=== PATIENT | male | born 1960 | race Caucasian/White ===

== ENCOUNTER → 2018-01-29 08:29 | Outpatient (CLI) | payer SELFPAY ==
--- NOTE | 2018-01-29 08:39 | RAD_ITS ---
STUDY: X-RAY - LUMBOSACRAL SPINE REASON FOR EXAM: Male, 57 years old. Pain TECHNIQUE: 7 view(s) of the lumbosacral spine were obtained. COMPARISON: Limited comparison May 01, 2014 FINDINGS: Normal lumbar lordosis. There is no substantial scoliosis. There is normal alignment of the vertebrae. There is a spinal fusion at L5-S1 with a disc spacer. There is an anterior cortical screw and bilateral pedicle screws with spinal rods. There is trace narrowing and spondylosis at the posterior aspect of the disc space at L1-L2. There is no apparent acute loss of height or alignment. With flexion there is a similar appearance of the alignment when compared to the neutral view. With extension there is a similar appearance of alignment with the neutral view. Normal visualized soft tissue structures. RAD/L/S Spine Bending Flex/Ext IMPRESSION: Status post spinal fusion as detailed above L5-S1. No visualized instability based on the flexion-extension effort provided. Electronically Signed: Susie Stern MD at 17:24 EDT Tel , Service support ,
== END ==
PROVIDERS: Family Provider Family Medicine; PCP Family Medicine; Visit Provider Family Medicine
DX: M54.9 Dorsalgia, unspecified (principal)
CPT/HCPCS: 72120

== ENCOUNTER → 2018-03-15 09:13 | Outpatient (CLI) | payer SELFPAY ==
[2018-03-15 11:08] LABS: Anion Gap 4 (5-15); BUN 9 mg/dL (7-18); BUN/Creat Ratio 8.5 RATIO (10-20); Calcium,Total 9.5 mg/dL (8.5-10.1); Chloride 104 mmol/L (98-107); Cholesterol 280 mg/dL (200); Creatinine, Serum 1.06 mg/dL (0.70-1.30); EST Glomerular Filtration Rate 76 mL/min (>60); Est Glom Filt Rate - Afr Amer 92 mL/min (>60); Glucose 99 mg/dL (74-106); High Density Lipoprotein 44 mg/dL; Potassium 4.2 mmol/L (3.5-5.1); Sodium Level 139 mmol/L (136-145); Triglycerides 195 mg/dL; Very Low Density Lipoprotein 39 mg/dL (5-40)
== END ==
PROVIDERS: Family Provider Family Medicine; PCP Family Medicine; Visit Provider Family Medicine
DX: Z00.00 Encounter for general adult medical examination without abnormal findings (principal)
CPT/HCPCS: 36415; 80048; 80061

== ENCOUNTER → 2018-10-01 11:57 | Outpatient (CLI) | payer SELFPAY | PROVIDERS: Family Provider Family Medicine; PCP Family Medicine; Referring Provider Family Medicine; Visit Provider Family Medicine | DX: Z01.818 Encounter for other preprocedural examination (principal) | CPT/HCPCS: 87081 ==

== ENCOUNTER 2019-03-18 09:49 | Observation (INO) | payer OTHER, SELFPAY ==
[2019-03-18] VITALS (10 sets, daily range): BP systolic 104–165; BP diastolic 52–99; PULSE 58–82; RESP 12–18; TEMP 36.5–36.8; O2SAT 94–97; BMI 32.8; BMI 32.7
--- NOTE | 2019-03-18 10:01 | EKG12_ITS ---
Test Reason : CP Blood Pressure : / mmHG Vent. Rate : 066 BPM Atrial Rate : 066 BPM P-R Int : 158 ms QRS Dur : 090 ms QT Int : 390 ms P-R-T Axes : 058 -40 030 degrees QTc Int : 408 ms Normal sinus rhythm with sinus arrhythmia Left axis deviation Low Voltage QRS (Limb Leads) Abnormal ECG Confirmed by GWYN STEWART, NICOL ([id number]), international editorial producer [employer] ([id number]) on 03/19/2019 11:22:48 AM Referred By: Genaro Butler Confirmed By:NICOL PASCAL MD
--- NOTE | 2019-03-18 10:04 | ED.VISSUMM ---
- ER Visit Summary Date of Service: 03/18/19 Chief Complaint: Chest pain History of Present Illness: The patient is a 58 M presenting with chest pain. He states this started yesterday while walking home from [employer]. He states he had to walk approximately half mile uphill. He began having left-sided chest pain. It was associated with nausea and shortness of breath. He states the pain was 8 out of 10. He states when he returned home and rested the pain subsided. He woke up this morning with pain that was not as severe. He wanted to walk up a hill to see if it worsened but his family did not allow this. He called his primary care physician and was advised to come to the ED. Physical Examination: Vitals are stable. Patient is afebrile. Alert no acute distress. HEENT exam is unremarkable. Neck is supple. Lungs are clear and equal bilaterally. Heart is regular rate and rhythm. Abdomen is soft nontender nondistended. Extremities are unremarkable. Skin is warm and dry. No focal neurologic deficit. Remainder of exam is unremarkable. Emergency Department Course and Treatment: Patient was given aspirin on arrival. EKG is sinus rate of 66 with no acute ischemic changes. Chest x-ray shows no acute process. CBC, chemistries unremarkable. Troponin 0.022. Patient is pain-free on reevaluation. Due to his exertional symptoms discussed with the hospitalist for observation. Disposition: Observation Impression: Chest pain This note was generated with [employer] dictation software. It may contain incorrect words, spelling, and punctuation that were not noted in review of the chart prior to signing ED Disposition - Plan for ED Patient: Referrals: Jorge Benitez MD [Primary Care Provider] -
--- NOTE | 2019-03-18 10:05 | RAD_ITS ---
STUDY: X-RAY CHEST REASON FOR EXAM: Male, 58 years old. Chest pain TECHNIQUE: Single AP portable view of the chest. COMPARISON: None. FINDINGS: The lungs are clear and expanded. There is no demonstrated pleural abnormality. Normal size heart. Normal mediastinum and mellissa. Normal visualized pulmonary arteries. Normal visualized aortic arch and descending thoracic aorta. Normal visualized thoracic spine. Normal visualized ribs, clavicles, and shoulders. There is no demonstrated abnormality of the visualized soft tissue structures of the upper abdomen. RAD/Chest 1 View (Portable) IMPRESSION: Normal x-ray examination of the chest. Electronically Signed: Yossi Sutton, at 10:58 EDT Tel , Service support ,
[2019-03-18] MEDS: Aspirin 81 MG TAB.CHEW 324 MG PO (10:07)
[2019-03-18 10:26] LABS: Absolute Lymphocyte Count 2.03 X10^3/ul (0.83-4.51); Absolute Neutrophil Count 3.1 X10^3/uL (2.0-7.7); Basophil# 0.01 X10^3/uL; Basophil% 0.2 % (0-1); Eosinophil# 0.04 X10^3/uL; Eosinophils% 0.7 % (0-5); Hematocrit 42.6 % (40-54); Hemoglobin 14.3 g/dl (13.0-16.5); Lymphocyte # 2.03 X10^3/ul (4.0); Lymphocyte % 36.2 % (19-41); Mean Corp Hgb Conc 33.6 g/gl (32-36); Mean Corpuscular Hgb 30.3 pg (27.0-32.0); Mean Corpuscular Volume 90.3 fL (80-94); Mean Platelet Vol. 10.2 fl (6.2-12.0); Monocyte% 7.1 % (0-10); Neutrophil % 55.3 % (47-70); Platelet Count 178 K/mm3 (150-450); RBC Distribution Width CV 13.1 % (11.6-14.6); RBC Distribution Width SD 43.4 fl (35.1-43.9); Red Blood Count 4.72 M/mm3 (4.6-6.2); White Blood Count 5.6 K/mm3 (4.4-11.0)
[2019-03-18 10:27] LABS: POSITIVE COUNT NO; POSITIVE DIFFERENTIAL NO; POSITIVE MORPHOLOGY NO
[2019-03-18 10:38] LABS: Anion Gap 3 (5-15); BUN 16 mg/dL (7-18); BUN/Creat Ratio 16.5 RATIO (10-20); Calcium,Total 8.7 mg/dL (8.5-10.1); Chloride 104 mmol/L (98-107); Creatinine, Serum 0.97 mg/dL (0.70-1.30); EST Glomerular Filtration Rate 84 mL/min (>60); Est Glom Filt Rate - Afr Amer 102 mL/min (>60); Estimated Creatinine Clearance 84.66 ml/min; Glucose 97 mg/dL (74-106); Potassium 3.6 mmol/L (3.5-5.1); Sodium Level 136 mmol/L (136-145)
--- NOTE | 2019-03-18 11:15 | PCM.HP.STD ---
Problem List (1) Atypical chest pain Status: Acute (2) Hypertension Status: Chronic History of Present Illness Date of Admission: 03/18/19 Chief Complaint: Chest pain for couple days The patient is a 58 year old M with history of hypertension and anxiety/depression on Prozac and Xanax came to ED with chest pain associated with shortness of breath since Monday. 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 He felt chest heaviness with shortness of breath on going uphill about half mile. Today in the morning he also felt chest pain lasted couple minutes, localized with no energy. In ED, blood pressure was elevated, heart rate 60/min. EKG normal sinus rhythm with sinus arrhythmia, LAD at 66 bpm. He had negative heart cath in August 2013. His basic blood work was normal. Past Medical History Past Medical History (Chronic Problems): Chronic Problems Hypertension (Chronic) Allergies iodine Allergy (Verified 03/18/19 09:50) Anaphylaxis Home Medications: Ambulatory Orders Medication Instructions Recorded ALPRAZolam [Xanax] 0.5 mg PO QHS 03/18/19 Calcium Carbonate [Calcium] 600 mg PO DAILY 03/18/19 Fluoxetine [Prozac] 10 mg PO DAILY 03/18/19 Oxycodone Myristate [Xtampza ER] 18 mg PO BID 03/18/19 Surgical History: spine surgery Smoking Status: Never smoker Tobacco Use: Chew - *Family History Paternal History Items: Cancer - of cancer, Heart Disease - Coronary artery disease in grandfather Review of Systems Constitutional: Denies: Chills, Fever, Weight Change HEENT: Denies: Head Aches, Sinus Congestion, Sinus Drainage Cardiovascular: Reports: Chest Pain. Denies: Palpitations Respiratory: Reports: Shortness of breath upon exertion. Denies: Cough, Shortness of breath at rest, Sputum production Gastrointestinal: Denies: Abdominal Pain, Nausea, Vomiting Genitourinary: Denies: Dysuria Musculoskeletal: Reports: Back Pain, Joint Pain. Denies: Joint Tenderness Skin: Denies: Rash, Wounds Neurological: Denies: Numbness, Tingling, Focal weakness Psychiatric: Denies: Anxiety, Depression, Homicidal Ideations, Suicidal Ideations Hematologic/ Lymphatic: Denies: Easy Bruising, Easy Bleeding VTE Information - Inpt Only VTE Present on Admission: No VTE Mechan Device Prophylaxis: None VTE Pharm Prophylaxis ordered?: Yes Patient Problems: Active and Suspected Problems Atypical chest pain (Acute) - Physical Exam General: Alert, Oriented x3, Cooperative HEENT: Atraumatic, PERRLA, EOMI, Normocephalic Neck: Supple, No JVD, Negative Carotid Bruits Lungs: Clear to auscultation, Normal air movement, No rhonchi, No wheeze, No rales Cardiovascular: Regular rate, Regular Rhythm, Normal S1, Normal S2, No murmurs Abdomen: Bowel Sounds Present, Soft, Non Tender, Non-Distended Extremities: No edema, Capillary Refill Less than 3 Seconds Skin: No rashes, No breakdown Musculoskeletal: No Tenderness to Palpation of Joints or Extremities, Arthritic Changes Lymphatic: No Cervical, Supraclavicular, or Inguinal Adenopathy Neurological: Cranial nerves II-XII grossly intact, Deep Tendon Reflexes 2+/4 and Symmetrical, Neuro grossly intact Psych/Mental Status: Normal Affect, Appropriate Vital Signs Temp Pulse Resp BP Pulse Ox 98.2 F 74 18 142/90 H 95 03/18/19 09:54 03/18/19 09:54 03/18/19 09:54 03/18/19 09:54 03/18/19 09:54 Oxygen Flow Rate (L/min) 2 Oxygen Delivery Method Nasal Cannula Weight: 229 lb 4.492 oz Body Mass Index (BMI) 32.8 Laboratory Tests Past 24 Hrs 03/18/19 03/18/19 04:58 04:58 WBC 5.6 RBC 4.72 Hgb 14.3 Hct 42.6 MCV 90.3 MCH 30.3 MCHC 33.6 RDW 13.1 RDW Differential 43.4 Plt Count 178 MPV 10.2 Immature Gran % (Auto) 0.500 Neut % (Auto) 55.3 Lymph % (Auto) 36.2 [place] % (Auto) 7.1 Eos % (Auto) 0.7 Baso % (Auto) 0.2 Absolute Neuts (auto) 3.1 Absolute Lymphs (auto) 2.03 Total Counted Not Reportable Sodium 136 Potassium 3.6 Chloride 104 Carbon Dioxide 29.0 Anion Gap 3 L BUN 16 Creatinine 0.97 Estim Creat Clear Calc 84.66 Est GFR (MDRD) Af Amer 102 Est GFR (MDRD) Non-Af 84 BUN/Creatinine Ratio 16.5 Glucose 97 Calcium 8.7 Troponin I 0.022 Assessment/Plan All Active Problems Atypical chest pain (Acute) The patient is a 58 year old M with history of hypertension and anxiety/depression on Prozac and Xanax came to ED with chest pain associated with shortness of breath since Monday. 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 He felt chest heaviness with shortness of breath on going uphill about half mile. Today in the morning he also felt chest pain lasted couple minutes, localized with no energy. In ED, blood pressure was elevated, heart rate 60/min. EKG normal sinus rhythm with sinus arrhythmia, LAD at 66 bpm. He had negative heart cath in August 2013. His basic blood work was normal. 1. Chest pain with high suspicion of angina/unstable angina: Patient is being admitted in PCU. Serial troponin and EKG. If troponin is positive, patient will go for cardiac cath otherwise Lexiscan a stress test tomorrow morning. Fasting lipid profile tomorrow a.m. 2. Hypertension: Blood pressure is elevated. Start on lisinopril 10 mg daily. 3. Dyslipidemia: Lipid profile in 2011 reported as total cholesterol 212, TG 253, LDL 121, HDL 40. Patient not on statin at home. Started on atorvastatin 40 g daily Nicotine dependence: Patient chews tobacco. Advised cessation. 4. Chronic back pain: Patient is on oxycodone at home. Continue it DVT prophylaxis: On Lovenox 40 mg subcut daily Laboratory Results 03/18/19 04:58: WBC 5.6, RBC 4.72, Hgb 14.3, Hct 42.6, MCV 90.3, MCH 30.3, MCHC 33.6, RDW 13.1, RDW Differential 43.4, Plt Count 178, MPV 10.2, Immature Gran % (Auto) 0.500, Neut % (Auto) 55.3, Lymph % (Auto) 36.2, [place] % (Auto) 7.1, Eos % (Auto) 0.7, Baso % (Auto) 0.2, Absolute Neuts (auto) 3.1, Absolute Lymphs (auto) 2.03, Total Counted Not Reportable 03/18/19 04:58: Sodium 136, Potassium 3.6, Chloride 104, Carbon Dioxide 29.0, Anion Gap 3 L, BUN 16, Creatinine 0.97, Estim Creat Clear Calc 84.66, Est GFR (MDRD) Af Amer 102, Est GFR (MDRD) Non-Af 84, BUN/Creatinine Ratio 16.5, Glucose 97, Calcium 8.7, Troponin I 0.022 03/18/19 13:00: Troponin I Pending Clinical Impression(s) from Imaging Studies Chest X-Ray 03/18/19 10:05 IMPRESSION: Normal x-ray examination of the chest. Code Visit OBSV E&M: 93255 Initial observation care L3
--- NOTE | 2019-03-18 12:45 | EKG12_ITS ---
Test Reason : CP ADMISSION Blood Pressure : / mmHG Vent. Rate : 060 BPM Atrial Rate : 060 BPM P-R Int : 146 ms QRS Dur : 092 ms QT Int : 412 ms P-R-T Axes : 041 -39 002 degrees QTc Int : 412 ms Normal sinus rhythm Left axis deviation Abnormal ECG When compared with ECG of 18-MAR-2019 09:51, MANUAL COMPARISON REQUIRED, DATA IS UNCONFIRMED Confirmed by FINN CHOE ([id number]), editor index CHELSI GRAHAM ([id number] on 03/25/2019 2:26:04 PM Referred By: Genaro Butler Confirmed By:BRAVO CHOE
--- NOTE | 2019-03-18 14:53 | CHAPLAIN ---
Type of Pastoral Visit _x__ Initial Visit ___ Follow-up Visit ___ On-call Visit ___ General Patient Visit ___ Spiritual Assessment ___ Family Conference ___ Bereavement ___ Rapid Response ___ Code Blue ___ Other (describe below) Pastoral Care Referral From _x__ Patient ___ Family ___ Nurse ___ Physician ___ Receiving And Processing Supervisor ___ Machining Associate ___ Other (describe below) Sacrament/Intervention _x__ Active listening ___ Anointing ___ Yazidi ___ Bereavement ___ Communion _x__ Radha exploration ___ ___ Life review _x__ Prayer ___ Reconciliation ___ Sacrament of Sick ___ Supportive presence ___ Wedding ___ Other (describe below) Pastoral Comments
[2019-03-18] MEDS: Enoxaparin 40 MG/0.4 ML Syringe SC (15:13)
[2019-03-18] MEDS: Lisinopril 10 MG Tablet PO (15:14)
[2019-03-18] MEDS: Atorvastatin Calcium 40 MG Tablet PO (21:43)
[2019-03-18] MEDS: ALPRAZolam 0.5 MG Tablet PO (21:43)
[2019-03-18] MEDS: Acetaminophen 325 MG Tablet 650 MG PO (21:44)
[2019-03-19 03:00] VITALS: PULSE 54
[2019-03-19 04:00] VITALS: BP 97/56; PULSE 54; RESP 18; TEMP 36.5; O2SAT 96
[2019-03-19 05:40] LABS: Hematocrit 43.7 % (40-54); Hemoglobin 14.4 g/dl (13.0-16.5); Mean Corpuscular Hgb 29.8 pg (27.0-32.0); Mean Corpuscular Volume 90.5 fL (80-94); Mean Platelet Vol. 10.6 fl (6.2-12.0); Platelet Count 167 K/mm3 (150-450); RBC Distribution Width CV 13.4 % (11.6-14.6); Red Blood Count 4.83 M/mm3 (4.6-6.2); White Blood Count 4.7 K/mm3 (4.4-11.0)
[2019-03-19 05:42] LABS: Scan Indicated on CBC? Y/N NO
--- NOTE | 2019-03-19 05:55 | EKG12_ITS ---
Test Reason : AM Blood Pressure : / mmHG Vent. Rate : 054 BPM Atrial Rate : 054 BPM P-R Int : 158 ms QRS Dur : 092 ms QT Int : 420 ms P-R-T Axes : 065 -17 041 degrees QTc Int : 398 ms Sinus bradycardia Otherwise normal ECG When compared with ECG of 18-MAR-2019 13:02, MANUAL COMPARISON REQUIRED, DATA IS UNCONFIRMED Confirmed by FINN CHOE ([id number]), technical writer and editor CHELSI GRAHAM ([id number]) on 03/25/2019 2:25:42 PM Referred By: Genaro Butler Confirmed By:BRAVO CHOE
[2019-03-19 06:12] LABS: Anion Gap 7 (5-15); BUN 14 mg/dL (7-18); BUN/Creat Ratio 13.9 RATIO (10-20); Calcium,Total 8.9 mg/dL (8.5-10.1); Chloride 107 mmol/L (98-107); Cholesterol 258 mg/dL (200); Creatinine, Serum 1.01 mg/dL (0.70-1.30); EST Glomerular Filtration Rate 80 mL/min (>60); Est Glom Filt Rate - Afr Amer 97 mL/min (>60); Estimated Creatinine Clearance 81.31 ml/min; Glucose 99 mg/dL (74-106); High Density Lipoprotein 48 mg/dL; Sodium Level 142 mmol/L (136-145); Triglycerides 233 mg/dL; Very Low Density Lipoprotein 47 mg/dL (5-40)
[2019-03-19 06:20] VITALS: BP 103/68; PULSE 55; RESP 18; TEMP 36.8; O2SAT 96
[2019-03-19] MEDS: Aspirin E.C. 81 MG Tablet PO (06:23)
[2019-03-19] MEDS: Lisinopril 10 MG Tablet PO (06:28)
[2019-03-19 07:01] LABS: International Normalized Ratio 0.9; Prothrombin Time (Protime)PT. 12.3 SECONDS (11.7-14.9)
[2019-03-19 07:02] LABS: Partial Thromboplast Time 29.5 Seconds (24.1-36.2)
--- NOTE | 2019-03-19 08:44 | STRESSREP ---
Stress Test Report Date: 03-19-19 Procedure: Pharmacologic stress nuclear imaging study Indications: Chest pain Consent: Per the patient Procedure: The patient underwent pharmacologic (Regadenoson) evaluation with a peak heart rate of 73 beats per minute (45 %predicted maximal heart rate) and a peak blood pressure of 109/74 mmHg. The baseline ECG demonstrated sinus bradycardia. The peak pharmacologic ECG demonstrated no obvious ECG changes. There were no cardiac dysrhythmias pretest, during pharmacologic infusion, or recovery. There was no complaint of chest discomfort during pharmacologic infusion or recovery. The examination was discontinued secondary to completion of protocol. Impression: 1. Pharmacologic (Regadenoson) evaluation 2. Peak pharmacologic ECG with no obvious ECG changes. 3. There were no cardiac dysrhythmias pretest, during pharmacologic infusion, or recovery. 4. Nuclear images pending Myocardial perfusion imaging study: Technique: The patient was injected with 14.3 millicuries of technetium 99m Cardiolite and subsequently rest SPECT Cardiolite nuclear imaging was obtained in the horizontal long, vertical long, and short axis views. The patient underwent pharmacologic (Regadenoson) evaluation with a peak heart rate of 73 beats per minute (45 % percent predicted maximal heart rate) and a peak blood pressure of 109/74 mmHg. The patient was injected with 43.9 millicuries of technetium 99m Cardiolite and subsequently stress SPECT Cardiolite nuclear imaging was obtained in the horizontal long, vertical long, and short axis views. A gated Cardiolite study at peak stress was obtained. Interpretation: Rest and stress SPECT Cardiolite nuclear imaging status post realignment, normalization, and attenuation correction demonstrate relative uniform tracer uptake and myocardial perfusion appearing within normal limits. There is end systolic thickening and brightening. The gated Cardiolite study demonstrates myocardial thickening and inward wall motion. The reported LVEF is 73 %. Impression: 1. Rest and stress SPECT Cardiolite nuclear imaging demonstrate relative uniform tracer uptake and myocardial perfusion appearing within normal limits. 2. The gated Cardiolite study reports an LVEF of 73 %. This note was generated with [employer] software. It may contain incorrect words, spelling, and punctuation that were not noted in checking the note before signing.
[2019-03-19 08:54] VITALS: PULSE 66
[2019-03-19 08:58] VITALS: BP 105/69; PULSE 69; RESP 16; TEMP 36.5; O2SAT 96
--- NOTE | 2019-03-19 09:57 | DCINST_ITS ---
- Discharge Diagnoses Current Active Problems: Current Active and Chronic Problems Atypical chest pain (Acute) Hypertension (Chronic) You will use the following diet at home:: Cardiac Discharge Activity: Return to Normal Activity Call your doctor if you observe: Fever of 101 or Higher, Inability to have a bowel movement, Using more than one pad per hour, Shortness of breath, Fainting spells, Swelling in the ankles, Chest pain, Uncontrolled pain Allergies/Adverse Reactions: Allergies iodine Allergy (Verified 03/18/19 09:50) Anaphylaxis Medications to take at Discharge ALPRAZolam [Xanax] 0.5 mg PO QHS 03/18/19 Calcium Carbonate [Calcium] 600 mg PO DAILY 03/18/19 Fluoxetine [Prozac] 10 mg PO DAILY 03/18/19 Oxycodone Myristate [Xtampza ER] 18 mg PO BID 03/18/19 Atorvastatin Calcium [Lipitor] 40 mg PO QHS #30 tablet 03/19/19 Lisinopril [Zestril] 5 mg PO DAILY #30 tablet 03/19/19 The following prescriptions were given: Atorvastatin Calcium [Lipitor] 40 mg PO QHS #30 tablet Lisinopril [Zestril] 5 mg PO DAILY #30 tablet Primary Care Physician: Jorge Benitez MD [Primary Care Provider] - Please follow up with your Primary Care Physician in: in 2 weeks. May need PFT for undiagnosed SOB. Test Results: Test results from this visit will be discussed in further detail at your follow- up appointment, if applicable.
--- NOTE | 2019-03-19 09:58 | PCM.DC.SUM ---
Discharge Date and Diagnosis Date of Admission: 03/18/19 Date of Discharge: 03/19/19 - Primary Discharge Diagnosis Active and Suspected Problems Atypical chest pain (Acute) - Secondary Discharge Diagnosis Chronic Problems Hypertension (Chronic) Hospital Course and Treatment Imaging Results: 03/19/19 05:55 Nuclear Stress Test - Chemical [NM] AM (NON MEDS) Summary of Care Provided: [] The patient is a 58 year old M with history of hypertension and anxiety/depression on Prozac and Xanax came to ED with chest pain associated with shortness of breath since Monday. 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 He felt chest heaviness with shortness of breath on going uphill about half mile. Today in the morning he also felt chest pain lasted couple minutes, localized with no energy. In ED, blood pressure was elevated, heart rate 60/min. EKG normal sinus rhythm with sinus arrhythmia, LAD at 66 bpm. He had negative heart cath in August 2013. His basic blood work was normal. 1. Chest pain, acute coronary syndrome ruled out: Patient is being admitted in PCU. Serial troponin enzymes were negative. Furthermore, patient had nuclear stress test and was negative for stress induced ischemia. Patient was advised further to follow-up with PCP in 2 weeks. Denies history of GERD. 2. Hypertension: Blood pressure is elevated. Start on lisinopril 10 mg daily. Blood pressure dropped down to 103/68 therefore discharged on lisinopril 5 mg daily. Keep nightly. 3. Dyslipidemia: Lipid profile in 2011 reported as total cholesterol 212, TG 253, LDL 121, HDL 40. Fasting profile shows TG 233, total cholesterol 258, LDL 163. Patient is discharged on atorvastatin 40 g daily Nicotine dependence: Patient chews tobacco. Advised cessation. 4. 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 Liriano. Patient is on oxycodone at home. Continue it DVT prophylaxis: On Lovenox 40 mg subcut daily Discharge medication reconciliation done. Discharge follow-up instructions completed. Discharge process discussed with the patient and all questions were answered to patient's satisfaction. Subjective: Patient states that he has weight gain recently last 6 months. This might have led to his physical deconditioning and shortness of breath on going uphill. He might have also muscle pulled getting to left-sided chest pain. Stress test is negative. - Physical Exam General: Alert, Oriented x3, Cooperative HEENT: Atraumatic, PERRLA, EOMI, Normocephalic Neck: Supple, No JVD, Negative Carotid Bruits Lungs: Clear to auscultation, Normal air movement, No rhonchi, No wheeze, No rales Cardiovascular: Regular rate, Regular Rhythm, Normal S1, Normal S2, No murmurs Abdomen: Bowel Sounds Present, Soft, Non Tender, Non-Distended Extremities: No edema, Capillary Refill Less than 3 Seconds Skin: No rashes, No breakdown Musculoskeletal: No Tenderness to Palpation of Joints or Extremities, Arthritic Changes - Of lumbar spine. Lymphatic: No Cervical, Supraclavicular, or Inguinal Adenopathy Neurological: Cranial nerves II-XII grossly intact, Deep Tendon Reflexes 2+/4 and Symmetrical, Neuro grossly intact Psych/Mental Status: Normal Affect, Appropriate Vital Signs Temp Pulse Resp BP Pulse Ox 97.7 F L 69 16 105/69 96 03/19/19 08:58 03/19/19 08:58 03/19/19 08:58 03/19/19 08:58 03/19/19 08:58 Oxygen Flow Rate (L/min) 2 Oxygen Delivery Method Room Air Weight: 227 lb 15.327 oz Body Mass Index (BMI) 32.7 Intake and Output for Last 24 Hours 03/17/19 03/18/19 03/19/19 23:59 23:59 23:59 Intake Total 740 / 740 240 / 240 Balance 740 / 740 240 / 240 Laboratory Tests Past 24 Hrs 03/18/19 03/18/19 03/18/19 04:58 04:58 13:00 WBC 5.6 RBC 4.72 Hgb 14.3 Hct 42.6 MCV 90.3 MCH 30.3 MCHC 33.6 RDW 13.1 RDW Differential 43.4 Plt Count 178 MPV 10.2 Immature Gran % (Auto) 0.500 Neut % (Auto) 55.3 Lymph % (Auto) 36.2 [place] % (Auto) 7.1 Eos % (Auto) 0.7 Baso % (Auto) 0.2 Absolute Neuts (auto) 3.1 Absolute Lymphs (auto) 2.03 Total Counted Not Reportable PT INR APTT Sodium 136 Potassium 3.6 Chloride 104 Carbon Dioxide 29.0 Anion Gap 3 L BUN 16 Creatinine 0.97 Estim Creat Clear Calc 84.66 Est GFR (MDRD) Af Amer 102 Est GFR (MDRD) Non-Af 84 BUN/Creatinine Ratio 16.5 Glucose 97 Calcium 8.7 Troponin I 0.022 0.021 Triglycerides Cholesterol LDL Cholesterol VLDL Cholesterol HDL Cholesterol TSH 03/18/19 03/19/19 03/19/19 15:34 05:10 05:10 WBC 4.7 RBC 4.83 Hgb 14.4 Hct 43.7 MCV 90.5 MCH 29.8 MCHC 33.0 RDW 13.4 RDW Differential 44.0 H Plt Count 167 MPV 10.6 Immature Gran % (Auto) Neut % (Auto) Lymph % (Auto) [place] % (Auto) Eos % (Auto) Baso % (Auto) Absolute Neuts (auto) Absolute Lymphs (auto) Total Counted PT INR APTT Sodium 142 Potassium 4.0 Chloride 107 Carbon Dioxide 28.0 Anion Gap 7 BUN 14 Creatinine 1.01 Estim Creat Clear Calc 81.31 Est GFR (MDRD) Af Amer 97 Est GFR (MDRD) Non-Af 80 BUN/Creatinine Ratio 13.9 Glucose 99 Calcium 8.9 Troponin I 0.023 Triglycerides 233 H Cholesterol 258 H LDL Cholesterol 163 H VLDL Cholesterol 47 H HDL Cholesterol 48 TSH 2.20 03/19/19 03/19/19 05:10 06:40 WBC RBC Hgb Hct MCV MCH MCHC RDW RDW Differential Plt Count MPV Immature Gran % (Auto) Neut % (Auto) Lymph % (Auto) [place] % (Auto) Eos % (Auto) Baso % (Auto) Absolute Neuts (auto) Absolute Lymphs (auto) Total Counted PT Cancelled 12.3 INR Cancelled 0.9 APTT Cancelled 29.5 Sodium Potassium Chloride Carbon Dioxide Anion Gap BUN Creatinine Estim Creat Clear Calc Est GFR (MDRD) Af Amer Est GFR (MDRD) Non-Af BUN/Creatinine Ratio Glucose Calcium Troponin I Triglycerides Cholesterol LDL Cholesterol VLDL Cholesterol HDL Cholesterol TSH Discharge Activity: Return to Normal Activity Call your doctor if you observe: Fever of 101 or Higher, Inability to have a bowel movement, Using more than one pad per hour, Shortness of breath, Fainting spells, Swelling in the ankles, Chest pain, Uncontrolled pain Home Medications: Medications to take at Discharge ALPRAZolam [Xanax] 0.5 mg PO QHS 03/18/19 Calcium Carbonate [Calcium] 600 mg PO DAILY 03/18/19 Fluoxetine [Prozac] 10 mg PO DAILY 03/18/19 Oxycodone Myristate [Xtampza ER] 18 mg PO BID 03/18/19 Atorvastatin Calcium [Lipitor] 40 mg PO QHS #30 tablet 03/19/19 Lisinopril [Zestril] 5 mg PO DAILY #30 tablet 03/19/19 Following Prescrptions Were Given to Patient: Atorvastatin Calcium [Lipitor] 40 mg PO QHS #30 tablet Lisinopril [Zestril] 5 mg PO DAILY #30 tablet Primary Care Physician: Jorge Benitez MD [Primary Care Provider] - Please follow up with your Primary Care Physician in: in 2 weeks. May need PFT for undiagnosed SOB. Medical Necessity - Tobacco Use Smoking Status: Never smoker Tobacco Use: Chew Meaningful Use Info Meaningful Use Diagnoses (Choose all that apply): None applicable Code Visit OBSV E&M: 80141 Observation care discharge
[2019-03-19 10:30] VITALS: BP 119/69; PULSE 63; RESP 16; O2SAT 94
== END 2019-03-19 09:57 | disposition home or self-care (01) ==
LOC: ED 10:29 → PCU 12:42
PROVIDERS: Admitting Provider Internal Medicine; Emergency Provider Emergency Medicine; Family Provider Family Medicine; PCP Family Medicine; Referring Provider Internal Medicine; Visit Provider Internal Medicine
DX: R07.89 Other chest pain (principal); R06.02 Shortness of breath; R11.0 Nausea; I10 Essential (primary) hypertension; F41.9 Anxiety disorder, unspecified; F32.9 Major depressive disorder, single episode, unspecified; F17.220 Nicotine dependence, chewing tobacco, uncomplicated; E78.5 Hyperlipidemia, unspecified; G89.29 Other chronic pain; Z79.899 Other long term (current) drug therapy; R94.31 Abnormal electrocardiogram [ECG] [EKG]
CPT/HCPCS: 36415; 71045; 78452; 80048; 80061; 84443; 84484; 85025; 85027; 85610; 85730; 93005; 93017; 96372; 99218; 99285; 99406; A9500; A4216; G0378; J2785

== ENCOUNTER → 2020-01-30 14:04 | Outpatient (CLI) | payer SELFPAY ==
[2019-03-18 12:47] VITALS: BMI 32.7
--- NOTE | 2020-01-30 14:06 | RAD_ITS ---
STUDY: X-RAY - LEFT KNEE REASON FOR EXAM: Left knee pain, no recent injury. TECHNIQUE: 4 view(s) of the knee. COMPARISON: Radiographs 01/18/2016. FINDINGS: Normal visualized distal femur. Normal visualized proximal tibia and fibula. Normal proximal tibiofibular articulation. Normal medial femorotibial compartment. Normal lateral femorotibial compartment. Normal patellofemoral articulation. The soft tissue structures are unremarkable. RAD/Knee 4 or More Views IMPRESSION: Normal x-ray examination of the left knee. Electronically Signed: Sherman Issa MD at 14:46 EDT Tel , Service support ,
== END ==
PROVIDERS: PCP Family Medicine; Referring Provider Physician Assistant; Visit Provider Physician Assistant
DX: M25.562 Pain in left knee (principal)
CPT/HCPCS: 73564

== ENCOUNTER 2020-09-18 10:07 | Emergency (ER) | payer OTHER, SELFPAY ==
[2020-01-30 14:23] VITALS: BMI 32.7
[2020-09-18 10:08] VITALS: BP 163/83; PULSE 89; RESP 16; TEMP 37.8; O2SAT 97; BMI 31.9
--- NOTE | 2020-09-18 10:39 | ED.VIS.GEN ---
History of Present Illness Informant: Patient Onset: Days Narrative: 60-year-old male with past medical history of hypertension presents with cough and flulike symptoms. He states for the last 3 days he has had a productive cough, myalgias, and chills. He went on vacation 1.5 weeks ago with his [id number] who has since tested positive for Covid. He has had multiple other family members who had Covid within the last 2 weeks. He felt his cough was worse today which is what brought him in. Denies fevers, nausea, vomiting, chest pain, shortness of breath, abdominal pain, diarrhea, or rash. <Patria Kerns - Last Filed: 09/18/20 13:35> <Jimenez Tineo - Last Filed: 09/18/20 14:39> Chief Complaint: Cough Past Medical History Past Medical History: - - Hypertension, MATEUS, multiple back surgeries Surgical History: spine surgery Smoking Status: Never smoker - Family History Paternal Family History: Reports: Cancer - of cancer, Heart Disease - Coronary artery disease in grandfather <Patria Kerns - Last Filed: 09/18/20 13:35> <Jimenez Tineo - Last Filed: 09/18/20 14:39> - Allergies and Home Meds Allergies/Adverse Reactions: Allergies iodine Allergy (Verified 09/18/20 10:08) Anaphylaxis Primary Care Physician: Jorge Benitez MD [Primary Care Provider] - Review of Systems General: Reports: Chills, Malaise. Denies: Fever Eyes: Denies: Visual changes - bilaterally, Diplopia ENT: Denies: Rhinorrhea, Sore throat Cardiovascular: Denies: Chest pain, Palpitations Respiratory: Reports: Cough. Denies: Dyspnea, Dyspnea on exertion Genitourinary: Denies: Dysuria, Hematuria, Frequency Musculoskeletal: Reports: Myalgias. Denies: Back pain, Extremity Pain Skin: Denies: Rash, Wounds Neurological: Reports: Headache. Denies: Weakness <Patria Kerns - Last Filed: 09/18/20 13:35> Physical Exam Vital Signs/Narrative: Vital Signs Temp Pulse Resp BP Pulse Ox 09/18/20 10:08 100.1 F H 89 16 163/83 H 97 General: Well nourished, Well developed, No Acute Distress Head: Normocephalic, Atraumatic Eyes: Perrl, EOMI ENT: Moist mucous membranes, No rhinorrhea Neck: Supple, Nontender Cardiovascular: Regular rate, Regular rhythm, No murmurs Respiratory: No distress, CTA bilaterally, Chest nontender Abdomen: Soft, Nontender, Nondistended, Normal bowel sounds Back: Nontender, Normal Inspection Extremities: Nontender, No edema Skin: Normal color, No rash Neurological: Alert, Oriented x3, Cranial nerves II-XII grossly intact Psychological: Normal affect, Normal Mood <Patria Kerns - Last Filed: 09/18/20 13:35> Vital Signs/Narrative: Vital Signs Pulse Resp Pulse Ox 09/18/20 11:46 89 20 H 97 <Jimenez Tineo - Last Filed: 09/18/20 14:39> Diagnostic/Tx/Re-eval Clinical Impression(s) from Imaging Studies Chest X-Ray 09/18/20 10:49 IMPRESSION: Normal x-ray examination of the chest. Electronically Signed: Jeremi Bates, at 11:00 EDT , Service support , - Medical Decision Making Patient presented with cough and flulike symptoms after multiple known Covid exposures. He appears well nontoxic. He is resting comfortably in bed. Vital signs are within normal limits. Lungs are clear to auscultation. Chest x-ray shows no acute process. At this time there is no indication for further labs or imaging. COVID-19 test is pending although I told him that he is positive and needs to quarantine. At this time and symptomatic treatment with over the counter medication and hydration. Return for chest pain or worsening shortness of breath. He was agreeable and discharged home in stable condition. <Patria Kerns - Last Filed: 09/18/20 13:35> - Medical Decision Making Patient presents with viral/flulike symptoms. He has had exposure to pain members who were positive for Covid. Vital signs are noted. Heart is regular. Lungs are clear to auscultation. Abdomen soft nontender. Chest x-ray reveals no acute infiltrate. Based on patient's constellation of symptoms and multiple exposures suspect he has Covid. He was told to self quarantine. <Jimenez Tineo - Last Filed: 09/18/20 14:39> ED Disposition <Patria Kerns - Last Filed: 09/18/20 13:35> <Jimenez Tineo - Last Filed: 09/18/20 14:39> - Plan for ED Patient: Disposition: Home or Assisted Living Diagnosis: COVID-19 Instructions: ED Upper Resp Infec No Abx Tx Referrals: Jorge Benitez MD [Primary Care Provider] -
--- NOTE | 2020-09-18 10:49 | RAD_ITS ---
STUDY: X-RAY CHEST REASON FOR EXAM: Male, 60 years old. COUGH TECHNIQUE: Single AP portable view of the chest. COMPARISON: Comparison is made with prior study dated 03/18/2019. FINDINGS: The lungs are clear and expanded. There is no demonstrated pleural abnormality. Normal size heart. Normal mediastinum and mellissa. Normal visualized pulmonary arteries. Normal visualized aortic arch and descending thoracic aorta. Normal visualized thoracic spine. Normal visualized ribs, clavicles, and shoulders. There is no demonstrated abnormality of the visualized soft tissue structures of the upper abdomen. RAD/Chest 1 View (Portable) IMPRESSION: Normal x-ray examination of the chest. Electronically Signed: Jeremi Bates, at 11:00 EDT , Service support ,
[2020-09-18 10:57] VITALS: O2SAT 96
[2020-09-18 11:46] VITALS: PULSE 89; RESP 20; O2SAT 97
== END 2020-09-18 12:32 | disposition home or self-care (01) ==
LOC: ED 10:45
PROVIDERS: Emergency Provider Physician Assistant; PCP Family Medicine
DX: U07.1 COVID-19 (principal); I10 Essential (primary) hypertension; G47.33 Obstructive sleep apnea (adult) (pediatric)
CPT/HCPCS: 71045; 87635; 99281; U0003

== ENCOUNTER → 2021-01-07 09:14 | Outpatient (CLI) | payer SELFPAY ==
[2021-01-07 11:36] LABS: Anion Gap 5 (5-15); BUN 17 mg/dL (7-18); BUN/Creat Ratio 17.4 RATIO (10-20); Calcium,Total 9.6 mg/dL (8.5-10.1); Chloride 107 mmol/L (98-107); Cholesterol 273 mg/dL (200); Creatinine, Serum 0.98 mg/dL (0.70-1.30); EST Glomerular Filtration Rate 83 mL/min (>60); Est Glom Filt Rate - Afr Amer 100 mL/min (>60); Glucose 94 mg/dL (74-106); High Density Lipoprotein 66 mg/dL; Potassium 3.7 mmol/L (3.5-5.1); Sodium Level 139 mmol/L (136-145); Triglycerides 122 mg/dL; Very Low Density Lipoprotein 24 mg/dL (5-40)
== END ==
PROVIDERS: PCP Family Medicine; Referring Provider Family Medicine; Visit Provider Family Medicine
DX: Z00.00 Encounter for general adult medical examination without abnormal findings (principal)
CPT/HCPCS: 36415; 80048; 80061; 82306

== ENCOUNTER 2021-01-22 06:21 | Day surgery (SDC) | payer SELFPAY, OTHER ==
[2021-01-22] VITALS (7 sets, daily range): BP systolic 98–128; BP diastolic 66–80; PULSE 52–65; RESP 16–18; TEMP 36.1; O2SAT 94–97; BMI 31.8
--- NOTE | 2021-01-22 06:48 | H&P.OPEN ---
History of Present Illness Date of Admission: 01/22/21 The patient is a 60 year old M here for screening colonoscopy. The patient has never had a colonoscopy in the past. He does have a significant history in his family of colon cancer with 4 uncles having colon cancer. No immediate family members. He has never had any rectal bleeding and he has no abdominal pain. Past Medical/Surgical History - Planned Operation Planned Operative Procedure/s: COLONOSCOPY Date of Operative Procedure: 01/22/21 Permit Signed: Yes S.O.S: No Is This Patient Having a Total Joint: No - Previous Hospitalizations/Surgeries HX Hospitalizations: No HX of Surgeries: BACK SURGERY X5. NECK SURGERY X5 Any Problems With Anesthesia: No You/Your Family Experience Fever (Hyperthermia) With Anes: No Cholinesterase deficiency: No - Cardiovascular Hx Chest Pain within Last 2 months: No Hx of Irregular Heartbeat and/or Afib: No Hx Heart Attack: No Hx Congestive Heart Failure: No Hx Rheumatic Fever: No Hx Hypertension: No Hx Internal Defibrillator: No Hx Pacemaker: No Hx Cardiac Catheterization: No Hx Cardiac Surgery/Stents/Etc.: No Hx Stress Test: Yes - [facility] 2019 HX Edema: No Hx Pain in Legs when Walking/Leg Cramps: Yes - Respiratory Chronic Cough: No HX of Shortness of Breath: No Hoarseness: No Hx Chronic Obstructive Pulmonary Disease (COPD): No Hx Asthma: No Hx Emphysema: No Hx Sleep Apnea: Yes CPAP: Yes - hasnt been wearing, HAS HAD WEIGHT LOSS BIPAP: No Hx Oxygen Use at Home: No Hx Respiratory Tract Infection/Cold (presently): No Result (for STOP score): Positive Hx Smoking: Yes Smoking Status: Former smoker - Gastrointestinal Hx Gastroesophageal Reflux: No Hx Gastrointestinal Disorders: No Hx Gastrointestinal Bleed: No Hx Ulcer: Yes - several years Hx Hiatal Hernia: No Difficulty Chewing/Swallowing: No Recent Onset of Swallowing Problems: No Special diet followed at home: No Hx Unplanned Weight Loss of 20#: No HX Unplanned Weight Gain of 20#: No - Neurological Hx Seizures: No HX Syncope/Blackout Spells/Unconsciousness: No Hx CVA/Stroke: No Hx Transient Ischemic Attacks (TIA): No Hx Multiple Sclerosis: No Hx Parkinson's Disease: No Hx Head/Neck Injury: Yes - NECK INJURY-RESULTED IN SURGERY Hx Headaches: No Hx Back Injury/Pain: Yes - BACK INJURY-FELL 22 FT- RESULTED IN 5 BACK SURGERIES Recent Onset of Speech Difficulty: No Restless Legs: No Does patient have nerve stimulator: No - Blood Disorder Hx Leukemia: No Bleeding Tendencies: No Hx Deep Vein Thrombosis: No Hx High Cholesterol: Yes - ON NO MEDS Blood Transmitted Disease: No Hx Hepatitis: No Hx Cirrhosis: No Hx Anemia: No Hx Blood Disorders: No - Genitourinary Hx Renal Disease: No Hx Dialysis: No - Musculoskeletal Hx Arthritis: Yes Hx Rheumatoid Arthritis: No Hx Gout: No Recent Onset of an Orthopedic Problem: No - Endocrine Hx Diabetes: No Thyroid Disease: No Hx Steroid Therapy: Yes - INJ 45 DAYS AGO - Psycho/Social Hx Substance Use: No Hx Alcohol Use: No Hx Anxiety: Yes Hx Depression: No Mental Illness: No Hx Dementia: No - Miscellaneous Hx Cancer: No Recent Exposure to Contagious Disease: No Active MRSA: No Hx of C-Diff: No Any Loose Teeth: Yes - UPPER DENTURES Allergies iodine Allergy (Verified 01/15/21 12:00) Anaphylaxis Paternal Cancer, Heart Disease - Discharge Is Pt Admitted From a [facility], or a Skilled Nursing: No Who Could Help: After D/C, Where Do you Plan to Go: Return Home - Physical Exam Vitals/I&O's: Vital Signs Temp Pulse Resp BP Pulse Ox 96.9 F L 65 16 128/80 H 97 01/22/21 06:38 01/22/21 06:38 01/22/21 06:38 01/22/21 06:38 01/22/21 06:38 Oxygen Delivery Method Room Air Weight: 225 lb 4.999 oz Body Mass Index (BMI) 31.8 General: Alert, Oriented x3 Neck: Supple, No JVD Lungs: Normal air movement Cardiovascular: Regular rate, Regular Rhythm Abdomen: Soft, Non Tender, Non-Distended Microbiology Past 72 Hours 01/21/21 14:32 Interface Orders SARS-CoV-2 Antigen (Rapid) - Final Assessment/Plan All Active Problems (Last Reviewed 01/30/20 @ 14:12 by Lindsay Constantino) Atypical chest pain (Acute) 60-year-old male for screening colonoscopy I explained endoscopy in detail to the patient. I explained the risks including but not limited to stroke or heart attack with anesthesia, perforation of the GI tract, bleeding, infection. I explained that any of these could necessitate further emergency surgery. The patient understands and all questions were answered sufficiently. The patient wishes to proceed with procedure. Donta Anne MD Pager: [facility] [address] [place] [address] [address] [place] [address] Office: Surgery Risks - Colonoscopy Risks Include but are not Limited To: Risks include but are not limited to: Bleeding, perforation requiring further surgery, inability to complete colonoscopy requiring barium enema.
[2021-01-22] MEDS: Lactated Ringers 1,000 ML 100 ML IV (06:54)
--- NOTE | 2021-01-22 07:30 | COL_PTH ---
PATIENT: ANTOINE OLIVEIRA LOC: EN U#:[id number] AGE/SX: 60/M ROOM: RE01/22/[address]: Dr. Donta Anne MD : 1960 BED: DIS: 01/22/2021 SPEC #: [id number] RECD: 01/22/21 10:31 STATUS: JERRY QURESHI #: [id number] ALEXANDR: 01/22/21 07:[address]: Donta Anne DEPT: SURGICAL PATHOLOGY RECD BY: Dorcas Lundberg ENTERED: 01/22/21 10:59 SP TYPE: COLON OTHR DR: Dr. Jorge Benitez MD Tissues: Colon, NOS Procedures: Surgery Specimen Level V HEADER OPERATION: Colonoscopy - open access (MAC) PRE-OP DIAGNOSIS: Screening colonoscopy TISSUE SUBMITTED: Sigmoid colon polyps MICROSCOPIC DIAGNOSIS Sigmoid colon polyps, biopsy: Fragments of hyperplastic polyp. Fragments of fecal material. SJ:sigifredo 01/25/2021 MICROSCOPIC DESCRIPTION Slides are reviewed. GROSS DESCRIPTION Received in fixative is one container labeled with the patient's name and designated sigmoid colon polyps. The specimen consists of multiple irregular fragments of light aguilera soft tissue that in aggregate measure 1 x 0.3 x 0.2 cm. The specimen is totally submitted in one cassette. / SJ:sigifredo 01/22/21 TC:1 CPT: 17896
--- NOTE | 2021-01-22 08:10 | OP.COLON_ITS ---
Patient Name: Enrique Scott Procedure Date: 01/22/2021 7:09 AM Date of : 1960 Age: 60 Procedure: Colonoscopy Indications: Screening for colorectal malignant neoplasm, Colon cancer screening in patient at increased risk: Family history of colorectal cancer in multiple 2nd degree relatives Providers: Donta Anne MD Referring MD: Donta Anne MD Medicines: Monitored Anesthesia Care Patient Profile: This is a 60 year old male. Refer to note in patient chart for documentation of history and physical. Last Colonoscopy: none. The patient's first colonoscopy is today. Complications: No immediate complications. Procedure: Pre-Anesthesia Assessment: - Prior to the procedure, a History and Physical was performed, and patient medications and allergies were reviewed. The patient's tolerance of previous anesthesia was also reviewed. The risks and benefits of the procedure and the sedation options and risks were discussed with the patient. All questions were answered, and informed consent was obtained. Prior Anticoagulants: The patient has taken no previous anticoagulant or antiplatelet agents. After reviewing the risks and benefits, the patient was deemed in satisfactory condition to undergo the procedure. After I obtained informed consent, the scope was passed under direct vision. Throughout the procedure, the patient's blood pressure, pulse, and oxygen saturations were monitored continuously. The colonoscope was introduced through the anus and advanced to the cecum, identified by appendiceal orifice and ileocecal valve. The colonoscopy was performed without difficulty. The patient tolerated the procedure well. The quality of the bowel preparation was good. Scope In: 7:44:56 AM Scope Withdrawal Time 0 hours 7 minutes 14 seconds Scope Out: 7:55:58 AM Total Procedure Duration Time 0 hours 11 minutes 2 seconds Findings: Two polyps were found in the sigmoid colon. The polyps were small in size. These polyps were removed with a hot snare. Resection and retrieval were complete. The exam was otherwise without abnormality on direct and retroflexion views. Impression: - Two small polyps in the sigmoid colon, removed with a hot snare. Resected and retrieved. - The examination was otherwise normal on direct and retroflexion views. Recommendation: - Discharge patient to home. - Resume previous diet. - Continue present medications. - Await pathology results. - Repeat colonoscopy in 5 years for surveillance. Procedure Code(s): --- Professional --- 63388, Colonoscopy, flexible; with removal of tumor(s), polyp(s), or other lesion(s) by snare technique Diagnosis Code(s): --- Professional --- Z12.11, Encounter for screening for malignant neoplasm of colon Z80.0, Family history of malignant neoplasm of digestive organs D12.5, Benign neoplasm of sigmoid colon CPT copyright 2017 [employer]. All rights reserved. The codes documented in this report are preliminary and upon assembly machine offbearer review may be revised to meet current compliance requirements. Donta Anne MD 01/22/2021 8:10:05 AM This report has been signed electronically. Number of Addenda: 0 Note Initiated On: 01/22/2021 7:09 AM
--- NOTE | 2021-01-22 08:10 | OP.CCLET_ITS ---
01/22/2021 Jorge Benitez MD [address] [place] [address] Re : Colonoscopy procedure for Enrique Scott Dear Dr. Benitez This procedure was performed on Friday, January 22, 2021. My impressions and recommendations are as follows: Impressions : - Two small polyps in the sigmoid colon, removed with a hot snare. Resected and retrieved. - The examination was otherwise normal on direct and retroflexion views. Recommendations : - Discharge patient to home. - Resume previous diet. - Continue present medications. - Await pathology results. - Repeat colonoscopy in 5 years for surveillance. My findings are described in the full procedure note, which is enclosed. If I can be of further assistance, please feel free to contact me at Doctor phone number(s): , Work: . Sincerely, Donta Anne MD 01/22/2021 8:10:05 AM This report has been signed electronically.
== END 2021-01-22 08:51 | disposition home or self-care (01) ==
LOC: EN 06:21 → AC 06:22
PROVIDERS: PCP Family Medicine; Referring Provider Surgery; Visit Provider Surgery
PROC: 0DJD8ZZ Inspection of Lower Intestinal Tract, Via Natural or Artificial Opening Endoscopic (ICD-10-PCS; CPT 45378; principal; 2021-01-22 07:25)
DX: Z12.11 Encounter for screening for malignant neoplasm of colon (principal); K63.5 Polyp of colon; Z80.0 Family history of malignant neoplasm of digestive organs; Z20.828 Contact with and (suspected) exposure to other viral communicable diseases; G47.30 Sleep apnea, unspecified; M19.90 Unspecified osteoarthritis, unspecified site; Z87.891 Personal history of nicotine dependence
CPT/HCPCS: 45385; 87426; 88307; C9803; J7120; J2405

== ENCOUNTER 2022-01-10 09:21 | Outpatient (CLI) | payer SELFPAY ==
[2022-01-10 10:29] LABS: Vitamin D,25 Hydroxy 13.7 ng/mL
[2022-01-10 10:41] LABS: Anion Gap 5 (5-15); BUN 17 mg/dL (7-18); BUN/Creat Ratio 16.3 RATIO (10-20); Calcium,Total 9.1 mg/dL (8.5-10.1); Chloride 104 mmol/L (98-107); Cholesterol 283 mg/dL (200); Creatinine, Serum 1.04 mg/dL (0.70-1.30); EST Glomerular Filtration Rate 77 mL/min (>60); Est Glom Filt Rate - Afr Amer 93 mL/min (>60); Glucose 98 mg/dL (74-106); High Density Lipoprotein 66 mg/dL; PSA,Total - Annual Screen 3.37 ng/mL (0.00-4.00); Potassium 3.8 mmol/L (3.5-5.1); Sodium Level 138 mmol/L (136-145); Triglycerides 116 mg/dL; Very Low Density Lipoprotein 23 mg/dL (5-40)
== END 2022-01-10 23:59 | disposition home or self-care (01) ==
PROVIDERS: PCP Family Medicine; Referring Provider Family Medicine; Visit Provider Family Medicine
DX: Z00.00 Encounter for general adult medical examination without abnormal findings (principal)
CPT/HCPCS: 36415; 80048; 80061; 82306; 84153; G0103

== ENCOUNTER → 2022-06-24 | Outpatient (CLI) | payer SELFPAY ==
[2022-06-24 10:58] LABS: PSA,Total- Diagnostic 2.63 ng/mL (0.0-4.0)
== END | disposition home or self-care (01) ==
PROVIDERS: PCP Family Medicine; Referring Provider Family Medicine; Visit Provider Family Medicine
DX: R35.89 Other polyuria (principal); Z12.5 Encounter for screening for malignant neoplasm of prostate
CPT/HCPCS: 36415; 84153

== ENCOUNTER 2022-10-21 21:40 | Emergency (ER) | payer OTHER, SELFPAY ==
[2022-10-21 21:41] VITALS: BP 133/66; PULSE 97; RESP 16; TEMP 38.7; O2SAT 98; BMI 30.4
[2022-10-21 21:57] VITALS: O2SAT 98
--- NOTE | 2022-10-21 21:57 | EKG12_ITS ---
Test Reason : DYSRHYTHMIA Blood Pressure : / mmHG Vent. Rate : 096 BPM Atrial Rate : 096 BPM P-R Int : 148 ms QRS Dur : 090 ms QT Int : 334 ms P-R-T Axes : 055 -47 053 degrees QTc Int : 421 ms Normal sinus rhythm Abnormal ECG Confirmed by SADI STEWART, FABRICIO ([id number]), technical writer and editor [employer] ([id number]) on 10/25/2022 12:15:26 PM Referred By: PRABHAKAR Confirmed By:FABRICIO AVITIA MD
--- NOTE | 2022-10-21 22:01 | EDS_ITS ---
HPI History of Present Illness Chief Complaint: Chest Pain Informant: patient, spouse/S.O. and EMS Narrative Narrative: Patient is a 62-year-old male that denies any past medical history presenting via EMS with for a fever, body aches, nausea and vomiting. Patient's been having cold-like symptoms for the past few days including stuffy nose and mild cough. Tonight he developed nausea, vomiting, confusion and fever. gave him Tylenol however he threw it up. Patient is complaining of pain all over. Complain of a headache. He denies any photophobia. Not complaining of specific neck pain. Denies any diarrhea. Denies any urinary symptoms. States he is never felt this before. Did not have his flu shot. No rash or skin changes reported. [facility] Medical History (Updated 10/22/22 @ 02:[address] Gisele Monk, ) Atypical chest pain Home Medications amoxicillin 500 mg tablet 1,000 mg PO TID 7 days #42 tabs 10/22/22 [Rx Last Taken Unknown] azithromycin 250 mg tablet 250 mg PO DAILY 4 days #4 tabs 10/22/22 [Rx Last Taken Unknown] Allergy/AdvReac Type Severity Reaction Status Date / Time iodine Allergy Anaphylaxis Verified 01/15/21 12:00 Surgical History (Updated 10/22/22 @ 00:04 by Patria Mohr) History of back surgery Social History Smoking Status: Former smoker ROS ROS ED Constitutional Constitutional ED: Reports chills, fever(s) and sweats Eyes Eyes: Denies blurry vision or change in vision ENT ENT ED: Reports rhinorrhea; Denies sore throat Cardiovascular Cardiovascular: Reports chest pain; Denies palpitations Respiratory/Chest Respiratory/Chest: Reports cough; Denies dyspnea Gastrointestinal Gastrointestinal: Reports abdominal pain, nausea and vomiting; Denies constipation or diarrhea Genitourinary Genitourinary ED: Denies dysuria or hematuria Musculoskeletal Musculoskeletal: Reports myalgias; Denies neck pain Integumentary Denies rash Neurologic Neurologic: Reports headache(s), paresthesias and weakness Psychiatric Psychiatric: Denies anxiety or depression EXAM Physical Exam Const Vital Signs: 10/21/22 21:41 10/21/22 21:57 10/21/22 22:44 Temperature 101.6 F H 99.1 F Temperature Source Temporal Oral Pulse Rate 97 86 Respiratory Rate 16 15 Respiratory Effort Blood Pressure 133/66 H 117/66 Blood Pressure Mean 88 83 Pulse Ox 98 98 96 Oxygen Delivery Method Room Air Room Air Room Air 10/22/22 00:00 10/22/22 01:00 10/22/22 01:00 Temperature 100.1 F H 99.1 F Temperature Source Oral Temporal Pulse Rate 85 79 Respiratory Rate 11 L 20 H Respiratory Effort Normal Non-Labored Blood Pressure 110/66 98/64 Blood Pressure Mean 80 75 Pulse Ox 94 91 Oxygen Delivery Method Room Air Room Air 10/22/22 01:37 Temperature Temperature Source Pulse Rate 94 Respiratory Rate 22 H Respiratory Effort Blood Pressure 100/59 L Blood Pressure Mean Pulse Ox 94 Oxygen Delivery Method Positive well nourished and well developed Constitutional Narrative: Uncomfortable. General Appearance ED: well developed HEENT Reports dry mucous membranes Negative for trauma Mouth ED: Yes dry mucous membranes Mouth: dry mucous membranes Eyes PERRL and EOMs intact bilaterally Neck supple Neck Narrative: no nuchal rigidity General: Negative for tenderness Chest Wall inspection of chest normal and palpation of chest normal Resp normal respiratory effort and clear to auscultation bilaterally Cardio regular rate, regular rhythm and no murmurs GI Auscultation: normoactive bowel sounds Palpation: soft and tender other (Diffuse); Negative for guarding Extremity normal to inspection General Extremety ED: Negative for edema or tenderness General Extremity: Negative for edema Neuro CN's II-XII intact bilaterally Neuro Narrative: Confused but when focusing can answer questions appropriately Sensorium / Orientation: alert Motor Exam: general weakness Psych mental status grossly normal Mood & Affect: anxious Skin no rashes or lesions noted and no wounds MDM MDM MDM Narrative Medical decision making narrative: Evaluate for fever, confusion, nausea and vomiting and flulike symptoms. He is febrile in the ER. He is hemodynamically stable at this time. Is given IV fluids, Zofran and Tylenol. Septic work-up initiated also check flu/COVID test. Patient has significant improvement of symptoms of mentation after fever control. Suspect patient had delirium associated with his fever. His work-up is largely normal. CBC normal. Coags normal. CMP shows a mildly low potassium of 3.4 and a creatinine of 1.17. I do not have a baseline to compare to. Lactate is normal at 1.0. Urinalysis is normal. 1 view chest x-ray interpreted by myself as well as radiology does show a right middle and lower lobe infiltrate. Suspect this is the source of his fever and infection. Patient is ambulated and not hypoxic. Discussed continued observation in the ER versus discharge home. Given that patient does not have a leukocytosis, hypoxia or signs of endorgan damage associated with infection I think he can be discharged home. Patient and family agreeable with this. He is started on amoxicillin and azithromycin for community-acquired pneumonia per the updated guidelines. He is given the first dose in the emergency room. Is given strict return precautions. Counseled to drink lots of fluids. Counseled on importance of fever control. Blood cultures are pending at time of discharge. Lab Data Labs: Laboratory Results - last 24 hr 10/21/22 10/21/22 10/21/22 21:55 21:55 21:55 WBC 8.5 RBC 4.56 L Hgb 13.7 Hct 39.6 L MCV 86.8 MCH 30.0 MCHC 34.6 RDW Std Deviation 39.3 RDW Coeff of Ortega 12.2 Plt Count 148 L MPV 10.9 Immature Gran % (Auto) 0.700 Neut % (Auto) 83.0 H Lymph % (Auto) 11.1 L [place] % (Auto) 4.7 Eos % (Auto) 0.4 Baso % (Auto) 0.1 Absolute Neuts (auto) 7.0 Absolute Lymphs (auto) 0.94 Nucleated RBC % 0 PT 12.9 INR 1.0 APTT 26.3 Sodium 137 Potassium 3.4 L Chloride 106 Carbon Dioxide 23.0 Anion Gap 8 BUN 22 H Creatinine 1.17 Estim Creat Clear Calc 64.62 Est GFR (MDRD) Af Amer 81 Est GFR (MDRD) Non-Af 67 BUN/Creatinine Ratio 18.8 Glucose 111 H Lactic Acid Calcium 9.4 Total Bilirubin 0.40 AST 11 L ALT 17 Alkaline Phosphatase 54 Total Creatine Kinase 77 Troponin I High Sens 4 Total Protein 7.0 Albumin 3.7 Globulin 3.3 Albumin/Globulin Ratio 1.1 Urine Color Urine Clarity Urine pH Ur Specific [place] Urine Protein Urine Glucose (UA) Urine Ketones Urine Occult Blood Urine Nitrite Urine Bilirubin Urine Urobilinogen Ur Leukocyte Esterase Urine RBC Urine WBC Ur Squamous Epith Cells Urine Bacteria Urine Mucus 10/21/22 10/21/22 21:55 23:30 WBC RBC Hgb Hct MCV MCH MCHC RDW Std Deviation RDW Coeff of [place]tega Plt Count MPV Immature Gran % (Auto) Neut % (Auto) Lymph % (Auto) [place] % (Auto) Eos % (Auto) Baso % (Auto) Absolute Neuts (auto) Absolute Lymphs (auto) Nucleated RBC % PT INR APTT Sodium Potassium Chloride Carbon Dioxide Anion Gap BUN Creatinine Estim Creat Clear Calc Est GFR (MDRD) Af Amer Est GFR (MDRD) Non-Af BUN/Creatinine Ratio Glucose Lactic Acid 1.9 Calcium Total Bilirubin AST ALT Alkaline Phosphatase Total Creatine Kinase Troponin I High Sens Total Protein Albumin Globulin Albumin/Globulin Ratio Urine Color Yellow Urine Clarity Clear Urine pH 8.0 Ur Specific [place] 1.010 Urine Protein 30 H Urine Glucose (UA) Normal Urine Ketones Negative Urine Occult Blood Negative Urine Nitrite Negative Urine Bilirubin Negative Urine Urobilinogen Normal Ur Leukocyte Esterase 25 H Urine RBC 0-5 SEEN Urine WBC 0 SEEN Ur Squamous Epith Cells 0 SEEN Urine Bacteria 0 SEEN Urine Mucus 0 SEEN Radiography Chest X-Ray - ED: 1 View, Read by ED Physician, Read by Radiologist and Right Infiltrate Diagnostic Testing: Clinical Impression(s) from Imaging Studies Chest X-Ray 10/21/22 22:15 IMPRESSION: New pneumonia involving the right lower lobe and right middle lobe. Electronically Signed: Richard Leone MD at 22:50 EST , Rhythm Strip Rhythm Strip: Sinus Rhythm Rate: 96 Ectopy: None EKG Initial EKG: Attestation: I personally reviewed and interpreted this EKG as follows: Interpretation: Sinus Rhythm Comments: Normal sinus rhythm at a rate of 96 bpm Normal axis Normal intervals Normal ST segments Compared to prior EKG patient is no longer bradycardic Discharge Plan Triage Chief Complaint: Chest Pain Other Complaint: Cold Sx Nausea/Vomiting ED Provider: Gisele Monk Dx/Rx/DC Orders Clinical Impression: Pneumonia, Fever Instructions: ED Fever Control (Adult), ED Pneumonia (Adult) Prescriptions: New amoxicillin 500 mg tablet 1,000 mg PO TID 7 Days Qty: 42 0RF azithromycin 250 mg tablet 250 mg PO DAILY 4 Days Qty: 4 0RF Rx Instructions: start on day 2 of therapy Primary Care Provider: Jorge Benitez Referrals: Jorge Benitez MD [Primary Care Provider] - Activity Restrictions/Additional Instructions: Drink lots of fluids. Alternate ibuprofen and Tylenol for fever control. Return to the emergency room if your symptoms worsen. Disposition Disposition: Home, Self Care Discharge Date/Time: 10/22/22 02:25
[2022-10-21] MEDS: Ondansetron 4 MG/2 ML Vial IV (22:06)
[2022-10-21] MEDS: Acetaminophen 325 MG Tablet 650 MG PO (22:06)
[2022-10-21] MEDS: 0.9% Normal Saline 1,000 ML 999 ML IV (22:06)
--- NOTE | 2022-10-21 22:15 | RAD_ITS ---
EXAM: XR CHEST, 1 VIEW CLINICAL INDICATION: fever, cough TECHNIQUE: Frontal view of the chest. This report was created using [employer] report generation technology. COMPARISON: 09/18/20 FINDINGS: LUNGS AND PLEURAL SPACES: Pneumonia involving the right lower lobe and right middle lobe. No pneumothorax. No effusion. HEART: Unremarkable. Cardiac silhouette not enlarged. MEDIASTINUM: Central airways and mediastinal contour are unremarkable. BONES/JOINTS: Unremarkable. SOFT TISSUES: Unremarkable. RAD/Chest 1 View (Portable) IMPRESSION: New pneumonia involving the right lower lobe and right middle lobe. Electronically Signed: Richard Leone MD at 22:50 EST ,
[2022-10-21 22:30] LABS: Absolute Lymphocyte Count 0.94 X10^3/uL (0.83-4.51); Basophil# 0.01 X10^3/uL; Basophil% 0.1 % (0-1); Eosinophil# 0.03 X10^3/uL; Eosinophils% 0.4 % (0-5); Hematocrit 39.6 % (40-54); Hemoglobin 13.7 g/dL (13.0-16.5); Lymphocyte # 0.94 X10^3/ul (0.83-4.51); Lymphocyte % 11.1 % (19-41); Mean Corp Hgb Conc 34.6 g/dL (32-36); Mean Corpuscular Volume 86.8 fL (80-94); Mean Platelet Vol. 10.9 fl (6.2-12.0); Monocyte% 4.7 % (0-10); NRBC Flagged by Analyzer 0 % (0-5); Neutrophil # 7.03 X10^3/uL (2.7-7.7); Platelet Count 148 K/mm3 (150-450); RBC Distribution Width CV 12.2 % (11.6-14.6); RBC Distribution Width SD 39.3 fl (35.1-43.9); Red Blood Count 4.56 M/mm3 (4.6-6.2); White Blood Count 8.5 K/mm3 (4.4-11.0)
[2022-10-21 22:38] LABS: Prothrombin Time (Protime)PT. 12.9 SECONDS (11.7-14.9)
[2022-10-21 22:39] LABS: Partial Thromboplast Time 26.3 Seconds (24.1-36.2)
[2022-10-21 22:44] VITALS: BP 117/66; PULSE 86; RESP 15; TEMP 37.3; O2SAT 96
[2022-10-21 22:48] LABS: ALB/GLOB Ratio 1.1 RATIO (0.9-2.4); AST(SGOT) 11 U/L (15-37); Alanine Aminotransfer ALT/SGPT 17 U/L (16-61); Albumin, Serum 3.7 g/dL (3.2-5.0); Alkaline Phosphatase 54 U/L (45-117); Anion Gap 8 (5-15); BUN 22 mg/dL (7-18); BUN/Creat Ratio 18.8 RATIO (10-20); CPK Total, Creatine Kinase 77 U/L (39-308); Calcium,Total 9.4 mg/dL (8.5-10.1); Chloride 106 mmol/L (98-107); Creatinine, Serum 1.17 mg/dL (0.70-1.30); EST Glomerular Filtration Rate 67 mL/min (>60); Est Glom Filt Rate - Afr Amer 81 mL/min (>60); Estimated Creatinine Clearance 64.62 ml/min; Globulin 3.3 g/dL (2.2-4.2); Glucose 111 mg/dL (74-106); Potassium 3.4 mmol/L (3.5-5.1); Sodium Level 137 mmol/L (136-145); Troponin-I HS 4 pg/mL (3.0-78.0)
[2022-10-21 22:51] LABS: Lactic Acid 1.9 mmol/L (0.4-1.9)
[2022-10-21 23:42] LABS: Bacteria 0 SEEN /hpf (None Seen); Mucous, Urine 0 SEEN /hpf (<or=2+); Squamous Epithelial Cells - UA 0 SEEN /hpf (0-5); White Blood Cells 0 SEEN /hpf (0-5)
[2022-10-21 23:43] LABS: Color, Urine Yellow (Yellow); Glucose, Dipstick Normal (Normal); Ketone-Dipstick Negative (Negative); Leukocyte Esterase-Dipstick 25 /ul (Negative); Nitrite-Dipstick Negative (Negative); Occult Blood-Urine Negative /ul (Negative); Protein-Dipstick 30 mg/dl (Negative); Urine Bilirubin Dipstick Negative (Negative); Urine Clarity Clear (Clear); Urine Urobilinogen Normal (Normal)
[2022-10-21 23:49] LABS: Red Blood Cells-Urine 0-5 SEEN /hpf (0-5)
[2022-10-22] VITALS: BP 110/66; PULSE 85; RESP 11; TEMP 37.8; O2SAT 94
[2022-10-22 01:00] VITALS: BP 98/64; PULSE 79; RESP 20; TEMP 37.3; O2SAT 91
[2022-10-22 01:17] VITALS: O2SAT 94
[2022-10-22] MEDS: AMOXICILLIN 500 MG CAPSULE 1000 MG PO (01:34)
[2022-10-22] MEDS: Azithromycin 250 MG Tablet 500 MG PO (01:35)
[2022-10-22 01:37] VITALS: BP 100/59; PULSE 94; RESP 22; O2SAT 94
== END 2022-10-22 02:25 | disposition home or self-care (01) ==
PROVIDERS: Emergency Provider Emergency Medicine; PCP Family Medicine; Visit Provider Emergency Medicine
DX: J18.9 Pneumonia, unspecified organism (principal); R51.9 Headache, unspecified; Z20.822 Contact with and (suspected) exposure to COVID-19; Z87.891 Personal history of nicotine dependence; R07.9 Chest pain, unspecified; R11.2 Nausea with vomiting, unspecified; R41.0 Disorientation, unspecified
CPT/HCPCS: 71045; 80053; 81001; 82550; 83605; 84484; 85025; 85610; 85730; 87040; 87086; 87428; 93005; 96374; 99285; J7030; A4216; J2405

== ENCOUNTER → 2022-11-23 | Outpatient (CLI) | payer OTHER, SELFPAY ==
--- NOTE | 2022-11-23 14:40 | RAD_ITS ---
STUDY: X-RAY CHEST REASON FOR EXAM: Male, 62 years old. CHEST PAIN COUGH TECHNIQUE: XR Chest 2 Views COMPARISON: 10.21.22 FINDINGS: There is no demonstrated pleural abnormality. Normal size heart. Normal mediastinum and mellissa. Normal visualized pulmonary arteries. Normal visualized aortic arch and descending thoracic aorta. Normal visualized thoracic spine. Normal visualized ribs, clavicles, and shoulders. There is no demonstrated abnormality of the visualized soft tissue structures of the upper abdomen. RAD/Chest PA and Lateral IMPRESSION: There are no acute findings. Electronically Signed: Maurizio Wise MD at 15:28 EST ,
== END | disposition home or self-care (01) ==
PROVIDERS: PCP Family Medicine; Referring Provider Nurse Practitioner Family; Visit Provider Nurse Practitioner Family
DX: R07.9 Chest pain, unspecified (principal); R05.9 Cough, unspecified
CPT/HCPCS: 71046

== ENCOUNTER 2023-11-08 15:57 | Outpatient (CLI) | payer SELFPAY ==
[2023-11-08 18:03] LABS: Anion Gap 9 (5-15); BUN 19 mg/dL (7-18); BUN/Creat Ratio 18.8 RATIO (10-20); Calcium,Total 9.6 mg/dL (8.5-10.1); Chloride 104 mmol/L (98-107); Cholesterol 279 mg/dL (200); Creatinine, Serum 1.01 mg/dL (0.70-1.30); EST Glomerular Filtration Rate 79 mL/min (>60); Est Glom Filt Rate - Afr Amer 96 mL/min (>60); Glucose 124 mg/dL (74-106); High Density Lipoprotein 66 mg/dL; PSA,Total- Diagnostic 2.19 ng/mL (0.0-4.0); Potassium 3.9 mmol/L (3.5-5.1); Sodium Level 141 mmol/L (136-145); Thyroid Stim Hormone (TSH) 1.44 uIU/mL (0.358-3.74); Triglycerides 166 mg/dL; Very Low Density Lipoprotein 33 mg/dL (5-40)
== END 2023-11-08 23:59 | disposition home or self-care (01) ==
PROVIDERS: PCP Family Medicine; Referring Provider Family Medicine; Visit Provider Family Medicine
DX: E66.9 Obesity, unspecified (principal); Z68.32 Body mass index [BMI] 32.0-32.9, adult
CPT/HCPCS: 36415; 80048; 80061; 84153; 84403; 84443

== ENCOUNTER 2023-12-12 11:57 | Inpatient (IN) | payer OTHER, SELFPAY ==
[2023-12-12 11:59] VITALS: BP 137/90; PULSE 61; RESP 14; TEMP 36.8; O2SAT 98; BMI 31.8
--- NOTE | 2023-12-12 12:27 | RAD_ITS ---
STUDY: X-RAY CHEST REASON FOR EXAM: Male, 63 years old. Chest pain, shortness of breath and left shoulder pain. TECHNIQUE: Single AP portable view of the chest. COMPARISON: Comparison is made with prior study dated November 23, 2022. FINDINGS: EKG electrodes are seen. The lungs are clear and expanded. There is no demonstrated pleural abnormality. Normal size heart. Normal mediastinum and mellissa. Normal visualized pulmonary arteries. Normal visualized aortic arch and descending thoracic aorta. There are mild degenerative changes of the visualized thoracic spine. Normal visualized ribs, clavicles, and shoulders. There is no demonstrated abnormality of the visualized soft tissue structures of the upper abdomen. RAD/Chest 1 View (Portable) IMPRESSION: No acute abnormality is present. Electronically Signed: Jeremi Bates MD at 13:22 EST ,
--- NOTE | 2023-12-12 12:28 | ED.VIS.CHEST ---
HPI History of Present Illness Chief Complaint: Chest Pain Detail of Chief Complaint: Chest pain Informant: patient Narrative Narrative: Patient presents to the emergency department complaint of chest pain that he has had for over a week. Patient recounts trying to walk to [place] and having to stop for 5 times because of the chest pain and shortness of breath. Patient for the last 2 or 3 days has had some discomfort in his neck and down his left arm that is worse with movement. He denies recent long distance drives. Denies recent airplane rides. No history of PE or DVT. He has no heart history. Patient saw his primary care physician recently and was ordered a stress test but cannot have it till December. Patient also was ordered a colonoscopy. Patient denies recent illness. [facility] Medical History (Updated 12/12/23 @ 13:[address] Alyson Ortiz DO) Atypical chest pain Home Medications bupropion HCl 300 mg 24 hr tablet, extended release 300 mg PO QHS sleep/mood 12/12/23 [History Last Taken 12/11/23] diphenhydramine HCl 25 mg capsule (Allergy (diphenhydramine)) 25 mg PO QHS PRN sleep 12/12/23 [History Last Taken 12/11/23] rosuvastatin 5 mg tablet 5 mg PO DAILY CHOLESTEROL 12/12/23 [History Last Taken 12/12/23] trazodone 100 mg tablet 100 mg PO QHS SLEEP 12/12/23 [History Last Taken 12/11/23] Allergy/AdvReac Type Severity Reaction Status Date / Time iodine Allergy Anaphylaxis Verified 12/12/23 11:59 Surgical History History of back surgery Social History Smoking Status: Former smoker ROS ROS ED Review of Systems ROS Unobtainable: other Constitutional Constitutional ED: Reports lethargy; Denies chills, fever(s), sweats or weight loss Eyes Eyes: Denies blurry vision, change in vision or diplopia ENT ENT ED: Denies rhinorrhea or sore throat Cardiovascular Cardiovascular: Reports chest pain; Denies orthopnea or racing heartbeat Respiratory/Chest Respiratory/Chest: Reports dyspnea and dyspnea on exertion; Denies cough, orthopnea or sputum Gastrointestinal Gastrointestinal: Denies abdominal pain, diarrhea, nausea or vomiting Genitourinary Genitourinary ED: Denies dysuria, hematuria or urinary frequency Musculoskeletal Musculoskeletal: Denies arthralgias, back pain, myalgias or neck pain Integumentary Denies abscess, Abrasions or rash Neurologic Neurologic: Denies headache(s) or weakness Psychiatric Psychiatric: Denies anxiety, depression or suicidal thoughts Endocrine Endocrinology: Denies polydipsia, polyphagia or polyuria Hematologic/Lymphatic Hematologic/Lymphatic: Denies easy bleeding, easy bruising or lymphadenopathy Allergic/Immunologic Allergic/Immunologic ED: Denies mouth swelling, tongue swelling or urticaria EXAM Physical Exam Const Vital Signs: 12/12/23 11:59 12/12/23 12:27 12/12/23 12:42 Temperature 98.2 F Temperature Source Temporal Pulse Rate 61 Respiratory Rate 14 Respiratory Effort Short of Breath Blood Pressure 137/90 H Blood Pressure Mean 105 Pulse Ox 98 Oxygen Delivery Method Room Air Room Air 12/12/23 13:52 Temperature Temperature Source Pulse Rate 96 Respiratory Rate 16 Respiratory Effort Blood Pressure 134/92 H Blood Pressure Mean 106 Pulse Ox 99 Oxygen Delivery Method Room Air Positive well nourished and well developed General Appearance ED: well developed and NAD HEENT Reports TM's clear and moist mucous membranes normocephalic and atraumatic; Negative for trauma or tenderness Tympanic Membrane ED: Yes TM's clear Eyes PERRL and EOMs intact bilaterally General Eye ED: Negative for pale conjunctiva or scleral icterus Neck no lymphadenopathy, supple and no JVD General: Negative for tenderness Chest Wall inspection of chest normal and palpation of chest normal Chest: Negative for tenderness Resp normal respiratory effort and clear to auscultation bilaterally Effort and Inspection: Negative for respiratory distress or pain with movement Auscultation: Negative for rhonchi, wheezes or diminished lung sounds Cardio regular rate, regular rhythm, S1 normal heart sound, S2 normal heart sound and no murmurs Peripheral Pulses: pulses 2+ throughout GI normal to inspection, nondistended, normoactive bowel sounds, soft to palpation, non-tender, non-distended and no masses Back/Spine no CVA tenderness and no thoracic nor lumbar tenderness Extremity normal to inspection General Extremety ED: Negative for edema General Extremity: Negative for edema Neuro oriented x3, CN's II-XII intact bilaterally, no sensory deficits noted and gait normal Sensorium / Orientation: awake, alert, oriented to person, oriented to place and oriented to time Motor Exam: strength 5/5 throughout and strength abnormal Psych mental status grossly normal Skin no rashes or lesions noted and no wounds Heart Score History: Moderately Suspicious ECG: Nonspecific Repolarization Age: >45 - <65 years Risk Factors: 1 or 2 Risk Factors Troponin: </= Normal Limit Score: 4 MDM MDM MDM Narrative Medical decision making narrative: Patient presents to the emergency department complaint of chest pain that is exertional. In the differential would be acute coronary syndrome versus PE which I feel is less likely. IV line established. EKG obtained on arrival showed a sinus rhythm with a rate of 60 bpm with left anterior fascicular block. CBC with differential showed a white count of 6.1 with hemoglobin 13.9 and platelet count of 179. Chemistries unremarkable. Troponin was normal at 6. Patient heart score is a 4. Recommended admission and stress testing. Will discuss with hospitalist to evaluate patient for admission. Lab Data Attestation: I reviewed the patient's lab results. Labs: Laboratory Results - last 24 hr 12/12/23 12:30 WBC 6.1 RBC 4.71 Hgb 13.9 Hct 42.6 MCV 90.4 MCH 29.5 MCHC 32.6 RDW Std Deviation 41.9 RDW Coeff of Ortega 12.7 Plt Count 179 MPV 10.8 Immature Gran % (Auto) 2.000 H Neut % (Auto) 37.7 L Lymph % (Auto) 48.0 H [place] % (Auto) 8.7 Eos % (Auto) 2.8 Baso % (Auto) 0.8 Absolute Neuts (auto) 2.3 Absolute Lymphs (auto) 2.92 Nucleated RBC % 0 Sodium 140 Potassium 4.0 Chloride 107 Carbon Dioxide 30.0 Anion Gap 3 L BUN 21 H Creatinine 1.13 Estim Creat Clear Calc 80.84 Est GFR (MDRD) Af Amer 84 Est GFR (MDRD) Non-Af 69 BUN/Creatinine Ratio 18.6 Glucose 99 Calcium 9.3 Troponin I High Sens 6 Radiography Diagnostic Testing: Clinical Impression(s) from Imaging Studies Chest X-Ray 12/12/23 12:27 IMPRESSION: No acute abnormality is present. Electronically Signed: Jeremi Bates MD at 13:22 EST , 1 view chest x-ray obtained interpreted by myself as no evidence of infiltrate or pneumothorax or acute disease process. Radiology in agreement. EKG Initial EKG: Attestation: I personally reviewed and interpreted this EKG as follows: Comments: Sinus rhythm with rate of 60 bpm with left anterior fascicular block Discharge Plan Dx/Rx/DC Orders Clinical Impression: Hypertension, Hx of hypercholesterolemia, Chest pain Disposition Disposition: Acute Care Hospital [facility]
[2023-12-12] MEDS: 0.9% Normal Saline (1000mL) 1,000 ML 150 ML IV (12:48)
[2023-12-12] MEDS: Aspirin 81 MG TAB.CHEW 324 MG PO (12:48)
[2023-12-12 12:59] LABS: Anion Gap 3 (5-15); BUN 21 mg/dL (7-18); BUN/Creat Ratio 18.6 RATIO (10-20); Calcium,Total 9.3 mg/dL (8.5-10.1); Chloride 107 mmol/L (98-107); Creatinine, Serum 1.13 mg/dL (0.70-1.30); EST Glomerular Filtration Rate 69 mL/min (>60); Est Glom Filt Rate - Afr Amer 84 mL/min (>60); Estimated Creatinine Clearance 80.84 ml/min; Glucose 99 mg/dL (74-106); Sodium Level 140 mmol/L (136-145); Troponin-I HS (w/2H Reflex) 6 pg/mL (3.0-78.0)
[2023-12-12 13:04] LABS: Absolute Lymphocyte Count 2.92 X10^3/uL (0.83-4.51); Absolute Neutrophil Count 2.3 X10^3/uL (2.0-7.7); Basophil# 0.05 X10^3/uL; Basophil% 0.8 % (0-1); Eosinophil# 0.17 X10^3/uL; Eosinophils% 2.8 % (0-5); Hematocrit 42.6 % (40-54); Hemoglobin 13.9 g/dL (13.0-16.5); Lymphocyte # 2.92 X10^3/ul (0.83-4.51); Mean Corp Hgb Conc 32.6 g/dL (32-36); Mean Corpuscular Hgb 29.5 pg (27.0-32.0); Mean Corpuscular Volume 90.4 fL (80-94); Mean Platelet Vol. 10.8 fl (6.2-12.0); Monocyte# 0.53 X10^3/uL; Monocyte% 8.7 % (0-10); NRBC Flagged by Analyzer 0 % (0-5); Neutrophil # 2.29 X10^3/uL (2.7-7.7); Neutrophil % 37.7 % (47-70); Platelet Count 179 K/mm3 (150-450); RBC Distribution Width CV 12.7 % (11.6-14.6); RBC Distribution Width SD 41.9 fl (35.1-43.9); Red Blood Count 4.71 M/mm3 (4.6-6.2); White Blood Count 6.1 K/mm3 (4.4-11.0)
--- OUTSIDE RECORDS SUMMARY | 2023-12-12 13:31 | XMS RPT_ITS | CCD ---
Author Name Unknown Address [address] [place] [address] [id number] [place] [address] Organization [facility] Care Team Providers Care Certified Nurse Name Role Phone EWA BOSS Admitting Unavailable EWA BOSS Attending Unavailable NO, DOCTOR ON Referring Unavailable EWA BOSS Primary Care Unavailable NO, DOCTOR ON Consulting Unavailable Unavailable Primary Care Provider ARTIS Bah Referring Unavailable Allergies Allergy Classification Reported Allergen(s) Allergy Type Date of Onset Reaction(s) Facility (2 sources) Iodine; Translations: [IODINE] Drug Allergy 5 [facility] Repository (2 sources) Iodine Drug Allergy 5 [facility] Work Phone: (3 sources) Shellfish; Translations: [SHELLFISH] Propensity to adverse reactions 5 [facility] Work Phone: (1 source) SEAFOOD [Other] Propensity to adverse reactions 5 [facility] Work Phone: (1 source) shrimp allergenic extract Drug Allergy 3 Unknown [facility] Work Phone: (1 source) OTHER; Translations: [OTHER] Propensity to adverse reactions (disorder) 5 [facility] Repository Medications Current Medications Medication Drug Class(es) Dates Sig (Normalized) Sig (Original) acetaminophen 750 mg / HYDROcodone bitartrate 7.5 mg oral tablet (1 source) Opioid Agonist Start: 11-07-2012 End: 09-02-2023 take 1 tablet by mouth every four hours as needed for pain, then take 5 tablets by mouth once daily as needed for pain HYDROcodone-acetami nophen ES (VICODIN ES) 7.5-750 mg per tablet Indications: Shoulder pain Take 1 tablet by mouth every 4 hours as needed. FOR PAIN. DO NOT EXCEED 5 PILLS PER DAY. 180 tablet 3 11/07/2012 09/02/2023 Discontinued Completed/Discontinued Medications Medication Drug Class(es) Dates Sig (Normalized) Sig (Original) 24 hr buPROPion hydrochloride 300 mg extended release oral tablet (2 sources) Aminoketone Start: 08-31-2023 take 1 tablet by mouth every hour buPROPion XL (WELLBUTRIN XL) 300 mg 24 hr tablet Take 1 tablet by mouth every afternoon. 0 08/31/2023 Active Problems Active Problems Problem Classification Problem Date Documented Da te Episodic/Chronic Anxiety disorders (2 sources) Anxiety state; Translations: [Generalized anxiety disorder] 11-19-2008 Chronic External cause codes: Cut/leon (1 source) Contact with other powered hand tools and household machinery, initial encounter; Translations: [Contact with other powered hand tools and household machinery, initial encounter] Onset: 01-15-2020 Open wounds of extremities (3 sources) Laceration without foreign body of left thumb with damage to nail, initial encounter; Translations: [Laceration without foreign body of left thumb with damage to nail, initial encounter] Onset: 01-15-2020 Episodic Other lower respiratory disease (1 source) Cough; Translations: [Acute cough] 09-02-2023 Episodic Other lower respiratory disease (1 source) Wheezing; Translations: [Wheezing] 09-02-2023 Episodic Other nervous system disorders (2 sources) Sciatic nerve lesion; Translations: [Lesion of sciatic nerve, unspecified lower limb] Onset: 08-09-2006 11-19-2008 Chronic Other upper respiratory infections (1 source) Chronic sinusitis, unspecified; Translations: [Unspecified sinusitis (chronic)] 10-17-2023 Chronic Spondylosis; intervertebral disc disorders; other back problems (2 sources) Lumbar spondylosis; Translations: [Spondylosis without myelopathy or radiculopathy, lumbar region] Onset: 10-06-2011 10-06-2011 Chronic Unclassified (1 source) Acute cough; Translations: [Acute cough] Onset: 09-02-2023 Past or Other Problems Problem Classification Problem Date Documented Da te Episodic/Chronic Spondylosis; intervertebral disc disorders; other back problems (4 sources) Low back pain; Translations: [Lumbago] Onset: 01-22-2007 11-19-2008 Episodic Results Test Name Value Interpretation Reference Range Facil ity Vital Signs Date Time Vital Sign Value Performing Clinician Shira iman 10-17-2023 10:37-0500 Body temperature 97.2 [degF] Sarina Kamara APRN.[employer] Work Phone: [facility] 10-17-2023 10:37-0500 Body weight 101.61 kg Sarina Kamara APRN.[employer] Work Phone: [facility] 10-17-2023 10:37-0500 Diastolic blood pressure 74 mm[Hg] Sarina Kamara APRN.[employer] Work Phone: [facility] 10-17-2023 10:37-0500 Heart rate 70 /min Sarina Kamara APRN.[employer] Work Phone: [facility] 10-17-2023 10:37-0500 Respiratory rate 16 /min Sarina Kamara APRN.[employer] Work Phone: [facility] 10-17-2023 10:37-0500 SaO2% (BldA) [Mass fraction] 96 % Sarina Kamara APRN.[employer] Work Phone: [facility] 10-17-2023 10:37-0500 Systolic blood pressure 124 mm[Hg] Sarina Kamara APRN.[employer] Work Phone: [facility] 09-02-2023 08:54-0400 Body temperature 97.5 [degF] Artis Montes MD Work Phone: [facility] 09-02-2023 08:54-0400 Body weight 98.97 kg Artis Montes MD Work Phone: [facility] 09-02-2023 08:54-0400 Diastolic blood pressure 64 mm[Hg] Artis Montes MD Work Phone: [facility] 09-02-2023 08:54-0400 Heart rate 79 /min Artis Montes MD Work Phone: [facility] 09-02-2023 08:54-0400 Respiratory rate 18 /min Artis Montes MD Work Phone: [facility] 09-02-2023 08:54-0400 SaO2% (BldA) [Mass fraction] 96 % Artis Montes MD Work Phone: [facility] 09-02-2023 08:54-0400 Systolic blood pressure 107 mm[Hg] Artis Montes MD Work Phone: [facility] Encounters Encounter Date Encounter Type Care Provider Facility Start: 10-17-2023 End: 10-17-2023 ambulatory ARTIS MONTES Facility:[facility] Start: 10-17-2023 End: 10-17-2023 Patient encounter procedure Sarina Asad ESTRELLA Work Phone: [facility] Procedures Date Procedure Procedure Detail Performing Clinician Start: 08-04-2010 Colonoscopy Artis austin MD Work Phone: Start: 02-15-2007 Lipid 1996 panel - S kaycee or Plasma Artis Montes MD Work Phone: Plan of Treatment Date Care Activity Detail Author Start: 07-21-2023 Influenza vaccination Influenza Vacc ine (#1) [facility] Start: 11-20-2022 Depression Assessment Depression Ass essment [facility] Start: 08-04-2020 Colonoscopy Colonoscopy [facility] Start: 08-04-2020 Colorectal Cancer Screening Colorectal Cancer Screening [facility] Start: 2019 RSV Vaccine (1 - 1-d ose 60+ series) RSV Vaccine (1 - 1-dose 60+ series) [facility] Start: 2014 Prostate Cancer Scre ening Discussion Prostate Cancer Screening Discussion [facility] Start: 02-16-2012 Lipid 1996 panel - S kaycee or Plasma Lipid Screening [facility] Start: 02-15-2010 Diabetes Screening Diabetes Screenin g [facility] Start: 2009 Shingrix Vaccine (1 of 2) Shingrix V accine (1 of 2) [facility] Start: 2004 Cologuard (FIT-DNA) Cologuard (FIT-D NA) [facility] Start: [address] Colonography [facility] Start: 2004 Fecal Occult Blood Fecal Occult Bloo d [facility] Start: 2004 Sigmoidoscopy Sigmoidoscopy [facility] Start: 07-30-2002 Urine microalbumin profile DTa P,Tdap,Td Vaccine (1 - Tdap) [facility] Start: 1977 Hepatitis C Screening Hepatitis C Sc reening [facility] Start: 1977 HIV Screening HIV Screening [facility] Start: 1959 Covid-19 Vaccine (#1) Covid-19 Vacci ne (#1) [facility] Immunizations Immunization Date Immunization Notes Care Provider Fa cility 07-29-2002 tetanus and diphther ia toxoids, adsorbed, preservative free, for adult use (2 Lf of tetanus toxoid and 2 Lf of diphtheria toxoid) Artis Montes MD Work Phone: [facility] Work Phone: Social History Date Type Detail Facility Start: 09-02-2023 [facility] End: 10-06-1991 History of tobacco use Current smoker [facility] End: 10-06-1991 History of tobacco use Cigarette Smoker [facility] Start: 09-02-2023 End: 10-17-2023 Cigarettes smoked current (pack per day) - Reported 1.5 [facility] Start: 09-02-2023 Tobacco use and exposure User of smokeless tobacco [facility] End: 04-20-2010 History of tobacco use Chews Tobacco [facility] Start: 09-02-2023 End: 10-17-2023 Alcohol intake Current non-drinker of alcohol (finding) [facility] Start: 09-02-2023 End: 10-17-2023 Tobacco use panel [facility] Start: 09-02-2023 Tobacco Comment 1 can per week [facility] Start: 1960 Sex Assigned At Not on file [facility] Progress note 10-17-2023 Note Date & Type Note Facility 10-17-2023 Note HNO ID: [id number] Author: Sarina Kamara APRN.[employer]ADE [employer]ANCER Service: ? Author Type: Nurse Practitioner Type: Progress Notes Filed: 10/17/2023 10:51 AM Note Text: CC: Patient presents with: Cough: x 6 weeks HPI: Enrique Scott is a 63 year old male who presents to the office with complaint of cough, nonproductive for 6 weeks. Symptoms are staying the same. Associated symptoms includes cough. Denies fever, nausea, vomiting , and diarrhea. Treatments tried include nothing so far. with no relief of symptoms. Sick contacts: unknown. History of asthma, frequent episodes of bronchitis, chronic bronchitis, bronchiectasis or COPD: No Smoker: No Seasonal/environmental allergies: No The ROS is otherwise negative. The patient's pmh, medications, allergies, and past visits are reviewed. PHYSICAL EXAM: BP 124/74 Pulse 70 Temp 36.2 ?C (97.2 ?F) Resp 16 Wt 101.6 kg (224 lb) SpO2 96% General appearance: alert, cooperative, pleasant, in no acute distress Head: Normocephalic Eyes: EOM's intact, conjunctiva pink and moist, no icterus, sclera white, non-injected Ears: Right ear: External ear/canal- Normal, TM - clear with good landmarks. Left ear: External ear/canal- Normal, TM - clear with good landmarks Oropharynx:moist without lesions, No erythema, exudates or tonsillar hypertrophy. Heart: Negative. RRR without obvious murmur, gallop, or rubs. No ectopy. Lungs: clear to auscultation, without rales or wheeze, good air exchange PAST MEDICAL HISTORY Diagnosis Date Lumbago Other anxiety states Other chest pain 06/23 nuclear stress 06/22 WNL; stress echo 06/23 WNL e/global LVH, EF 60% PAST SURGICAL HISTORY Procedure Laterality Date COLONOSCOPY FLX DX W/COLLJ SPEC WHEN PFRMD 08/04/10 Repeat in [place] W/O FACETEC FORAMOT/DSC 11/21 VRT SGM CRV 2010 Laminectomy, cervical laser LAMINECTOMY W/O FFD 11/21 VERT SEG LUMBAR 2010 Laminectomy, lumbar scar tissue lumbar laser PAST SURGICAL HISTORY OF 07/25 and 01/23 back surgery PAST SURGICAL HISTORY OF ear surgery ALLERGIES Iodine, Seafood [Other], and Shellfish MEDICATIONS buPROPion XL (WELLBUTRIN XL) 300 mg 24 hr tablet Take 1 tablet by mouth every afternoon. traZODone (DESYREL) 100 mg tablet Take 100 mg by mouth daily at bedtime. FAMILY HISTORY Problem Relation Age of Onset Cancer Father skin cancer Stroke Maternal Grandfather Colon Cancer Other SEVERAL COUSINS Cancer Son leukemia Social History Tobacco Use Smoking status: Former Packs/day: 1.50 Years: 5.00 Additional pack years: 0.00 Total pack years: 7.50 Types: Cigarettes Quit date: 10/06/1991 Years since quittin.0 Smokeless tobacco: Current Types: Chew Last attempt to quit: 04/20/2010 Tobacco comments: 1 can per week Substance Use Topics Alcohol use: No Drug use: No ASSESSMENT/PLAN: 1. Rhinosinusitis - ICD9: 473.9, ICD10: J32.9 - DOXYCYCLINE HYCLATE 100 MG TABLET Prescription instructions reviewed with patient as applicable. Potential red flag symptoms discussed with the patient. Reviewed appropriate action plan to take if red flag symptoms occur. Patient agreeable to treatment plan. Sarina Kamara APRN.[facility] History of Present illness Narrative 10-17-2023 Sarina Kamara APRN.[facility] - 10/17/2023 10:43 AM EST Note Date & Type Note Facility 10-17-2023 History of Presen t illness Narrative CC: Patient presents with: Cough: x 6 weeks HPI: Enrique Scott is a 63 year old male who presents to the office with complaint of cough, nonproductive for 6 weeks. Symptoms are staying the same. Associated symptoms includes cough. Denies fever, nausea, vomiting , and diarrhea. Treatments tried include nothing so far. with no relief of symptoms. Sick contacts: unknown. History of asthma, frequent episodes of bronchitis, chronic bronchitis, bronchiectasis or COPD: No Smoker: No Seasonal/environmental allergies: No The ROS is otherwise negative. The patient's pmh, medications, allergies, and past visits are reviewed. PHYSICAL EXAM: BP 124/74 Pulse 70 Temp 36.2 C (97.2 F) Resp 16 Wt 101.6 kg (224 lb) SpO2 96% General appearance: alert, cooperative, pleasant, in no acute distress Head: Normocephalic Eyes: EOM's intact, conjunctiva pink and moist, no icterus, sclera white, non-injected Ears: Right ear: External ear/canal- Normal, TM - clear with good landmarks. Left ear: External ear/canal- Normal, TM - clear with good landmarks Oropharynx:moist without lesions, No erythema, exudates or tonsillar hypertrophy. Heart: Negative. RRR without obvious murmur, gallop, or rubs. No ectopy. Lungs: clear to auscultation, without rales or wheeze, good air exchange PAST MEDICAL HISTORY Diagnosis Date Lumbago Other anxiety states Other chest pain 06/23 nuclear stress 06/22 WNL; stress echo 06/23 WNL e/global LVH, EF 60% PAST SURGICAL HISTORY Procedure Laterality Date COLONOSCOPY FLX DX W/COLLJ SPEC WHEN PFRMD 08/04/10 Repeat in [place] W/O FACETEC FORAMOT/DSC 11/21 VRT SGM CRV 2009 Laminectomy, cervical laser LAMINECTOMY W/O FFD 11/21 VERT SEG LUMBAR 2009 Laminectomy, lumbar scar tissue lumbar laser PAST SURGICAL HISTORY OF 07/25 and 01/23 back surgery PAST SURGICAL HISTORY OF ear surgery ALLERGIES Iodine, Seafood [Other], and Shellfish MEDICATIONS buPROPion XL (WELLBUTRIN XL) 300 mg 24 hr tablet Take 1 tablet by mouth every afternoon. traZODone (DESYREL) 100 mg tablet Take 100 mg by mouth daily at bedtime. FAMILY HISTORY Problem Relation Age of Onset Cancer Father skin cancer Stroke Maternal Grandfather Colon Cancer Other SEVERAL COUSINS Cancer Son leukemia Social History Tobacco Use Smoking status: Former Packs/day: 1.50 Years: 5.00 Additional pack years: 0.00 Total pack years: 7.50 Types: Cigarettes Quit date: 10/06/1991 Years since quittin.0 Smokeless tobacco: Current Types: Chew Last attempt to quit: 04/20/2010 Tobacco comments: 1 can per week Substance Use Topics Alcohol use: No Drug use: No ASSESSMENT/PLAN: 1. Rhinosinusitis - ICD9: 473.9, ICD10: J32.9 - DOXYCYCLINE HYCLATE 100 MG TABLET Prescription instructions reviewed with patient as applicable. Potential red flag symptoms discussed with the patient. Reviewed appropriate action plan to take if red flag symptoms occur. Patient agreeable to treatment plan. Sarina Kamara APRN.[employer] documented in this encounter [facility] Progress note 09-02-2023 Note Date & Type Note Facility 10-14-2023 Note HNO ID: [id number] Author: Kimberley Watkins RT(R) Service: Radiology Author Type: Technologist Type: Progress Notes Filed: 09/02/2023 9:18 AM Note Text: Radiology Service Progress Note PATIENT NAME: Enrique Scott DATE OF SERVICE: September 02, 2023 TIME: 9:09 AM PATIENT IDENTITY VERIFICATION COMPLETED USING TWO (2) IDENTIFIERS: Name and Date of confirmed by patient verbally. FALL SCREENING: Has the patient had 2 falls in the last year or 1 fall with injury or currently using an Ambulatory Assistive Device (Walker, Cane, Wheelchair, Crutches, etc.)? No PATIENT GENDER DATA: Male PATIENT RELEVANT IMPLANT DATA REVIEWED: Yes RADIOLOGY DEPARTMENT: General X-ray: Exam(s) Completed: Chest X-Ray PERIPHERAL IV DATA: Not applicable SIGNED BY: RT Connie(R) September 02, 2023 9:09 AM [facility] Progress note 09-02-2023 Note Date & Type Note Facility 09-02-2023 Note HNO ID: [id number] Author: Artis Montes MD Service: ? Author Type: Physician Type: Progress Notes Filed: 09/02/2023 9:43 AM Note Text: Patient presents with: Cough: Productive cough, chest congestion x1.5 weeks, STUART HPI: Feeling sick for 1 1/2 weeks. Positive symptoms: Cough, productive at times, Chest tightness, hurts to cough sometimes, Headache, Shortness of breath, Nasal Congestion, Negative symptoms: Sore throat, resolved Rhinorrhea, Vomiting, Diarrhea, OTC: home remedies, left over amoxicillin Had right middle and lower lobe pneumonia 10/2022. He had COVID illness a few years ago. He is prone to lingering cough and wheezing every fall. He has been treated with prednisone int he past. He has children with asthma. MEDICATIONS: Current Outpatient Medications Medication Sig buPROPion XL (WELLBUTRIN XL) 300 mg 24 hr tablet Take 1 tablet by mouth every afternoon. traZODone (DESYREL) 100 mg tablet Take 100 mg by mouth daily at bedtime. No current facility-administered medications for this visit. ALLERGIES: ALLERGIES Allergen Reactions Iodine Seafood [Other] Shellfish VITALS: BP 107/64 Pulse 79 Temp 36.4 ?C (97.5 ?F) Resp 18 Wt 99 kg (218 lb 3.2 oz) SpO2 96% PHYSICAL EXAM: GEN: mildly ill appearing. Accompanied by his HEENT: PERRL, EOMI, conjunctiva clear Ears: canals clear. TMs without erythema, bulge, or effusion Sinuses: non-tender frontal sinus, non-tender maxillary sinuses Throat: moist mucous membranes, no erythema, no exudate Neck: supple, no thyromegaly, no lymphadenopathy HEART: regular rate and rhythm, no murmurs LUNGS: left lung wheezes and crackles, right lower lung field wheezes, no increased WOB; productive sounding cough ASSESSMENT/PLAN: 1. Acute cough - ICD9: 786.2, ICD10: R05.1 (primary diagnosis) 2. Wheezing - ICD9: 786.07, ICD10: R06.2 - XR CHEST 2V FRONTAL/LAT - negative. Treat reactive airway with - PREDNISONE 10 MG TABLET taper. He denies side effects with past use. Artis Montes MD [facility] History of Present illness Narrative 09-02-2023 Artis Montes MD - 09/02/2023 8:56 AM EDT Note Date & Type Note Facility 09-02-2023 History of Presen t illness Narrative Patient presents with: Cough: Productive cough, chest congestion x1.5 weeks, STUART HPI: Feeling sick for 1 1/2 weeks. Positive symptoms: Cough, productive at times, Chest tightness, hurts to cough sometimes, Headache, Shortness of breath, Nasal Congestion, Negative symptoms: Sore throat, resolved Rhinorrhea, Vomiting, Diarrhea, OTC: home remedies, left over amoxicillin Had right middle and lower lobe pneumonia 10/2022. He had COVID illness a few years ago. He is prone to lingering cough and wheezing every fall. He has been treated with prednisone int he past. He has children with asthma. MEDICATIONS: Current Outpatient Medications Medication Sig buPROPion XL (WELLBUTRIN XL) 300 mg 24 hr tablet Take 1 tablet by mouth every afternoon. traZODone (DESYREL) 100 mg tablet Take 100 mg by mouth daily at bedtime. No current facility-administered medications for this visit. ALLERGIES: ALLERGIES Allergen Reactions Iodine Seafood [Other] Shellfish VITALS: BP 107/64 Pulse 79 Temp 36.4 C (97.5 F) Resp 18 Wt 99 kg (218 lb 3.2 oz) SpO2 96% PHYSICAL EXAM: GEN: mildly ill appearing. Accompanied by his HEENT: PERRL, EOMI, conjunctiva clear Ears: canals clear. TMs without erythema, bulge, or effusion Sinuses: non-tender frontal sinus, non-tender maxillary sinuses Throat: moist mucous membranes, no erythema, no exudate Neck: supple, no thyromegaly, no lymphadenopathy HEART: regular rate and rhythm, no murmurs LUNGS: left lung wheezes and crackles, right lower lung field wheezes, no increased WOB; productive sounding cough ASSESSMENT/PLAN: 1. Acute cough - ICD9: 786.2, ICD10: R05.1 (primary diagnosis) 2. Wheezing - ICD9: 786.07, ICD10: R06.2 - XR CHEST 2V FRONTAL/LAT - negative. Treat reactive airway with - PREDNISONE 10 MG TABLET taper. He denies side effects with past use. Artis Montes MD documented in this encounter [facility] Evaluation note Note Date & Type Note Facility documented in this encounter [facility] Evaluation note Note Date & Type Note Facility documented in this encounter [facility] Summary Purpose Family History No Family History Records FoundNo Family History Records Found Advance Directives No Advanced Directives Records FoundNo Advanced Directives Records Found Additional Source Comments (unrecognized sect ion and content) No Status Records FoundNo Status Records Found INFORMATION SOURCE (unrecogn ized section and content) DATE CREATED AUTHOR AUTHOR'S ORGANIZ ATION 10/19/2023 [facility] Source Comments (unrecognize d section and content) In the event this informatio n is protected by the Federal Confidentiality of Alcohol and Drug Abuse Patient Records regulations: The Federal rules restrict any use of the information to criminally investigate or prosecute any alcohol or drug abuse patient.[facility] the event this information is protected by the Federal Confidentiality of Alcohol and Drug Abuse Patient Records regulations: The Federal rules restrict any use of the information to criminally investigate or prosecute any alcohol or drug abuse patient.[facility] Reason for Visit (unrecogniz ed section and content) Reason Comments Cough x 6 weeks FOR RECORDS PERTAINING TO PATIENTS WHO ARE OR HAVE BEEN ENROLLED IN A CHEMICAL DEPENDENCY/SUBSTANCEABUSE PROGRAM, SOME INFORMATION MAY BE OMITTED. This clinical summary was aggregated from multiple sources. Caution should be exercised in using it in the provision of clinical care. This summary normalizes information from multiple sources, and as a consequence, information in this document may materially change the coding, format and clinical context of patient data. In addition, data may be omitted in some cases. CLINICAL DECISIONS SHOULD BE BASED ON THE PRIMARY CLINICAL RECORDS. [employer] provides no warranty or guarantee of the accuracy or completeness of information in this document.
--- NOTE | 2023-12-12 13:50 | PCM.HP.STD ---
HPI - General General Date of Admission: 12/12/23 Date of Service: 12/12/23 Chief Complaint: Exertional chest pain HPI Narrative ANTOINE OLVIEIRA, is a 63 M who presented to [facility] ED on 12/12/2023 with exertional chest pain. Patient seen at bedside in the ED, present. Patient was sitting up comfortably in bed, conversing normally, no acute distress. Breathing comfortably on room air, no increased work of breathing noted. Patient states he has been having episodes of chest pain with exertion for last 1 to 2 weeks. Patient states he was trying to walk to [place] about 1 week ago and had to stop about 5 times to rest due to chest pain and shortness of breath. States that the pain was a centralized chest pain that radiated to left side of his neck and down his left arm. Patient denies any recent travel or recent sick contacts. Denies any history of DVT or PE. Patient has several year history of high cholesterol per his report. States he opted to manage with lifestyle changes and was able to lose roughly 50 to 60 pounds over the last few years. However, his lipid panel from 11/08/2023 showed a total cholesterol 279, LDL 180, HDL 66. States he agreed to start rosuvastatin 10 mg daily at that time, has now been taking daily for about 2 weeks. Only other medications that he takes regularly are trazodone and low-dose Benadryl at night to help with sleep. Patient states that he has had cardiac workup in the past several years ago that was largely negative. Patient's only other concern today is that he intermittently has had lower abdominal/suprapubic pain. States he occasionally does have difficulty starting his urine stream or feeling like he is fully emptying his bladder. States he does have family history of BPH. He otherwise denies any acute pain or discomfort today. No other acute concerns. [facility] Medical History (Updated 12/12/23 @ 15:[address] Glenroy Frankel DO) Atypical chest pain Home Medications bupropion HCl 300 mg 24 hr tablet, extended release 300 mg PO QHS sleep/mood 12/12/23 [History Last Taken 12/11/23] diphenhydramine HCl 25 mg capsule (Allergy (diphenhydramine)) 25 mg PO QHS PRN sleep 12/12/23 [History Last Taken 12/11/23] rosuvastatin 5 mg tablet 5 mg PO DAILY CHOLESTEROL 12/12/23 [History Last Taken 12/12/23] trazodone 100 mg tablet 100 mg PO QHS SLEEP 12/12/23 [History Last Taken 12/11/23] Allergy/AdvReac Type Severity Reaction Status Date / Time iodine Allergy Anaphylaxis Verified 12/12/23 11:59 Surgical History History of back surgery Social History Smoking Status: Former smoker ROS Constitutional Constitutional: Denies chills, fatigue, fever(s) or weakness Eyes Eyes: Denies change in vision Cardiovascular Cardiovascular: Reports chest pain and dyspnea on exertion; Denies edema, lightheadedness, orthopnea, palpitations, rapid heart rate or syncope Respiratory/Chest Respiratory/Chest: Denies cough, productive cough, shortness of breath at rest or wheezing Gastrointestinal Gastrointestinal: Denies abdominal pain, constipation, diarrhea, nausea or vomiting Genitourinary Genitourinary: Reports difficulty urinating and urinary hesitancy; Denies dysuria or urinary frequency Musculoskeletal Musculoskeletal: Denies arthralgias or back pain Neurologic Neurologic: Denies dizziness, focal weakness or headache(s) Vital Signs Vital Signs Vital Signs: 12/12/23 11:59 12/12/23 12:27 12/12/23 12:42 Temperature 98.2 F Temperature Source Temporal Pulse Rate 61 Respiratory Rate 14 Respiratory Effort Short of Breath Blood Pressure 137/90 H Blood Pressure Mean 105 Pulse Ox 98 Oxygen Delivery Method Room Air Room Air Weight Weight: 103.4 kg Body Mass Index (BMI) 31.8 Physical Exam Const alert, oriented x3, no apparent distress, healthy appearing and well nourished Constitutional Narrative: Pleasant elderly male, obese, sitting up comfortably in bed, conversing normally, no acute distress. General Appearance: cooperative, comfortable, well kempt and well developed HEENT normocephalic, head/scalp atraumatic, hearing grossly normal bilaterally, nasal mucous membranes and turbinates normal and moist oral mucous membranes Eyes PERRL, EOMs intact bilaterally and conjunctivae normal Neck full ROM, no lymphadenopathy and supple Lymph Lymphatic: no lymphadenopathy noted Chest inspection of chest normal Resp normal respiratory effort, normal air movement, no use of accessory muscles and clear to auscultation bilaterally Cardio regular rate, regular rhythm, no murmurs and peripheral pulses 2+ throughout GI normal to inspection, nondistended, normoactive bowel sounds, soft to palpation, non-tender and non-distended Bladder / Kidney Exam: bladder normal to palpation and no CVA tenderness Back/Spine normal ROM Extremity normal to inspection, full ROM and no pedal edema Skin no rashes or lesions noted Neuro moves all extremities and no focal motor deficits Speech: speech normal Psych mental status grossly normal Results Lab / Micro Data 12/12/23 12:30 12/12/23 12:30 Labs: Laboratory Results - last 24 hr 12/12/23 12:30: WBC 6.1, RBC 4.71, Hgb 13.9, Hct 42.6, MCV 90.4, MCH 29.5, MCHC 32.6, RDW Std Deviation 41.9, RDW Coeff of Ortega 12.7, Plt Count 179, MPV 10.8, Immature Gran % (Auto) 2.000 H, Neut % (Auto) 37.7 L, Lymph % (Auto) 48.0 H, [place] % (Auto) 8.7, Eos % (Auto) 2.8, Baso % (Auto) 0.8, Absolute Neuts (auto) 2.3, Absolute Lymphs (auto) 2.92, Nucleated RBC % 0, Sodium 140, Potassium 4.0, Chloride 107, Carbon Dioxide 30.0, Anion Gap 3 L, BUN 21 H, Creatinine 1.13, Estim Creat Clear Calc 80.84, Est GFR (MDRD) Af Amer 84, Est GFR (MDRD) Non-Af 69, BUN/Creatinine Ratio 18.6, Glucose 99, Calcium 9.3, Troponin I High Sens 6 Imagaing Radiology Impression Chest X-Ray 12/12/23 12:27 IMPRESSION: No acute abnormality is present. Electronically Signed: Jeremi Bates MD at 13:22 EST , Assessment & Plan Assessment/Plan (1) Exertional chest pain: PLAN: Plan Patient is a 63-year-old male who presented to [facility] ED on 12/12/2023 with exertional chest pain. 1. Exertional chest pain, ACS rule out Pain seems most consistent with stable angina. Risk factors for coronary disease include longstanding hyperlipidemia, obesity, age. EKG on admit showed normal sinus rhythm, no ST changes. Initial troponin 6, repeat pending. Chest x-ray nonacute. Lipid panel from 1 month ago as noted below. Hemodynamically stable on room air. ? Admit under observation status to PCU. Cardiology consulted. Echo ordered. Nuclear stress test ordered. N.p.o. at midnight. A1c ordered. Given 1 dose of aspirin 325 mg in ED, will start aspirin 81 mg daily. Increase statin dose as noted below. 2. Hyperlipidemia Lipid panel 11/08/2023 showed total cholesterol 279, LDL 180, HDL 66. On chart review, patient has history of significant hyperlipidemia dating back to 2011. Has opted for lifestyle modifications for management until last month. Had lost 50 to 60 pounds over the last year or so but states his cholesterol numbers worsened, so he was agreeable to starting a statin. Was initiated on rosuvastatin 10 mg daily, has been taking for about 2 weeks. ? Will increase to rosuvastatin 20 mg daily at this time. Recommend repeat lipid panel in 3 to 6 months. Goal LDL will depend on findings of cardiac testing as noted above. 3. Suspected BPH with obstructive symptoms ? Reports intermittent urinary hesitancy and difficulty emptying his bladder over the past few years. Renal/bladder ultrasound ordered. Can consider starting Flomax as needed. 4. Insomnia ? Continue home trazodone 100 mg at night, Benadryl 25 mg at night. 5. Obesity ? BMI 31 on admit. Complicates hospital course, care and prognosis. DVT prophylaxis: Lovenox CODE STATUS: Full code, verified Expected disposition: Home, 1 to 2 days Total clinical time spent by myself addressing the patient's medical issues, reviewing all the data, and collaborating with patient's care team: 55 minutes. Charges/Coding Visit Charges Inpatient E&M: 01103 Init Hosp L2
[2023-12-12 13:52] VITALS: BP 134/92; PULSE 96; RESP 16; O2SAT 99
--- NOTE | 2023-12-12 13:53 | NURSING ---
DR WEEKS FOR DR CURRAN
--- NOTE | 2023-12-12 13:57 | NURSING ---
PCU OBS MOSTELLER CHEST PAIN, HYPERTENSION, HYPERCHOLESTEROLEMIA
[2023-12-12 14:12] VITALS: BP 154/87; PULSE 66; RESP 18; O2SAT 99
--- OUTSIDE RECORDS SUMMARY | 2023-12-12 14:33 | XMS RPT_ITS | CCD ---
Author Name Unknown Address [address] [place] [address] [address] [place] [address] Organization [facility] Care Team Providers Care Program Technician Name Role Phone EWA BOSS Admitting Unavailable EWA BOSS Attending Unavailable NO, DOCTOR ON Referring Unavailable EWA BOSS Primary Care Unavailable NO, DOCTOR ON Consulting Unavailable Unavailable Primary Care Provider ARTIS Bah Referring Unavailable Allergies Allergy Classification Reported Allergen(s) Allergy Type Date of Onset Reaction(s) Facility (2 sources) Iodine; Translations: [IODINE] Drug Allergy 5 [facility] Repository (2 sources) Iodine Drug Allergy 5 [facility] Work Phone: (3 sources) Shellfish; Translations: [SHELLFISH] Propensity to adverse reactions 5 [facility] Work Phone: (1 source) SEAFOOD [Other] Propensity to adverse reactions 5 [facility] Work Phone: (1 source) shrimp allergenic extract Drug Allergy 3 Unknown [facility] Work Phone: (1 source) OTHER; Translations: [OTHER] Propensity to adverse reactions (disorder) 5 [facility] Repository Medications Current Medications Medication Drug Class(es) [...] 10:37-0500 Body temperature 97.2 [degF] Sarina Kamara APRN.[employer] Work Phone: [facility] 10-17-2023 10:37-0500 Body weight 101.61 kg Sarina Kamara APRN.[employer] Work Phone: [facility] 10-17-2023 10:37-0500 Diastolic blood pressure 74 mm[Hg] Sarina Kamara APRN.[employer] Work Phone: [facility] 10-17-2023 10:37-0500 Heart rate 70 /min Sarina Kamara APRN.[employer] Work Phone: [facility] 10-17-2023 10:37-0500 Respiratory rate 16 /min Sarina Kamara APRN.[employer] Work Phone: [facility] 10-17-2023 10:37-0500 SaO2% (BldA) [Mass fraction] 96 % Sarina Kamara APRN.[employer] Work Phone: [facility] 10-17-2023 10:37-0500 Systolic blood pressure 124 mm[Hg] Sarina Kamara APRN.[employer] Work Phone: [facility] 09-02-2023 08:54-0400 Body temperature 97.5 [degF] Artis Montes MD Work Phone: [facility] 09-02-2023 08:54-0400 Body weight 98.97 kg Artis Montes MD Work Phone: [facility] 09-02-2023 08:54-0400 Diastolic blood pressure 64 mm[Hg] Artis Montes MD Work Phone: [facility] 09-02-2023 08:54-0400 Heart rate 79 /min Artis Montes MD Work Phone: [facility] 09-02-2023 08:54-0400 Respiratory rate 18 /min Artis Montes MD Work Phone: [facility] 09-02-2023 08:54-0400 SaO2% (BldA) [Mass fraction] 96 % Artis Montes MD Work Phone: [facility] 09-02-2023 08:54-0400 Systolic blood pressure 107 mm[Hg] Artis Montes MD Work Phone: [facility] Encounters Encounter Date Encounter Type Care Provider Facility Start: 10-17-2023 End: 10-17-2023 ambulatory ARTIS MONTES Facility:[facility] Start: 10-17-2023 End: 10-17-2023 Patient encounter procedure Sarina Asad ESTRELLA Work Phone: [facility] Procedures Date Procedure Procedure Detail Performing Clinician Start: 08-04-2010 Colonoscopy Artis austin MD Work Phone: Start: 02-15-2007 Lipid 1996 panel - S kaycee or Plasma Artis Montes MD Work Phone: Plan of Treatment Date Care Activity Detail Author Start: 07-21-2023 Influenza vaccination Influenza Vacc ine (#1) [facility] Start: 11-20-2022 Depression Assessment Depression Ass essment [facility] Start: 08-04-2020 Colonoscopy Colonoscopy [facility] Start: 08-04-2020 Colorectal Cancer Screening Colorectal Cancer Screening [facility] Start: 2019 RSV Vaccine (1 - 1-d ose 60+ series) RSV Vaccine (1 - 1-dose 60+ series) [facility] Start: 2014 Prostate Cancer Scre ening Discussion Prostate Cancer Screening Discussion [facility] Start: 02-16-2012 Lipid 1996 panel - S kaycee or Plasma Lipid Screening [facility] Start: 02-15-2010 Diabetes Screening Diabetes Screenin g [facility] Start: 2009 Shingrix Vaccine (1 of 2) Shingrix V accine (1 of 2) [facility] Start: 2004 Cologuard (FIT-DNA) Cologuard (FIT-D NA) [facility] Start: [address] Colonography [facility] Start: 2004 Fecal Occult Blood Fecal Occult Bloo d [facility] Start: 2004 Sigmoidoscopy Sigmoidoscopy [facility] Start: 07-30-2002 Urine microalbumin profile DTa P,Tdap,Td Vaccine (1 - Tdap) [facility] Start: 1977 Hepatitis C Screening Hepatitis C Sc reening [facility] Start: 1977 HIV Screening HIV Screening [facility] Start: 1959 Covid-19 Vaccine (#1) Covid-19 Vacci ne (#1) [facility] Immunizations Immunization Date Immunization Notes Care Provider Fa cility 07-29-2002 tetanus and diphther ia toxoids, adsorbed, preservative free, for adult use (2 Lf of tetanus toxoid and 2 Lf of diphtheria toxoid) Artis Montes MD Work Phone: [facility] Work Phone: Social History Date Type Detail Facility Start: 09-02-2023 [facility] End: 10-06-1991 History of tobacco use Current smoker [facility] End: 10-06-1991 History of tobacco use Cigarette Smoker [facility] Start: 09-02-2023 End: 10-17-2023 Cigarettes smoked current (pack per day) - Reported 1.5 [facility] Start: 09-02-2023 Tobacco use and exposure User of smokeless tobacco [facility] End: 04-20-2010 History of tobacco use Chews Tobacco [facility] Start: 09-02-2023 End: 10-17-2023 Alcohol intake Current non-drinker of alcohol (finding) [facility] Start: 09-02-2023 End: 10-17-2023 Tobacco use panel [facility] Start: 09-02-2023 Tobacco Comment 1 can per week [facility] Start: 1960 Sex Assigned At Not on file C [facility] Progress note 10-17-2023 Note Date & Type Note Facility 10-17-2023 Note HNO ID: [id number] Author: Sarina Kamara APRN.[employer] Service: ? Author Type: Nurse Practitioner Type: [...] agreeable to treatment plan. Sarina Kamara APRN.[facility] History of Present illness Narrative 10-17-2023 Sarina Kamara APRN.[facility] - 10/17/2023 10:43 AM EST Note [...] Patient agreeable to treatment plan. Sarina Kamara APRN.[employer] DATA [employer] documented in this encounter [facility] Progress note 09-02-2023 Note Date & Type Note Facility 10-14-2023 Note HNO ID: [id number] Author: Kimberley Watkins RT(R) Service: Radiology Author [...] RT Connie(R) September 02, 2023 9:09 AM [facility] Progress note 09-02-2023 Note Date & Type Note Facility 09-02-2023 Note HNO ID: [id number] Author: Artis Montes MD Service: ? Author [...] effects with past use. Artis Montes MD [facility] History of Present illness Narrative 09-02-2023 Artis [...] Artis Montes MD documented in this encounter [facility] Evaluation note Note Date & Type Note Facility documented in this encounter [facility] Evaluation note Note Date & Type Note Facility documented in this encounter [facility] Summary Purpose Family History No Family History Records FoundNo Family History Records Found Advance Directives No Advanced Directives Records FoundNo Advanced Directives Records Found Additional Source Comments (unrecognized sect ion and content) No Status Records FoundNo Status Records Found INFORMATION SOURCE (unrecogn ized section and content) DATE CREATED AUTHOR AUTHOR'S ORGANIZ ATION 10/19/2023 [facility] Source Comments (unrecognize d section and content) In the event this informatio n is protected by the Federal Confidentiality of Alcohol and Drug Abuse Patient Records regulations: The Federal rules restrict any use of the information to criminally investigate or prosecute any alcohol or drug abuse patient[facility] the event this information is protected by the Federal Confidentiality of Alcohol and Drug Abuse Patient Records regulations: The Federal rules restrict any use of the information to criminally investigate or prosecute any alcohol or drug abuse patient.[facility] Reason for Visit (unrecogniz ed section [...] BE BASED ON THE PRIMARY CLINICAL RECORDS. [employer] provides no warranty or guarantee of the accuracy or completeness of information in this document.
[2023-12-12 14:38] LABS: Reflex Troponin-HS? (from REC) Y
[2023-12-12 15:16] LABS: Troponin-I HS 4 pg/mL (3.0-78.0)
--- NOTE | 2023-12-12 15:37 | US_ITS ---
STUDY: RENAL ULTRASOUND - COMPLETE REASON FOR EXAM: Male, 63 years old. Elevated BUN/creatinine TECHNIQUE: Ultrasound evaluation of the kidneys was performed with real-time and static sheridan-scale imaging. COMPARISON: None. FINDINGS: RIGHT KIDNEY: Normal location of the right kidney, which is normal in size. The right kidney measures 10.4 x 4.8 x 5.6 cm. There is a normal cortex of the right kidney. The renal cortex measures 1.2 cm. There is a simple 1 cm cyst. There are no right renal calculi. There is no right hydronephrosis. DISTAL RIGHT URETER: There is non-visualization of the distal right ureter. There is no demonstrated right ureterovesical junction calculus. There is a visualized right ureteral jet. LEFT KIDNEY: Normal location of the left kidney, which is normal in size. The left kidney measures 9.3 x 4.3 x 6.4 cm. There is a normal cortex of the left kidney. The renal cortex measures 1.1 cm. There is no left renal mass or cyst. There are no left renal calculi. There is no left hydronephrosis. DISTAL LEFT URETER: There is non-visualization of the distal left ureter. There is no demonstrated left ureterovesical junction calculus. There is a visualized left ureteral jet. AORTA: There is no elongation or tortuosity of the abdominal aorta. I.V.C.: The IVC is patent. BLADDER: The bladder is sonographically normal, with estimated capacity of 308.2 mL US/Kidney and Bladder IMPRESSION: No suspicious sonographic findings, simple right renal cyst, no specific follow-up needed Electronically Signed: Boo Kc MD at 17:40 EST ,
[2023-12-12 15:39] VITALS: BMI 31.0
[2023-12-12 15:40] VITALS: BP 120/80; PULSE 59; RESP 14; TEMP 36.2; O2SAT 97
[2023-12-12 16:28] VITALS: O2SAT 96
[2023-12-12 16:46] LABS: Hemoglobin A1c 5.5 % (3.8-5.6)
--- NOTE | 2023-12-12 17:06 | ECHOD_ITS ---
Reason For Study: CHEST PAIN Procedure This was a 2D Doppler, Color Flow transthoracic echocardiogram. Exam performed portable in patient room. Left Ventricle Normal LV size. Left ventricular systolic function is normal. The estimated ejection fraction is 60 %. Stage 1 diastolic dysfunction. No regional wall motion abnormalities noted. Right Ventricle Normal RV size. Normal systolic function. Atria Normal left atrium. Normal right atrium. Mitral Valve Normal mitral valve. Tricuspid Valve Normal tricuspid valve. Mild (1+) tricuspid valve insufficiency. Pulmonary artery systolic pressure is 43 mmHg. Aortic Valve Normal aortic valve. Trisinus/trileaflet aortic valve. Pulmonic Valve Normal pulmonic valve. Great Vessels Normal aortic root. The pulmonary artery is normal size. Normal inferior vena cava. Pericardium/Pleural No pericardial effusion. MMode/2D Measurements & Calculations LVIDd: 4.5 cm IVSd: 1.0 cm Ao root diam: 3.2 cm LVIDs: 3.1 cm LVPWd: 1.1 cm RVDd: 3.2 cm FS: 31.6 % LAV(MOD-bp): 34.0 ml LVAd ap4: 24.7 cm2 SV(MOD-sp4): 37.8 ml LAV(MOD-bp) Indexed: 15.1 ml/m2 LVLd ap4: 7.9 cm LAV(MOD-sp2): 34.5 ml EDV(MOD-sp4): 64.6 ml LAV(MOD-sp4): 33.9 ml EDV(sp4-el): 65.4 ml LVAs ap4: 13.7 cm2 LVLs ap4: 6.2 cm ESV(MOD-sp4): 26.8 ml ESV(sp4-el): 25.6 ml EF(MOD-sp4): 58.5 % EF(sp4-el): 60.9 % SV(sp4-el): 39.8 ml LA A4 area: 14.7 cm2 LA dimension(2D): 3.2 cm RA A4 area: 14.0 cm2 TAPSE: 1.8 cm Time Measurements MV dec time: 0.28 sec Doppler Measurements & Calculations MV E max berry: 84.7 cm/sec Lat Peak E' Berry: 11.3 cm/sec Med Peak E' Berry: 9.9 cm/sec MV A max berry: 98.8 cm/sec E/E' lat: 7.5 E/E' med: 8.6 MV E/A: 0.86 Ao V2 max: 195.3 cm/sec LV V1 max: 184.8 cm/sec PA V2 max: 114.7 cm/sec Ao max P.3 mmHg LV V1 max P.7 mmHg TR max berry: 310.7 cm/sec TR max P.6 mmHg ECHO/Echo Complete Interpretation Summary Normal LV size. Left ventricular systolic function is normal. The estimated ejection fraction is 60 %. Stage 1 diastolic dysfunction. Pulmonary artery systolic pressure is 43 mmHg. Structurally normal valves. Ordering Physician: Gilberto Badillo Referring Physician: Alyson Ortiz Performed By: Marcela Donovan RDCS
--- NOTE | 2023-12-12 17:08 | CON.PCM.CA_ITS ---
Assessment & Plan Assessment/Plan (1) Unstable angina: PLAN: Patient's symptoms are consistent with accelerating exertional angina consistent with unstable angina. He is a remote smoker however he has not smoked in quite some time. He does have history of hyperlipidemia. Blood pressure is well-controlled at the current time. The patient's secondary risk factors will be aggressively treated following further definitive evaluation of his chest symptoms. (2) Chest pain: QUALIFIERS: Ischemic chest pain type: unstable angina pectoris Chest pain type: chest pain due to myocardial ischemia Qualified Code(s): I20.0 - Unstable angina PLAN: The chest pain is classic for an accelerating angina picture. Please see the HPI for details. The patient will undergo invasive evaluation in the next 2 4 hours. Will also obtain an echocardiogram for evaluation of his LV function. (3) Hx of hypercholesterolemia: PLAN: Following determination of his etiology of his chest symptoms aggressive secondary risk factor modifications will be implemented. PLAN: Plan 1. Left heart catheterization within the next 24 hours. The procedure risk/benefit and alternatives were explained to the patient and his in detail they voiced understanding and agreed to proceed. 2. 2D echocardiogram for evaluation of LV function. I discussed the plan with the patient's nurse and Dr. Frankel the patient's attending physician. HPI Consult Data Date of Consult: 12/12/23 HPI Narrative Reason for Consultation: Chest Pain accelerating exertional symptoms HPI Narrative: ANTOINE OLIVEIRA, is a 63 M who presents a 3-week history of accelerating exertional chest symptoms. The patient reports that he was walking uphill to [facility] and had to stop about [facility] due to some left-sided chest tightness. This resolved spontaneously he continue to walk and it recurred about the time he reached the [facility]. This has been going on every time he is going to the [facility] over the last 3 weeks. Today it occurred with less activity was associated with shortness of breath and a profound fatigability following the event. The patient does not have a significant family history of coronary disease, he is not diabetic, he does not feel that he is hypertensive. The patient denies tobacco use. He does have significant hyperlipidemia but is not been treated until just recently starting therapy. The patient denies any PND orthopnea denies any lower extremity edema. He deshaun es any syncope or near syncope. 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 He is not certain if he ever reacted to iodine contrast or not. The patient denies any bleeding history. He has had a history of significant neck and back surgical procedures. Prior to one of his surgical procedure several years ago he had a negative pharmacologic stress test. [facility] Medical History (Updated 12/12/23 @ 17:[address] Gilberto Badillo MD) Atypical chest pain Home Medications bupropion HCl 300 mg 24 hr tablet, extended release 300 mg PO QHS sleep/mood 12/12/23 [History Last Taken 12/11/23] diphenhydramine HCl 25 mg capsule (Allergy (diphenhydramine)) 25 mg PO QHS PRN sleep 12/12/23 [History Last Taken 12/11/23] rosuvastatin 5 mg tablet 5 mg PO DAILY CHOLESTEROL 12/12/23 [History Last Taken 12/12/23] trazodone 100 mg tablet 100 mg PO QHS SLEEP 12/12/23 [History Last Taken 12/11/23] Allergy/AdvReac Type Severity Reaction Status Date / Time iodine Allergy Anaphylaxis Verified 12/12/23 11:59 other (No family history of coronary artery disease. Mother and father both from cancer.) Surgical History History of back surgery Social History Smoking Status: Former smoker Prior Cardiac Testing/Procedures Prior Cardiac Testing/Procedures: Stress Test (Negative pharmacologic stress test several years ago prior to surgical intervention on his back.) ROS Constitutional Constitutional: Reports as per HPI Eyes Eyes: Reports systems reviewed and no addt'l complaints, except as documented ENT HEENT: Reports systems reviewed and no addt'l complaints, except as documented Cardiovascular Cardiovascular: Reports systems reviewed and no addt'l complaints, except as documented Respiratory/Chest Respiratory/Chest: Reports systems reviewed and no addt'l complaints, except as documented and dyspnea on exertion Gastrointestinal Gastrointestinal: Reports systems reviewed and no addt'l complaints, except as documented Genitourinary Genitourinary: Reports systems reviewed and no addt'l complaints, except as documented Neurologic Neurologic: Reports systems reviewed and no addt'l complaints, except as documented Psychiatric Psychiatric: Reports systems reviewed and no addt'l complaints, except as documented Endocrine Endocrinology: Reports systems reviewed and no addt'l complaints, except as documented Hematologic/Lymphatic Hematologic/Lymphatic: Reports systems reviewed and no addt'l complaints, except as documented Allergic/Immunologic Allergic/Immunologic: Reports systems reviewed and no addt'l complaints, except as documented Physical Exam Const oriented x3, no apparent distress and healthy appearing HEENT normocephalic Eyes EOMs intact bilaterally Neck no JVD and no carotid bruits Chest inspection of chest normal Resp normal respiratory effort Auscultation: Negative for crackles, rales, rhonchi or wheezes Cardio regular rate, regular rhythm, S1 normal heart sound, S2 normal heart sound, no murmurs, no rub, no gallops, no JVD and peripheral pulses 2+ throughout GI soft to palpation and no bruits Extremity General Extremity: Negative for edema Skin no rashes or lesions noted Psych mental status grossly normal Risk Stratification Risk Stratification Applicable: No Charges/Coding Visit Charges Inpatient E&M: 51887 Init Hosp L3 Objective Data Vital Signs: Vital Signs Temp Pulse Resp BP Pulse Ox O2 Del Method 97.1 F L 59 L 14 120/80 96 Room Air 12/12/23 15:40 12/12/23 15:40 12/12/23 15:40 12/12/23 15:40 12/12/23 16:28 12/12/23 16:28 Oxygen Delivery Method Room Air Weight: 222 lb 10.67 oz Body Mass Index (BMI) 31.0 Intake & Output: Intake and Output for Last 24 Hours 12/10/23 12/11/23 12/12/23 23:59 23:59 23:59 Intake Total 565 / 565 Balance 565 / 565 Lab / Micro Data 12/12/23 12:30 12/12/23 12:30 Labs: Laboratory Results - last 24 hr 12/12/23 12:30: WBC 6.1, RBC 4.71, Hgb 13.9, Hct 42.6, MCV 90.4, MCH 29.5, MCHC 32.6, RDW Std Deviation 41.9, RDW Coeff of Ortega 12.7, Plt Count 179, MPV 10.8, Immature Gran % (Auto) 2.000 H, Neut % (Auto) 37.7 L, Lymph % (Auto) 48.0 H, [place] % (Auto) 8.7, Eos % (Auto) 2.8, Baso % (Auto) 0.8, Absolute Neuts (auto) 2.3, Absolute Lymphs (auto) 2.92, Nucleated RBC % 0, Sodium 140, Potassium 4.0, Chloride 107, Carbon Dioxide 30.0, Anion Gap 3 L, BUN 21 H, Creatinine 1.13, Estim Creat Clear Calc 80.84, Est GFR (MDRD) Af Amer 84, Est GFR (MDRD) Non-Af 69, BUN/Creatinine Ratio 18.6, Glucose 99, Hemoglobin A1c 5.5, Calcium 9.3, Troponin I High Sens 6 12/12/23 14:45: Troponin I High Sens 4 Cardiology Labs/Tests 12/12/23 12:30: WBC 6.1, RBC 4.71, Hgb 13.9, Hct 42.6, MCV 90.4, MCH 29.5, MCHC 32.6, Plt Count 179, MPV 10.8, Immature Gran % (Auto) 2.000 H, Neut % (Auto) 37 .7 L, Lymph % (Auto) 48.0 H, [place] % (Auto) 8.7, Eos % (Auto) 2.8, Baso % (Auto) 0.8, Absolute Neuts (auto) 2.3, Nucleated RBC % 0, Sodium 140, Potassium 4.0, Chloride 107, Carbon Dioxide 30.0, Anion Gap 3 L, BUN 21 H, Creatinine 1.13, Est GFR (MDRD) Af Amer 84, Est GFR (MDRD) Non-Af 69, BUN/Creatinine Ratio 18.6, Glucose 99, Hemoglobin A1c 5.5, Calcium 9.3 Rhythm: EKG: ECHO: Stress Test: Cardiac Cath: PCI: CT Surgery: Holter monitor: EPS: PPM: CXR: Chest CT Scan: Radiography Diagnostic Testing: Radiology Impression Chest X-Ray 12/12/23 12:27 IMPRESSION: No acute abnormality is present. Electronically Signed: Jeremi Bates MD at 13:22 EST ,
[2023-12-12 17:31] LABS: Troponin-I HS 5 pg/mL (3.0-78.0)
[2023-12-12] MEDS: Acetaminophen 325 MG Tablet 650 MG PO (18:10)
[2023-12-12] MEDS: predniSONE 20 MG Tablet 50 MG PO (18:33)
[2023-12-12 21:48] VITALS: BP 114/78; PULSE 62; RESP 14; TEMP 36.6; O2SAT 98
[2023-12-12] MEDS: traZODone 100 MG Tablet PO (21:50)
[2023-12-12] MEDS: Atorvastatin Calcium 40 MG Tablet PO (21:50)
[2023-12-13] VITALS (13 sets, daily range): BP systolic 106–153; BP diastolic 55–94; PULSE 64–95; RESP 14–18; TEMP 36.4–36.8; O2SAT 94–98
[2023-12-13] MEDS: predniSONE 20 MG Tablet 50 MG PO ×2 (01:02→06:22)
[2023-12-13] MEDS: 0.9% Saline Lock 10 ML Syringe IV (06:20)
[2023-12-13] MEDS: Aspirin 81 MG TAB.CHEW PO (06:22)
[2023-12-13 07:56] LABS: Hematocrit 43.7 % (40-54); Hemoglobin 14.6 g/dL (13.0-16.5); Mean Corp Hgb Conc 33.4 g/dL (32-36); Mean Corpuscular Hgb 29.8 pg (27.0-32.0); Mean Corpuscular Volume 89.2 fL (80-94); Mean Platelet Vol. 10.9 fl (6.2-12.0); Platelet Count 185 K/mm3 (150-450); RBC Distribution Width CV 12.5 % (11.6-14.6); RBC Distribution Width SD 41.1 fl (35.1-43.9); White Blood Count 5.2 K/mm3 (4.4-11.0)
[2023-12-13 08:08] LABS: Anion Gap 5 (5-15); BUN 23 mg/dL (7-18); BUN/Creat Ratio 21.5 RATIO (10-20); Calcium,Total 9.7 mg/dL (8.5-10.1); Chloride 109 mmol/L (98-107); Creatinine, Serum 1.07 mg/dL (0.70-1.30); EST Glomerular Filtration Rate 74 mL/min (>60); Est Glom Filt Rate - Afr Amer 89 mL/min (>60); Estimated Creatinine Clearance 84.42 ml/min; Glucose 165 mg/dL (74-106); Sodium Level 136 mmol/L (136-145)
--- NOTE | 2023-12-13 08:10 | PN.CARD_ITS ---
Subjective Subjective Patient reports that he rested comfortably overnight. He continues to have chronic neck and upper shoulder discomfort which is not new for him and felt to be related to his cervical spine disease. He did not have any recurrence of the left-sided chest discomfort that he had walking up [place] to the [facility] as his anginal equivalent. The patient is scheduled for left heart catheterization today. Objective Data Vital Signs: Vital Signs Temp Pulse Resp BP Pulse Ox O2 Del Method 97.6 F L 69 14 110/79 95 Room Air 12/13/23 03:17 12/13/23 03:17 12/13/23 03:17 12/13/23 03:17 12/13/23 03:17 12/13/23 03:46 Oxygen Delivery Method Room Air Weight: 222 lb 10.67 oz Body Mass Index (BMI) 31.0 Intake & Output: Intake and Output for Last 24 Hours 12/11/23 12/12/23 12/13/23 23:59 23:59 23:59 Intake Total 1245 / 1245 100 / 100 Balance 1245 / 1245 100 / 100 Lab / Micro Data 12/13/23 06:30 12/13/23 06:30 Labs: Laboratory Results - last 24 hr 12/12/23 12:30: WBC 6.1, RBC 4.71, Hgb 13.9, Hct 42.6, MCV 90.4, MCH 29.5, MCHC 32.6, RDW Std Deviation 41.9, RDW Coeff of [place]tega 12.7, Plt Count 179, MPV 10.8, Immature Gran % (Auto) 2.000 H, Neut % (Auto) 37.7 L, Lymph % (Auto) 48.0 H, [place] % (Auto) 8.7, Eos % (Auto) 2.8, Baso % (Auto) 0.8, Absolute Neuts (auto) 2.3, Absolute Lymphs (auto) 2.92, Nucleated RBC % 0, Sodium 140, Potassium 4.0, Chloride 107, Carbon Dioxide 30.0, Anion Gap 3 L, BUN 21 H, Creatinine 1.13, Estim Creat Clear Calc 80.84, Est GFR (MDRD) Af Amer 84, Est GFR (MDRD) Non-Af 69, BUN/Creatinine Ratio 18.6, Glucose 99, Hemoglobin A1c 5.5, Calcium 9.3, Troponin I High Sens 6 12/12/23 14:45: Troponin I High Sens 4 12/12/23 17:02: Troponin I High Sens 5 12/13/23 06:30: WBC 5.2, RBC 4.90, Hgb 14.6, Hct 43.7, MCV 89.2, MCH 29.8, MCHC 33.4, RDW Std Deviation 41.1, RDW Coeff of Ortega 12.5, Plt Count 185, MPV 10.9, Sodium 136, Potassium 4.0, Chloride 109 H, Carbon Dioxide 22.0, Anion Gap 5, BUN 23 H, Creatinine 1.07, Estim Creat Clear Calc 84.42, Est GFR (MDRD) Af Amer 89, Est GFR (MDRD) Non-Af 74, BUN/Creatinine Ratio 21.5 H, Glucose 165 H, Calcium 9.7 Cardiology Labs/Tests 12/12/23 12:30: WBC 6.1, RBC 4.71, Hgb 13.9, Hct 42.6, MCV 90.4, MCH 29.5, MCHC 32.6, Plt Count 179, MPV 10.8, Immature Gran % (Auto) 2.000 H, Neut % (Auto) 37.7 L, Lymph % (Auto) 48.0 H, [place] % (Auto) 8.7, Eos % (Auto) 2.8, Baso % (Auto) 0.8, Absolute Neuts (auto) 2.3, Nucleated RBC % 0, Sodium 140, Potassium 4.0, Chloride 107, Carbon Dioxide 30.0, Anion Gap 3 L, BUN 21 H, Creatinine 1.13, Est GFR (MDRD) Af Amer 84, Est GFR (MDRD) Non-Af 69, BUN/Creatinine Ratio 18.6, Glucose 99, Hemoglobin A1c 5.5, Calcium 9.3 12/13/23 06:30: WBC 5.2, RBC 4.90, Hgb 14.6, Hct 43.7, MCV 89.2, MCH 29.8, MCHC 33.4, Plt Count 185, MPV 10.9, Sodium 136, Potassium 4.0, Chloride 109 H, Carbon Dioxide 22.0, Anion Gap 5, BUN 23 H, Creatinine 1.07, Est GFR (MDRD) Af Amer 89, Est GFR (MDRD) Non-Af 74, BUN/Creatinine Ratio 21.5 H, Glucose 165 H, Calcium 9.7 Rhythm: EKG: ECHO: Stress Test: Cardiac Cath: PCI: CT Surgery: Holter monitor: EPS: PPM: CXR: Chest CT Scan: Radiography Diagnostic Testing: Radiology Impression Chest X-Ray 12/12/23 12:27 IMPRESSION: No acute abnormality is present. Electronically Signed: Jeremi Bates MD at 13:22 EST , Renal Ultrasound 12/12/23 15:37 IMPRESSION: No suspicious sonographic findings, simple right renal cyst, no specific follow-up needed Electronically Signed: Boo Kc MD at 17:40 EST , Physical Exam Const oriented x3 HEENT normocephalic Eyes EOMs intact bilaterally Neck no JVD Chest inspection of chest normal Resp normal respiratory effort Auscultation: Negative for crackles, rales, rhonchi or wheezes Cardio regular rate, regular rhythm, S1 normal heart sound, S2 normal heart sound, no murmurs, no rub and no gallops GI soft to palpation and no bruits Skin no rashes or lesions noted Psych mental status grossly normal Assessment & Plan Assessment/Plan (1) Unstable angina: PLAN: The patient denies any recurrence of his anginal type symptoms overnight. The patient is scheduled for left heart catheterization later today. Report joe l be following. Further therapy will be recommended pending the outcomes of the catheterization. The patient's catheterization revealed a significant lesion and is relatively small 2 mm ramus branch of the circumflex. We will treat this medically. The patient's LAD had mild disease the right coronary artery was free of any significant disease. The patient will be placed on long-acting nitrate with Imdur, beta-orion, and a baby aspirin a day. He will be reevaluated the office in 2 to 4 weeks. From a cardiovascular standpoint he can be discharged home when up and ambulatory. I discussed this with the patient and family in detail prior to his discharge. (2) Hx of hypercholesterolemia: PLAN: The patient will be continued on his rosuvastatin and managed by his primary care physician. Charges/Coding Visit Charges Inpatient E&M: 05021 Subs Hosp L3
--- NOTE | 2023-12-13 08:46 | PN.HOSP_ITS ---
Reason for Visit Reason for Visit: Diagnoses Unstable angina (12/12/23) Chest pain, unspecified (12/12/23) Personal history of other endocrine, nutritional and metabolic disease (12/12/23) Objective Data Objective Data Vital Signs: Vital Signs Temp Pulse Resp BP Pulse Ox O2 Del Method 97.6 F L 69 14 110/79 95 Room Air 12/13/23 03:17 12/13/23 03:17 12/13/23 03:17 12/13/23 03:17 12/13/23 03:17 12/13/23 03:46 Oxygen Delivery Method Room Air Weight: 222 lb 10.67 oz Body Mass Index (BMI) 31.0 Intake & Output: Intake and Output for Last 24 Hours 12/11/23 12/12/23 12/13/23 23:59 23:59 23:59 Intake Total 1245 / 1245 100 / 100 Balance 1245 / 1245 100 / 100 Lab / Micro Data 12/13/23 06:30 12/13/23 06:30 Labs: Laboratory Results - last 24 hr 12/12/23 12:30: WBC 6.1, RBC 4.71, Hgb 13.9, Hct 42.6, MCV 90.4, MCH 29.5, MCHC 32.6, RDW Std Deviation 41.9, RDW Coeff of Ortega 12.7, Plt Count 179, MPV 10.8, Immature Gran % (Auto) 2.000 H, Neut % (Auto) 37.7 L, Lymph % (Auto) 48.0 H, [place] % (Auto) 8.7, Eos % (Auto) 2.8, Baso % (Auto) 0.8, Absolute Neuts (auto) 2.3, Absolute Lymphs (auto) 2.92, Nucleated RBC % 0, Sodium 140, Potassium 4.0, Chloride 107, Carbon Dioxide 30.0, Anion Gap 3 L, BUN 21 H, Creatinine 1.13, Estim Creat Clear Calc 80.84, Est GFR (MDRD) Af Amer 84, Est GFR (MDRD) Non-Af 69, BUN/Creatinine Ratio 18.6, Glucose 99, Hemoglobin A1c 5.5, Calcium 9.3, Troponin I High Sens 6 12/12/23 14:45: Troponin I High Sens 4 12/12/23 17:02: Troponin I High Sens 5 12/13/23 06:30: WBC 5.2, RBC 4.90, Hgb 14.6, Hct 43.7, MCV 89.2, MCH 29.8, MCHC 33.4, RDW Std Deviation 41.1, RDW Coeff of Ortega 12.5, Plt Count 185, MPV 10.9, Sodium 136, Potassium 4.0, Chloride 109 H, Carbon Dioxide 22.0, Anion Gap 5, BUN 23 H, Creatinine 1.07, Estim Creat Clear Calc 84.42, Est GFR (MDRD) Af Amer 89, Est GFR (MDRD) Non-Af 74, BUN/Creatinine Ratio 21.5 H, Glucose 165 H, Calcium 9.7 Radiography Diagnostic Testing: Radiology Impression Chest X-Ray 12/12/23 12:27 IMPRESSION: No acute abnormality is present. Electronically Signed: Jeremi Bates MD at 13:22 EST , Renal Ultrasound 12/12/23 15:37 IMPRESSION: No suspicious sonographic findings, simple right renal cyst, no specific follow-up needed Electronically Signed: Boo Kc MD at 17:40 EST , Physical Exam Narrative Seen and examined. Patient denies any history of coronary artery disease CHF or valvular heart disease in the past. History is typical of unstable angina getting worse on exertion and resolves with rest. Patient also had neck surgery therefore he has chronic neck pain with radiation to left shoulder and arm. Physical exam General: Alert, Oriented x3, Cooperative HEENT: Atraumatic, PERRLA, EOMI, Normocephalic Oral: No Gingival or Mucosal Lesions/ Ulcerations Neck: Supple, No JVD, Negative Carotid Bruits Chest wall/Lungs: Air entry equal in bilateral lung bases. No crepitation/rhonchi. Dyspnea on exertion. Cardiovascular: Regular rate, Regular Rhythm, Normal S1, Normal S2, No murmurs Abdomen: Bowel Sounds Present, Soft, Non Tender, Non-Distended : No renal angle tenderness. No suprapubic tenderness. Extremities: No edema, Capillary Refill Less than 3 Seconds Skin: No rashes, No breakdown Musculoskeletal: No Tenderness to Palpation of Joints or Extremities Spine: History of transcervical anterior cervical spine surgery. Multiple lumbar spine surgery. Mild chronic C-spine tenderness. Neurological: Cranial nerves II-XII grossly intact, DTR 2+/4. No acute focal neurological deficit. Psych/Mental Status: Normal Affect, Appropriate. Assessment & Plan Assessment/Plan (1) Exertional chest pain: PLAN: Plan Patient is a 63-year-old male who presented to [facility] ED on 12/12/2023 with exertional chest pressure felt like tightness, worse on walking uphill discharge and resolution spontaneously on stopping. This has been going for last 3 weeks. Associated with shortness of breath and fatigue. 1. Unstable angina: Pain seems most consistent with stable angina. Risk factors for coronary disease include longstanding hyperlipidemia, obesity, age. EKG on admit showed normal sinus rhythm, no ST changes. Initial troponin 6, repeat pending. Chest x-ray nonacute. Lipid panel from 1 month ago as noted below. Hemodynamically stable on room air. ? Admit under observation status to PCU. Cardiology consulted. Echo ordered. Nuclear stress test ordered. N.p.o. at midnight. A1c ordered. Given 1 dose of aspirin 325 mg in ED, will start aspirin 81 mg daily. Increase statin dose as noted below. 2. Hyperlipidemia Lipid panel 11/08/2023 showed total cholesterol 279, LDL 180, HDL 66. On chart review, patient has history of significant hyperlipidemia dating back to 2011. Has opted for lifestyle modifications for management until last month. Had lost 50 to 60 pounds over the last year or so but states his cholesterol numbers worsened, so he was agreeable to starting a statin. Was initiated on rosuvastatin 10 mg daily, has been taking for about 2 weeks. ? Will increase to rosuvastatin 20 mg daily at this time. Recommend repeat lipid panel in 3 to 6 months. Goal LDL will depend on findings of cardiac testing as noted above. 3. Suspected BPH with obstructive symptoms ? Reports intermittent urinary hesitancy and difficulty emptying his bladder over the past few years. Renal/bladder ultrasound ordered. Can consider starting Flomax as needed. 4. Insomnia ? Continue home trazodone 100 mg at night, Benadryl 25 mg at night. 5. Obesity ? BMI 31 on admit. Complicates hospital course, care and prognosis. DVT prophylaxis: Lovenox CODE STATUS: Full code, verified Expected disposition: Home, 1 to 2 days Total clinical time spent by myself addressing the patient's medical issues, reviewing all the data, and collaborating with patient's care team: 55 minutes.
--- NOTE | 2023-12-13 09:50 | NURSING ---
Report called to label sewer.
--- NOTE | 2023-12-13 12:58 | CL.D_ITS ---
Patient Name: ANTOINE OLIVEIRA Study Date: 12/13/2023 Performing: Nawaf Sprague MD Ht: 71 inches 180.34 cm : 1960 Wt: 223 lbs 101 kg Age: 63 Gender: male BSA: 2.21 PROCEDURE(S) PERFORMED [id number])[facility] CLINICAL PROFILE AND INDICATIONS Indications: New Onset Angina <= 2 months Heart Failure: None Stress/Imaging Stress/Image Study Performed: No Angina Classification Anginal Classification w/in 2 Weeks: CCS III CAD Presentations: Unstable angina. CONCLUSIONS Severe single-vessel disease involving a proximal diagonal vessel. RECOMMENDATIONS Maximization of medical therapy DESCRIPTION OF PROCEDURE The patient arrived to the procedure lab. The risks and benefits of the procedure as well as a full description of our services here and current unavailability of surgical backup were fully explained to the patient and/or their significant other prior to the catheterization. The Timeout was completed, verifying the correct patient and procedure. The patient's procedural site was prepped and draped in the usual fashion. Local anesthetic was given subcutaneously to right radial region with Lidocaine 2%. Using a modified Seldinger technique, arterial access was obtained via the right radial artery, a 6Fr sheath was inserted. Left Coronary Artery selective angiography was performed in multiple views using a 5 Fr. 4.0 [place] catheter. Right Coronary Artery selective angiography was then performed in multiple views using a 5 Fr. 4.0 [place] catheter. LV to AO pullback pressures were then recorded.The arterial sheath was pulled and a TR Band was applied for hemostasis CORONARY ANGIOGRAPHY DOMINANCE: Right Dominant LEFT MAIN: Angiographically normal LEFT ANTERIOR DESCENDING ARTERY: Medium size vessel with the midsegment with a 60% stenosis and distal mild disease with tapering DIAGONAL 1: Proximal - 80 % Stenosis CIRCUMFLEX ARTERY: Mild luminal irregularities less than 30% RIGHT CORONARY ARTERY: No significant disease noted COMPLICATIONS No Complications PROCEDURE MEDICATIONS Fentanyl 50 mcg IV Versed 1 mg IV Versed 1 mg IV Oxygen: 2 L/min via nasal cannula Benadryl 50 mg IV @ 12/13/2023 10:44:35 Solu-medrol 125 mg IV 12/13/2023 10:44:22 SUMMARY OF HEMODYNAMIC DATA Time AIR REST ECG 10:38:14 Art 107/67 (84) 10:59:51 AO 113/98 (107) SA 11:04:18 Signed By Nawaf Sprague MD On 12/13/2023 12:57:44 Nawaf Sprague MD
--- NOTE | 2023-12-13 15:46 | CHAPLAIN ---
Type of Pastoral Visit _x__ Initial Visit ___ Follow-up Visit ___ On-call Visit ___ General Patient Visit ___ Spiritual Assessment ___ Family Conference ___ Bereavement ___ Rapid Response ___ Code Blue ___ Other (describe below) Pastoral Care Referral From _x__ Patient ___ Family ___ Nurse ___ Physician ___ Local Sales Associate ___ Oxygen Furnace Operator ___ Other (describe below) Sacrament/Intervention _x__ Active listening ___ Anointing ___ Alevism ___ Bereavement ___ Communion _x__ Radha exploration ___ _x__ Life review _x__ Prayer ___ Reconciliation ___ Sacrament of Sick ___ Supportive presence ___ Wedding ___ Other (describe below) Pastoral Comments patient is very welcoming and eager to talk; spouse is with him; pt gives some life history and shares his perspective on life and radha; pt is of the [facility] community and gives his own personal journey of knowing God and having a personal encounter with Golden; pt asks questions of a spiritual nature and asks for prayers for himself and for his family; pt expresses appreciation for the support
[2023-12-13] MEDS: Metoprolol(XL)Succ 50 MG Tablet PO (16:34)
[2023-12-13] MEDS: traZODone 100 MG Tablet PO (21:19)
[2023-12-13] MEDS: DiphenhydrAMINE 25 MG Capsule PO (21:19)
[2023-12-13] MEDS: Atorvastatin Calcium 40 MG Tablet PO (21:20)
[2023-12-13] MEDS: Acetaminophen 325 MG Tablet 650 MG PO (21:25)
[2023-12-14 03:35] VITALS: BP 118/77; PULSE 64; RESP 18; TEMP 36.9; O2SAT 96
--- NOTE | 2023-12-14 07:21 | DCINST_ITS ---
Discharge Instructions Diet Discharge Diet: Low fat / Low cholesterol and 2000 mg Sodium Diet Activity Discharge Activity: Return to Normal Activity Weight Bearing Status: Weight bearing as tolerated Dressing / Incision Call your doctor if you observe: Fever of 101 or Higher, Coldness, Increased Pain, Numbness or Tingling, Change in Color, Inability to urinate, Inability to have a bowel movement, Shortness of breath, Dizziness, Fainting spells, Swelling in the ankles, Chest pain, Prolonged hiccupping, Increased palpitations (irregular heartbeat) and Calf discomfort Follow Up Care When: IN 2 WEEKS Test Results: Test results from this visit will be discussed in further detail at your follow- up appointment, if applicable. Discharge Plan Admission Admit Date/Time: 12/13/23 14:30 Primary Reason for Your Visit: Unstable angina Attending Provider: Genaro Butler Primary Care Provider: Jorge Benitez Consulting Providers: Gilberto Badillo; Glenroy Frankel Discharge Orders/Prescriptions Prescriptions: New isosorbide mononitrate 30 mg Tablet Extended Release 24 Hr 30 mg PO DAILY 30 Days Qty: 30 2RF aspirin 81 mg Tablet,Chewable 81 mg PO BREAKFAST Qty: 30 4RF metoprolol succinate 50 mg Tablet Extended Release 24 Hr 50 mg PO DAILY Qty: 30 2RF Rx Instructions: Hold for heart less than 50 or systolic blood pressure less than 100 mmHg. rosuvastatin 20 mg tablet 20 mg PO DAILY 30 Days Qty: 30 2RF Continued trazodone 100 mg tablet 100 mg PO QHS bupropion HCl 300 mg tablet extended release 24 hr 300 mg PO QHS diphenhydramine HCl [Allergy (diphenhydramine)] 25 mg capsule 25 mg PO QHS PRN (Reason: sleep) Patient Comments: pt states he takes 10 tabs at bedtime when needed Discontinued rosuvastatin 5 mg tablet 5 mg PO DAILY Patient Comments: pt states takes in the morning Referrals / Follow Up: Gilberto Badillo MD [Med Staff - Active Staff] - Within 1 Month Jorge Benitez MD [Primary Care Provider] - Within 2 Weeks Disposition Disposition (needs filled in before D/C Order can be placed): Home, Self Care
[2023-12-14 07:56] VITALS: BP 112/78; PULSE 65; RESP 16; TEMP 36.1; O2SAT 97
[2023-12-14] MEDS: Isosorbide Mononitrate 30 MG Tablet PO (08:01)
[2023-12-14] MEDS: Aspirin 81 MG TAB.CHEW PO (08:01)
[2023-12-14 08:02] VITALS: PULSE 65
[2023-12-14] MEDS: Metoprolol(XL)Succ 50 MG Tablet PO (08:02)
--- NOTE | 2023-12-14 08:17 | PN.CARD_ITS ---
Subjective Subjective The patient is up and ambulatory without recurrent anginal symptoms. His angina is felt to be his left-sided chest discomfort that was occurring while he was walking uphill in the cold to [employer]. The neck and shoulder discomfort appears to be related to his chronic C-spine disease. The patient is tolerating the medical therapy without incident. Objective Data Vital Signs: Vital Signs Temp Pulse Resp BP Pulse Ox O2 Del Method 97.0 F L 65 16 112/78 97 Room Air 12/14/23 07:56 12/14/23 08:02 12/14/23 07:56 12/14/23 07:56 12/14/23 07:56 12/14/23 07:56 Oxygen Delivery Method Room Air Weight: 222 lb 10.67 oz Body Mass Index (BMI) 31.0 Intake & Output: Intake and Output for Last 24 Hours 12/12/23 12/13/23 12/14/23 23:59 23:59 23:59 Intake Total 1245 / 1245 700 / 1100 600 / 600 Balance 1245 / 1245 700 / 1100 600 / 600 Lab / Micro Data Attestation: I reviewed the patient's lab results. 12/13/23 06:30 12/13/23 06:30 Cardiology Labs/Tests Rhythm: EKG: ECHO: Stress Test: Cardiac Cath: PCI: CT Surgery: Holter monitor: EPS: PPM: CXR: Chest CT Scan: Radiography Diagnostic Testing: Radiology Impression Echocardiogram 12/12/23 17:06 Interpretation Summary Normal LV size. Left ventricular systolic function is normal. The estimated ejection fraction is 60 %. Stage 1 diastolic dysfunction. Pulmonary artery systolic pressure is 43 mmHg. Structurally normal valves. Ordering Physician: Gilberto Badillo Referring Physician: Alyson Ortiz Performed By: Marcela Donovan RDCS Physical Exam Const oriented x3 HEENT normocephalic Neck no JVD Chest inspection of chest normal Resp normal respiratory effort Cardio regular rate, regular rhythm, S1 normal heart sound, S2 normal heart sound, no murmurs, no rub and no gallops Extremity normal to inspection Extremity Narrative: Right radial cath site is free of any ecchymosis or hematoma. Assessment & Plan Assessment/Plan (1) Unstable angina: PLAN: Patient reports he has had no recurrence of his symptoms but he has not been exerting himself to the level he was in his home environment. He is tolerating the medical regimen without incident his vital signs are stable. From a cardiovascular standpoint the patient can be discharged to home. I asked that he follow-up in our office in 2 to 4 weeks and defer his trip to [place] until we have fully titrated his medical regiment in ambulatory setting. He voiced understanding and agrees to proceed with this plan. (2) Exertional chest pain: PLAN: The patient was instructed what to do should he experience exertional chest pain including sitting and resting for 5 minutes if it does not resolve to take a sublingual nitro. The patient be reevaluated as noted under #1. PLAN: Plan 1. Continue current medical therapy. 2. Discharged home and follow-up in the [facility] with Dr. Badillo or the advanced practitioner in 2 to 4 weeks. Thank you for allowing me to participate in the care of your patient. Please don't hesitate to call if any issues arise. This note was generated using a voice recognition system and there may be incorrect words, spelling, or punctuation that were not noted when reviewing the office note prior to saving. Portions of this documentation were copied and pasted from previous office visit notes to provide a cohesive continuity of the history. The note has been reviewed, edited, and updated, as necessary. Charges/Coding Visit Charges Inpatient E&M: 45506 Subs Hosp L2
--- NOTE | 2023-12-14 08:18 | PCM.DC.SUM ---
Providers Date of Admission: 12/13/23 Date of Discharge: 12/14/23 Primary Care Physician: Dr. Jorge Benitez MD Consultations 12/12/23 15:37 Consult: Cardiology Routine Consulting Provider: Gilberto Badillo Reason for Consult: Exertional CP, suspected stable angina EMERGENT Consult: No MD Notified: Yes Date Notified: 12/12/23 Time Notified: 16:00 Method of Notification: Text Reason For Visit: CHEST PAIN, ACS RULE OUT Diagnosis Discharge Diagnosis (1) Unstable angina: Status: Acute Code(s): I20.0 - Unstable angina (2) Hx of hypercholesterolemia: Status: Acute Code(s): Z86.39 - Personal history of other endocrine, nutritional and metabolic disease Plan Patient is a 63-year-old male who presented to [facility] ED on 12/12/2023 with exertional chest pressure felt like tightness, worse on walking uphill discharge and resolution spontaneously on stopping. This has been going for last 3 weeks. Associated with shortness of breath and fatigue. 1. Unstable angina: Patient is being admitted in PCU. His LAZARO risk score is 1 but patient is 63-year-old approaching 64. Serial troponin enzymes are negative. Twelve-lead EKG on admission normal sinus rhythm nonspecific ST-T changes. Because of unstable angina patient is going for left heart cath. Chest x-ray no acute abnormality. 12/14: Patient was evaluated by me and bowstring maker. No acute symptoms like chest pain or shortness of breath. Patient had cardiac cath yesterday which showed single-vessel CVD, proximal diagonal vessel 80%, LAD mid 60% and distal mild disease with tapering. Circumflex mild less than 30% RCA no significant disease. 2D echo was done shows EF 60% PASP 43 mmHg. Structurally normal valves. Patient is discharged on metoprolol succinate 50 mg daily, isosorbide mononitrate and aspirin. 2. Hyperlipidemia Lipid panel 11/08/2023 showed total cholesterol 279, LDL 180, HDL 66. On chart review, patient has history of significant hyperlipidemia dating back to 2011. Started on rosuvastatin 10 mg about 2 weeks ago, increased to 20 mg daily. Repeat lipid profile in 3 months. Goal LDL be less than 70 mg. 12/14: Rosuvastatin dose increased to 20 mg daily and new prescription was given. Recommended repeat fasting profile about January 2024. 3. Suspected BPH with obstructive symptoms ? Reports intermittent urinary hesitancy and difficulty emptying his bladder over the past few years. Renal ultrasound shows no suspicious sonographic findings. Simple right renal cyst. Bladder sonographically normal, estimated capacity 308 mL. Started on Flomax 2.4 mg daily. 4. Insomnia ? Continue home trazodone 100 mg at night, Benadryl 25 mg at night. 5. Obesity ? BMI 31 on admit. Complicates hospital course, care and prognosis. DVT prophylaxis: Lovenox CODE STATUS: Full code, verified Discharge medication reconciliation done. Discharge follow-up instructions completed. Discharge process discussed with the patient and all questions were answered to patient's satisfaction. Follow with PCP in 1 to 2 weeks Total time spent, exact 35 minutes on discharge meds reconciliation, examination, coordination of care with nurses and ancillary staff, review of imaging and blood test and discussion with the patient on follow-up instructions. Medications at Discharge Home Medications bupropion HCl 300 mg 24 hr tablet, extended release 300 mg PO QHS sleep/mood 12/12/23 diphenhydramine HCl 25 mg capsule (Allergy (diphenhydramine)) 25 mg PO QHS PRN sleep 12/12/23 trazodone 100 mg tablet 100 mg PO QHS SLEEP 12/12/23 aspirin 81 mg chewable tablet 81 mg PO BREAKFAST #30 tabs 12/14/23 isosorbide mononitrate 30 mg tablet,extended release 24 hr 30 mg PO DAILY 1 month #30 tabs 12/14/23 metoprolol succinate 50 mg tablet,extended release 24 hr 50 mg PO DAILY #30 tabs 12/14/23 rosuvastatin 20 mg tablet 20 mg PO DAILY 1 month #30 tabs 12/14/23 Physical Exam Narrative Seen and examined. No acute event overnight. Patient denies any history of coronary artery disease CHF or valvular heart disease in the past. History is typical of unstable angina getting worse on exertion and resolves with rest. Patient also had neck surgery therefore he has chronic neck pain with radiation to left shoulder and arm. Physical exam General: Alert, Oriented x3, Cooperative HEENT: Atraumatic, PERRLA, EOMI, Normocephalic Oral: No Gingival or Mucosal Lesions/ Ulcerations Neck: Supple, No JVD, Negative Carotid Bruits Chest wall/Lungs: Air entry equal in bilateral lung bases. No crepitation/rhonchi. Cardiovascular: Regular rate, Regular Rhythm, Normal S1, Normal S2, No murmurs Abdomen: Bowel Sounds Present, Soft, Non Tender, Non-Distended : No renal angle tenderness. No suprapubic tenderness. Extremities: No edema, Capillary Refill Less than 3 Seconds Skin: No rashes, No breakdown Musculoskeletal: No Tenderness to Palpation of Joints or Extremities Spine: History of transcervical anterior cervical spine surgery. Multiple lumbar spine surgery. Mild chronic C-spine tenderness. Neurological: Cranial nerves II-XII grossly intact, DTR 2+/4. No acute focal neurological deficit. Psych/Mental Status: Normal Affect, Appropriate. Weight / BMI Weight Weight: 222 lb 10.67 oz Body Mass Index (BMI) 31.0 ABG / Lab / Microbiology Data 12/13/23 06:30 12/13/23 06:30 Radiography Diagnostic Testing: Radiology Impression Echocardiogram 12/12/23 17:06 Interpretation Summary Normal LV size. Left ventricular systolic function is normal. The estimated ejection fraction is 60 %. Stage 1 diastolic dysfunction. Pulmonary artery systolic pressure is 43 mmHg. Structurally normal valves. Ordering Physician: Gilberto Badillo Referring Physician: Alyson Ortiz Performed By: Marcela Donovan RDCS D/C Instructions Discharge Diet: Low fat / Low cholesterol and 2000 mg Sodium Diet Weight Bearing Status: Weight bearing as tolerated Call your doctor if you observe: Fever of 101 or Higher, Coldness, Increased Pain, Numbness or Tingling, Change in Color, Inability to urinate, Inability to have a bowel movement, Shortness of breath, Dizziness, Fainting spells, Swelling in the ankles, Chest pain, Prolonged hiccupping, Increased palpitations (irregular heartbeat) and Calf discomfort When: IN 2 WEEKS Meaningful Use Info Meaningful Use Diagnoses (Choose all that apply): None applicable Discharge Plan Admission Admit Date/Time: 12/13/23 14:30 Primary Reason for Your Visit: Unstable angina Attending Provider: Genaro Butler Primary Care Provider: Jorge Benitez Consulting Providers: Gilberto Badillo; Glenroy Frankel Discharge Orders/Prescriptions Prescriptions: New isosorbide mononitrate 30 mg Tablet Extended Release 24 Hr 30 mg PO DAILY 30 Days Qty: 30 2RF aspirin 81 mg Tablet,Chewable 81 mg PO BREAKFAST Qty: 30 4RF metoprolol succinate 50 mg Tablet Extended Release 24 Hr 50 mg PO DAILY Qty: 30 2RF Rx Instructions: Hold for heart less than 50 or systolic blood pressure less than 100 mmHg. rosuvastatin 20 mg tablet 20 mg PO DAILY 30 Days Qty: 30 2RF Continued trazodone 100 mg tablet 100 mg PO QHS bupropion HCl 300 mg tablet extended release 24 hr 300 mg PO QHS diphenhydramine HCl [Allergy (diphenhydramine)] 25 mg capsule 25 mg PO QHS PRN (Reason: sleep) Patient Comments: pt states he takes 10 tabs at bedtime when needed Discontinued rosuvastatin 5 mg tablet 5 mg PO DAILY Patient Comments: pt states takes in the morning Referrals / Follow Up: Gilberto Badillo MD [Med Staff - Active Staff] - Within 1 Month Jorge Benitez MD [Primary Care Provider] - Within 2 Weeks Disposition Disposition (needs filled in before D/C Order can be placed): Home, Self Care Charges/Coding Visit Charges Inpatient E&M: 55812 Disch Hosp >30min
--- NOTE | 2023-12-14 10:06 | CASEMGMT ---
Addendum entered by Ana Maria Sierra 12/14/23 10:21: Chart review: Patient is independent in room. Lives with and has supportive family. Patient is established with Dr. Benitez for PCP. Patient has cardiology follow-up scheduled with [facility] in 2 weeks. No discharge needs identified at this time. Patient to discharge home with family support and follow-up plans in place. Original Note: Patient has order for discharge. RN CM in to discuss needs at discharge. Patient denies needs or help at discharge. Patient had no further questions or concerns.
--- NOTE | 2023-12-14 12:10 | PHA.DC.MC.R ---
Pharmacy [facility] has performed discharge medication reconciliation and counseling for this patient. 1. ASPIRIN 81MG PO DAILYCM 2. ISOSORBIDE MONONITRATE 30MG PO DAILY 3. METOPROLOL SUCCINATE 50MG PO DAILY The patient's discharge medication list was reviewed for discrepancies and discrepancies were resolved. The patient was counseled on the following discharge medications and changes in medications for homegoing were reviewed. The Reason for Use, instructions for use, and potential side effects were reviewed for all new medications. The patient's questions regarding all of their medications were answered. The patient was able to verbally demonstrate an understanding of their discharge medications. Medications at Discharge Home Medications bupropion HCl 300 mg 24 hr tablet, extended release 300 mg PO QHS sleep/mood 12/12/23 diphenhydramine HCl 25 mg capsule (Allergy (diphenhydramine)) 25 mg PO QHS PRN sleep 12/12/23 trazodone 100 mg tablet 100 mg PO QHS SLEEP 12/12/23 aspirin 81 mg chewable tablet 81 mg PO BREAKFAST #30 tabs 12/14/23 isosorbide mononitrate 30 mg tablet,extended release 24 hr 30 mg PO DAILY 1 month #30 tabs 12/14/23 metoprolol succinate 50 mg tablet,extended release 24 hr 50 mg PO DAILY #30 tabs 12/14/23 rosuvastatin 20 mg tablet 20 mg PO DAILY 1 month #30 tabs 12/14/23
== END 2023-12-14 10:55 | disposition home or self-care (01) | DRG 287 ==
LOC: ED 13:52 → PCU 14:12
PROVIDERS: Internal Medicine Cardiovascular Disease; Admitting Provider Hospitalist; Emergency Provider Emergency Medicine; PCP Family Medicine; Visit Provider Internal Medicine
DX: I20.0 Unstable angina (principal); N13.8 Other obstructive and reflux uropathy; I10 Essential (primary) hypertension; I44.4 Left anterior fascicular block; E78.5 Hyperlipidemia, unspecified; E66.9 Obesity, unspecified; Z87.891 Personal history of nicotine dependence; N28.1 Cyst of kidney, acquired; N40.1 Benign prostatic hyperplasia with lower urinary tract symptoms; G47.00 Insomnia, unspecified; Z68.31 Body mass index [BMI] 31.0-31.9, adult
CPT/HCPCS: 36415; 71045; 76770; 80048; 83036; 84484; 85025; 85027; 93005; 93306; 93454; 99152; 99153; 99285; J7030; Q9967; A4216; C1769; C1894

== ENCOUNTER 2024-03-18 11:37 | Day surgery (SDC) | payer SELFPAY, OTHER ==
[2024-03-18 11:58] VITALS: BP 128/75; PULSE 64; RESP 16; TEMP 36.6; O2SAT 95; BMI 31.7
[2024-03-18] MEDS: Lactated Ringers 1,000 ML 15 ML IV (12:15)
--- NOTE | 2024-03-18 12:49 | HP.PCM_ITS ---
HPI - General HPI Narrative ANTOINE OLIVEIRA, is a 63 M who presents for surveillance colonoscopy. The patient has last colonoscopy 3 years ago and 2 polyps were removed. He denies any abdominal pain or blood in the stool. He has a extensive family history of multiple cancers. [facility] Medical History (Updated 03/18/24 @ 12:[address] Donta Anne MD) Anxiety Atypical chest pain Cardiology follow-up encounter CPAP (continuous positive airway pressure) dependence Former smoker Gastric reflux Heartburn High cholesterol History of echocardiogram History of left heart catheterization History of stress test Hx of colonic polyps Hx of hypercholesterolemia Shortness of breath on exertion Sleep apnea Wears dentures Wears glasses Home Medications bupropion HCl 300 mg 24 hr tablet, extended release 300 mg PO QHS sleep/mood 12/12/23 [History Last Taken 12/11/23] diphenhydramine HCl 25 mg capsule (Allergy (diphenhydramine)) 25 mg PO QHS PRN sleep 12/12/23 [History Last Taken 12/11/23] trazodone 100 mg tablet 100 mg PO QHS SLEEP 12/12/23 [History Last Taken 12/11/23] aspirin 81 mg chewable tablet 81 mg PO BREAKFAST #30 tabs 12/14/23 [Rx Last Taken Unknown] rosuvastatin 20 mg tablet 20 mg PO DAILY 1 month #30 tabs 12/14/23 [Rx Last Taken Unknown] nitroglycerin 0.4 mg sublingual tablet 0.4 mg sublingual Q5M PRN chest pain #30 tabs 12/27/23 [Rx Last Taken Unknown] FOREVER ARCTIC SEA 03/13/24 [History Last Taken Unknown] apple cider vinegar 03/13/24 [History Last Taken Unknown] isosorbide mononitrate 30 mg tablet,extended release 24 hr 30 mg PO DAILY 03/13/24 [History Last Taken Unknown] metoprolol succinate 50 mg tablet,extended release 24 hr 50 mg PO DAILY 03/13/24 [History Last Taken Unknown] Allergy/AdvReac Type Severity Reaction Status Date / Time Iodinated Contrast Media Allergy Severe Anaphylaxis Verified 03/18/24 11:57 iodine Allergy Anaphylaxis Verified 03/18/24 11:57 shrimp Allergy Anaphylaxis Verified 03/18/24 11:57 Family History (Updated 03/08/24 @ 13:08 by Olesya Ye) Mother Colon cancer Aunt Colon cancer Uncle Colon cancer Brother Colon polyps Surgical History (Updated 03/13/24 @ 15:19 by Kiara Torres) History of back surgery History of cardiac catheterization Hx of colonoscopy Social History (Updated 03/08/24 @ 13:08 by Olesya Ye) household members: spouse current occupational status: employed Smoking Status: Former smoker alcohol intake: never substance use type: does not use clari/scientologist: [employer] Past Medical/Surgical History Planned Operation Planned Operative Procedure/s: CSCOPE S.O.S: No Previous Hospitalizations/Surgeries HX Hospitalizations: Yes (12/13/23 CARDIAC CATH) HX of Surgeries: BACK SURGERY X5 NECK SURGERY X5 Any Problems With Anesthesia: No You/Your Family Experience Fever (Hyperthermia) With Anes: No Cholinesterase deficiency: No Cardiovascular Hx Chest Pain within Last 2 months: No Hx of Irregular Heartbeat and/or Afib: No Hx Heart Attack: No Hx Congestive Heart Failure: No Hx Rheumatic Fever: No Hx Hypertension: Yes (NO MEDS) Hx Internal Defibrillator: No Hx Pacemaker: No Hx Cardiac Catheterization: No Hx Cardiac Surgery/Stents/Etc.: No Hx Stress Test: Yes ([facility] 2019) Hx Pain in Legs when Walking/Leg Cramps: Yes Respiratory Chronic Cough: No HX of Shortness of Breath: No Hoarseness: No Hx Chronic Obstructive Pulmonary Disease (COPD): No Hx Asthma: No Hx Emphysema: No Hx Sleep Apnea: Yes (PT STATES LOST WEIGHT AND NO LONGER USES MACHINE) CPAP: Yes BIPAP: No Hx Respiratory Tract Infection/Cold (presently): No Result (for STOP score): Positive Hx Smoking: Yes Smoking Status: Former smoker Gastrointestinal Hx Gastrointestinal Disorders: No Hx Gastrointestinal Bleed: No Hx Ulcer: Yes (several years) Hx Hiatal Hernia: No Difficulty Chewing/Swallowing: No Special diet followed at home: No Hx Unplanned Weight Loss of 20#: No HX Unplanned Weight Gain of 20#: No Neurological Hx Seizures: No HX Syncope/Blackout Spells/Unconsciousness: No Hx Transient Ischemic Attacks (TIA): No Hx Multiple Sclerosis: No Hx Parkinson's Disease: No Hx Head/Neck Injury: Yes (NECK INJURY-RESULTED IN SURGERY) Hx Headaches: No Hx Back Injury/Pain: Yes (BACK INJURY-FELL 22 FT- RESULTED IN 5 BACK SURGERIES) Recent Onset of Speech Difficulty: No Restless Legs: No Does patient have nerve stimulator: No Blood Disorder Hx Leukemia: No Bleeding Tendencies: No Hx Deep Vein Thrombosis: No Hx High Cholesterol: Yes (ON NO MEDS) Blood Transmitted Disease: No Hx Hepatitis: No Hx Cirrhosis: No Hx Anemia: No Hx Blood Disorders: No Reproduction : No Genitourinary Hx Renal Disease: No Hx Dialysis: No Musculoskeletal Hx Arthritis: Yes Hx Rheumatoid Arthritis: No Hx Gout: No Recent Onset of an Orthopedic Problem: No Endocrine Hx Diabetes: No Thyroid Disease: No Hx Steroid Therapy: Yes (INJ 45 DAYS AGO) Psycho/Social Hx Substance Use: No Hx Alcohol Use: No Hx Anxiety: Yes Hx Depression: No Mental Illness: No Hx Dementia: No Miscellaneous Hx Cancer: No Recent Exposure to Contagious Disease: No Hx of C-Diff: No Any Loose Teeth: Yes (UPPER DENTURES) Allergies Iodinated Contrast Media Allergy (Severe, Verified 03/18/24 11:57) Anaphylaxis iodine Allergy (Verified 03/18/24 11:57) Anaphylaxis shrimp Allergy (Verified 03/18/24 11:57) Anaphylaxis Paternal: Family History (Updated 03/08/24 @ 13:08 by Olesya Ye) Mother Colon cancer Aunt Colon cancer Uncle Colon cancer Brother Colon polyps Cancer and Heart Disease Discharge Is Pt Admitted From a [facility], or a Prison: No After D/C, Where Do you Plan to Go: Return Home From the [facility] History Number of Risk Factors: 4 Vital Signs Vital Signs Vital Signs: 03/18/24 11:58 03/18/24 11:58 Temperature 97.9 F Temperature Source Temporal Pulse Rate 64 Respiratory Rate 16 Respiratory Pattern Normal Blood Pressure 128/75 H Blood Pressure Mean 92 Blood Pressure Source Monitor Blood Pressure Position Semi-Fowlers Blood Pressure Location Left Arm Pulse Ox 95 Oxygen Delivery Method Room Air Weight Weight: 221 lb 5.506 oz Body Mass Index (BMI) 31.7 Physical Exam Const alert and oriented x3 HEENT normocephalic Eyes PERRL Resp normal respiratory effort and normal air movement Cardio regular rate and regular rhythm GI soft to palpation, non-tender and non-distended Extremity normal to inspection Assessment & Plan Assessment/Plan (1) Hx of colonic polyps: PLAN: I explained endoscopy in detail to the patient. I explained the risks including but not limited to stroke or heart attack with anesthesia, perforation of the GI tract, bleeding, infection. I explained that any of these could necessitate further emergency surgery. The patient understands and all questions were answered sufficiently. The patient wishes to proceed with procedure. Donta Anne MD Pager: [facility] [address] [place] [address] [address] [place] [address] Office: Surgery Risks - Colonoscopy Risks Include but are not Limited To: Risks include but are not limited to: Bleeding, perforation requiring further surgery, inability to complete colonoscopy requiring barium enema.
--- NOTE | 2024-03-18 13:00 | COLBX_PTH ---
PATIENT: ANTOINE OLIVEIRA LOC: EN U#:[id number] AGE/SX: 63/M ROOM: RE03/18/[address]: Dr. Donta Anne MD : 1960 BED: DIS: 03/18/2024 SPEC #: [id number] RECD: 03/19/24 10:26 STATUS: JERRY KIERA #: [id number] ALEXANDR: 03/18/24 13:[address]: Donta Anne DEPT: SURGICAL PATHOLOGY RECD BY: Dorcas Lundberg ENTERED: 03/19/24 10:55 SP TYPE: COLON BX OTHR DR: Alexandrea Padilla, LOOPING INSPECTOR-C Tissues: Descending colon Procedures: Surgery Specimen Level IV HEADER OPERATION: Colonoscopy with polypectomy PRE-OP DIAGNOSIS: History of colonic polyps TISSUE SUBMITTED: Descending colon polyp MICROSCOPIC DIAGNOSIS Descending colon polyp, biopsy: Hyperplastic polyp. KALIE/ 03/20/24 MICROSCOPIC DESCRIPTION Slides are reviewed. GROSS DESCRIPTION Received in fixative is one container labeled with the patient's name and designated Descending colon polyp. The specimen consists of multiple irregular fragments of light aguilera soft tissue that in aggregate measure 0.8 x 0.5 x 0.2 cm. The specimen is totally submitted in one cassette. AM/ 03/19/2024 TC:5 CPT:11497
[2024-03-18 13:15] VITALS: BP 110/79; BP 128/75; PULSE 59; RESP 16; TEMP 36.3; O2SAT 94
--- NOTE | 2024-03-18 13:15 | OP.COLON_ITS ---
Patient Name: Enrique Scott Procedure Date: 03/18/2024 12:49 PM Date of : 1960 Age: 63 Procedure: Colonoscopy Indications: High risk colon cancer surveillance: Personal history of colonic polyps Providers: Donta Anne MD Referring MD: Alexandrea Padilla Shot Dropper, Shot Dropper-c Medicines: Propofol per Anesthesia Patient Profile: This is a 63 year old male. Refer to note in patient chart for documentation of history and physical. Last Colonoscopy: 3 years ago. Complications: No immediate complications. Procedure: Pre-Anesthesia Assessment: - Prior to the procedure, a History and Physical was performed, and patient medications and allergies were reviewed. The patient's tolerance of previous anesthesia was also reviewed. The risks and benefits of the procedure and the sedation options and risks were discussed with the patient. All questions were answered, and informed consent was obtained. Prior Anticoagulants: The patient has taken no anticoagulant or antiplatelet agents. After reviewing the risks and benefits, the patient was deemed in satisfactory condition to undergo the procedure. After I obtained informed consent, the scope was passed under direct vision. Throughout the procedure, the patient's blood pressure, pulse, and oxygen saturations were monitored continuously. The colonoscope was introduced through the anus and advanced to the cecum, identified by appendiceal orifice and ileocecal valve. The colonoscopy was performed without difficulty. The patient tolerated the procedure well. The quality of the bowel preparation was good. The ileocecal valve, appendiceal orifice, and rectum were photographed. Scope In: 12:59:31 PM Scope Withdrawal Time 0 hours 6 minutes 2 seconds Scope Out: 1:11:57 PM Total Procedure Duration Time 0 hours 12 minutes 26 seconds Findings: A small polyp was found in the descending colon. The polyp was semi-pedunculated. The polyp was removed with a hot snare. Resection and retrieval were complete. The exam was otherwise without abnormality on direct and retroflexion views. Impression: - One small polyp in the descending colon, removed with a hot snare. Resected and retrieved. - The examination was otherwise normal on direct and retroflexion views. Recommendation: - Discharge patient to home. - Resume previous diet. - Continue present medications. - Await pathology results. - Repeat colonoscopy in 5 years for surveillance based on pathology results. Procedure Code(s): --- Professional --- 27226, Colonoscopy, flexible; with removal of tumor(s), polyp(s), or other lesion(s) by snare technique Diagnosis Code(s): --- Professional --- Z86.010, Personal history of colonic polyps D12.4, Benign neoplasm of descending colon CPT copyright 2021 [employer]. All rights reserved. The codes documented in this report are preliminary and upon applications architect review may be revised to meet current compliance requirements. Donta Anne MD 03/18/2024 1:14:40 PM This report has been signed electronically. Number of Addenda: 0 Note Initiated On: 03/18/2024 12:49 PM
--- NOTE | 2024-03-18 13:15 | OP.CCLET_ITS ---
03/18/2024 Alexandrea Padilla Legal Research Analyst, Legal Research Analyst-c Re : Colonoscopy procedure for Enrique Scott Dear Randy This procedure was performed on Monday, March 18, 2024. My impressions and recommendations are as follows: Impressions : - One small polyp in the descending colon, removed with a hot snare. Resected and retrieved. - The examination was otherwise normal on direct and retroflexion views. Recommendations : - Discharge patient to home. - Resume previous diet. - Continue present medications. - Await pathology results. - Repeat colonoscopy in 5 years for surveillance based on pathology results. My findings are described in the full procedure note, which is enclosed. If I can be of further assistance, please feel free to contact me at Doctor phone number(s): , Work: . Sincerely, Donta Anne MD 03/18/2024 1:14:40 PM This report has been signed electronically.
[2024-03-18 13:20] VITALS: BP 103/76; BP 128/75; PULSE 58; RESP 16; O2SAT 94
[2024-03-18 13:25] VITALS: BP 103/72; BP 128/75; PULSE 57; RESP 16; O2SAT 94
[2024-03-18 13:30] VITALS: BP 124/74; BP 128/75; PULSE 59; RESP 16; TEMP 36.2; O2SAT 96
[2024-03-18 13:41] VITALS: BP 128/75
== END 2024-03-18 13:53 | disposition home or self-care (01) ==
LOC: EN 11:44 → AC 11:44
PROVIDERS: PCP Nurse Practitioner Family; Referring Provider Nurse Practitioner Family; Visit Provider Surgery
PROC: 0DJD8ZZ Inspection of Lower Intestinal Tract, Via Natural or Artificial Opening Endoscopic (ICD-10-PCS; CPT 45378; principal; 2024-03-18 12:55)
DX: Z12.11 Encounter for screening for malignant neoplasm of colon (principal); Z79.82 Long term (current) use of aspirin; Z86.010 Personal history of colon polyps; Z87.891 Personal history of nicotine dependence; E78.00 Pure hypercholesterolemia, unspecified; I10 Essential (primary) hypertension; Z80.0 Family history of malignant neoplasm of digestive organs; D12.4 Benign neoplasm of descending colon
CPT/HCPCS: 45385; 88305; J7120

== ENCOUNTER 2024-04-13 15:15 | Emergency (ER) | payer OTHER, SELFPAY ==
[2024-04-13] VITALS (8 sets, daily range): BP systolic 123–136; BP diastolic 53–97; PULSE 71–86; RESP 16–22; TEMP 36.1–37.3; O2SAT 88–99; BMI 32.5
--- NOTE | 2024-04-13 16:21 | EDS_ITS ---
HPI History of Present Illness Chief Complaint: Chest Pain Informant: patient Onset/Context/Timing Onset: Weeks (2) Activity at onset: gradual Timing: Continuous Quality: Positive for Burning and Sharp Location: - (Right upper arm) Worsened By: Nothing Relieved By: Nothing Associated Symptoms: Positive for Nausea, Dyspnea and Lightheadedness; Negative for Vomiting, Diaphoresis, Cough, Fever, Acid Reflux or Palpitations Narrative Narrative: Patient presents with right arm pain that has been constant for the past 2 weeks. Patient states it is sharp and burning. Patient states it is mainly over the right upper arm. Patient states nothing makes it better and nothing makes it worse. Patient admits to some nausea but denies any vomiting. Patient does admit to some shortness of breath. Patient also admits to some lightheadedness. Patient denies any cough or fever. Patient denies any palpitations. Patient admits to a low-grade fever today of about 100. Patient also admits to some mild dysuria. CVD Risk Factors: Positive for Hypercholesterolemia and Family History 1' </=55; Negative for Hypertension, Diabetes or Smoking PE Risk Factors: Negative for Recent Travel/Surgery, Recent Immobilization, Prior DVT or PE, Cancer or OCP + Smoking + >/=35 PFSH PFSH Medical History Wears glasses Wears dentures Anxiety High cholesterol Gastric reflux Heartburn Former smoker Shortness of breath on exertion CPAP (continuous positive airway pressure) dependence Sleep apnea Cardiology follow-up encounter History of echocardiogram History of stress test Hx of colonic polyps History of left heart catheterization Hx of hypercholesterolemia Atypical chest pain Home Medications ?Medication ?Instructions ?Recorded ?Last Taken ?Type bupropion HCl 300 mg 24 hr tablet, 300 mg PO QHS sleep/mood 12/12/23 12/11/23 History extended release diphenhydramine HCl 25 mg capsule 25 mg PO QHS PRN sleep 12/12/23 12/11/23 History (Allergy (diphenhydramine)) trazodone 100 mg tablet 100 mg PO QHS SLEEP 12/12/23 12/11/23 History aspirin 81 mg chewable tablet 81 mg PO BREAKFAST #30 tabs 12/14/23 Unknown Rx rosuvastatin 20 mg tablet 20 mg PO DAILY 1 month #30 tabs 12/14/23 Unknown Rx nitroglycerin 0.4 mg sublingual 0.4 mg sublingual Q5M PRN chest 12/27/23 Unknown Rx tablet pain #30 tabs FOREVER ARCTIC SEA 03/13/24 Unknown History apple cider vinegar 03/13/24 Unknown History isosorbide mononitrate 30 mg 30 mg PO DAILY 03/13/24 Unknown History tablet,extended release 24 hr metoprolol succinate 50 mg 50 mg PO DAILY 03/13/24 Unknown History tablet,extended release 24 hr azithromycin 250 mg tablet 250 mg PO DAILY #4 TABLETS 04/13/24 Unknown Rx hydrocodone-acetaminophen 5-325mg 1 tab PO Q6H PRN PRN Pain 3 days 04/13/24 Unknown Rx 5mg-325mg #10 TABLETS Allergy/AdvReac Type Severity Reaction Status Date / Time Iodinated Contrast Media Allergy Severe Anaphylaxis Verified 04/13/24 15:16 iodine Allergy Anaphylaxis Verified 04/13/24 15:16 shrimp Allergy Anaphylaxis Verified 04/13/24 15:16 Family History (Updated 03/08/24 @ 13:08 by Olesya Ye) Mother Colon cancer Aunt Colon cancer Uncle Colon cancer Brother Colon polyps Surgical History History of cardiac catheterization Hx of colonoscopy History of back surgery Social History household members: spouse current occupational status: employed Smoking Status: Former smoker alcohol intake: never substance use type: does not use clari/yazidi: Brandon ROS ROS ED Constitutional Constitutional ED: Reports fever(s); Denies chills Eyes Eyes: Denies blurry vision or change in vision ENT ENT ED: Denies rhinorrhea or sore throat Cardiovascular Cardiovascular: Denies chest pain or palpitations Respiratory/Chest Respiratory/Chest: Reports dyspnea; Denies cough Gastrointestinal Gastrointestinal: Reports nausea; Denies vomiting Genitourinary Genitourinary ED: Reports dysuria; Denies hematuria Musculoskeletal Musculoskeletal: Denies back pain or neck pain Integumentary Denies abscess or rash Neurologic Neurologic: Reports headache(s); Denies weakness Allergic/Immunologic Allergic/Immunologic ED: Denies mouth swelling or urticaria EXAM Physical Exam Const Vital Signs: 04/13/24 15:17 04/13/24 15:26 04/13/24 15:26 Temperature 99.1 F 98.5 F Temperature Source Temporal Oral Pulse Rate 86 86 Respiratory Rate 22 H 18 Respiratory Effort Normal Non-Labored Blood Pressure 123/97 H 136/86 H Blood Pressure Mean 105 102 Pulse Ox 94 Oxygen Delivery Method Room Air Room Air Oxygen Flow Rate (L/min) 04/13/24 16:25 04/13/24 16:25 04/13/24 16:25 Temperature 97.9 F Temperature Source Temporal Pulse Rate 81 81 Respiratory Rate 18 18 Respiratory Effort Blood Pressure 123/71 H 123/71 H Blood Pressure Mean 88 88 Pulse Ox 97 97 Oxygen Delivery Method Room Air Room Air Room Air Oxygen Flow Rate (L/min) 04/13/24 17:00 04/13/24 17:00 04/13/24 17:32 Temperature 97.8 F Temperature Source Temporal Pulse Rate 82 82 Respiratory Rate 18 Respiratory Effort Blood Pressure 125/66 H Blood Pressure Mean 85 Pulse Ox 97 88 Oxygen Delivery Method Room Air Room Air Oxygen Flow Rate (L/min) 04/13/24 17:32 04/13/24 18:00 04/13/24 19:00 Temperature 97.9 F Temperature Source Temporal Pulse Rate 74 73 Respiratory Rate 16 16 18 Respiratory Effort Blood Pressure 127/62 H 133/53 H Blood Pressure Mean 83 79 Pulse Ox 94 96 95 Oxygen Delivery Method Nasal Cannula Nasal Cannula Nasal Cannula Oxygen Flow Rate (L/min) 2 2 2 Positive well nourished and well developed General Appearance ED: well developed and NAD HEENT Reports moist mucous membranes Neck supple and no JVD Resp normal respiratory effort and clear to auscultation bilaterally Cardio regular rate and regular rhythm GI soft to palpation, non-tender and non-distended Extremity Extremity Narrative: Extremities are intact. Radial pulses are equal bilaterally. Capillary refills less than 2 seconds in all digits. There is full range of motion. General Extremety ED: Negative for edema, pulses abnormal or tenderness General Extremity: Negative for edema or pulses abnormal Neuro oriented x3, CN's II-XII intact bilaterally and no sensory deficits noted Sensorium / Orientation: awake and alert Motor Exam: strength 5/5 throughout Psych mental status grossly normal Skin no rashes or lesions noted Heart Score History: Slightly/Non-Suspicious ECG: Normal Age: >45 - <65 years Risk Factors: 1 or 2 Risk Factors Score: 2 MDM MDM MDM Narrative Medical decision making narrative: Differential diagnosis includes cardiac dysrhythmia, cardiac ischemia, pneumonia, pneumothorax, musculoskeletal pain, cervical radiculopathy, and anxiety. This does not appear to be a vascular occlusion. EKG will be obtained to assess for cardiac dysrhythmia and cardiac ischemia. Chest x-ray will be obtained to assess for pneumonia and pneumothorax. CBC will be obtained to assess for leukocytosis and anemia. Basic metabolic profile will be obtained to assess for electrolyte abnormality and renal function. High-sensitivity troponin will be obtained to assess for cardiac ischemia. CT scan of the cervical spine will be obtained to assess for cervical radiculopathy. Lab Data Attestation: I reviewed the patient's lab results. Lab results narrative: CBC was reviewed and was within normal limits. Basic metabolic profile was reviewed and was within normal limits. High-sensitivity troponin was reviewed and was normal at 4. Labs: Laboratory Results - last 24 hr 04/13/24 16:00 WBC 8.7 RBC 4.39 L Hgb 13.5 Hct 40.6 MCV 92.5 MCH 30.8 MCHC 33.3 RDW Std Deviation 44.9 H RDW Coeff of Ortega 13.1 Plt Count 173 MPV 11.0 Immature Gran % (Auto) 1.700 H Neut % (Auto) 64.7 Lymph % (Auto) 21.5 [place] % (Auto) 7.1 Eos % (Auto) 4.7 Baso % (Auto) 0.3 Absolute Neuts (auto) 5.6 Absolute Lymphs (auto) 1.88 Nucleated RBC % 0 Sodium 134 L Potassium 3.6 Chloride 102 Carbon Dioxide 25.0 Anion Gap 7 BUN 19 H Creatinine 1.06 Estim Creat Clear Calc 84.63 Est GFR (MDRD) Af Amer 90 Est GFR (MDRD) Non-Af 75 BUN/Creatinine Ratio 17.9 Glucose 100 Calcium 9.5 Troponin I High Sens 4 Radiography Diagnostic Testing: Clinical Impression(s) from Imaging Studies Cervical Spine CT 04/13/24 16:41 IMPRESSION: 1. No acute osseous abnormalities. Hardware is in good position at C6-7. 2. Degenerative changes with disc space narrowing and bony neural foraminal narrowing at C3-4 and C4-5. Electronically Signed: Jeffry Espino MD at 17:24 EDT , Chest X-Ray 04/13/24 17:07 IMPRESSION: Very minimal right upper lobe airspace disease which may represent early pneumonia. Electronically Signed: Jeffry Espino MD at 17:25 EDT , PA and lateral chest x-ray was obtained. There are 2 views. On my independent interpretation, lung welch show a questionable right upper lobe infiltrate. There is normal cardiac silhouette. Bony thorax is normal. Radiologist also interpreted the x-ray and agrees. CT scan of the cervical spine was obtained. There is no acute fracture or spondylolisthesis noted. There are degenerative changes with disc space narrowing and neuroforaminal stenosis at C3-4 and C4-5. This was interpreted by the radiologist and was also independently reviewed by myself. EKG Initial EKG: Attestation: I personally reviewed and interpreted this EKG as follows: Interpretation: Sinus Rhythm (83), No Acute Injury Pattern and LAFB Comments: EKG was obtained. On my independent interpretation, it showed a normal sinus rhythm with a rate of 83. FL interval, QRS interval, and QTc intervals were all normal. There is left axis deviation at -58. There is a left anterior fascicular block pattern noted. There are no acute ST or T wave changes. Prior EKG tracings: available for review Prior: Unchanged (12/13/2023) Treatment and Re-Evaluation :: Patient was given aspirin. Patient was given IV fluids. Patient was given morphine and Zofran. Patient was resting comfortably on reevaluation. Patient was advised of his findings. Patient was given a dose of Zithromax here. Patient was given a prescription for Zithromax. Patient was also given a prescription for a short course of Merrill for pain. Patient was instructed to follow-up with his primary care physician in 5 to 7 days for further evaluation. Patient understood and was agreeable with the plan. All questions were answ ered. Discharge Plan Triage Chief Complaint: Chest Pain ED Provider: Gareth Mcdonald Dx/Rx/DC Orders Clinical Impression: Cervical radiculopathy, Right upper lobe pneumonia Instructions: ED Pneumonia (Adult), ED Radiculopathy, Cervical Prescriptions: New azithromycin 250 mg tablet 250 mg PO DAILY Qty: 4 0RF hydrocodone-acetaminophen 5-325 mg tablet 1 tab PO Q6H PRN PRN (Reason: Pain) 3 Days Qty: 10 0RF No Action nitroglycerin 0.4 mg tablet, sublingual 0.4 mg sublingual Q5M PRN (Reason: chest pain) Qty: 30 11RF Rx Instructions: do not exceed 3 doses per episode trazodone 100 mg tablet 100 mg PO QHS bupropion HCl 300 mg tablet extended release 24 hr 300 mg PO QHS diphenhydramine HCl [Allergy (diphenhydramine)] 25 mg capsule 25 mg PO QHS PRN (Reason: sleep) Patient Comments: pt states he takes 10 tabs at bedtime when needed aspirin 81 mg Tablet,Chewable 81 mg PO BREAKFAST Qty: 30 4RF rosuvastatin 20 mg tablet 20 mg PO DAILY 30 Days Qty: 30 2RF FOREVER ARCTIC SEA metoprolol succinate 50 mg tablet extended release 24 hr 50 mg PO DAILY isosorbide mononitrate 30 mg tablet extended release 24 hr 30 mg PO DAILY apple cider vinegar 1 cp Primary Care Provider: Alexandrea Padilla NP Referrals: Alexandrea Padilla NP, [facility] [Primary Care Provider] - 3-5 Days Print Language: Ghanaian Disposition Disposition: Home, Self Care
--- NOTE | 2024-04-13 16:40 | EKG12_ITS ---
Test Reason : CP Blood Pressure : / mmHG Vent. Rate : 083 BPM Atrial Rate : 083 BPM P-R Int : 138 ms QRS Dur : 090 ms QT Int : 348 ms P-R-T Axes : 003 -58 019 degrees QTc Int : 408 ms Normal sinus rhythm Left anterior fascicular block Abnormal ECG Confirmed by ДМИТРИЙ STEWART, FINN ([id number]), primer expeditor and drier CONCEPCION LION ([id number]) on 04/18/2024 6:11:05 AM Referred By: Confirmed By:BRAVO CHOE MD
--- NOTE | 2024-04-13 16:41 | CT_ITS ---
EXAM: CT CERVICAL SPINE WITHOUT INTRAVENOUS CONTRAST CLINICAL INDICATION: Injury/Pain TECHNIQUE: Helically acquired images were obtained of the cervical spine without intravenous contrast. 2D reformatted images were reviewed. This CT exam was performed using one or more of the following dose reduction techniques: automated exposure control, adjustment of the mA and/or kV according to patient size, and/or use of iterative reconstruction technique. COMPARISON: No relevant prior studies available. FINDINGS: VERTEBRAE: See below. DISCS/SPINAL CANAL/NEURAL FORAMINA: There is hardware at C6-7 which may be from an artificial disc. There is mild disc space narrowing at C3-4 and C4-5. There is left bony neural foraminal narrowing at C3-4. SOFT TISSUES: Unremarkable. No prevertebral soft tissue swelling. LYMPH NODES: Unremarkable. No cervical adenopathy. LUNG APICES: Unremarkable as visualized. Clear. CT/Spine Cervical without Contras IMPRESSION: 1. No acute osseous abnormalities. Hardware is in good position at C6-7. 2. Degenerative changes with disc space narrowing and bony neural foraminal narrowing at C3-4 and C4-5. Electronically Signed: Jeffry Espino MD at 17:24 EDT ,
[2024-04-13 16:47] LABS: Absolute Lymphocyte Count 1.88 X10^3/uL (0.83-4.51); Absolute Neutrophil Count 5.6 X10^3/uL (2.0-7.7); Basophil# 0.03 X10^3/uL; Basophil% 0.3 % (0-1); Eosinophil# 0.41 X10^3/uL; Eosinophils% 4.7 % (0-5); Hematocrit 40.6 % (40-54); Hemoglobin 13.5 g/dL (13.0-16.5); Lymphocyte # 1.88 X10^3/ul (0.83-4.51); Lymphocyte % 21.5 % (19-41); Mean Corp Hgb Conc 33.3 g/dL (32-36); Mean Corpuscular Hgb 30.8 pg (27.0-32.0); Mean Corpuscular Volume 92.5 fL (80-94); Monocyte# 0.62 X10^3/uL; Monocyte% 7.1 % (0-10); NRBC Flagged by Analyzer 0 % (0-5); Neutrophil # 5.64 X10^3/uL (2.7-7.7); Neutrophil % 64.7 % (47-70); Platelet Count 173 K/mm3 (150-450); RBC Distribution Width CV 13.1 % (11.6-14.6); RBC Distribution Width SD 44.9 fl (35.1-43.9); Red Blood Count 4.39 M/mm3 (4.6-6.2); White Blood Count 8.7 K/mm3 (4.4-11.0)
[2024-04-13] MEDS: Aspirin 81 MG TAB.CHEW 324 MG PO (16:48)
[2024-04-13] MEDS: Morphine 4 MG/ML Syringe IV (16:48)
[2024-04-13] MEDS: Ondansetron 4 MG/2 ML Vial IV (16:48)
[2024-04-13] MEDS: 0.9% Normal Saline (1000mL) 1,000 ML 999 ML IV (16:50)
[2024-04-13 17:05] LABS: Anion Gap 7 (5-15); BUN 19 mg/dL (7-18); BUN/Creat Ratio 17.9 RATIO (10-20); Calcium,Total 9.5 mg/dL (8.5-10.1); Chloride 102 mmol/L (98-107); Creatinine, Serum 1.06 mg/dL (0.70-1.30); EST Glomerular Filtration Rate 75 mL/min (>60); Est Glom Filt Rate - Afr Amer 90 mL/min (>60); Estimated Creatinine Clearance 84.63 ml/min; Glucose 100 mg/dL (74-106); Potassium 3.6 mmol/L (3.5-5.1); Sodium Level 134 mmol/L (136-145); Troponin-I HS 4 pg/mL (3.0-78.0)
--- NOTE | 2024-04-13 17:07 | RAD_ITS ---
EXAM: XR CHEST, 2 VIEWS CLINICAL INDICATION: chest pain TECHNIQUE: Frontal and lateral views of the chest. COMPARISON: No relevant prior studies available. FINDINGS: LUNGS AND PLEURAL SPACES: There is minimal hazy airspace disease in the right upper lobe. No effusions are identified. No pneumothorax. HEART: Unremarkable. Cardiac silhouette not enlarged. MEDIASTINUM: Central airways and mediastinal contour are unremarkable. BONES/JOINTS: See above. SOFT TISSUES: Unremarkable. RAD/Chest PA and Lateral IMPRESSION: Very minimal right upper lobe airspace disease which may represent early pneumonia. Electronically Signed: Jeffry Espino MD at 17:25 EDT ,
--- NOTE | 2024-04-13 20:03 | ED.RN ---
of pt requesting admission and MRI. This RN explained that MRI is not available and it is not needed emergently. Educated pt and about following up with PCP and discussing MRI. Also given education about medications that are newly prescribed, and how to effectively manage pain @ home. still insisting that pt be admitted for pain management. RN explained admission is not warranted at this time. Discussed with Dr. Mcdonald, agreed with following up out-patient. Meds to bed offered and completed for pain management @ home.
== END 2024-04-13 20:08 | disposition home or self-care (01) ==
PROVIDERS: Emergency Provider Emergency Medicine; PCP Nurse Practitioner Family; Visit Provider Emergency Medicine
DX: J18.9 Pneumonia, unspecified organism (principal); R11.0 Nausea; M54.12 Radiculopathy, cervical region; Z87.891 Personal history of nicotine dependence; R07.9 Chest pain, unspecified; E78.00 Pure hypercholesterolemia, unspecified; G47.30 Sleep apnea, unspecified; Z99.89 Dependence on other enabling machines and devices; F41.9 Anxiety disorder, unspecified; Z79.899 Other long term (current) drug therapy
CPT/HCPCS: 71046; 72125; 80048; 84484; 85025; 93005; 96361; 96374; 96375; 99283; J7030; A4216; J2405

== ENCOUNTER → 2025-04-18 | Outpatient (CLI) | payer SELFPAY, OTHER ==
--- NOTE | 2025-04-18 07:59 | ART_ITS ---
Reason For Study Reason For Study: Decreased Pedal Pulses Procedure A bilateral lower extremity continuous wave Doppler with analog waveform analysis,segmental pressures,and ankle brachial indexes without exercise. Left Segmental Pressures Left brachial= 110mmHg. Left posterior tibial artery = 169mmHg. Left dorsalis pedis artery = 144mmHg. Left digit = 123 mmHg. The left posterior tibial artery waveforms are triphasic. The left dorsalis pedis waveforms are triphasic. Right Segmental Pressures Right brachial= 112mmHg. Right posterior tibial artery = 150mmHg. Right dorsalis pedis artery = 150mmHg. Right digit = 118 mmHg. The right posterior tibial artery waveforms are triphasic. The right dorsalis pedis waveforms are triphasic. Indices The right ankle brachial index by the posterior tibial artery is 1.34. The right ankle brachial index by the dorsalis pedis is 1.34. The right digital-brachial index is 1.05. The left ankle brachial index by the posterior tibial artery is 1.51. The left ankle brachial index by the dorsalis pedis is 1.29. The left digital-brachial index is 1.10. VL/Lower Ext Art Exam w/o Exercis Interpretation Summary Right GLORIA 1.34, normal. TBI and Doppler/PVR waveforms of the right leg normal a t rest. Left GLORIA 1.51, normal. TBI and Doppler/PVR waveforms of the left leg normal at rest. Ordering Physician: Oriana Nunez Referring Physician: Alexandrea Padilla Performed By: Brent Meade, RVT
== END | disposition home or self-care (01) ==
PROVIDERS: PCP Nurse Practitioner Family; Referring Provider Physician Assistant Medical; Visit Provider Physician Assistant Medical
DX: I73.9 Peripheral vascular disease, unspecified (principal)
CPT/HCPCS: 93923

== ENCOUNTER 2025-06-08 08:38 | Emergency (ER) | payer OTHER, SELFPAY ==
[2025-06-08] VITALS (21 sets, daily range): BP systolic 116–150; BP diastolic 62–101; PULSE 55–78; RESP 10–20; TEMP 36.1–36.7; O2SAT 91–99; BMI 28.7
--- NOTE | 2025-06-08 08:46 | RAD_ITS ---
PROCEDURE: CHEST 1 VIEW (PORTABLE) 06/08/2025 REASON FOR EXAM: CHEST PAIN TECHNIQUE: Frontal view of the chest. COMPARISON: Chest radiograph 08/01/2024. FINDINGS: Hardware: Partially visualized cervical hardware. Heart: The heart size is normal. Lungs: No focal consolidation, pleural effusion or pneumothorax. Bones: The bones are unremarkable. RAD/Chest 1 View (Portable) IMPRESSION: Negative Chest. Reading Location: [id number]
--- NOTE | 2025-06-08 08:46 | EKG12_ITS ---
Test Reason : CP Blood Pressure : */* mmHG Vent. Rate : 71 BPM Atrial Rate : 71 BPM P-R Int : 166 ms QRS Dur : 92 ms QT Int : 424 ms P-R-T Axes : 63 -57 31 degrees QTcB Int : 460 ms Normal sinus rhythm with sinus arrhythmia Left anterior fascicular block Abnormal ECG Confirmed by Gilberto Badillo ([id number]), supervising film or videotape editor SHILO MASON ([id number]) on 06/10/2025 1:08:18 PM Referred By: Confirmed By: Gilberto Badillo
--- OUTSIDE RECORDS SUMMARY | 2025-06-08 08:58 | XMS RPT_ITS | CCD ---
Author Organization [facility]iniSy[facility] Care Team Providers Care Enrober Tender Name Role Phone EWA BOSS Admitting Unavailable EWA BOSS Attending Unavailable NO, DOCTOR ON Referring Unavailable EWA BOSS Primary Care Unavailable NO, DOCTOR ON Consulting Unavailable Unavailable Primary Care Provider Unavailabl e Dr. Jorge Benitez Primary Care Provider Dr. Alyson Ortiz Emergency Provider [phone] Dr. Glenroy Frankel Admit Provider [phone] Dr. Glenroy Frankel Attending Provider [phone] Dr. Glenroy Frankel Other Provider [phone] Dr. Gilberto Badillo Attending Provider [phone] Dr. Gilberto Badillo Other Provider [phone] Dr. Nawaf Sprague Attending Provider [phone] Dr. Genaro Butler Attending Provider [phone] Genaro Butler Other Provider Dr. Jorge Benitez Primary Care Provider [phone] Alyson Ortiz Emergency Provider [phone] Glenroy Frankel Admit Provider [phone] Dr. Glenroy Frankel Attending Provider [phone] Dr. Glenroy Frankel Other Provider [phone] Dr. Gilberto Badillo Attending Provider [phone] Dr. Gilberto Badillo Other Provider [phone] Nawaf Sprague Attending Provider [phone] Genaro Butler Attending Provider [phone] Genaro Butler Other Provider Dr. Jorge Benitez Referring Provider Olesya Ye Attending Provider Unavailable Dr. Donta Anne Attending Provider [phone] Dr. Donta Anne Other Provider Randy IGNITION MECHANIC, IGNITION MECHANIC-C Alexandrea Natasha Primary Care Provider Randy IGNITION MECHANIC, IGNITION MECHANIC-C Alexandrea Natasha Referring Provider [phone] Unavailable Primary Care Provider Unavailabl e BUZZ, RENDELL Referring Unavailable BUZZ, RENDELL Referring Unavailable BUZZ, RENDELL Referring Unavailable BUZZ, RENDELL Referring Unavailable YAYA KELLER Referring Unavailable MARYANNE HINES Attending Anibal Padilla IGNITION MECHANIC-C, Alexandrea Natasha Primary Care Provider Randy IGNITION MECHANIC-C, Alexandrea Natasha Referring Provider Oriana Aguirre Attending Provider Oriana Aguirre Referring Provider Dr. Gareth Burns MD Attending Provider Randy IGNITION MECHANIC, Alexandrea Natasha Referring Unavailabl e Nawaf Sprague Attending Unavailable Randy IGNITION MECHANIC, [facility] Primary Care Unavailabl e Oriana Aguirre Attending Unavail able Randy IGNITION MECHANIC, [facility] Primary Care Unavailabl e Randy IGNITION MECHANIC, Alexandrea Natasha Referring Unavailabl e aRndy IGNITION MECHANIC, [facility] Unavailabl e Oriana Aguirre Referring Unavail able Gareth Burns Attending Unavailable Oriana Aguirre Attending Unavail able Oriana Aguirre Referring Unavail able Randy STEEN, [facility] Primary Care Unavailabl e Oriana Aguirre Attending Unavail able Randy IGNITION MECHANIC, [facility] Primary Care Unavailabl e Randy IGNITION MECHANIC, [facility]reaAlta Bates Campuse Referring Unavailabl e Allergies Allergy Classification Reported Allergen(s) Allergy Type Date of Onset Reaction(s) Facility Iodine (and Iodine containting drugs) (1 source) Iodine Drug Allergy 5 [facility] Work Phone: Shellfish (1 source) Shellfish Food Allergy 5 [facility] shrimp allergenic extract (1 source) shrimp allergenic extract Drug Allergy 3 Unknown [facility] Work Phone: (2 sources) Iodine; Translations: [IODINE] Drug Allergy 5 [facility] Repository (19 sources) Iodine Drug Allergy 5 Anaphylaxis [facility] Work Phone: (12 sources) Shellfish; Translations: [SHELLFISH] Propensity to adverse reactions 5 [facility] Work Phone: (1 source) SEAFOOD [Other] Propensity to adverse reactions 5 [facility] Work Phone: (13 sources) shrimp allergenic extract; Translations: [SHRIMP] Drug Allergy 3 Unknown [facility] Work Phone: (3 sources) Triiodobenzoic Acids Allergy to substance 4 Anaphylaxis [facility] (1 source) OTHER; Translations: [OTHER] Propensity to adverse reactions (disorder) 5 [facility] Repository (1 source) Iodine Drug Allergy 5 [facility] Repository (1 source) Shrimp product Drug allergy (disorder) 5 [facility] Repository (1 source) Iodinated Contrast Media Drug allergy (disorder) 5 [facility] Repository Medications Current Medications Medication Drug Class(es) Dates Sig (Normalized) Sig (Original) acetaminophen 500 mg oral tablet (9 sources) Start: 04-19-2024 take 2 tablets by mouth every six hours as needed acetaminophen (TYLENOL) 500 mg tablet Take 2 tablets by mouth every 6 hours as needed for pain. 0 04/19/2024 Active [id number] 200 actuat albuterol 0.09 mg/actuat metered dose inhaler (9 sources) beta2-Adrenergic Agonist Start: 04-19-2024 take 2 puff(s) by inhalation every six hours as needed for wheezing albuterol HFA (PROVENTIL HFA, VENTOLIN HFA) 90 mcg/actuation inhaler Indications: Acute eosinophilic pneumonia Inhale 2 Puffs as instructed every 6 hours as needed for wheezing/shortness of breath. 18 g 0 04/19/2024 Active amLODIPine 5 mg oral tablet (2 sources) Dihydropyridine Calcium Channel Orion Start: 01-22-2025 take 1 tablet by mouth once daily Amlodipine 5 mg tablet Active 5 mg PO daily January 22, 2025 1:00am aspirin 81 mg chewable tablet (6 sources) Platelet Aggregation Inhibitor, Nonsteroidal Anti-inflammatory Drug Start: 12-14-2023 End: 01-22-2025 take 1 tablet by mouth at breakfast Aspirin 81 mg tablet,chewable Active 81 mg PO WITH BREAKFAST January 22, 2025 12:22pm carvedilol 6.25 mg oral tablet (4 sources) alpha-Adrenergic Orion, beta-Adrenergic Orion Start: 04-09-2025 take 1 tablet by mouth twice daily at mealtime Carvedilol 6.25 mg tablet Active 6.25 mg PO TWICE A DAY April 09, 2025 10:08am must administer with a meal/food Start: 01-22-2025 End: 04-09-2025 take 1 tablet by mouth twice daily at mealtime Carvedilol (Coreg) 3.125 mg tablet Discontinued 3.125 mg PO TWICE A DAY January 22, 2025 1:00am April 09, 2025 10:09am must administer with a meal/food cyclobenzaprine hydrochloride 5 mg oral tablet (9 sources) Muscle Relaxant Start: 04-19-2024 take 1 tablet by mouth three times daily as needed cyclobenzaprine (FLEXERIL) 5 mg tablet Indications: Tendinosis of right rotator cuff Take 1 tablet by mouth three times a day as needed. 20 tablet 0 04/19/2024 Active diphenhydrAMINE hydrochloride 25 mg oral capsule (5 sources) Histamine-1 Receptor Antagonist Start: 12-12-2023 take 1 capsule by mouth at bedtime as needed for sleep Diphenhydramine Hcl (Allergy (Diphenhydramine)) 25 mg capsule Active 25 mg PO AT BEDTIME as needed for sleep December 12, 2023 1:00am doxycycline hyclate 100 mg oral tablet (1 source) Tetracycline-class Drug Start: 10-17-2023 End: 10-24-2023 take 1 tablet by mouth twice daily doxycycline (VIBRA-TABS) 100 mg tablet Indications: Rhinosinusitis Take 1 tablet by mouth two times a day for 7 days. 14 tablet 0 10/17/2023 10/24/2023 Active Comment on above: Take 1 tablet by tamra two times a day for 7 days. FOREVER ARCTIC SEA (3 sources) [facility]: [facility] Active March 13, 2024 12:00am levoFLOXacin 750 mg oral tablet (1 source) Quinolone Antimicrobial Start: 04-19-2024 End: 04-20-2024 take 1 tablet by mouth once daily in the evening levoFLOXacin (LEVAQUIN) 750 mg tablet Take 1 tablet by mouth daily at 6 pm for 1 day. 1 tablet 0 04/19/2024 04/20/2024 Active nabumetone 750 mg oral tablet (1 source) Nonsteroidal Anti-inflammatory Drug Start: 01-31-2013 End: 09-02-2023 take 1 tablet by mouth twice daily nabumetone 750 mg tablet Take 1 tablet by mouth twice daily. 30 tablet 2 01/31/2013 09/02/2023 Discontinued Comment on above: Take 1 tablet by tamra twice daily. nitroglycerin 0.4 mg sublingual tablet (3 sources) Nitrate Vasodilator Start: 12-27-2023 Nitroglycerin 0.4 mg tablet, sublingual Active 0.4 mg SL Q5M as needed for chest pain December 27, 2023 1:00am do not exceed 3 doses per episode Start: 12-27-2023 Nitroglycerin Active 0.4 MG SL Q5M December 27, 2023 1:00am do not exceed 3 doses per episode Thurmond (Nk) (1 source) Start: 01-15-2021 Thurmond (Nk) Active January 15, 2021 1:00am oxyCODONE hydrochloride 5 mg oral tablet (10 sources) Opioid Agonist Start: 04-19-2024 End: 04-26-2024 take 1 tablet by mouth every four hours as needed for pain oxyCODONE IR (ROXICODONE) 5 mg immediate release tablet Indications: Tendinosis of right rotator cuff Take 1 tablet by mouth every 4 hours as needed for pain for up to 7 days. 24 tablet 0 04/19/2024 04/26/2024 Active Start: 03-18-2019 End: 01-30-2020 take 1 capsule by mouth twice daily Oxycodone Myristate 18 MG cap,sprinkl,ER12hr(DONT CRUSH) Discontinued 18 mg PO TWICE A DAY March 18, 2019 12:00am January 30, 2020 2:12pm pantoprazole 20 mg delayed release oral tablet (9 sources) Proton Pump Inhibitor Start: 04-19-2024 take 1 tablet by mouth once daily before breakfast pantoprazole DR (PROTONIX) 20 mg tablet Indications: FDC current use of systemic steroids Take 1 tablet by mouth daily before breakfast. Take 45-60 minutes before breakfast 90 tablet 0 04/19/2024 Active polyethylene glycol 3350 08706 mg powder for oral solution (9 sources) Osmotic Laxative Start: 04-19-2024 take 17 g by mouth every twelve hours as needed polyethylene glycol 3350 17 gram packet Take 1 Packet by mouth two times a day as needed for constipation. Dissolve dose in 4 - 8 ounces of liquid and take as directed. 0 04/19/2024 Active predniSONE 5 mg oral tablet (11 sources) Start: 05-31-2024 End: 09-20-2024 take 8 tablets by mouth once daily, then take 7 tablets by mouth once daily, then take 6 tablets by mouth once daily, then take 5 tablets by mouth once daily, then take 4 tablets by mouth once daily, then take 3 tablets by mouth once daily, then take 2 tablets by mouth once daily, then take 1 tablet by mouth once daily predniSONE (DELTASONE) 5 mg tablet Indications: Acute eosinophilic pneumonia Take 8 tablets by mouth once daily for 14 days, THEN 7 tablets once daily for 14 days, THEN 6 tablets once daily for 14 days, THEN 5 tablets once daily for 14 days, THEN 4 tablets once daily for 14 days, THEN 3 tablets once daily for 14 days, THEN 2 tablets once daily for 14 days, THEN 1 tablet once daily for 14 days. 504 tablet 0 05/31/2024 09/20/2024 Active Start: 04-20-2024 End: 05-31-2024 predniSONE (DELTASONE) 20 mg tablet Indications: Acute eosinophilic pneumonia Take 3 tablets by mouth once daily. Patient should start on April 20, 2024. 200 tablet 0 04/20/2024 05/31/2024 Discontinued Start: 09-02-2023 End: 09-07-2023 take 5 tablets by mouth once daily, then take 4 tablets by mouth once daily, then take 3 tablets by mouth once daily, then take 2 tablets by mouth once daily, then take 1 tablet by mouth once daily predniSONE (DELTASONE) 10 mg tablet Indications: Acute cough , Wheezing Take 5 tablets by mouth once daily for 1 day, THEN 4 tablets once daily for 1 day, THEN 3 tablets once daily for 1 day, THEN 2 tablets once daily for 1 day, THEN 1 tablet once daily for 1 day. 15 tablet 0 09/02/2023 09/07/2023 Active Comment on above: Take 5 tablets by mo [facility] once daily for 1 day, THEN 4 tablets once daily for 1 day, THEN 3 tablets once daily for 1 day, THEN 2 tablets once daily for 1 day, THEN 1 tablet once daily for 1 day. rosuvastatin calcium 10 mg oral tablet (20 sources) HMG-CoA Reductase Inhibitor Start: take 1 tablet by mouth once daily Rosuvastatin (Crestor) 10 mg tablet Active 10 mg PO daily January 22, 2025 1:00am Start: 12-14-2023 End: 01-22-2025 take 1 tablet by mouth once daily Rosuvastatin 20 mg tablet Discontinued 20 mg PO DAILY December 14, 2023 1:00am January 22, 2025 11:46am Start: 12-12-2023 End: 12-14-2023 take 1 tablet by mouth once daily Rosuvastatin 5 mg tablet Discontinued 5 mg PO DAILY December 12, 2023 1:00am December 14, 2023 9:15am sennosides, longterm 8.6 mg oral tablet (9 sources) Start: 04-19-2024 take 2 tablets by mouth every twelve hours as needed senna (SENOKOT) 8.6 mg tab Take 2 tablets by mouth two times a day as needed for constipation. 0 04/19/2024 Active sulfamethoxazole 800 mg / trimethoprim 160 mg oral tablet (10 sources) Dihydrofolate Reductase Inhibitor Antibacterial, Sulfonamide Antimicrobial Start: 04-22-2024 End: 08-29-2024 take 1 tablet by mouth once sulfamethoxazole-t rimethoprim (BACTRIM DS) 800-160 mg per tablet Take 1 tablet by mouth every Monday, Monday, and Monday. 30 tablet 1 05/31/2024 08/29/2024 Active Start: 04-22-2024 sulfamethoxazo le-trimethoprim (BACTRIM DS) 800-160 mg per tablet Take 1 tablet by mouth every Monday, Monday, and Monday. Patient should start on April 22, 2024. 30 tablet 0 04/22/2024 Active traZODone hydrochloride 100 mg oral tablet (17 sources) Serotonin Reuptake Inhibitor Start: 08-31-2023 take 1 tablet by mouth at bedtime Trazodone 100 mg tablet Active 100 mg PO AT BEDTIME December 12, 2023 1:00am Comment on above: Take 100 mg by mouth daily at bedtime. Completed/Discontinued Medications Medication Drug Class(es) Dates Sig (Normalized) Sig (Original) acetaminophen 325 mg / HYDROcodone bitartrate 5 mg oral tablet (3 sources) Opioid Agonist Start: 04-13-2024 End: 01-22-2025 Hydrocodone-Acetami nophen 5-325 mg tablet Discontinued 1 {tbl} PO EVERY 6 HOURS NEEDED as needed for Pain 10 April 13, 2024 January 22, 2025 11:46am Start: 11-07-2012 End: 09-02-2023 take 1 tablet by mouth every four hours as needed for pain, then take 5 tablets by mouth once daily as needed for pain HYDROcodone-acetaminophen ES (VICODIN ES ) 7.5-750 mg per tablet Indications: Shoulder pain Take 1 tablet by mouth every 4 hours as needed. FOR PAIN. DO NOT EXCEED 5 PILLS PER DAY. 180 tablet 3 11/07/2012 09/02/2023 Discontinued Comment on above: Take 1 tablet by tamra th every 4 hours as needed. FOR PAIN. DO NOT EXCEED 5 PILLS PER DAY. ALPRAZolam 0.5 mg oral tablet (8 sources) Benzodiazepine Start: 03-18-20 End: 01-30-20 take 1 tablet by mouth at bedtime Alprazolam 0.5 MG tablet Discontinued 0.5 mg PO AT BEDTIME March 18, 2019 12:00am January 30, 2020 2:11pm amoxicillin 500 mg oral tablet (7 sources) Penicillin-class Antibacterial Start: 10-22-20 End: 12-12-19 take 2 tablets by mouth three times daily Amoxicillin 500 mg tablet Discontinued 1000 mg PO THREE TIMES A DAY 42 7 October 22, 2022 1:00am December 12, 2023 2:59pm Start: 10-22-2022 End: 12-12-2023 take 1000 mg by mouth three times daily Amoxicillin Discontinued 1000 MG PO THREE TIMES A DAY 42 October 22, 2022 1:00am December 12, 2023 2:59pm Apple Cider Vinegar (3 sources) Start: 03-13-2024 End: 01-22-2025 apple cider vinegar 1 cp Dis continued March 13, 2024 12:00am January 22, 2025 11:46am Start: 03-13-2024 apple cider vi jose carlos Active March 13, 2024 12:00am atorvastatin 40 mg oral tablet (8 sources) HMG-CoA Reductase Inhibitor Start: 03-19-2019 End: 01-30-2020 take 1 tablet by mouth at bedtime Atorvastatin 40 MG tablet Discontinued 40 mg PO AT BEDTIME March 19, 2019 12:00am January 30, 2020 2:12pm azithromycin 250 mg oral tablet (9 sources) Macrolide Antimicrobial Start: 04-13-2024 End: 01-22-2025 take 1 tablet by mouth once daily Azithromycin 250 mg tablet Discontinued 250 mg PO DAILY April 13, 2024 12:00am January 22, 2025 11:46am Start: 10-22-2022 End: 12-12-2023 take 2 tablets by mouth once daily Azithromycin 250 mg tablet Discontinued 250 mg PO DAILY 4 October 22, 2022 1:00am December 12, 2023 2:59pm start on day 2 of therapy 24 hr buPROPion hydrochloride 300 mg extended release oral tablet (17 sources) Aminoketone Start: 12-12-2023 End: 01-22-2025 take 1 tablet by mouth every twenty-four hours at bedtime Bupropion Hcl 300 mg tablet extended release 24 hr Discontinued 300 mg PO AT BEDTIME December 12, 2023 1:00am January 22, 2025 11:46am Start: 12-12-2023 take 1 tablet by tamra th once daily at bedtime buPROPion XL (WELLBUTRIN XL) 300 mg 24 hr tablet Take 300 mg by mouth daily at bedtime. 0 12/12/2023 Active Start: 08-31-2023 End: 04-15-2024 take 1 tablet by mouth every hour buPROPion XL (WELLBUTRIN XL) 300 mg 24 hr tablet Take 1 tablet by mouth every afternoon. 08/31/2023 04/15/2024 Discontinued (Duplicate Entry) Comment on above: Take 1 tablet by tamra th every afternoon. FLUoxetine 10 mg oral capsule (8 sources) Serotonin Reuptake Inhibitor Start: 9 End: 0 take 1 capsule by mouth once daily Fluoxetine 10 MG capsule Discontinued 10 mg PO DAILY March 18, 2019 12:00am January 30, 2020 2:12pm 24 hr isosorbide mononitrate 30 mg extended release oral tablet (7 sources) Nitrate Vasodilator Start: 4 End: 5 take 1 tablet by mouth once daily, then take 1 tablet by mouth every twenty-four hours Isosorbide Mononitrate 30 mg tablet extended release 24 hr Discontinued 30 mg PO DAILY March 13, 2024 12:00am January 22, 2025 11:46am lisinopril 10 mg oral tablet (8 sources) Angiotensin Converting Enzyme Inhibitor Start: 9 End: 0 take 5 mg by mouth once daily Lisinopril 10 MG tablet Discontinued 5 mg PO DAILY March 19, 2019 12:00am January 30, 2020 2:12pm Hold if SBP Start: 03-19-2019 End: 01-30-2020 take 5 mg by mouth once daily Lisinopril Discontinued 5 MG PO DAILY March 19, 2019 12:00am January 30, 2020 2:12pm Hold if SBP 24 hr metoprolol succinate 50 mg extended release oral tablet (7 sources) beta-Adrenergic Orion Start: 12-14-2023 End: 01-22-2025 take 1 tablet by mouth once daily Metoprolol Succinate 50 mg tablet extended release 24 hr Discontinued 50 mg PO DAILY March 13, 2024 12:00am January 22, 2025 11:46am Problems Problem Classification Problem Date Documented Da te Episodic/Chronic Anxiety disorders (12 sources) Anxiety state; Translations: [Generalized anxiety disorder] 11-19-2008 Chronic Coronary atherosclerosis and other heart disease (15 sources) Preinfarction syndrome; Translations: [Unstable angina] Onset: 01-22-2025 12-12-2023 Chronic Comment on above: The patient has a si ngle diagonal lesion which should be treatable with medical therapy. Continue current meds as outlined above. 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] Onset: 04-16-2024 04-16-2024 Chronic Essential hypertension (14 sources) Hypertensive disorder; Translations: [Essential hypertension] 09-18-2020 Chronic External cause codes: [place] (1 source) Contact with other powered hand tools and household machinery, initial encounter; Translations: [Contact with other powered hand tools and household machinery, initial encounter] Onset: 01-15-2020 Fever of unknown origin (7 sources) Fever; Translations: [Fever, unspecified] 10-30-2022 Episodic Nonspecific chest pain (20 sources) Atypical chest pain; Translations: [Chest pain] 08-08-2022 Episodic Comment on above: The patient's chest discomfort has resolved on medical therapy. He does have a known diagonal lesion the remaining coronary arteries were free of any significant disease and his LV function is normal. Open wounds of extremities (3 sources) Laceration without foreign body of left thumb with damage to nail, initial encounter; Translations: [Laceration without foreign body of left thumb with damage to nail, initial encounter] Onset: 01-15-2020 Episodic Other aftercare (1 source) Taking high risk medication; Translations: [Other longterm (current) drug therapy] 05-31-2024 Episodic Other and unspecified benign neoplasm (3 sources) History of polyp of colon; Translations: [Personal history of colonic polyps] 03-18-2024 Episodic Other and unspecified benign neoplasm (1 source) Personal history of colonic polyps; Translations: [Personal history of colonic polyps] 03-18-2024 Episodic Other circulatory disease (2 sources) Abnormal foot pulse; Translations: [Other specified symptoms and signs involving the circulatory and respiratory systems] 04-09-2025 Episodic Other connective tissue disease (9 sources) Pain in right arm; Translations: [Pain in right arm] Onset: 04-15-2024 04-16-2024 Episodic Other connective tissue disease (9 sources) Tendinosis of right shoulder; Translations: [Other specified disorders of tendon, right shoulder] Onset: 04-16-2024 04-16-2024 Episodic Other gastrointestinal disorders (9 sources) Constipation; Translations: [Constipation, unspecified] Onset: 04-16-2024 04-16-2024 Episodic Other lower respiratory disease (2 sources) Interstitial lung disease; Translations: [Interstitial pulmonary disease, unspecified] 04-19-2024 Chronic Other lower respiratory disease (1 source) Interstitial pulmonary disease, unspecified; Translations: [Interstitial pulmonary disease (HCC)] Onset: 05-20-2024 Chronic Other lower respiratory disease (2 sources) Cough; Translations: [Acute cough] 09-02-2023 Episodic Other lower respiratory disease (1 source) Wheezing; Translations: [Wheezing] 09-02-2023 Episodic Other lower respiratory disease (15 sources) Eosinophilic asthma; 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)] Onset: 04-18-2024 04-19-2024 Episodic Other lower respiratory disease (9 sources) Other nonspecific abnormal finding of lung field; Translations: [Other nonspecific abnormal finding of lung field] Onset: 04-15-2024 04-16-2024 Episodic Other lower respiratory disease (9 sources) Dyspnea; Translations: [Shortness of breath] Onset: 04-15-2024 04-16-2024 Episodic Other lower respiratory disease (1 source) Nodule of lung; Translations: [Solitary pulmonary nodule] 05-31-2024 Episodic Other lower respiratory disease (1 source) Shortness of breath Onset: 04-14-2024 Episodic Other nervous system disorders (12 sources) Sciatic nerve lesion; Translations: [Lesion of sciatic nerve, unspecified lower limb] Onset: 08-09-2006 11-19-2008 Chronic Other nutritional; endocrine; and metabolic disorders (9 sources) Obese class II; Translations: [Obesity, unspecified] Onset: 04-15-2024 04-16-2024 Chronic Other nutritional; endocrine; and metabolic disorders (9 sources) Hypophosphatemia; Translations: [Other disorders of phosphorus metabolism] Onset: 04-16-2024 04-16-2024 Chronic Other nutritional; endocrine; and metabolic disorders (9 sources) History of hypercholesterolemia ; Translations: [Personal history of other endocrine, nutritional and metabolic disease] 12-12-2023 Episodic Comment on above: Continue rosuvastati n and monitor through the primary service.. Other nutritional; endocrine; and metabolic disorders (4 sources) Personal history of other endocrine, nutritional and metabolic disease; Translations: [Personal history of other endocrine, metabolic, and immunity disorders] 12-12-2023 Episodic Other screening for suspected conditions (not mental disorders or infectious disease) (3 sources) Patient encounter status; Translations: [Encounter for screening for malignant neoplasm of colon] 03-08-2024 Episodic Other upper respiratory infections (1 source) Chronic sinusitis, unspecified; Translations: [Unspecified sinusitis (chronic)] 10-17-2023 Chronic Peripheral and visceral atherosclerosis (1 source) Peripheral vascular disease, unspecified; Translations: [Peripheral vascular disease, unspecified] Onset: 04-24-2025 Chronic Pneumonia (except that caused by tuberculosis or sexually transmitted disease) (18 sources) Pneumonia; Translations: [Pneumonia, unspecified organism] Onset: 04-14-2024 10-30-2022 Episodic Pneumonia (except that caused by tuberculosis or sexually transmitted disease) (1 source) Pneumonia (except that caused by tuberculosis or sexually transmitted disease); 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)] Onset: 05-20-2024 Residual codes; unclassified (3 sources) History of cardiac catheterization; Translations: [Other specified postprocedural states] 12-19-2023 Episodic Respiratory failure; insufficiency; arrest (adult) (9 sources) Acute respiratory failure; Translations: [Acute respiratory failure with hypoxia] Onset: 04-15-2024 04-16-2024 Episodic Spondylosis; intervertebral disc disorders; other back problems (12 sources) Lumbar spondylosis; Translations: [Spondylosis without myelopathy or radiculopathy, lumbar region] Onset: 10-06-2011 10-06-2011 Chronic Spondylosis; intervertebral disc disorders; other back problems (20 sources) Low back pain; Translations: [Lumbago] Onset: 01-22-2007 11-19-2008 Episodic Unclassified (1 source) Acute cough; Translations: [Acute cough] Onset: 09-02-2023 Viral infection (8 sources) Disease caused by 2019-nCoV; Translations: [COVID-19] 09-19-2020 Episodic Results Test Name Value Interpretation Reference Range Facility Arterial study reportOrdered By: Gareth Burns on 04-24-2025 Noninvasive arteriosclerosis study report [facility] [address] [place] [address] Lower Ext Art Exam w/o Exercis 04/18/25 0810 MR#: [id number] Acct: [id number] Name: ENRIQUE OLIVEIRA Rep #:[id number] : 1960 64 From: Gareth Mcmahon Attending Dr: Oriana Nunez PA Status: REG CLI Ordering Dr: Oriana Nunez PA Date: 04/18/25 Location: [facility] Sex: M C Admitted: Reason For Study Reason For Study: Decreased Pedal Pulses Procedure A bilateral lower extremity continuous wave Doppler with analog waveform analysis,segmental pressures,and ankle brachial indexes without exercise. Left Segmental Pressures Left brachial= 110mmHg. Left posterior tibial artery = 169mmHg. Left dorsalis pedis artery = 144mmHg. Left digit = 123 mmHg. The left posterior tibial artery waveforms are triphasic. The left dorsalis pedis waveforms are triphasic. Right Segmental Pressures Right brachial= 112mmHg. Right posterior tibial artery = 150mmHg. Right dorsalispedis artery = 150mmHg. Right digit = 118 mmHg. The right posterior tibial artery waveforms are triphasic. The right dorsalis pedis waveforms are triphasic. Indices The right ankle brachial index by the posterior tibial artery is 1.34. The rightankle brachial index by the dorsalis pedis is 1.34. The right digital-brachial index is 1.05. The left ankle brachialindex by the posterior tibial artery is 1.51. The left ankle brachial index by the dorsalis pedis is 1.29. The left digital-brachial index is 1.10. VL/Lower Ext Art Exam w/o Exercis Interpretation Summary Right GLORIA 1.34, normal. TBI and Doppler/PVR waveforms of the right leg normal atrest. Left GLORIA 1.51, normal. TBI and Doppler/PVR waveforms of the left leg normal at rest. Ordering Physician: Oriana Nunez Referring Physician: Alexandrea Padilla Performed By: Brent Meade, RVT 04/24/25 0932 Date _ Gareth Burns MD CC: IGNITION MECHANIC-C Alexandrea Padilla; MAURILIO Starr ~ Date Dictated: 04/18/25809 Date Transcribed: 04/24/25931 Lining Ironer: Signed [facility] Work Phone: Lower Ext Art Exam w/o Exerc jose cruz 04-18-2025 Lower Ext Art Exam w/o Exercis [facility] [address] [place] [address] Lower Ext Art Exam w/o Exercis 04/18/25809 MR#: [id number] Acct: [id number] Name: ENRIQUE OLIVEIRA Rep #: [id number] : 1960 64 From: Gareth Burns MD Attending Dr: MAURILIO Starr Status: REG CLI Ordering Dr: Oriana Nunez Date: 03/22 Location: [facility] Sex: M C Admitted: Reason For Study Reason For Study: Decreased Pedal Pulses Procedure A bilateral lower extremity continuous wave Doppler with analog waveform analysis,segmental pressures,and ankle brachial indexes without exercise. Left Segmental Pressures Left brachial= 110mmHg. Left posterior tibial artery = 169mmHg. Left dorsalis pedis artery = 144mmHg. Left digit = 123 mmHg. The left posterior tibial artery waveforms are triphasic. The left dorsalis pedis waveforms are triphasic. Right Segmental Pressures Right brachial= 112mmHg. Right posterior tibial artery = 150mmHg. Right dorsalis pedis artery = 150mmHg. Right digit = 118 mmHg. The right posterior tibial artery waveforms are triphasic. The right dorsalis pedis waveforms are triphasic. Indices The right ankle brachial index by the posterior tibial artery is 1.34. The right ankle brachial index by the dorsalis pedis is 1.34. The right digital-brachial index is 1.05. The left ankle brachial index by the posterior tibial artery is 1.51. The left ankle brachial index by the dorsalis pedis is 1.29. The left digital-brachial index is 1.10. VL/Lower Ext Art Exam w/o Exercis Interpretation Summary Right GLORIA 1.34, normal. TBI and Doppler/PVR waveforms of the right leg normal at rest. Left GLORIA 1.51, normal. TBI and Doppler/PVR waveforms of the left leg normal at rest. Ordering Physician: Oriana Nunez Referring Physician: Alexandrea Padilla Performed By: Brent Meade Grey 04/24/25931 Date Gareth Burns MD CC: IGNITION MECHANIC-C Alexandrea Padilla; MAURILIO Starr Date Dictated: 04/18/25809 Date Transcribed: 04/24/25931 Lining Ironer: Signed Normal [facility] Cardiology Visit Reporton Cardiology Visit Report [facility] [address] [place] [address] OFFICE VISIT Date of Service: 04/09/25 MR#: [id number] Acct: [id number] Name: ENRIQUE OLIVEIRA Rep #: [id number] : 1960 Provider: MAURILIO Castillo Age/Sex: 64/M Location: [facility] Status: Signed HPI HPI History of Present Illness Details: The patient was hospitalized at [facility] December 12, 2023 for exertional accelerating anginal symptoms. He underwent left heart catheterization which revealed a significant lesion in the diagonal branch which was treated medically. The patient has been on Imdur 30 mg daily metoprolol succinate 50 mg daily a baby aspirin and rosuvastatin 20 mg daily. He has MATEUS and has not been using his CPAP for years. Pt notes that his chest is sore with pushing on it. He does feel that his breathing is better. He is able to mow his lawn without issues. He has used NTG after he did a lot of walking, this was once. It did help. He has lost weight, he is doing this with fasting. Intake Vital Signs 01/22/25 10:42 04/09/25 09:39 Height 5 ft 10.08 in 5 ft 10.08 in Weight: 263 lb 250 lb BMI 37.6 35.8 BP 145/71 H 139/90 H Blood Pressure Location Lt brachial Lt brachial Position Sitting Sitting Respiration 20 H 16 Pulse 79 59 L Pulse Source Monitor NIBP Pulse Oximetry (%) 94 Intake Visit Reasons: 2 M FU Title Searcher Required: No Is patient in pain?: No Allergies Iodinated Contrast Media Allergy (Severe, Verified 04/09/25 09:43) Anaphylaxis iodine Allergy (Verified 04/09/25 09:43) Anaphylaxis shrimp Allergy (Verified 04/09/25 09:43) Anaphylaxis Medications ???Medication ???Instructions ???Recorded ???Confirmed ???Type diphenhydramine HCl 25 mg capsule 25 mg PO QHS PRN sleep 12/12/23 0 04/09/25 History (Allergy (diphenhydramine)) trazodone 100 mg tablet 100 mg PO QHS SLEEP 12/12/2304/09 History nitroglycerin 0.4 mg sublingual 0.4 mg sublingual Q5M PRN chest 04/09/25 Rx tablet pain #30 tabs FOREVER ARCTIC SEA 03/13/24 04/09/25 History amlodipine 5 mg tablet 5 mg PO QDAY #30 tabs 01/22/25 Rx aspirin 81 mg chewable tablet 81 mg PO BREAKFAST #30 tabs 04/09/25 Rx rosuvastatin 10 mg tablet (Crestor) 10 mg PO QDAY #30 tabs 01/22/25 04/09/25 Rx carvedilol 6.25 mg tablet 6.25 mg PO BID #60 tabs 04/09/25 0 04/09/25 Rx Ejection fraction %: 60 Have you fallen in the past year?: No [facility] History Essential hypertension Wears glasses Wears dentures Anxiety High cholesterol Gastric reflux Heartburn Former smoker Shortness of breath on exertion CPAP (continuous positive airway pressure) dependence Sleep apnea Cardiology follow-up encounter History of echocardiogram History of stress test Hx of colonic polyps History of left heart catheterization Hx of hypercholesterolemia Atypical chest pain Surgical History History of cardiac catheterization Hx of colonoscopy History of back surgery Family History Mother Colon cancer Aunt Colon cancer Uncle Colon cancer Brother Colon polyps Social History household members: spouse current occupational status: employed Smoking Status: Former smoker alcohol intake: never substance use type: does not use clari/gnosticism: [facility] ROS Const Const: Negative for fatigue or weakness Eyes Eyes: Negative for change in vision ENT ENT: Positive for dizziness and balance problems (When first getting up) Cardio Chest Pain: Yes (Soreness to right left chest if he pushes on it) Palpitations: No Edema: Bilateral (slightly improved) Resp Respiratory: Positive for SOB with activity (Improving); Negative for SOB at rest or SOB orthopnea SOB lying down GI GI: Negative nausea or heartburn Musc Musc: Positive for balance problems (When first getting up) Neuro Neuro: Positive for dizziness and lightheadedness; Negative for near syncope, syncope or weakness Endo Endo: Negative for fatigue Cardiology Exam Const Appearance: cooperative and healthy appearing Nutritional Appearance: overweight Head Head: normal to inspection Eyes General: appearance normal, both eyes and all related structures Neck Neck: no JVD Carotids: Negative bruit Chest Chest inspection: normal inspection of the chest Auscultation: Bilateral: Clear to Auscultation Cardio Rate: regular rate Rhythm: regular rhythm Heart sounds: S1 normal and S2 normal; Negative rub, gallop or murmur GI GI: normal to inspection Neuro General: patient oriented x3 Skin Skin: no rashes or lesions note (more content not included)... Normal [facility] 12 Lead EKG performed by [facility] on 01-22-2025 12 Lead EKG performed by [facility] [address] [place] [address] 12 Lead EKG performed by [facility] [id number] MR#: [id number] Acct: [id number] Name: ENRIQUE OLIVEIRA Rep #: [id number] : 1960 64 From: Oriana Cote Attending Dr: MAURILIO Starr Status: DEP AMB Ordering Dr: Oriana Nunez Date: 04/13 Location: [facility] Sex: M C Admitted: BMS/12 Lead EKG performed by [facility] ECG Report Interpretation ---Sinus Rhythm -Left axis -anterior fascicular block. - Nonspecific T-abnormality. ABNORMAL Electronically signed on 01/23/2025 at 08:13 by Nawaf [employer] Software Version 8610 01/23/2518 Date Oriana THORPE CC: NAS Padilla Date Dictated: 01/22/251046 Date Transcribed: 01/22/251046 Lining Ironer: WILLA Signed Normal [facility] Cardiology Visit Reporton Cardiology Visit Report [facility] [address] [place], [place] [address] OFFICE VISIT Date of Service: 01/22/25 MR#: [id number] Acct: [id number] Name: ENRIQUE OLIVEIRA Rep #: [id number] : 1960 Provider: MAURILIO Castillo Age/Sex: 64/M Location: [facility] Status: Signed HPI HPI History of Present Illness Details: The patient was hospitalized at [facility] December 12, 2023 for exertional accelerating anginal symptoms. He underwent left heart catheterization which revealed a significant lesion in the diagonal branch which was treated medically. The patient has been on Imdur 30 mg daily metoprolol succinate 50 mg daily a baby aspirin and rosuvastatin 20 mg daily. Pt was in [facility] in the spring for double pneumonia. He was then on 60 mg of prednisone. He did gain weight. He stopped his medications because he did not like the way he felt on them. He notes that he has been more SOB with exertion and can not walk more than a quarter mile. He feel that this is worse than last year. He was at a health fair a few weeks ago and was noted to have an elevated BP. He has needed to use NTG in the last several months twice. He had left arm pain. He did go away. He has MATEUS and has not been using his CPAP for years. Intake Vital Signs 04/13/24 15:17 01/22/25 10:42 Height 5 ft 10.08 in 5 ft 10.08 in Weight: 263 lb BMI 37.6 BP 145/71 H Blood Pressure Location Lt brachial Position Sitting Respiration 20 H Pulse 79 Pulse Source Monitor Pulse Oximetry (%) 94 Intake Visit Reasons: 1 Y FU Title Searcher Required: No Is patient in pain?: No Allergies Iodinated Contrast Media Allergy (Severe, Verified 01/22/25 10:45) Anaphylaxis iodine Allergy (Verified 01/22/25 10:45) Anaphylaxis shrimp Allergy (Verified 01/22/25 10:45) Anaphylaxis Medications ???Medication ???Instructions ???Recorded ???Confirmed ???Type diphenhydramine HCl 25 mg capsule 25 mg PO QHS PRN sleep 12/12/23 0 01/22/25 History (Allergy (diphenhydramine)) trazodone 100 mg tablet 100 mg PO QHS SLEEP 12/12/2301/22 History nitroglycerin 0.4 mg sublingual 0.4 mg sublingual Q5M PRN chest 01/22/25 Rx tablet pain #30 tabs FOREVER ARCTIC SEA 03/13/24 01/22/25 History amlodipine 5 mg tablet 5 mg PO QDAY #30 tabs 01/22/2504/13 Rx aspirin 81 mg chewable tablet 81 mg PO BREAKFAST #30 tabs 01/22/25 Rx carvedilol 3.125 mg tablet (Coreg) 3.125 mg PO BID #60 tabs 01/22/2 5 01/22/25 Rx rosuvastatin 10 mg tablet (Crestor) 10 mg PO QDAY #30 tabs 01/22/25 01/22/25 Rx Ejection fraction %: 60 Have you fallen in the past year?: No PFSH Medical History (Updated 01/22/25 @ 14:21 by Oriana Nunez PA, PA) Essential hypertension Wears glasses Wears dentures Anxiety High cholesterol Gastric reflux Heartburn Former smoker Shortness of breath on exertion CPAP (continuous positive airway pressure) dependence Sleep apnea Cardiology follow-up encounter History of echocardiogram History of stress test Hx of colonic polyps History of left heart catheterization Hx of hypercholesterolemia Atypical chest pain Surgical History History of cardiac catheterization Hx of colonoscopy History of back surgery Family History (Updated 03/08/24 @ 13:08 by Olesya Ye) Mother Colon cancer Aunt Colon cancer Uncle Colon cancer Brother Colon polyps Social History household members: spouse current occupational status: employed Smoking Status: Former smoker alcohol intake: never substance use type: does not use clari/gnosticism: Methodist ROS Const Const: Positive for fatigue and weakness Eyes Eyes: Positive for blurry vision ENT ENT: Positive for dizziness Cardio Chest Pain: Yes Palpitations: Yes Edema: Bilateral Resp Respiratory: Positive for SOB with activity and SOB at rest GI GI: Positive for heartburn Neuro Neuro: Positive for dizziness, weakness and blurry vision Endo Endo: Positive for fatigue Cardiology Exam Const Appearance: cooperative and healthy appearing Nutritional Appearance: overweight Head Head: normal to inspection Eyes General: appearance normal, both eyes and all related structures Neck Neck: no JVD Carotids: Negative bruit Chest Chest inspection: normal inspection of the chest Auscultation: Bilateral: Clear to Auscultation Cardio Rate: regular rate Rhythm: regular rhythm Heart sounds: S1 normal and S2 normal; Negative rub, gallop or murmur GI GI: normal to inspection Neuro General: patient oriented x3 Skin Skin: no rashes or lesions noted Extremities Lower Extremity Edema: None: Bilateral Psych (more content not included)... Normal [facility] Chest PA and Lateralon 08-01 Chest PA and Lateral [facility] [address] [place] [address] Chest PA and Lateral MR#: [id number] Acct: [id number] Name: ENRIQUE OLIVEIRA Rep #: [id number] : 1960 M 64 From: Ed Wooetn MD PCP: NAS Zheng Status: DEP AMB Study: Chest PA and Lateral Date of Exam: 08/01/24 Exam# [id number] Ordering Dr: [place] [id number] STUDY: X-RAY CHEST REASON FOR EXAM: Male, 64 years old. SOB TECHNIQUE: PA and lateral COMPARISON: April 13, 2024 FINDINGS: Lungs are hyperinflated. There is mild subsegmental atelectasis or infiltrate at the right base. There is no demonstrated pleural abnormality. Normal size heart. Normal mediastinum and mellissa. Normal visualized pulmonary arteries. Normal visualized aortic arch and descending thoracic aorta. Normal visualized thoracic spine. Normal visualized ribs, clavicles, and shoulders. There is no demonstrated abnormality of the visualized soft tissue structures of the upper abdomen. RAD/Chest PA and Lateral IMPRESSION: Hyperinflation and mild right basilar atelectasis or evolving infiltrate Electronically Signed: Ed Wooten MD at 16:04 EDT , CC: IGNITION MECHANIC-Em[facility] Padilla Lining Ironer: Signed [facility] Radha 06-07-2024 [facility] ENRIQUE OLIVEIRA ([id number]) 1960 Date Time Provider Department 06/07/24 EARNESTINE AMLONTE During your visit today, we recorded the following information about you: Earnestine Almonte RN 06/07/2024 2:23 PM Signed 06/07/2024: 1421: Pt education sent to his residence on eosinophilic pneumonia and prednisone. Nurse triage phone number included in case pt has questions. Earnestine Almonte RN Allergies As of Date: 06/07/2024 Noted Allergy Reaction IODINE 08/16/2005 SHELLFISH 08/16/2005 SHRIMP 10/17/2023 16 - Unknown Date Reviewed: 05/31/2024 Reviewed by: Maryanne Hines MD - Fully Assessed Prescriptions as of 06/07/2024 - predniSONE (DELTASONE) 5 mg tablet Take 8 tablets by mouth once daily for 14 days, THEN 7 tablets once daily for 14 days, THEN 6 tablets once daily for 14 days, THEN 5 tablets once daily for 14 days, THEN 4 tablets once daily for 14 days, THEN 3 tablets once daily for 14 days, THEN 2 tablets once daily for 14 days, THEN 1 tablet once daily for 14 days. - sulfamethoxazole-trimet hoprim (BACTRIM DS) 800-160 mg per tablet Take 1 tablet by mouth every Monday, Monday, and Monday. - acetaminophen (TYLENOL) 500 mg tablet Take 2 tablets by mouth every 6 hours as needed for pain. - polyethylene glycol 3350 17 gram packet Take 1 Packet by mouth two times a day as needed for constipation. Dissolve dose in 4 - 8 ounces of liquid and take as directed. - senna (SENOKOT) 8.6 mg tab Take 2 tablets by mouth two times a day as needed for constipation. - albuterol HFA (PROVENTIL HFA, VENTOLIN HFA) 90 mcg/actuation inhaler Inhale 2 Puffs as instructed every 6 hours as needed for wheezing/shortness of breath. - cyclobenzaprine (FLEXERIL) 5 mg tablet Take 1 tablet by mouth three times a day as needed. - pantoprazole DR (PROTONIX) 20 mg tablet Take 1 tablet by mouth daily before breakfast. Take 45-60 minutes before breakfast - rosuvastatin (CRESTOR) 20 mg tablet Take 1 tablet by mouth every afternoon. - buPROPion XL (WELLBUTRIN XL) 300 mg 24 hr tablet Take 300 mg by mouth daily at bedtime. - traZODone (DESYREL) 100 mg tablet Take 100 mg by mouth daily at bedtime. Problem List As Of Date 06/07/2024 Noted Resolved ANXIETY STATE NEC [F41.1] SCIATIC NERVE LESION [G57.00] 08/09/2006 PAIN BACK, LOW [M54.50] 01/22/2007 Cervical radiculopathy [M54.12] 10/06/2011 Lumbar spondylosis [M47.816] 10/06/2011 Multifocal pneumonia [J18.9] 04/14/2024 Obesity, Class II, BMI 35-39.9 [E66.9] 04/15/2024 Ground glass opacity present on imaging of lung*04/15/2024 SOB (shortness of breath) [R06.02] 04/15/2024 Right arm pain [M79.601] 04/15/2024 Acute respiratory failure with hypoxia (HCC) [J*04/15/2024 Tendinosis of right rotator cuff [M67.813] 04/16/2024 Constipation [K59.00] 04/16/2024 Hypophosphataemia [E83.39] 04/16/2024 Peripheral eosinophilia [D72.19] 04/16/2024 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] 04/18/2024 Encounter Status:Closed by EARNESTINE ALMONTE on 06/07/24 [facility] CNDarlene 05-31-2024 [facility] ENRIQUE OLIVEIRA ([id number]) 1960 M Date Time Provider Department 05/31/24 9:00 AM MARYANNE HINES [facility] During your visit today, we recorded the following information about you: Temperature Pulse Respiration Blood pressure 97.5 degrees 78/minute 16/minute 138/82 Weight Height 112.5 kg 1.816 m Maryanne Hines MD 05/31/2024 9:51 AM Signed Pulmonary Medicine NEW INTERSTITIAL LUNG DISEASE OUTPATIENT CONSULTATION Referring Physician: Self Date of service: 05/31/24 History of Present Illness: 63M here for ILD evaluation. PMHx of CAD, HTN, HLD, multiple prior back surgeries, and current tobacco. Recent hospitalization for dyspnea, fevers, chills, non-productive cough and fatigue of several days. Patient has been requiring anywhere from 2 to 4L NC while admitted. CT chest with diffuse ground glass opacities bilaterally with an UL predominance. Labs have not revealed an infectious agent and have shown elevated inflammatory markers with peripheral eosinophilia. Bronch, BAL: 04/17/2024 with negative cultures to date, but findings showing elevated eosinophils on BAL (28%). He was treated for acute eosinophilic pneumonia. The patient was started on steroids on 04/18 with complete resolution of symptoms and improvement in oxygen requirements to room air. Rpt CT chest May 2024 show resolution of GGO He returns reporting improved dyspnea but is noticing increasing fatigue, 30lbs wt gain and bilateral mild LE edema. He is taking pred 40 (started this week) after being on 60mg/d for several weeks. He is taking bactrim MWT. Percipitant; saw dust, varnish spray, paint spray in confined space as hobby; no respirator use. 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 He admits lapse of PPE use at home. He quit smoking after hospitalization. mMRC: Date mMRC 05/31/24 1 Review of Systems: All other systems reviewed and are negative (except as per HPI). Past Medical AND Surgical History: PAST MEDICAL HISTORY Diagnosis Date Lumbago Other anxiety states Other chest pain 06/23 nuclear stress 06/22 WNL; stress echo 06/23 WNL e/global LVH, EF 60% PAST SURGICAL HISTORY Procedure Laterality Date COLONOSCOPY FLX DX W/COLLJ SPEC WHEN PFRMD 08/04/10 Repeat in [place] W/O FACETEC FORAMOT/DSC 1/2 VRT SGM CRV 2009 Laminectomy, cervical laser LAMINECTOMY W/O FFD 11/21 VERT SEG LUMBAR 2010 Laminectomy, lumbar scar tissue lumbar laser PAST SURGICAL HISTORY OF 07/25 and 01/23 back surgery PAST SURGICAL HISTORY OF ear surgery Social History: Smoking history: reports that he quit smoking about 32 years ago. His smoking use included cigarettes. He has a 7.5 pack-year smoking history. His smokeless tobacco use includes chew. Drug Use: No Family History: FAMILY HISTORY Problem Relation Age of Onset Cancer Father skin cancer Stroke Maternal Grandfather Colon Cancer Other SEVERAL COUSINS Cancer Son leukemia Medications: Current Outpatient Medications Medication Sig acetaminophen (TYLENOL) 500 mg tablet Take 2 tablets by mouth every 6 hours as needed for pain. polyethylene glycol 3350 17 gram packet Take 1 Packet by mouth two times a day as needed for constipation. Dissolve dose in 4 - 8 ounces of liquid and take as directed. senna (SENOKOT) 8.6 mg tab Take 2 tablets by mouth two times a day as needed for constipation. albuterol HFA (PROVENTIL HFA, VENTOLIN HFA) 90 mcg/actuation inhaler Inhale 2 Puffs as instructed every 6 hours as needed for wheezing/shortness of breath. cyclobenzaprine (FLEXERIL) 5 mg tablet Take 1 tablet by mouth three times a day as needed. pantoprazole DR (PROTONIX) 20 mg tablet Take 1 tablet by mouth daily before breakfast. Take 45-60 minutes before breakfast rosuvastatin (CRESTOR) 20 mg tablet Take 1 tablet by mouth every afternoon. buPROPion XL (WELLBUTRIN XL) 300 mg 24 hr tablet Take 300 mg by mouth daily at bedtime. traZODone (DESYREL) 100 mg tablet Take 100 mg by mouth daily at bedtime. predniSONE (DELTASONE) 5 mg tablet Take 8 tablets by mouth once daily for 14 days, THEN 7 tablets once daily for 14 days, THEN 6 tablets once daily for 14 days, THEN 5 tablets once daily for 14 days, THEN 4 tablets once daily for 14 days, THEN 3 tablets once daily for 14 days, THEN 2 tablets once daily for 14 days, THEN 1 tablet once daily for 14 days. sulfamethoxazole-trimet hoprim (BACTRIM DS) 800-160 mg per tablet Take 1 tablet by mouth every Monday, Monday, and Monday. No current facility-administered medications for this visit. Physical Examination: Vital Signs: Blood pressure 138/82, pulse 78, temperature 36.4 ?C (97.5 ?F), temperature source Temporal Artery, resp. rate 16, height 181.6 cm (5' 11.5), weight 112.5 kg (248 lb), SpO2 96%. (more content not included)... [facility] [place] [facility] 05-24-2024 SUKUMAR Telephone (PULMMN) ENRIQUE OLIVEIRA ([id number]) 1960 M Date Time Provider Department 05/24/24 ALCIRA TRIMBLE During your visit today, we recorded the following information about you: [facility] 11:56 AM Signed Admin spoke with pt's spouse, Veronica, who was calling on behalf of pt regarding prednisone usage. Veronica stated wanted to see if pt should taper off of prednisone. Veronica stated she is concerned and wanted to ensure she is following the best practices. Veronica calling for medical advice on what to do regarding pt's Prednisone. [facility] 05/28/2024 1:46 PM Signed Admin contacted pt's spouse and informed them of comments and directions from NUPUR.KEVIN Gee. [facility] 05/30/2024 1:01 PM Signed Admin spoke with pt's spouse, Veronica, and relayed information that steroid usage will be discussed at outpatient visit tomorrow, 05/31/24. Allergies As of Date: 05/24/2024 Noted Allergy Reaction IODINE 08/16/2005 SHELLFISH 08/16/2005 SHRIMP 10/17/2023 16 - Unknown Date Reviewed: 04/18/2024 Reviewed by: Mini Phillips, RN - Fully Assessed Reason for Visit: Patient Question [8129] Prescriptions as of 05/30/2024 - acetaminophen (TYLENOL) 500 mg tablet Take 2 tablets by mouth every 6 hours as needed for pain. - polyethylene glycol 3350 17 gram packet Take 1 Packet by mouth two times a day as needed for constipation. Dissolve dose in 4 - 8 ounces of liquid and take as directed. - senna (SENOKOT) 8.6 mg tab Take 2 tablets by mouth two times a day as needed for constipation. - albuterol HFA (PROVENTIL HFA, VENTOLIN HFA) 90 mcg/actuation inhaler Inhale 2 Puffs as instructed every 6 hours as needed for wheezing/shortness of breath. - cyclobenzaprine (FLEXERIL) 5 mg tablet Take 1 tablet by mouth three times a day as needed. - pantoprazole DR (PROTONIX) 20 mg tablet Take 1 tablet by mouth daily before breakfast. Take 45-60 minutes before breakfast - predniSONE (DELTASONE) 20 mg tablet Take 3 tablets by mouth once daily. Patient should start on April 20, 2024. - sulfamethoxazole-trimet hoprim (BACTRIM DS) 800-160 mg per tablet Take 1 tablet by mouth every Monday, Monday, and Monday. Patient should start on April 22, 2024. - rosuvastatin (CRESTOR) 20 mg tablet Take 1 tablet by mouth every afternoon. - buPROPion XL (WELLBUTRIN XL) 300 mg 24 hr tablet Take 300 mg by mouth daily at bedtime. - traZODone (DESYREL) 100 mg tablet Take 100 mg by mouth daily at bedtime. Problem List As Of Date 05/24/2024 Noted Resolved ANXIETY STATE NEC [F41.1] SCIATIC NERVE LESION [G57.00] 08/09/2006 PAIN BACK, LOW [M54.50] 01/22/2007 Cervical radiculopathy [M54.12] 10/06/2011 Lumbar spondylosis [M47.816] 10/06/2011 Multifocal pneumonia [J18.9] 04/14/2024 Obesity, Class II, BMI 35-39.9 [E66.9] 04/15/2024 Ground glass opacity present on imaging of lung*04/15/2024 SOB (shortness of breath) [R06.02] 04/15/2024 Right arm pain [M79.601] 04/15/2024 Acute respiratory failure with hypoxia (HCC) [J*04/15/2024 Tendinosis of right rotator cuff [M67.813] 04/16/2024 Constipation [K59.00] 04/16/2024 Hypophosphataemia [E83.39] 04/16/2024 Peripheral eosinophilia [D72.19] 04/16/2024 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] 04/18/2024 Encounter Status:Closed by SATNAM LAWRENCE on 05/28/[address] [place] [address] CHEST WO IVCONon 05-20-20 CT CHEST WO IVCON * * *Final Report* * * DATE OF EXAM: May 20 2024 9:18AM [facility] 0541 - CT CHEST WO IVCON / PROCEDURE REASON: multiple diagnoses * * * * Physician Interpretation * * * * EXAMINATION: CHEST CT WITHOUT CONTRAST CLINICAL HISTORY: 63-year-old male with history of bilateral airspace opacities seen on prior chest CT. Interval bronchoscopic biopsy was consistent with eosinophilic pneumonia. Technique: Spiral CT acquisition of the chest from the thoracic inlet to the upper abdomen without contrast. Free breathing images were also obtained MQ: CTCWO_6 CT Radiation dose: Integrated Dose-length product (DLP) for this visit = 438 mGy*cm CT Dose Reduction Employed: Automated exposure control(AEC) and iterative recon Comparison: Chest CT dated 04/14/2024 RESULT: Limitations: None. Lines, tubes, and devices: None. Lung parenchyma and airways: The previously seen bilateral groundglass opacities associated with septal thickening present on the prior chest CT have resolved. Linear airspace opacities are present in the right middle lobe and lingula near the diaphragm, for example in the right, image 166 and on the left, image 171, suggestive of atelectasis or scar. No consolidation. A 3 mm right lower lobe nodule adjacent to the diaphragm, image 226 is unchanged since the prior chest CT. A 4 mm right lower lobe nodule, image 261, measured 5 mm on the prior chest CT from 04/14/2024. A 2 mm subpleural left lower lobe nodule, image 178 is not visualized on the prior exam although may have been obscured by atelectasis in this region on the prior chest CT. No bronchiectasis, architectural distortion, or honeycombing. No mosaic attenuation. The central airways are patent without suspicious endobronchial lesion. On the free breathing images, there is mild air trapping, for example seen on image 10 of series 7. No evidence of excessive dynamic airway collapse. Pleural space: No pleural effusion, pleural thickening, or pneumothorax. Lower neck, lymph nodes, and mediastinum: The imaged thyroid gland is unremarkable. No supraclavicular or axillary lymphadenopathy. No enlarged mediastinal lymph nodes. Mediastinal lymph nodes are smaller. For reference, a 0.6 cm in short axis lower right paratracheal lymph node located anterior to the right mainstem bronchus, image 100 of series 9 previously measured 1 cm in short axis on the prior chest CT. No definite hilar lymphadenopathy. The esophagus is decompressed. Heart, pericardium, and thoracic vessels: Both the ascending aorta and main pulmonary artery are normal in caliber. Mild to moderate severity coronary artery atherosclerotic calcifications are present, however, this exam is not optimized for coronary artery assessment. Heart size appears normal. No pericardial effusion. Bones and soft tissues: No destructive lytic or blastic bone lesion. Mild multilevel endplate degenerative changes are present throughout the imaged spine. Upper abdomen: The liver is diffusely low in attenuation, consistent with steatosis. Otherwise, the imaged solid abdominal organs are unremarkable on this noncontrast exam. Localizer images: No additional findings. IMPRESSION: 1. Interval resolution of the bilateral ground-glass opacities associated with septal thickening present on the prior chest CT from 04/14/2024.. These findings were compatible with eosinophilic pneumonia given the findings on interval bronchoscopy. 2. No CT evidence of fibrotic interstitial lung disease. 3. A few small (less than 5 mm) pulmonary nodules are unchanged since 04/14/2024 although a 2 mm left lower lobe pulmonary nodule was likely obscured by atelectasis on the prior exam. These nodules are likely benign given small size. A follow-up chest CT could be obtained in one year if there are risk factors for lung malignancy. 4. Mediastinal lymph nodes which were borderline enlarged on the prior chest CT have decreased in size in the interval, and were likely reactive. Lining Ironer: TOY Transcribe Date/Time: May 20 2024 10:55A Dictated by : KB REYES MD This examination was interpreted and the report reviewed and electronically signed by: KB REYES MD on May 20 2024 11:17AM EST [id number] Normal [place] CT Chest WO contraston 05-20 IMPRESSION: 1. Interval resolution of the bilateral ground-glass opacities associated with septal thickening present on the prior chest CT from 04/14/2024.. These findings were compatible with eosinophilic pneumonia given the findings on interval bronchoscopy. 2. No CT evidence of fibrotic interstitial lung disease. 3. A few small (less than 5 mm) pulmonary nodules are unchanged since 04/14/2024 although a 2 mm left lower lobe pulmonary nodule was likely obscured by atelectasis on the prior exam. These nodules are likely benign given small size. A follow-up chest CT could be obtained in one year if there are risk factors for lung malignancy. 4. Mediastinal lymph nodes which were borderline enlarged on the prior chest CT have decreased in size in the interval, and were likely reactive. Lining Ironer: TOY Transcribe Date/Time: May 20 2024 10:55A Dictated by : KB REYES MD This examination was interpreted and the report reviewed and electronically signed by: KB REYES MD on May 20 2024 11:17AM EST DIVISION OF RADIOLOGY * * *Final Report* * * DATE OF EXAM: May 20 2024 9:18AM [facility] 0541 - CT CHEST WO IVCON / PROCEDURE REASON: multiple diagnoses * * * * Physician Interpretation * * * * EXAMINATION: CHEST CT WITHOUT CONTRAST CLINICAL HISTORY: 63-year-old male with history of bilateral airspace opacities seen on prior chest CT. Interval bronchoscopic biopsy was consistent with eosinophilic pneumonia. Technique: Spiral CT acquisition of the chest from the thoracic inlet to the upper abdomen without contrast. Free breathing images were also obtained MQ: CTCWO_6 CT Radiation dose: Integrated Dose-length product (DLP) for this visit = 438 mGy*cm CT Dose Reduction Employed: Automated exposure control(AEC) and iterative recon Comparison: Chest CT dated 04/14/2024 RESULT: Limitations: None. Lines, tubes, and devices: None. Lung parenchyma and airways: The previously seen bilateral groundglass opacities associated with septal thickening present on the prior chest CT have resolved. Linear airspace opacities are present in the right middle lobe and lingula near the diaphragm, for example in the right, image 166 and on the left, image 171, suggestive of atelectasis or scar. No consolidation. A 3 mm right lower lobe nodule adjacent to the diaphragm, image 226 is unchanged since the prior chest CT. A 4 mm right lower lobe nodule, image 261, measured 5 mm on the prior chest CT from 04/14/2024. A 2 mm subpleural left lower lobe nodule, image 178 is not visualized on the prior exam although may have been obscured by atelectasis in this region on the prior chest CT. No bronchiectasis, architectural distortion, or honeycombing. No mosaic attenuation. The central airways are patent without suspicious endobronchial lesion. On the free breathing images, there is mild air trapping, for example seen on image 10 of series 7. No evidence of excessive dynamic airway collapse. Pleural space: No pleural effusion, pleural thickening, or pneumothorax. Lower neck, lymph nodes, and mediastinum: The imaged thyroid gland is unremarkable. No supraclavicular or axillary lymphadenopathy. No enlarged mediastinal lymph nodes. Mediastinal lymph nodes are smaller. For reference, a 0.6 cm in short axis lower right paratracheal lymph node located anterior to the right mainstem bronchus, image 100 of series 9 previously measured 1 cm in short axis on the prior chest CT. No definite hilar lymphadenopathy. The esophagus is decompressed. Heart, pericardium, and thoracic vessels: Both the ascending aorta and main pulmonary artery are normal in caliber. Mild to moderate severity coronary artery atherosclerotic calcifications are present, however, this exam is not optimized for coronary artery assessment. Heart size appears normal. No pericardial effusion. Bones and soft tissues: No destructive lytic or blastic bone lesion. Mild multilevel endplate degenerative changes are present throughout the imaged spine. Upper abdomen: The liver is diffusely low in attenuation, consistent with steatosis. Otherwise, the imaged solid abdominal organs are unremarkable on this noncontrast exam. Localizer images: No additional findings. DIVISION OF RADIOLOGY Provider, [facility] - 05/20/2024 * * *Final Report* * * DATE OF EXAM: May 20 2024 9:18AM [facility] 0541 - CT CHEST WO IVCON / PROCEDURE REASON: multiple diagnoses * * * * Physician Interpretation * * * * EXAMINATION: CHEST CT WITHOUT CONTRAST CLINICAL HISTORY: 63-year-old male with history of bilateral airspace opacities seen on prior chest CT. Interval bronchoscopic biopsy was consistent with eosinophilic pneumonia. Technique: Spiral CT acquisition of the chest from the thoracic inlet to the upper abdomen without contrast. Free breathing images were also obtained MQ: CTCWO_6 CT Radiation dose: Integrated Dose-length product (DLP) for this visit = 438 mGy*cm CT Dose Reduction Employed: Automated exposure control(AEC) and iterative recon Comparison: Chest CT dated 04/14/2024 RESULT: Limitations: None. Lines, tubes, and devices: None. Lung parenchyma and airways: The previously seen bilateral groundglass opacities associated with septal thickening present on the prior chest CT have resolved. Linear airspace opacities are present in the right middle lobe and lingula near the diaphragm, for example in the right, image 166 and on the left, image 171, suggestive of atelectasis or scar. No consolidation. A 3 mm right lower lobe nodule adjacent to the diaphragm, image 226 is unchanged since the prior chest CT. A 4 mm right lower lobe nodule, image 261, measured 5 mm on the prior chest CT from 04/14/2024. A 2 mm subpleural left lower lobe nodule, image 178 is not visualized on the prior exam although may have been obscured by atelectasis in this region on the prior chest CT. No bronchiectasis, architectural distortion, or honeycombing. No mosaic attenuation. The central airways are patent without suspicious endobronchial lesion. On the free breathing images, there is mild air trapping, for example seen on image 10 of series 7. No evidence of excessive dynamic airway collapse. Pleural space: No pleural effusion, pleural thickening, or pneumothorax. Lower neck, lymph nodes, and mediastinum: The imaged thyroid gland is unremarkable. No supraclavicular or axillary lymphadenopathy. No enlarged mediastinal lymph nodes. Mediastinal lymph nodes are smaller. For reference, a 0.6 cm in short axis lower right paratracheal lymph node located anterior to the right mainstem bronchus, image 100 of series 9 previously measured 1 cm in short axis on the prior chest CT. No definite hilar lymphadenopathy. The esophagus is decompressed. Heart, pericardium, and thoracic vessels: Both the ascending aorta and main pulmonary artery are normal in caliber. Mild to moderate severity coronary artery atherosclerotic calcifications are present, however, this exam is not optimized for coronary artery assessment. Heart size appears normal. No pericardial effusion. Bones and soft tissues: No destructive lytic or blastic bone lesion. Mild multilevel endplate degenerative changes are present throughout the imaged spine. Upper abdomen: The liver is diffusely low in attenuation, consistent with steatosis. Otherwise, the imaged solid abdominal organs are unremarkable on this noncontrast exam. Localizer images: No additional findings. IMPRESSION IMPRESSION: 1. Interval resolution of the bilateral ground-glass opacities associated with septal thickening present on the prior chest CT from 04/14/2024.. These findings were compatible with eosinophilic pneumonia given the findings on interval bronchoscopy. 2. No CT evidence of fibrotic interstitial lung disease. 3. A few small (less than 5 mm) pulmonary nodules are unchanged since 04/14/2024 although a 2 mm left lower lobe pulmonary nodule was likely obscured by atelectasis on the prior exam. These nodules are likely benign given small size. A follow-up chest CT could be obtained in one year if there are risk factors for lung malignancy. 4. Mediastinal lymph nodes which were borderline enlarged on the prior chest CT have decreased in size in the interval, and were likely reactive. 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 Start of test and EOFE criteria met. Current ATS/ERS acceptability and repeatability standards for lung volumes met. Current ATS/ERS acceptability and repeatability standards for DLCO met with 2 acceptable maneuvers. 2 puffs Albuterol (180 mcg) delivered by MDI via holding chamber. HR pre = 79/min, HR post = 76/min. IMPRESSION: Spirometry is normal. There was not a significant bronchodilator response. The TLC, RV and RV/TLC are normal. The diffusing capacity is normal. Electronically Signed On 05-20-2024 14:49:37 EDT by Bina Duff MD ID: [id number] Name: ENRIQUE OLIVEIRA Race: White Ht: 70.71 in Wt: 236.00 lbs Age: 63 Gender: Male : 1960 Dx: Chronic eosinophilic pneumonia Smoking Hx: Non-smoker Doctor: [facility] BROWN Test Date: 05/20/2024 Site: Tech: Deanne Adan PRE-BRONCH POST-BRONCH Pre LLN Pred ULN %Pred Post %Pred %Chg SPIROMETRY FVC (L) 3.92 3.23 4.32 5.43 90 4.09 94 3 FEV1 (L) 2.98 2.43 3.31 4.13 90 3.05 92 2 FEV1/FVC 0.76 0.65 0.77 0.87 98 0.74 96 -1 PEF L/s (L/sec) 9.37 6.63 8.99 11.36 104 9.67 107 3 FEF50 (L/sec) 3.43 2.24 4.37 6.49 78 3.49 79 1 FIF50 (L/sec) 5.34 5.76 7 FEF50/FIF50 0.64 90-100 0.61 -5 FIVC (L) 3.75 3.79 0 BLL87-05 (L/sec) 2.36 1.28 2.76 4.79 85 2.56 92 8 Time (sec) 8.42 10.89 29 FET PEF (sec) 0.06 0.06 0 JAZMÍN (L) 0.11 0.10 -2 Vol Extrap % (%) 3 3 -6 LUNG VOLUMES TGV (L) 3.39 2.59 3.77 4.95 89 ERV (L) 0.83 1.44 57 RV (Pleth) (L) 2.56 1.77 2.38 3.00 107 SVC (L) 3.88 3.23 4.32 5.43 89 IC (L) 2.97 2.88 103 TLC (Pleth) (L) 6.36 5.85 7.15 8.46 88 RV/TLC (Pleth) (%) 40 27 34 41 117 LUNG DIFFUSION DLCOunc (ml/min/mmHg) 26.51 17.67 27.60 37.54 96 VA (L) 5.72 5.59 6.96 8.32 82 DLunc/VA (ml/min/mmHg/L) 4.64 2.85 4.05 5.25 114 BHT (sec) 10.05 IVC (L) 3.75 Comments: Current ATS/ERS acceptability and repeatability standards for spirometry met. Start of test and EOFE criteria met. Current ATS/ERS acceptability and repeatability standards for lung volumes met. Current ATS/ERS acceptability and repeatability standards for DLCO met with 2 acceptable maneuvers. 2 puffs Albuterol (180 mcg) delivered by MDI via holding chamber. HR pre = 79/min, HR post = 76/min. PULMONARY FUNCTION LAB [facility] SPIROMETRY - BASELINE AND PO [facility] DLCO (ml/min/mmHg) 26.51 ml/min/mmHg [facility] DLCO/VA (ml/min/mmHg/L) 4.64 ml/min/mmHg/L [facility] ERV BOX (L) 0.83 L [facility] SBF56-84% POST (L/S) 2.56 L/S [facility] WZK64-30% PRE (L/S) 2.36 L/S [facility] FEV1 PRE (L) 2.98 L [facility] FEV1/FVC POST (%) 74 % [facility] FEV1/FVC PRE (%) 76 % [facility] FEV1_POST (L) 3.05 L [facility] FRC Box (L) 3.39 L [facility] FVC POST (L) 4.09 L [facility] FVC PRE (L) 3.92 L [facility] IC BOX (L) 2.97 L [facility] PEF POST (L/S) 9.67 L/S [facility] PEF PRE (L/S) 9.37 L/S [facility] RV Box (L) 2.56 L [facility] RV/TLC Box (%) 40 % [facility] TLC Box (L) 6.36 L [facility] VA (L) 5.72 L [facility] VC (L) BOX 3.88 L [facility] CNPNon 04-23-2024 CNPN Telephone (HVICTR) TEEENRIQUE R ([id number]) 1960 Date Time Provider Department 04/23/24 JUHI CLEMENTE HVICTR During your visit today, we recorded the following information about you: Oliva Hyde RN 04/23/2024 11:59 AM Signed [facility] Phone Encounter DATE of SERVICE: 04/23/2024 TIME of SERVICE: 11:56 AM Status: Non-urgent, needs attention Service/Provider: SCARLET Reynaga Reason for call: Medication Issue/Question and Pain Contact information: Pt's Resolution: Sent to [facility] Comments: Pt's called the [facility] phone line. Pt needs refill on pain medication. His f/u is not until May. [facility] in [place], [place]. [phone]. If you have a pool you can route this, I am not familiar with your pools. Pt's phone number is [phone] Oliva Hyde RN Date of Resolution: 04/23/2024 Time of Resolution 11:56 AM Allergies As of Date: 04/23/2024 Noted Allergy Reaction IODINE 08/16/2005 SHELLFISH 08/16/2005 SHRIMP 10/17/2023 16 - Unknown Date Reviewed: 04/18/2024 Reviewed by: Mini Phillips, HANNAH - Fully Assessed Reason for Visit: [facility] Program Call - Needs Attn [[id number]] Prescriptions as of 04/23/2024 - acetaminophen (TYLENOL) 500 mg tablet Take 2 tablets by mouth every 6 hours as needed for pain. - polyethylene glycol 3350 17 gram packet Take 1 Packet by mouth two times a day as needed for constipation. Dissolve dose in 4 - 8 ounces of liquid and take as directed. - senna (SENOKOT) 8.6 mg tab Take 2 tablets by mouth two times a day as needed for constipation. - albuterol HFA (PROVENTIL HFA, VENTOLIN HFA) 90 mcg/actuation inhaler Inhale 2 Puffs as instructed every 6 hours as needed for wheezing/shortness of breath. - cyclobenzaprine (FLEXERIL) 5 mg tablet Take 1 tablet by mouth three times a day as needed. - oxyCODONE IR (ROXICODONE) 5 mg immediate release tablet Take 1 tablet by mouth every 4 hours as needed for pain for up to 7 days. - pantoprazole DR (PROTONIX) 20 mg tablet Take 1 tablet by mouth daily before breakfast. Take 45-60 minutes before breakfast - predniSONE (DELTASONE) 20 mg tablet Take 3 tablets by mouth once daily. Patient should start on April 20, 2024. - sulfamethoxazole-trimet hoprim (BACTRIM DS) 800-160 mg per tablet Take 1 tablet by mouth every Monday, Monday, and Monday. Patient should start on April 22, 2024. - rosuvastatin (CRESTOR) 20 mg tablet Take 1 tablet by mouth every afternoon. - buPROPion XL (WELLBUTRIN XL) 300 mg 24 hr tablet Take 300 mg by mouth daily at bedtime. - traZODone (DESYREL) 100 mg tablet Take 100 mg by mouth daily at bedtime. Problem List As Of Date 04/23/2024 Noted Resolved ANXIETY STATE NEC [F41.1] SCIATIC NERVE LESION [G57.00] 08/09/2006 PAIN BACK, LOW [M54.50] 01/22/2007 Cervical radiculopathy [M54.12] 10/06/2011 Lumbar spondylosis [M47.816] 10/06/2011 Multifocal pneumonia [J18.9] 04/14/2024 Obesity, Class II, BMI 35-39.9 [E66.9] 04/15/2024 Ground glass opacity present on imaging of lung*04/15/2024 SOB (shortness of breath) [R06.02] 04/15/2024 Right arm pain [M79.601] 04/15/2024 Acute respiratory failure with hypoxia (HCC) [J*04/15/2024 Tendinosis of right rotator cuff [M67.813] 04/16/2024 Constipation [K59.00] 04/16/2024 Hypophosphataemia [E83.39] 04/16/2024 Peripheral eosinophilia [D72.19] 04/16/2024 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] 04/18/2024 Encounter Status:Closed by OLIVA HYDE on 04/23/24 Normal [place] CBC W Auto Differential pane l (Bld)on 04-19-2024 Basophils (Bld) [#/Vol] 10*3/uL Normal <0.11 [place] Comment on above: Order Comment: Speci men Type: BLOOD SPECIMEN Ordering Facility: [facility] Address: [address] [place] [address] Performed By: #### 5 [id number] #### [facility] CLIA [id number] [address] [place] [address] [place] Basophils/100 WBC (Bld) 0.2 % Normal [place] Comment on above: Order Comment: Speci men Type: BLOOD SPECIMEN Ordering Facility: [facility] Address: [address] [place] [address] Performed By: #### 5 7021-8 #### [facility] CLIA [id number] [address] [place] [address] [place] Differential cell count method Nom (Bld) Auto Normal [place] Comment on above: Order Comment: Speci men Type: BLOOD SPECIMEN Ordering Facility: [facility] Address: [address] [place] [address] Performed By: #### 5 7021-8 #### [facility] CLIA [id number] [address] [place] [address] [place] Eosinophils (Bld) [#/Vol] 0.34 10*3/uL Normal <0.46 [place] Comment on above: Order Comment: Speci men Type: BLOOD SPECIMEN Ordering Facility: [facility] Address: [address] [place] [address] Performed By: #### 5 7021-8 #### [facility] CLIA [id number] [address] [place] [address] [place] Eosinophils/100 WBC (Bld) 4.1 % Normal [place] Comment on above: Order Comment: Speci men Type: BLOOD SPECIMEN Ordering Facility: [facility] Address: [address] [place] [address] Performed By: #### 5 7021-8 #### [facility] CLIA [id number] [address] [place] [address] [place] Erythrocyte distribution width (RBC) [Ratio] 12.6 % Normal 11.5-15.0 [place] Comment on above: Order Comment: Speci men Type: BLOOD SPECIMEN Ordering Facility: [facility] Address: [address] [place] [address] Performed By: #### 5 7021-8 #### [facility] CLIA [id number] [address] [place] [address] [place] Hematocrit (Bld) [Volume fraction] 35.7 % Low 39.0-51.0 [place] Comment on above: Order Comment: Speci men Type: BLOOD SPECIMEN Ordering Facility: [facility] Address: [address] [place] [address] Performed By: #### 5 7021-8 #### [facility] CLIA [id number] [address] [place] [address] [place] Hemoglobin (Bld) [Mass/Vol] 12.1 g/dL Low 13.0-17.0 [place] Comment on above: Order Comment: Speci men Type: BLOOD SPECIMEN Ordering Facility: [facility] Address: [address] [place] [address] Performed By: #### 5 7021-8 #### [facility] CLIA [id number] [address] [place] [address] [place] Immature granulocytes (Bld) [#/Vol] 0.07 10*3/uL Normal <0.10 [place] Comment on above: Order Comment: Speci men Type: BLOOD SPECIMEN Ordering Facility: [facility] Address: [address] [place] [address] Performed By: #### 5 7021-8 #### [facility] CLIA [id number] [address] [place] [address] [place] Immature granulocytes/100 WBC (Bld) 0.9 % Normal [place] Comment on above: Order Comment: Speci men Type: BLOOD SPECIMEN Ordering Facility: [facility] Address: [address] [place] [address] Performed By: #### 5 7021-8 #### [facility] CLIA [id number] [address] [place] [address] [place] Lymphocytes (Bld) [#/Vol] 1.21 10*3/uL Normal 1.00-4.00 [place] Comment on above: Order Comment: Speci men Type: BLOOD SPECIMEN Ordering Facility: [facility] Address: [address] [place] [address] Performed By: #### 5 7021-8 #### [facility] CLIA [id number] [address] [place] [address] [place] Lymphocytes/100 WBC (Bld) 14.8 % Normal [place] Comment on above: Order Comment: Speci men Type: BLOOD SPECIMEN Ordering Facility: [facility] Address: [address] [place] [address] Performed By: #### 5 7021-8 #### [facility] CLIA [id number] [address] [place] [address] [place] MCH (RBC) [Entitic mass] 30.5 pg Normal 26.0-34.0 [place] Comment on above: Order Comment: Speci men Type: BLOOD SPECIMEN Ordering Facility: [facility] Address: [address] [place] [address] Performed By: #### 5 7021-8 #### [facility] CLIA [id number] [address] [place] [address] [place] MCHC (RBC) [Mass/Vol] 33.9 g/dL Normal 30.5-36.0 [facility] Comment on above: Order Comment: Speci men Type: BLOOD SPECIMEN Ordering Facility: [facility] Address: [address] [place] [address] Performed By: #### 5 7021-8 #### [facility] CLIA [id number] [address] [place] [address] [place] MCV (RBC) [Entitic vol] 89.9 fL Normal 80.0-100.0 [place] Comment on above: Order Comment: Speci men Type: BLOOD SPECIMEN Ordering Facility: [facility] Address: [address] [place] [address] Performed By: #### 5 7021-8 #### [facility] CLIA [id number] [address] [place] [address] [place] Monocytes (Bld) [#/Vol] 0.46 10*3/uL Normal <0.87 [place] Comment on above: Order Comment: Speci men Type: BLOOD SPECIMEN Ordering Facility: [facility] Address: [address] [place] [address] Performed By: #### 5 7021-8 #### [facility] CLIA [id number] [address] [place] [address] [place] Monocytes/100 WBC (Bld) 5.6 % Normal [place] Comment on above: Order Comment: Speci men Type: BLOOD SPECIMEN Ordering Facility: [facility] Address: [address] [place] [address] Performed By: #### 5 7021-8 #### [facility] CLIA [id number] [address] [place] [address] [place] Neutrophils (Bld) [#/Vol] 6.10 10*3/uL Normal 1.45-7.50 [place] Comment on above: Order Comment: Speci men Type: BLOOD SPECIMEN Ordering Facility: [facility] Address: [address] [place] [address] Performed By: #### 5 7021-8 #### [facility] CLIA [id number] [address] [place] [address] [place] Neutrophils/100 WBC (Bld) 74.4 % Normal [place] Comment on above: Order Comment: Speci men Type: BLOOD SPECIMEN Ordering Facility: [facility] Address: [address] [place] [address] Performed By: #### 5 7021-8 #### [facility] CLIA [id number] [address] [place] [address] [place] Nucleated RBC (Bld) [#/Vol] 10*3/uL Normal <0.01 [place] Comment on above: Order Comment: Speci men Type: BLOOD SPECIMEN Ordering Facility: [facility] Address: [address] [place] [address] Performed By: #### 5 7021-8 #### [facility] CLIA [id number] [address] [place] [address] [place] Nucleated RBC/100 WBC (Bld) [Ratio] 0.0 /100 WBC Normal [place] Comment on above: Order Comment: Speci men Type: BLOOD SPECIMEN Ordering Facility: [facility] Address: [address] [place] [address] Performed By: #### 5 7021-8 #### [facility] CLIA [id number] [address] [place] [address] [place] Platelet mean volume (Bld) [Entitic vol] 10.9 fL Normal 9.0-12.7 [place] Comment on above: Order Comment: Speci men Type: BLOOD SPECIMEN Ordering Facility: [facility] Address: [address] [place] [address] Performed By: #### 5 7021-8 #### [facility] CLIA [id number] [address] [place] [address] [place] Platelets (Bld) [#/Vol] 212 10*3/uL Normal 150-400 [place] Comment on above: Order Comment: Speci men Type: BLOOD SPECIMEN Ordering Facility: [facility] Address: [address] [place] [address] Performed By: #### 5 7021-8 #### [facility] CLIA [id number] [address] [place] [address] [place] RBC (Bld) [#/Vol] 3.97 10*6/uL Low 4.20-6.00 [facility] Comment on above: Order Comment: Speci men Type: BLOOD SPECIMEN Ordering Facility: [facility] Address: [address] [place] [address] Performed By: #### 5 7021-8 #### [facility] CLIA [id number] [address] [place] [address] [place] WBC (Bld) [#/Vol] 8.20 10*3/uL Normal 3.70-11.00 [facility] Comment on above: Order Comment: Speci men Type: BLOOD SPECIMEN Ordering Facility: [facility] Address: [address] [place] [address] Performed By: #### 5 7021-8 #### [facility] CLIA [id number] [address] [place] [address] OF [place] CNDSon 04-19-2024 CNDS HNO ID: [id number] Author: JUHI CLEMENTE MD Service: General Internal Medicine Author Type: Nurse Practitioner Type: Discharge Summary Filed: 05/01/2024 14:45 Note Text: Attestation signed by Juhi Clemente MD at 05/01/2024 2:45 PM GI 1 Staff Note: Pt seen and examined and agree with documentation as noted below. Juhi Clemente MD [id number] DISCHARGE SUMMARY PATIENT NAME: Enrique Oliveira ADMISSION DATE: 04/14/2024 DISCHARGE DATE: 04/19/2024 ATTENDING PHYSICIAN: Juhi Clemente MD Code Status: Full Code PCP: No primary care provider on file. Highest Readmission Risk Score: 19 The 30 day readmissions risk score is derived from an internally validated risk model which evaluates patient level characteristics, utilization history, medication orders and lab results up until the day of discharge. Patients with a score of 40 or above are considered highest risk for readmission. Specific patient level drivers will be listed at the bottom of the summary. TRANSITIONS OF CARE CRITICAL ISSUES: TELLES MEDICATION CHANGES: Prednisone 60mg daily until f/up with pulm Protonix 20mg daily Bactri DS MWF INCIDENTAL OR ACTIONABLE FINDING (Last Refresh: 04/19/2024 11:42 AM) Test(s): CT CHEST WO IVCON LAB MONITORING NEEDED: Not applicable IMAGING FOLLOW-UP: per pulm LABS AND PROCEDURES PENDING AT DISCHARGE: No Test Results Not Yet Available from This Hospitalization: Please Review at Your Follow Up Appointment Order Current Status IRON STAIN MISC Collected (04/17/24 6839) ASPERGILLUS GALACTOMANNAN BAL In process FUNGAL BATTERY ID In process HISTOPLASMA AG URINE In process MYELOPEROXID AUTOAB In process PROTEINASE 3 ANTIBODY In process SURGICAL PATHOLOGY In process AFB CULT + STAIN Preliminary result BLOOD CULTURE Preliminary result BLOOD CULTURE Preliminary result BRONCHOSCOPY CULTURE AND GRAM STAIN Preliminary result FUNGAL CULTURE (NON DERMAL) Preliminary result FOLLOW UP: Unable to arrange f/up until patient completed self-pay interview scheduled for 04/19/24 @ 1600. Patient AND made aware AND expressed understanding Appointments for outpatient pulm AND ortho requested. REASON FOR HOSPITALIZATION: Multifocal pneumonia PRINCIPAL DIAGNOSIS: Acute eosinophilic pneumonia SECONDARY DIAGNOSIS: Principal Problem: Acute eosinophilic pneumonia (POA: Yes) Active Problems: Multifocal pneumonia (POA: Yes) Obesity, Class II, BMI 35-39.9 (POA: Yes) Ground glass opacity present on imaging of lung (POA: Yes) SOB (shortness of breath) (POA: Yes) Right arm pain (POA: Yes) Acute respiratory failure with hypoxia (HCC) (POA: Yes) Tendinosis of right rotator cuff (POA: Yes) Constipation (POA: Yes) Hypophosphataemia (POA: No) Peripheral eosinophilia (POA: No) Resolved Problems: * No resolved hospital problems. * HOSPITAL COURSE: Enrique Oliveira is a 63 year old male with PMHx: chronic back pain s/p prior back surgeries ( AND in [facility]) laminectomy ', anxiety AND obesity. Presented to [facility] ED 04/13 for chills, nausea and chest tightness. Diagnosed with PNA and given azithromycin. Symptoms worsened and presented to [facility] on 04/14 for second opinion. He also reported severe R shoulder pain which had been present for 2 weeks. Admitted to medicine.CT chest upper lobe predominant multifocal geographic areas of groundglass opacities with crazy paving pattern Viral panel -veCRP of 18.1, Procalcitonin of 0.11 and Peripheral Eosinophilia of 0.48 Deat in ED, placed on 3LNC, no o2 needs at baseline; desaturating on RNF when taken off oxygen. MRSA swab -ve. ID AND pulm consulted. Patient placed on IV levofloxacin. Underwent bronchoscopy with negative cultures to date, but findings showing elevated eosinophils on BAL (28%). This, along with symptoms, imaging and a lack of an infectious agent are all suggestive of an acute eosinophilic pneumonia at this time. Patient started on steroids, PPI and bactrim ppx. Supplemental oxygen weaned. He will require on going follow up with pulmonary outpatient. Underwent desat study and nocturnal pulse ox trend demonstrating no home O2 needs. Regarding shoulder pain; MRI R shoulder: Rotator cuff tendinosis and interstitial tearing of infraspinatus. Encouraged PT/OT, pain control and outpatient f/up with ortho sx. As patient is [employer] and self pay status (utilizes [employer] for reimbursement) we were unable to schedule f/up prior to d/c. Patient AND were made aware of this. We were able to schedule a self-pay phone interview for 04/19/24 @ 4pm, after said phone interview patient should be able to schedule follow up. F/up request placed w/ pulm and ortho. Determined stable and d/c home on 04/19/24. OPERATIONS/PROCEDURE DURING THIS HOSPI (more content not included)... Normal [facility] 04-19-2024 [facility] Telephone (PMNA11) ENRIQUE OLIVEIRA ([id number]) 1960 M Date Time Provider Department 04/19/24 SAKINA PIPER [id number] During your visit today, we recorded the following information about you: Sakina Piper MD 04/19/2024 2:47 PM Signed Orders for follow up Allergies As of Date: 04/19/2024 Noted Allergy Reaction IODINE 08/16/2005 SHELLFISH 08/16/2005 SHRIMP 10/17/2023 16 - Unknown Date Reviewed: 04/18/2024 Reviewed by: Mini Phillips, HANNAH - Fully Assessed Primary Visit Diagnosis:Eosinophilic pneumonia (HCC) [J82.81] Other Visit Diagnosis:Interstitial pulmonary disease (HCC) [J84.9] Order(s):SPIROMETRY - BASELINE AND POST DILATOR [1460055] Order #: [id number]: 1 FUTURE LUNG VOLUMES [[id number]] Order #: [id number]: 1 FUTURE LUNG DIFFUSION CAPACITY (DLCO) [0264677] Order #: [id number]: [address] CHEST WO IVCON [[id number]] Order #: [id number] FUTURE Prescriptions as of 04/19/2024 - acetaminophen (TYLENOL) 500 mg tablet Take 2 tablets by mouth every 6 hours as needed for pain. - polyethylene glycol 3350 17 gram packet Take 1 Packet by mouth two times a day as needed for constipation. Dissolve dose in 4 - 8 ounces of liquid and take as directed. - senna (SENOKOT) 8.6 mg tab Take 2 tablets by mouth two times a day as needed for constipation. - albuterol HFA (PROVENTIL HFA, VENTOLIN HFA) 90 mcg/actuation inhaler Inhale 2 Puffs as instructed every 6 hours as needed for wheezing/shortness of breath. - cyclobenzaprine (FLEXERIL) 5 mg tablet Take 1 tablet by mouth three times a day as needed. - oxyCODONE IR (ROXICODONE) 5 mg immediate release tablet Take 1 tablet by mouth every 4 hours as needed for pain for up to 7 days. - pantoprazole DR (PROTONIX) 20 mg tablet Take 1 tablet by mouth daily before breakfast. Take 45-60 minutes before breakfast - predniSONE (DELTASONE) 20 mg tablet Take 3 tablets by mouth once daily. Patient should start on April 20, 2024. - sulfamethoxazole-trimet hoprim (BACTRIM DS) 800-160 mg per tablet Take 1 tablet by mouth every Monday, Monday, and Monday. Patient should start on April 22, 2024. - levoFLOXacin (LEVAQUIN) 750 mg tablet Take 1 tablet by mouth daily at 6 pm for 1 day. - rosuvastatin (CRESTOR) 20 mg tablet Take 1 tablet by mouth every afternoon. - buPROPion XL (WELLBUTRIN XL) 300 mg 24 hr tablet Take 300 mg by mouth daily at bedtime. - traZODone (DESYREL) 100 mg tablet Take 100 mg by mouth daily at bedtime. Facility-Administered Medications as of 04/19/2024 - predniSONE 60 mg tab(s) (DELTASONE) - pantoprazole DR 20 mg tab(s) (PROTONIX) - sulfamethoxazole-trimet hoprim 800-160 mg 1 tablet (BACTRIM DS) - benzocaine-menthol 1 Lozenge (CHLORASEPTIC) - ibuprofen 800 mg tab(s) (MOTRIN) - diclofenac 1 % 4 g topical gel (VOLTAREN) - oxyCODONE IR 5 mg tab(s) (ROXICODONE) - heparin 5,000 Units injection - ondansetron (PF) 4 mg injection (ZOFRAN) - guaiFENesin 600 mg ER tab(s) (MUCINEX) - benzonatate 100 mg cap(s) (TESSALON PERLE) - albuterol HFA 90 mcg/actuation 2 Puff (PROVENTIL HFA, VENTOLIN HFA) - ondansetron orally disintegrating 4 mg tab(s) (ZOFRAN ODT) - acetaminophen 1,000 mg tab(s) (TYLENOL) - buPROPion XL 300 mg tab(s) (WELLBUTRIN XL) - rosuvastatin 20 mg tab(s) (CRESTOR) - traZODone 100 mg tab(s) (DESYREL) - ipratropium-albuterol 3 mL nebulizer solution (DUONEB) - levoFLOXacin iv piggyback 750 mg in D5W 150 mL (LEVAQUIN) - NaCl 0.9% iv flush bag - polyethylene glycol 3350 17 g packet - polyethylene glycol 3350 17 g packet - senna 17.2 mg tab(s) (SENOKOT) - cyclobenzaprine 5 mg tab(s) (FLEXERIL) Problem List As Of Date 04/19/2024 Noted Resolved ANXIETY STATE NEC [F41.1] SCIATIC NERVE LESION [G57.00] 08/09/2006 PAIN BACK, LOW [M54.50] 01/22/2007 Cervical radiculopathy [M54.12] 10/06/2011 Lumbar spondylosis [M47.816] 10/06/2011 Multifocal pneumonia [J18.9] 04/14/2024 Obesity, Class II, BMI 35-39.9 [E66.9] 04/15/2024 Ground glass opacity present on imaging of lung*04/15/2024 SOB (shortness of breath) [R06.02] 04/15/2024 Right arm pain [M79.601] 04/15/2024 Acute respiratory failure with hypoxia (HCC) [J*04/15/2024 Tendinosis of right rotator cuff [M67.813] 04/16/2024 Constipation [K59.00] 04/16/2024 Hypophosphataemia [E83.39] 04/16/2024 Peripheral eosinophilia [D72.19] 04/16/2024 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] 04/18/2024 Encounter Status:Closed by SAKINA PIPER on 04/19/24 [facility] CONSULT PROGon 04-19-2024 CONSULT PROG HNO ID: [id number] Author: AZIZA DIAZ MD Service: Infectious Disease Author Type: Physician Type: Consult Progress Note Filed: 04/19/2024 10:03 Note Text: INFECTIOUS DISEASE CONSULT SERVICE PROGRESS NOTE Date: April 19, 2024 Patient Name: Enrique Oliveira Interval Events: no fevers SOB, cough is better MEDICATIONS Medications reviewed. Current Facility-Administered Medications Medication Dose Route Frequency NaCl 0.9% iv flush bag 20 mL INTRAVENOUS PRN polyethylene glycol 3350 17 g packet 17 g ORAL DAILY PRN polyethylene glycol 3350 17 g packet 17 g ORAL DAILY senna 17.2 mg tab(s) (SENOKOT) 17.2 mg ORAL AT BEDTIME cyclobenzaprine 5 mg tab(s) (FLEXERIL) 5 mg ORAL TID PRN ondansetron (PF) 4 mg injection (ZOFRAN) 4 mg INTRAVENOUS q 6 H PRN guaiFENesin 600 mg ER tab(s) (MUCINEX) 600 mg ORAL q 12 H benzonatate 100 mg cap(s) (TESSALON PERLE) 100 mg ORAL q 4 H PRN albuterol HFA 90 mcg/actuation 2 Puff (PROVENTIL HFA, VENTOLIN HFA) 2 Puff INHALATION q 6 H PRN ondansetron orally disintegrating 4 mg tab(s) (ZOFRAN ODT) 4 mg ORAL q 6 H PRN acetaminophen 1,000 mg tab(s) (TYLENOL) 1,000 mg ORAL q 6 H PRN buPROPion XL 300 mg tab(s) (WELLBUTRIN XL) 300 mg ORAL AT BEDTIME rosuvastatin 20 mg tab(s) (CRESTOR) 20 mg ORAL AT BEDTIME traZODone 100 mg tab(s) (DESYREL) 100 mg ORAL AT BEDTIME ipratropium-albuterol 3 mL nebulizer solution (DUONEB) 3 mL INHALATION TID levoFLOXacin iv piggyback 750 mg in D5W 150 mL (LEVAQUIN) 750 mg INTRAVENOUS DAILY ibuprofen 800 mg tab(s) (MOTRIN) 800 mg ORAL q 8 H PRN diclofenac 1 % 4 g topical gel (VOLTAREN) 4 g TOPICAL QID oxyCODONE IR 5 mg tab(s) (ROXICODONE) 5 mg ORAL q 4 H PRN heparin 5,000 Units injection 5,000 Units SUBCUTANEOUS q 12 H benzocaine-menthol 1 Lozenge (CHLORASEPTIC) 1 Lozenge MUCOUS MEMBRANE (TOPICAL MOUTH AND THROAT) q 2 H PRN predniSONE 60 mg tab(s) (DELTASONE) 60 mg ORAL DAILY pantoprazole DR 20 mg tab(s) (PROTONIX) 20 mg ORAL DAILY (6 AM) sulfamethoxazole-trimet hoprim 800-160 mg 1 tablet (BACTRIM DS) 1 tablet ORAL -- EXAMINATION: BP 135/69 Pulse 62 Temp 36.7 ?C (98 ?F) (Oral) Resp 18 Ht 165.1 cm (5' 5) Wt 99.8 kg (220 lb 0.3 oz) SpO2 93% BMI 36.61 kg/m? Temp (24hrs), Av.7 ?C (98.1 ?F), Min:36.6 ?C (97.9 ?F), Max:36.8 ?C (98.3 ?F) GENERAL APPEARANCE: awake in no acute distress SKIN: negative rash HEAD/SINUSES: No significant findings. EYES: conjunctiva clear LUNGS: Clear to auscultation anteriorly HEART: Regular rate and rhythm ABDOMEN: Soft, Nontender, nondistended EXTREMITIES: No edema NEURO: Alert, following commands LABORATORY DATA: WBC (k/uL) Date Value 04/19/2024 8.20 04/18/2024 7.72 04/17/2024 7.07 04/03/2006 6.68 Hemoglobin (g/dL) Date Value 04/19/2024 12.1 04/18/2024 11.8 04/17/2024 12.0 04/03/2006 14.5 Platelet Count Date Value 04/19/2024 212 k/uL 04/18/2024 182 k/uL 04/17/2024 171 k/uL 04/03/2006 322 K/uL Creatinine (mg/dL) Date Value 04/19/2024 0.87 04/18/2024 0.80 04/17/2024 0.88 MICROBIOLOGY DATA: 04/17 BAL negative to date (including negative legionella, PJP, RV panel) IMAGING DATA: reviewed ASSESSMENT: Problem list carried forward from most recent note and updated as needed 63 year old M with s/p laminectomy 2009, back surgery 2004 and 2005 in [place], hx of anxiety Has been having R arm pain x 2 weeks (able to move shoulder), sp steroid shot 10 days ago Developed chills, nausea,chest tightness on 04/13, seen at the ER, was told he had pneumonia, given azithromycin and pain meds Developed SOB on 04/15 and was seen at the ER; has a little bit of cough and sputum CT chest showed upper lobe predominant multifocal geographic areas of groundglass opacities with crazy paving pattern No recent particular exposures- was exposed to saw dust, otherwise no recent gardening, construction, lawn mowing; no new meds, no water exposures; no animal exposures except to his dogs CT chest reviewed. Not typical for bacterial pneumonia and he is not otherwise immunosuppressed. ?of mycoplasma but m pneumoniae negative on RV panel although was [employer] swab; also negative for other viruses CRP 18, procal 0.11 s/p bronchoscopy 04/17, BAL negative to date including bacterial cx, legionella, PJP, RV panel Per pulm, BAL suggestive of acute eosinophilic pneumonia, started on prednisone and bactrim prophylaxis RECOMMENDATIONS: Can stop levofloxacin today Prednisone per Pulm team Follow BAL Continue bactrim for PJP prophylaxis Follow up with Pulm Please call back if with further questions. Aziza Diaz MD Beeper Number: [id number] Staff, Department of Infectious Disease April 19, 2024 10:03 AM Normal [place] CONSULT PROG HNO ID: [id number] Author: EMELY SIMMONS MD Service: Pulmonary Disease Author Type: Physician Type: Consult Progress Note Filed: 04/19/2024 19:56 Note Text: Pulmonary Medicine Consult Progress Note Admit Date: 04/14/2024 SERVICE DATE: 04/19/2024 SERVICE TIME: 6:50 PM REASON FOR CONSULT: upper lobe predominant multifocal geographic areas of groundglass opacities with crazy paving pattern REQUESTING PHYSICIAN: Dr. Clemente PRIMARY CARE PHYSICIAN: No primary care provider on file. IMPRESSION: This is a 63-year-old male with PMH of CAD, HTN, HLD, multiple prior back surgeries, and current tobacco use who presented to the ED for evaluation of dyspnea, fevers, chills, non-productive cough and fatigue of several day's duration and has been admitted for multifocal pneumonia. CT-Chest was reviewed and demonstrated diffuse ground glass opacities bilaterally with an upper lobe predominance. Labs have not revealed an infectious agent and have shown elevated inflammatory markers with peripheral eosinophilia. Patient has been requiring anywhere from 2 to 4L NC while admitted. Patient underwent bronchoscopy on 04/17/2024 with negative cultures to date, but findings showing elevated eosinophils on BAL (28%). This, along with symptoms, imaging and a lack of an infectious agent are all suggestive of an acute eosinophilic pneumonia. The patient was started on steroids on 04/18 with complete resolution of symptoms and improvement in oxygen requirements to room air. ASSESSMENT: # Acute Hypoxemic Respiratory Failure secondary to Acute Eosinophilic Pneumonia requiring NC # Bilateral, Upper Lobe Predominant, Ground Glass Opacities # Tobacco Use RECOMMENDATIONS: - BAL is suggestive of acute eosinophilic pneumonia given eosinophils of 28% - Continue Prednisone 60mg every day until follow-up in Pulmonary Medicine clinic. - Started on Bactrim Prophylaxis and recommend starting Vitamin D Supplementation given anticipated length of steroids. - We will plan for PFTs and CT-Chest in one month during follow-up Subjective Interval Events April 19, 2024: No acute overnight events. When seen this AM, Mr. Oliveira states that he is doing much better and has no cough or dyspnea. He denies all other ROS as documented before. Patient has been weaned to room air and has been able to ambulate without oxygen needs. Potentially going home today and has already planned for follow-up at [facility] with Pulmonary Medicine. Bronchoscopy Studies: BAL Routine demonstrated 8,250 RBC and 137 Nucleated Cells Manual Differential demonstrated 28% Eosinophils, 16% Neutrophils and 56% Macrocytes Bronchoscopy Culture, Respiratory Panel, Cytology, Legionella, and PJP have been negative Pending:Fungal, AFB PJP, Aspergillus, and Pathology Review of Systems Constitutional: Negative for chills, diaphoresis, fever and malaise/fatigue. HENT: Negative for congestion, hearing loss and sore throat. Eyes: Negative for blurred vision, double vision and photophobia. Respiratory: Positive for cough. Negative for hemoptysis, sputum production and shortness of breath. Cardiovascular: Negative for chest pain, palpitations, orthopnea and leg swelling. Gastrointestinal: Negative for abdominal pain, constipation, diarrhea, nausea and vomiting. Genitourinary: Negative for dysuria, frequency and urgency. Musculoskeletal: Negative for back pain and myalgias. Neurological: Negative for dizziness, sensory change, loss of consciousness and headaches. Objective PAST MEDICAL HISTORY: PAST MEDICAL HISTORY Diagnosis Date Lumbago Other anxiety states Other chest pain 06/23 nuclear stress 06/22 WNL; stress echo 06/23 WNL e/global LVH, EF 60% PAST SURGICAL HISTORY: PAST SURGICAL HISTORY Procedure Laterality Date COLONOSCOPY FLX DX W/COLLJ SPEC WHEN PFRMD 08/04/10 Repeat in [place] W/O FACETEC FORAMOT/DSC 11/21 VRT SGM CRV 2009 Laminectomy, cervical laser LAMINECTOMY W/O FFD 11/21 VERT SEG LUMBAR 2009 Laminectomy, lumbar scar tissue lumbar laser PAST SURGICAL HISTORY OF 07/25 and 01/23 back surgery PAST SURGICAL HISTORY OF ear surgery FAMILY HISTORY: FAMILY HISTORY Problem Relation Age of Onset Cancer Father skin cancer Stroke Maternal Grandfather Colon Cancer Other SEVERAL COUSINS Cancer Son leukemia SOCIAL HISTORY: Social History Tobacco Use Smoking status: Former Packs/day: 1.50 Years: 5.00 Additional pack years: 0.00 Total pack years: 7.50 Types: Cigarettes Quit date: 10/06/1991 Years since quittin.5 Smokeless tobacco: Current Types: Chew Last attempt to quit: 04/20/2010 Tobacco comments: 1 can per week Substance Use Topics Alcohol use: No Drug use: No MEDICATIONS: No current facility-administered medications for this encounter. CURRENT ALLERGIES: ALLERGIES Allergen Reactions Iodine Shellfish Shrimp Unknown PHYSICAL EXAM: 04/19/24 0533 (more content not included)... Normal [place] O+P Spec Microon 04-19-2024 Ova and parasites identified LM Nom (Unsp spec) OVA AND PARASITE EXAM: No Parasites Seen Normal [place] Comment on above: Performed By: #### 5 5454-3, 78816-1 #### [facility] CLIA [id number] [address] [place], [place] [id number] [place] Renal function 2000 panelon 04-19-2024 Albumin [Mass/Vol] 3.2 g/dL Low 3.9-4.9 [facility] Comment on above: Order Comment: Speci men Type: BLOOD SPECIMEN Ordering Facility: [facility] Address: [address] [place] [address] Performed By: #### 2 777-1, 3015-3, , 1988-03 #### [facility] CLIA [id number] [address] [place] [address] [place] Anion gap [Moles/Vol] 12 mmol/L Normal 9-18 [facility] Comment on above: Order Comment: Speci men Type: BLOOD SPECIMEN Ordering Facility: [facility] Address: [address] [place] [address] Performed By: #### 2 777-1, 3015-3, , 1988-03 #### [facility] CLIA [id number] [address] [place] [address] [place] Calcium [Mass/Vol] 9.4 mg/dL Normal 8.5-10.2 [facility] Comment on above: Order Comment: Speci men Type: BLOOD SPECIMEN Ordering Facility: [facility] Address: [address] [place], [place] [address] Performed By: #### 2 777-1, 3, , 1988-03 #### [facility] CLIA [id number] [address] [place], [place] [address] [place] Chloride [Moles/Vol] 105 mmol/L Normal 97-105 [facility] Comment on above: Order Comment: Speci men Type: BLOOD SPECIMEN Ordering Facility: [facility] Address: [address] [place], [place]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 above: Order Comment: Speci men Type: BLOOD SPECIMEN Ordering Facility: [facility] Address: [address] [place] [address] Result Comment: Hist oplasma galactomannan antigen, urine test is used as an aid in diagnosing histoplasmosis. A negative result cannot rule out infection. Low positive results may at times be due to cross-reactivity with Blastomyces, Talaromyces marneffei, Paracoccidioides, and some Glenys species. Clinical radiological, and epidemiological correlation is required. Performed By: #### 2 777-1, 3, , 1988-03 #### [facility] CLIA [id number] [address] [place] [address] [place] Magnesium SerPl-mCncon 04-18 Magnesium [Mass/Vol] 2.2 mg/dL Normal 1.7-2.3 [facility] Comment on above: Order Comment: Specgabrielle men Type: BLOOD SPECIMEN Ordering Facility: [facility] Address: [address] [place], [place] [id number] Performed By: #### 2 777-1, 3, , 1988-03 #### [facility] CLIA [id number] [address] [facility] [address] [place] [id number] [place] NURSING PROGon 04-18-2024 NURSING PROG HNO ID: [id number] Author: WILLIAM GAVIRIA RN Service: Nursing Author Type: Registered Nurse Type: Nursing Progress Note Filed: 04/18/2024 01:41 Note Text: Admission/Transfer Note PATIENT NAME: Enrique Oliveira Patient Location: [address]05-22-07 Room: [facility] Patient transferred [place] [facility] [place] bed in stable condition. Actions taken: Patient oriented to room and call light function. A complete skin assessment was done by myself and HANNAH Bay. No skin breakdown noted. This note was completed by: William Gaviria Normal [place] Phosphate SerPl-ncon 04-18 Phosphate [Mass/Vol] 1.8 mg/dL Low 2.7-4.8 [facility] Comment on above: Order Comment: Braydon turcios Type: BLOOD SPECIMENOrdering Facility: [facility] Address: [address] [place], [place] [id number] Performed By: #### 2 777-1 ####[facility] [id number] [facility] [place] [address] [place] Renal function 2000 panelon 04-18-2024 Albumin [Mass/Vol] 3.0 g/dL Low 3.9-4.9 [facility] Comment on above: Order Comment: Braydon turcios Type: BLOOD SPECIMEN Ordering Facility: [facility] Address: [address] [place], [place] [phone] Performed By: #### 2 777-1, 3, , 1988-03 #### [facility] CLIA [id number] [address] [place] [address] [place] Anion gap [Moles/Vol] 9 mmol/L Normal 9-18 [facility] Comment on above: Order Comment: Speci men Type: BLOOD SPECIMEN Ordering Facility: [facility] Address: [address] [place] [address] Performed By: #### 2 777-1, 3015-3, , 1988-03 #### [facility] CLIA [id number] [address] [place], [place] [id number] [place] Calcium [Mass/Vol] 9.4 mg/dL Normal 8.5-10.2 [facility] Comment on above: Order Comment: Speci men Type: BLOOD SPECIMEN Ordering Facility: [facility] Address: [address] [place] [address] Performed By: #### 2 777-1, 3015-3, , 1988-03 #### [facility] CLIA [id number] [address] [place] [address] [place] Chloride [Moles/Vol] 104 mmol/L Normal 97-105 [facility] Comment on above: Order Comment: Speci men Type: BLOOD SPECIMEN Ordering Facility: [facility] Address: [address] [place] [address] Performed By: #### 2 777-1, 3015-3, , 1988-03 #### [facility] CLIA [id number] [address] [place] [address] [place] CO2 [Moles/Vol] 26 mmol/L Normal 22-30 [place] Comment on above: Order Comment: Speci men Type: BLOOD SPECIMEN Ordering Facility: [facility] Address: [address] [place] [address] Performed By: #### 2 777-1, 3015-3, , 1988-03 #### [facility] CLIA [id number] [address] [place] [address] [place] Creatinine [Mass/Vol] 0.80 mg/dL Normal 0.73-1.22 [facility] Comment on above: Order Comment: Braydon turcios Type: BLOOD SPECIMEN Ordering Facility: [facility] Address: [address] [place] [address] Performed By: #### 2 777-1, 3016-3, , 1988-03 #### [facility] CLIA [id number] [address] [place] [address] [place] Creatinine and Glomerular filtration rate.predicted panel (S/P/Bld) 99 mL/min/1.73m??? Normal >=60 [place] Comment on above: Order Comment: Braydon turcios Type: BLOOD SPECIMEN Ordering Facility: [facility] Address: [address] [place] [address] Result Comment: Yuko mated Glomerular Filtration Rate (eGFR) is calculated using the 2020 CKD-EPI creatinine equation. This equation utilizes serum creatinine, sex, and age as parameters. The creatinine assay has traceable calibration to isotope dilution-mass spectrometry. Refer to KDIGO guidelines for clinical interpretation. In patients with unstable renal function, e.g. those with acute kidney injury, the eGFR may not accurately reflect actual GFR. Performed By: #### 2 777-1, 3015-3, , 1988-03 #### [facility] CLIA [id number] [address] [place] [address] [place] Glucose [Mass/Vol] 125 mg/dL High 74-99 [facility] Comment on above: Order Comment: Braydon turcios Type: BLOOD SPECIMEN Ordering Facility: [facility] Address: [address] [place] [address] Result Comment: The [place] Diabetes Association (ADA) provides guidance for cutoff values for fasting glucose and random glucose. The ADA defines fasting as no caloric intake for at least 8 hours. Fasting plasma glucose results between 100 to 125 mg/dL indicate increased risk for diabetes (prediabetes). Fasting plasma glucose results greater than or equal to 126 mg/dL meet the criteria for diagnosis of diabetes. In the absence of unequivocal hyperglycemia, results should be confirmed by repeat testing. In a patient with classic symptoms of hyperglycemia or hyperglycemic crisis, random plasma glucose results greater than or equal to 200 mg/dL meet the criteria for diagnosis of diabetes. Reference: Standards of Medical Care in Diabetes 2016, [place] Diabetes Association. Diabetes Care. 2016.39(Suppl 1). Performed By: #### 2 777-1, 3015-3, , 1988-03 #### [facility] CLIA [id number] [address] [place] [address] [place] Phosphate [Mass/Vol] 2.4 mg/dL Low 2.7-4.8 [facility] Comment on above: Order Comment: Speci men Type: BLOOD SPECIMEN Ordering Facility: [facility] Address: [address] [place] [address] Performed By: #### 2 777-1, 3, , 1988-03 #### [facility] CLIA [id number] [address] [place] [address] [place] Potassium [Moles/Vol] 4.2 mmol/L Normal 3.7-5.1 [facility] Comment on above: Order Comment: Speci men Type: BLOOD SPECIMEN Ordering Facility: [facility] Address: [address] [place] [address] Performed By: #### 2 777-1, 3, 1988-03 #### [facility] CLIA [id number] [address] [place], [place] [id number] [place] Sodium [Moles/Vol] 139 mmol/L Normal 136-144 [facility] Comment on above: Order Comment: Speci men Type: BLOOD SPECIMEN Ordering Facility: [facility] Address: [address] [place] [address] Performed By: #### 2 777-1, 3, , 1988-03 #### [facility] CLIA [id number] [address] [place] [address] [place] Urea nitrogen [Mass/Vol] 19 mg/dL Normal 9-24 [place] Comment on above: Order Comment: Speci men Type: BLOOD SPECIMEN Ordering Facility: [facility] Address: [address] [place] [address] Performed By: #### 2 777-1, 3016-3, 38794-9, 1988-03 #### [facility] CLIA [id number] [address] [place] [address] [place] ANES POSTPROC EVALon 024 ANES POSTPROC EVAL HNO ID: [id number] Author: ANTONIO ANNA MD Service: ? Author Type: Anesthesiologist Type: Anesthesia Postprocedure Evaluation Filed: 04/17/2024 13:54 Note Text: POST ANESTHESIA EVALUATION NOTE : 1960 Procedure Summary Date: 04/17/24 Room / Location: [place] [address] / [facility] 3 Anesthesia Start: 1238 Anesthesia Stop: 1330 Procedure: BRONCHOSCOPY FLEXIBLE ADULT (Bronchus) Diagnosis: Bronchiolar disease (Bronchiolar disease [J98.09]) Surgeons: Alcira Trimble MD Responsible Provider: Antonio Anna MD Anesthesia Type: general ASA Status: 3 Anesthesia Type: general Airway Type: ETT Last Vitals Vitals Value Taken Time BP 102/56 04/17/24 1345 Temp 36 ?C (96.8 ?F) 04/17/24 1330 Pulse 66 04/17/24 1345 Resp 20 04/17/24 1345 SpO2 94 % 04/17/24 1345 Post Anesthesia Patient Status Patient Evaluation: bedside. Anticipated Disposition: inpatient floor planned admission. Neurological Status: aware and responsive. Pulmonary Status: breathing comfortably on room air Airway Control: returned to baseline unsupported. Cardiovascular Status: stable. Pain Management: clinically adequate Postoperative Hydration: acceptable. Intraoperative Events: no significant anesthesia events Post Operative Nausea/Vomiting Status: no significant post operative nausea or vomiting Recommendation: further care per PACU/ICU/floor team. Anesthesia Observations No Documentation SIGNATURE: Antonio Anna MD PATIENT NAME: Enrique Oliveira DATE: April 17, 2024 TIME: 1:54 PM CSN: [id number] [place] ANES PRE-OPon 04-17-2024 ANES PRE-OP HNO ID: [id number] Author: ANTONIO ANNA MD Service: ? 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 as calculated from the following: Height as of this encounter: 165.1 cm (5' 5). Weight as of this encounter: 99.5 kg (219 lb 4.8 oz). Most recent hematocrit and potassium results: Hematocrit 35.3 04/17/2024 Potassium 3.8 04/17/2024 Relevant Problems PULMONARY (+) Multifocal pneumonia (+) SOB (shortness of breath) I - PHYSICAL EVALUATION AIRWAY Patient intubated: No. Tracheostomy tube not present Mallampati: III. TM distance: >3 FB. Neck ROM: full ROM without neurological symptoms. Mouth opening: adequate. Short neck: no. Thick neck: no II - ANESTHESIA PLAN ASA Score: 3 Anesthetic Plan: general Airway type: ETT NPO Status: adequate Beta Orion Monitoring Plan Monitoring plan: standard ASA. Post Procedure Analgesic Plan Postoperative analgesic plan: multimodal analgesia. Informed Consent Anesthetic risks, benefits, alternatives, personnel and consent discussed: yes. Patient / Responsible Alliance Party agrees to proceed: yes Patient / Surrogate agrees to blood products: Yes Significant changes in the patient condition since the History and Physical, not otherwise documented in primary service progress note: no. Potential Anesthesia issues that may suggest increased risk of complications or contraindication to planned procedure: none. Vitals Value Taken Time BP 128/64 04/17/24 1221 Pulse 65 04/17/24 1221 Resp 18 04/17/24 1221 Temp 36 ?C (96.8 ?F) 04/17/24 1221 SpO2 98 % 04/17/24 1221 Facility-Administered Medications as of 04/17/2024 Medication Dose Route Frequency sodium phosphate 15 mmol in D5W 250 mL 15 mmol INTRAVENOUS ONCE [COMPLETED] phosphorus 250 mg tab(s) (K PHOS NEUTRAL) 250 mg ORAL TID after MEALS [COMPLETED] magnesium sulfate iv piggyback in sterile water 2 g 50 mL 2 g INTRAVENOUS ONCE ibuprofen 800 mg tab(s) (MOTRIN) 800 mg ORAL q 8 H PRN diclofenac 1 % 4 g topical gel (VOLTAREN) 4 g TOPICAL QID oxyCODONE IR 5 mg tab(s) (ROXICODONE) 5 mg ORAL q 4 H PRN [] NaCl 0.9% iv infusion 75 mL/hr INTRAVENOUS CONTINUOUS [START ON 04/18/2024] heparin 5,000 Units injection 5,000 Units SUBCUTANEOUS q 12 H ondansetron (PF) 4 mg injection (ZOFRAN) 4 mg INTRAVENOUS q 6 H PRN guaiFENesin 600 mg ER tab(s) (MUCINEX) 600 mg ORAL q 12 H benzonatate 100 mg cap(s) (TESSALON PERLE) 100 mg ORAL q 4 H PRN albuterol HFA 90 mcg/actuation 2 Puff (PROVENTIL HFA, VENTOLIN HFA) 2 Puff INHALATION q 6 H PRN ondansetron orally disintegrating 4 mg tab(s) (ZOFRAN ODT) 4 mg ORAL q 6 H PRN acetaminophen 1,000 mg tab(s) (TYLENOL) 1,000 mg ORAL q 6 H PRN buPROPion XL 300 mg tab(s) (WELLBUTRIN XL) 300 mg ORAL AT BEDTIME rosuvastatin 20 mg tab(s) (CRESTOR) 20 mg ORAL AT BEDTIME traZODone 100 mg tab(s) (DESYREL) 100 mg ORAL AT BEDTIME ipratropium-albuterol 3 mL nebulizer solution (DUONEB) 3 mL INHALATION TID levoFLOXacin iv piggyback 750 mg in D5W 150 mL (LEVAQUIN) 750 mg INTRAVENOUS DAILY [COMPLETED] HYDROmorphone 0.5 mg injection (DILAUDID) 0.5 mg INTRAVENOUS ONCE [COMPLETED] cefTRIAXone 1 g in D5W 100 mL Vial-Bag (ROCEPHIN) 1 g INTRAVENOUS ONCE [COMPLETED] azithromycin 500 mg in D5W 250 mL Vial-Bag (ZITHROMAX) 500 mg INTRAVENOUS ONCE NaCl 0.9% iv flush bag 20 mL INTRAVENOUS PRN polyethylene glycol 3350 17 g packet 17 g ORAL DAILY PRN polyethylene glycol 3350 17 g packet 17 g ORAL DAILY senna 17.2 mg tab(s) (SENOKOT) 17.2 mg ORAL AT BEDTIME cyclobenzaprine 5 mg tab(s) (FLEXERIL) 5 mg ORAL TID PRN [COMPLETED] ondansetron (PF) 4 mg injection (ZOFRAN) 4 mg INTRAVENOUS ONCE Outpatient Medications as of 04/17/2024 Medication Sig nitroglycerin sublingual (NITROQUICK) 0.4 mg SL tablet Dissolve 0.4 mg under the tongue every 5 minutes as needed. rosuvastatin (CRESTOR) 20 mg tablet Take 1 tablet by mouth every afternoon. buPROPion XL (WELLBUTRIN XL) 300 mg 24 hr tablet Take 300 mg by mouth daily at bedtime. traZODone (DESYREL) 100 mg tablet Take 100 mg by mouth daily at bedtime. I have interviewed and examined the patient. I have reviewed the medical record and/or the pre-anesthesia evaluation, pertinent labs, and test results. This contains updated information obtained within 48 hours of Surgery/Procedure. SIGNATURE: Antonio Anna MD PATIENT NAME: Enrique Oliveira DATE: April 17, 2024 TIME: 12:29 PM CSN: [id number] Normal [place] ASPERGILLUS GALACTOMANNAN BA Yoni 04-17-2024 ASPER. AG BAL,QUAL Negative Normal Negative [facility] Comment on above: Order Comment: Speci men Type: BLOOD SPECIMEN Ordering Facility: [facility] Address: [address] [place] [address] Result Comment: Aspe rgillus Galactomannan antigen assay is used as an aid in diagnosis of invasive aspergillosis in immunocompromised individuals especially in post-stem cell transplant, hematological malignancies on chemotherapy, and HIV-positive patients with very low CD4 T-cell counts. The test may also be used in disease prognostication and for monitoring response to anti-fungal therapy. False positive and false negative results are not uncommon. Clinical and radiological correlation is required. Performed By: #### L [id number] #### [facility] CLIA [id number] [address] [place] [address] [place] ASPERGILLUS GALACTOMANNAN 0.25 Index Value Normal <=0.49 [place] Comment on above: Order Comment: Speci men Type: BLOOD SPECIMEN Ordering Facility: [facility] Address: [address] [place] [address] Performed By: #### L [id number] #### [facility] CLIA [id number] [address] [place] [address] [place] BAL MANUAL DIFFon 04-17-2024 DIF TTL, BA LAVAGE 100 cells counted Normal [place] Comment on above: Order Comment: Speci men Type: BLOOD SPECIMEN Ordering Facility: [facility] Address: [address] [place] [address] Performed By: #### 2 777-1, 3016-01, , 1988-03 #### [facility] CLIA [id number] [address] [place] [address] [place] EOSIN%, BA LAVAGE 28 % Normal [facility] Comment on above: Order Comment: Speci men Type: BLOOD SPECIMEN Ordering Facility: [facility] Address: [address] [place] [address] Performed By: #### 2 777-1, 3016-01, , 1988-03 #### [facility] CLIA [id number] [address] [place] [address] [place] MACRO%, BA LAVAGE 56 % Normal [facility] Comment on above: Order Comment: Speci men Type: BLOOD SPECIMEN Ordering Facility: [facility] Address: [address] [place] [address] Performed By: #### 2 777-1, 3, , 1988-03 #### [facility] CLIA [id number] [address] [place], [place] [address] [place] NEUT%, BA LAVAGE 16 % Normal [facility] Comment on above: Order Comment: Speci men Type: BLOOD SPECIMEN Ordering Facility: [facility] Address: [address] [place] [address] Performed By: #### 2 777-1, 3016-01, , 1988-03 #### [facility] CLIA [id number] [address] [place] [address] [place] BAL ROUTINE BFLon 04-17-2024 Clarity (Unsp spec) Slightly Cloudy Abnormal Clear [place] Comment on above: Order Comment: Speci men Type: BLOOD SPECIMEN Ordering Facility: [facility] Address: [address] [place] [address] Performed By: #### 2 777-1, 3016-01, , 1988-03 #### [facility] CLIA [id number] [address] [place] [address] [place] Color (Bronch spec) Slightly bloody Abnormal Colorless [place] Comment on above: Order Comment: Speci men Type: BLOOD SPECIMEN Ordering Facility: [facility] Address: [address] [place] [address] Performed By: #### 2 777-1, 3016-01, , 1988-03 #### [facility] CLIA [id number] [address] [place] [address] [place] RBC LM.HPF (BAL) [#/Area] 8250 /uL Normal Reference range not established. [place] Comment on above: Order Comment: Speci men Type: BLOOD SPECIMEN Ordering Facility: [facility] Address: [address] [place] [address] Performed By: #### 2 777-1, 3, , 1988-03 #### [facility] CLIA [id number] [address] [place] [address] [place] WBC Manual cnt (Bronch spec) [#/Vol] 137 /uL Normal Reference range not established. [place] Comment on above: Order Comment: Speci men Type: BLOOD SPECIMEN Ordering Facility: [facility] Address: [address] [place] [address] Performed By: #### 2 777-1, 3, , 1988-03 #### [facility] CLIA [id number] [address] [place] [address] [place] Bacteria BAL Aerobe Culton 0 04-17-2024 Bacteria identified Aer cx Nom (BAL) CULTURE, BRONCH: No growth 2 days GRAM STAIN: No organisms seen Many Polymorphonuclear leukocytes Gram stain performed on cytospun specimen. Normal [place] Comment on above: Performed By: #### 5 5454-3, 51149-6 #### [facility] CLIA [id number] [address] [place] [address] [place] CBC W Auto Differential pane l (Bld)on 04-17-2024 Basophils (Bld) [#/Vol] 10*3/uL Normal <0.11 [place] Comment on above: Order Comment: Speci men Type: BLOOD SPECIMEN Ordering Facility: [facility] Address: [address] [place] [address] Performed By: #### 2 777-1, 3016-01, , 1988-03 #### [facility] CLIA [id number] [address] [place] [address] [place] Basophils/100 WBC (Bld) 0.3 % Normal [place] Comment on above: Order Comment: Speci men Type: BLOOD SPECIMEN Ordering Facility: [facility] Address: [address] [place] [address] Performed By: #### 2 777-1, 3, , 1988-03 #### [facility] CLIA [id number] [address] [place] [address] [place] Differential cell count method Nom (Bld) Auto Normal [place] Comment on above: Order Comment: Speci men Type: BLOOD SPECIMEN Ordering Facility: [facility] Address: [address] [place], [place] [id number] Performed By: #### 2 777-1, 3, , 1988-03 #### [facility] CLIA [id number] [address] [place] [address] [place] Eosinophils (Bld) [#/Vol] 0.57 10*3/uL High <0.46 [place] Comment on above: Order Comment: Speci men Type: BLOOD SPECIMEN Ordering Facility: [facility] Address: [address] [place] [address] Performed By: #### 2 777-1, 3, , 1988-03 #### [facility] CLIA [id number] [address] [place] [address] [place] Eosinophils/100 WBC (Bld) 8.1 % Normal [place] Comment on above: Order Comment: Speci men Type: BLOOD SPECIMEN Ordering Facility: [facility] Address: [address] [place] [address] Performed By: #### 2 777-1, 3, , 1988-03 #### [facility] CLIA [id number] [address] [place] [address] [place] Erythrocyte distribution width (RBC) [Ratio] 12.3 % Normal 11.5-15.0 [place] Comment on above: Order Comment: Speci men Type: BLOOD SPECIMEN Ordering Facility: [facility] Address: [address] [place] [address] Performed By: #### 2 777-1, 3, , 1988-03 #### [facility] CLIA [id number] [address] [place], [place] [address] [place] Hematocrit (Bld) [Volume fraction] 35.3 % Low 39.0-51.0 [place] Comment on above: Order Comment: Speci men Type: BLOOD SPECIMEN Ordering Facility: [facility] Address: [address] [place], [place] [address] Performed By: #### 2 777-1, 3, , 1988-03 #### [facility] CLIA [id number] [address] [place] [address] [place] Hemoglobin (Bld) [Mass/Vol] 12.0 g/dL Low 13.0-17.0 [place] Comment on above: Order Comment: Speci men Type: BLOOD SPECIMEN Ordering Facility: [facility] Address: [address] [place] [address] Performed By: #### 2 777-1, 3, , 1988-03 #### [facility] CLIA [id number] [address] [place] [address] [place] Immature granulocytes (Bld) [#/Vol] 0.06 10*3/uL Normal <0.10 [place] Comment on above: Order Comment: Speci men Type: BLOOD SPECIMEN Ordering Facility: [facility] Address: [address] [place] [address] Performed By: #### 2 777-1, 3016-01, , 1988-03 #### [facility] CLIA [id number] [address] [place] [address] [place] Immature granulocytes/100 WBC (Bld) 0.8 % Normal [place] Comment on above: Order Comment: Speci men Type: BLOOD SPECIMEN Ordering Facility: [facility] Address: [address] [place] [address] Performed By: #### 2 777-1, 3016-01, , 1988-03 #### [facility] CLIA [id number] [address] [place] [address] [place] Lymphocytes (Bld) [#/Vol] 0.83 10*3/uL Low 1.00-4.00 [place] Comment on above: Order Comment: Speci men Type: BLOOD SPECIMEN Ordering Facility: [facility] Address: [address] [place] [address] Performed By: #### 2 777-1, 3, , 1988-03 #### [facility] CLIA [id number] [address] [place] [address] [place] Lymphocytes/100 WBC (Bld) 11.7 % Normal [place] Comment on above: Order Comment: Speci men Type: BLOOD SPECIMEN Ordering Facility: [facility] Address: [address] [place] [address] Performed By: #### 2 777-1, 3, , 1988-03 #### [facility] CLIA [id number] [address] [place] [address] [place] MCH (RBC) [Entitic mass] 30.8 pg Normal 26.0-34.0 [place] Comment on above: Order Comment: Speci men Type: BLOOD SPECIMEN Ordering Facility: [facility] Address: [address] [place] [address] Performed By: #### 2 777-1, 3016-01, , 1988-03 #### [facility] CLIA [id number] [address] [place] [address] [place] MCHC (RBC) [Mass/Vol] 34.0 g/dL Normal 30.5-36.0 [facility] Comment on above: Order Comment: Speci men Type: BLOOD SPECIMEN Ordering Facility: [facility] Address: [address] [place] [address] Performed By: #### 2 777-1, 3, , 1988-03 #### [facility] CLIA [id number] [address] [place], [place] [address] [place] MCV (RBC) [Entitic vol] 90.5 fL Normal 80.0-100.0 [place] Comment on above: Order Comment: Speci men Type: BLOOD SPECIMEN Ordering Facility: [facility] Address: [address] [place] [address] Performed By: #### 2 777-1, 3, , 1988-03 #### [facility] CLIA [id number] [address] [place] [address] [place] Monocytes (Bld) [#/Vol] 0.49 10*3/uL Normal <0.87 [place] Comment on above: Order Comment: Speci men Type: BLOOD SPECIMEN Ordering Facility: [facility] Address: [address] [place] [address] Performed By: #### 2 777-1, 3, , 1988-03 #### [facility] CLIA [id number] [address] [place] [address] [place] Monocytes/100 WBC (Bld) 6.9 % Normal [place] Comment on above: Order Comment: Speci men Type: BLOOD SPECIMEN Ordering Facility: [facility] Address: [address] [place] [address] Performed By: #### 2 777-1, 3, , 1988-03 #### [facility] CLIA [id number] [address] [place] [address] [place] Neutrophils (Bld) [#/Vol] 5.10 10*3/uL Normal 1.45-7.50 [place] Comment on above: Order Comment: Speci men Type: BLOOD SPECIMEN Ordering Facility: [facility] Address: [address] [place] [address] Performed By: #### 2 777-1, 3, , 1988-03 #### [facility] CLIA [id number] [address] [place] [address] [place] Neutrophils/100 WBC (Bld) 72.2 % Normal [place] Comment on above: Order Comment: Speci men Type: BLOOD SPECIMEN Ordering Facility: [facility] Address: [address] [place] [address] Performed By: #### 2 777-1, 3, , 1988-03 #### [facility] CLIA [id number] [address] [place] [address] [place] Nucleated RBC (Bld) [#/Vol] 10*3/uL Normal <0.01 [place] Comment on above: Order Comment: Speci men Type: BLOOD SPECIMEN Ordering Facility: [facility] Address: [address] [place] [address] Performed By: #### 2 777-1, 3016-01, , 1988-03 #### [facility] CLIA [id number] [address] [place] [address] [place] Nucleated RBC/100 WBC (Bld) [Ratio] 0.0 /100 WBC Normal [place] Comment on above: Order Comment: Speci men Type: BLOOD SPECIMEN Ordering Facility: [facility] Address: [address] [place] [address] Performed By: #### 2 777-1, 3016-01, , 1988-03 #### [facility] CLIA [id number] [address] [place] [address] [place] Platelet mean volume (Bld) [Entitic vol] 10.9 fL Normal 9.0-12.7 [place] Comment on above: Order Comment: Speci men Type: BLOOD SPECIMEN Ordering Facility: [facility] Address: [address] [place] [address] Performed By: #### 2 777-1, 3, , 1988-03 #### [facility] CLIA [id number] [address] [place] [address] [place] Platelets (Bld) [#/Vol] 171 10*3/uL Normal 150-400 [place] Comment on above: Order Comment: Speci men Type: BLOOD SPECIMEN Ordering Facility: [facility] Address: [address] [place] [address] Performed By: #### 2 777-1, 3015-3, , 1988-03 #### [facility] CLIA [id number] [address] [place]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 GALACTOMANNAN 0.04 Index Value Normal <=0.49 [place] Comment on above: Order Comment: Braydon turcios Type: BLOOD SPECIMEN [facility] Address: [address] [place] [address] Performed By: #### 2 777-1, 3016-3, 93987-5, 1988-03 #### [facility] CLIA [id number] [address] [place] [address] [place] Galactomannan Ag IA Ql Negative Normal Negative [place] Comment on above: Order Comment: Speci men Type: BLOOD SPECIMEN [facility] Address: [address] [place] [address] Result Comment: Aspe rgillus Galactomannan antigen assay is used as an aid in diagnosis of invasive aspergillosis in immunocompromised individuals especially in post-stem cell transplant, hematological malignancies on chemotherapy, and HIV-positive patients with very low CD4 T-cell counts. The test may also be used in disease prognostication and for monitoring response to anti-fungal therapy. False positive and false negative results are not uncommon. Clinical and radiological correlation is required. Performed By: #### 2 777-1, 3016-3, 23816-8, 1988-03 #### [facility] CLIA [id number] [address] [place] [address] [place] CASE MANAGEMon 04-16-2024 CASE MANAGEM HNO ID: [id number] Author: WING SCHULTZ LISW Service: ? Author Type: Materials Management Manager Type: Care Mgt Progress Note Filed: 04/16/2024 11:58 Note Text: CARE MANAGEMENT/ SOCIAL WORK HIGH RISK PSYCHOSOCIAL ASSESSMENT SERVICE DATE: April 16, 2024 SERVICE TIME: 11:54 AM Reason for Admission: Pneumonia due to infectious organism [J18.9] Reason for Social Work Contact: Self-Pay Information Obtained From: Patient Chart Patient Granted Permission to Speak to Others in the Room: Not Applicable DISCHARGE RECOMMENDATIONS: Home Patient/Clinic Nurse Agreeable With Discharge Recommendations At This Time? Yes OBSTACLES TO TREATMENT/POST-DISCHARG ECHALLENGES: Self- Pay SW consulted for self pay status. Per EMR, no insurance coverage listed. SW spoke with pt via phone to introduce self and explain role. Pt reported he is employed, but does not receive insurance benefits. Pt reported he receives [employer] to cover medical expenses. SW informed pt of services offered through [employer] to screen pt for Medicaid eligibility, however pt declined referral. Pt reported he will plan to utilize [employer] to cover medical expenses. Pt denied any questions or concerns at this time. Should any other psychosocial needs arise, please re-consult SW. SIGNATURE: DASHAWN Bonilla PATIENT NAME: Enrique Oliveira DATE: April 16, 2024 TIME: 11:54 AM CONTACT #: [phone] Normal [place] CBC W Auto Differential pane l (Bld)on 04-16-2024 Basophils (Bld) [#/Vol] 0.03 10*3/uL Normal <0.11 [place] Comment on above: Order Comment: Speci men Type: BLOOD SPECIMEN [facility] Address: [address] [place] [address] Performed By: #### L [id number] #### [facility] CLIA [id number] [address] [place] [address] [place] Basophils/100 WBC (Bld) 0.4 % Normal [place] Comment on above: Order Comment: Speci men Type: BLOOD SPECIMEN [facility] Address: [address] [place] [address] Performed By: #### L [id number] #### [facility] CLIA [id number] [address] [place] [address] [place] Differential cell count method Nom (Bld) Auto Normal [place] Comment on above: Order Comment: Speci men Type: BLOOD SPECIMEN [facility] Address: [address] [place] [address] Performed By: #### L [id number] #### [facility] CLIA [id number] [address] [place] [address] [place] Eosinophils (Bld) [#/Vol] 0.48 10*3/uL High <0.46 [place] Comment on above: Order Comment: Speci men Type: BLOOD SPECIMEN [facility] Address: [address] [place] [address] Performed By: #### L [id number] #### [facility] CLIA [id number] [address] [place] [address] [place] Eosinophils/100 WBC (Bld) 5.8 % Normal [place] Comment on above: Order Comment: Speci men Type: BLOOD SPECIMEN [facility] Address: [address] [place] [address] Performed By: #### L [id number] #### [facility] CLIA [id number] [address] [place] [address] [place] Erythrocyte distribution width (RBC) [Ratio] 12.2 % Normal 11.5-15.0 [place] Comment on above: Order Comment: Speci men Type: BLOOD SPECIMEN [facility] Address: [address] [place] [address] Performed By: #### L [id number] #### [facility] CLIA [id number] [address] [place] [address] [place] Hematocrit (Bld) [Volume fraction] 38.5 % Low 39.0-51.0 [place] Comment on above: Order Comment: Speci men Type: BLOOD SPECIMEN [facility] Address: [address] [place] [address] Performed By: #### L [id number] #### [facility] CLIA [id number] [address] [place] [address] [place] Hemoglobin (Bld) [Mass/Vol] 13.0 g/dL Normal 13.0-17.0 [place] Comment on above: Order Comment: Speci men Type: BLOOD SPECIMEN [facility] Address: [address] [place] [address] Performed By: #### L [id number] #### [facility] CLIA [id number] [address] [place] [address] [place] Immature granulocytes (Bld) [#/Vol] 0.09 10*3/uL Normal <0.10 [place] Comment on above: Order Comment: Speci men Type: BLOOD SPECIMEN [facility] Address: [address] [place] [address] Performed By: #### L [id number] #### [facility] CLIA [id number] [address] [place] [address] [place] Immature granulocytes/100 WBC (Bld) 1.1 % Normal [place] Comment on above: Order Comment: Speci men Type: BLOOD SPECIMEN [facility] Address: [address] [place] [address] Performed By: #### L [id number] #### [facility] CLIA [id number] [address] [place] [address] [place] Lymphocytes (Bld) [#/Vol] 1.09 10*3/uL Normal 1.00-4.00 [place] Comment on above: Order Comment: Speci men Type: BLOOD SPECIMEN [facility] Address: [address] [place] [address] Performed By: #### L [id number] #### [facility] CLIA [id number] [address] [place] [address] [place] Lymphocytes/100 WBC (Bld) 13.1 % Normal [place] Comment on above: Order Comment: Speci men Type: BLOOD SPECIMEN [facility] Address: [address] [place] [address] Performed By: #### L [id number] #### [facility] CLIA [id number] [address] [place] [address] [place] MCH (RBC) [Entitic mass] 31.0 pg Normal 26.0-34.0 [place] Comment on above: Order Comment: Speci men Type: BLOOD SPECIMEN [facility] Address: [address] [place] [address] Performed By: #### L [id number] #### [facility] CLIA [id number] [address] [place] [address] [place] MCHC (RBC) [Mass/Vol] 33.8 g/dL Normal 30.5-36.0 [facility] Comment on above: Order Comment: Speci men Type: BLOOD SPECIMEN [facility] Address: [address] [place] [address] Performed By: #### L [id number] #### [facility] CLIA [id number] [address] [place] [address] [place] MCV (RBC) [Entitic vol] 91.9 fL Normal 80.0-100.0 [place] Comment on above: Order Comment: Speci men Type: BLOOD SPECIMEN [facility] Address: [address] [place] [address] Performed By: #### L [id number] #### [facility] CLIA [id number] [address] [place] [address] [place] Monocytes (Bld) [#/Vol] 0.50 10*3/uL Normal <0.87 [place] Comment on above: Order Comment: Speci men Type: BLOOD SPECIMEN [facility] Address: [address] [place] [address] Performed By: #### L [id number] #### [facility] CLIA [id number] [address] [place] [address] [place] Monocytes/100 WBC (Bld) 6.0 % Normal [place] Comment on above: Order Comment: Speci men Type: BLOOD SPECIMEN [facility] Address: [address] [place] [address] Performed By: #### L [id number] #### [facility] CLIA [id number] [address] [place] [address] [place] Neutrophils (Bld) [#/Vol] 6.10 10*3/uL Normal 1.45-7.50 [place] Comment on above: Order Comment: Speci men Type: BLOOD SPECIMEN Ordering Facility: [facility] Address: [address] [place] [address] Performed By: #### L [id number] #### [facility] CLIA [id number] [address] [place] [address] [place] Neutrophils/100 WBC (Bld) 73.6 % Normal [place] Comment on above: Order Comment: Speci men Type: BLOOD SPECIMEN Ordering Facility: [facility] Address: [address] [place] [address] Performed By: #### L [id number] #### [facility] CLIA [id number] [address] [place] [address] [place] Nucleated RBC (Bld) [#/Vol] 10*3/uL Normal <0.01 [place] Comment on above: Order Comment: Speci men Type: BLOOD SPECIMEN Ordering Facility: [facility] Address: [address] [place] [address] Performed By: #### L [id number] #### [facility] CLIA [id number] [address] [place] [address] [place] Nucleated RBC/100 WBC (Bld) [Ratio] 0.0 /100 WBC Normal [place] Comment on above: Order Comment: Speci men Type: BLOOD SPECIMEN Ordering Facility: [facility] Address: [address] [place] [address] Performed By: #### L [id number] #### [facility] CLIA [id number] [address] [place] [address] [place] Platelet mean volume (Bld) [Entitic vol] 10.9 fL Normal 9.0-12.7 [place] Comment on above: Order Comment: Speci men Type: BLOOD SPECIMEN Ordering Facility: [facility] Address: [address] [place] [address] Performed By: #### L [id number] #### [facility] CLIA [id number] [address] [place] [address] [place] Platelets (Bld) [#/Vol] 166 10*3/uL Normal 150-400 [place] Comment on above: Order Comment: Speci men Type: BLOOD SPECIMEN Ordering Facility: [facility] Address: [address] [place] [address] Performed By: #### L [id number] #### [facility] CLIA [id number] [address] [place] [address] [place] RBC (Bld) [#/Vol] 4.19 10*6/uL Low 4.20-6.00 [facility] Comment on above: Order Comment: Speci men Type: BLOOD SPECIMEN Ordering Facility: [facility] Address: [address] [place] [address] Performed By: #### L [id number] #### [facility] CLIA [id number] [address] [place] [address] [place] WBC (Bld) [#/Vol] 8.29 10*3/uL Normal 3.70-11.00 [facility] Comment on above: Order Comment: Speci men Type: BLOOD SPECIMEN Ordering Facility: [facility] Address: [address] [place] [address] Performed By: #### L [id number] #### [facility] CLIA [id number] [address] [place] [address] [place] CNCOon 04-16-2024 CNCO Letter Text Normal [place] CONSULTon 04-16-2024 CONSULT HNO ID: [id number] Author: EMELY SIMMONS MD Service: Pulmonary Disease Author Type: Physician Type: Consults Filed: 04/17/2024 20:44 Note Text: Pulmonary Medicine Initial Consult Note Admit Date: 04/14/2024 SERVICE DATE: 04/16/2024 SERVICE TIME: 5:40 PM REASON FOR CONSULT: upper lobe predominant multifocal geographic areas of groundglass opacities with crazy paving pattern REQUESTING PHYSICIAN: Dr. Clemente PRIMARY CARE PHYSICIAN: No primary care provider on file. ASSESSMENT AND PLAN: This is a 63-year-old male with PMH of CAD, HTN, HLD, multiple prior back surgeries, and current tobacco use who presented to the ED for evaluation of dyspnea, fevers, chills, non-productive cough and fatigue of several day's duration and has been admitted for multifocal pneumonia. CT-Chest was reviewed and demonstrated diffuse ground glass opacities bilaterally with an upper lobe predominance. Labs have not revealed an infectious agent and have shown elevated inflammatory markers with peripheral eosinophilia. Patient has continued to require 3-4L NC when he is not on oxygen at baseline. Given imaging findings, history and labs, differential for the patient's acute hypoxemic respiratory failure includes multifocal pneumonia - most likely an atypical agent, an eosinophilic pneumonia or a hypersensitivity pneumonitis given the upper lobe predominance, though there is no readily identifiable trigger. RECOMMENDATIONS: - Continue anti-microbials per Infectious Disease: Currently on Levofloxacin - Continue bronchopulmonary hygiene including bronchodilators, Acapella and incentive spirometer. If the patient is able to produce sputum, please send for culture. - We will proceed with Bronchoscopy + BAL tomorrow (04/17/2024) for further evaluation. NPO at midnight. Pulmonary Medicine will continue to follow. Subjective HPI: Mr. Enrique Oliveira is a 63-year-old male with PMH of: - Coronary Artery Disease, Hypertension, Hyperlipidemia - Anxiety - s/p Laminectomy and Spinal Fusion - Obesity [BMI 37.28] Mr. Oliveira initially presented to [facility] ED on 04/14/2024 for evaluation of dyspnea, chills, fevers and chest tightness of several day's duration. History is primarily obtained from the patient and his at the bedside. Mr. Oliveira states that he was in his usual state of health until ~, 04/11/2024, when he developed chills along with decreased appetite. In the subsequent day the patient began to also develop fevers, night sweats, dyspnea and non-productive cough and therefore ventured to his local ER ([facility] on 04/13) where he was diagnosed with pneumonia and discharged on Azithromycin. The patient continued to have progression of symptoms in the following 24 hours and therefore decided to present to the [facility] ED for further evaluation. On further discussion, the patient also endorses nausea and episodic dizziness without syncope. He states that his chest tightness is related to his breathing and he feels that he cannot get a full breath in. He also reports right shoulder pain and states that this preceded his respiratory/infectious symptoms and may have been why he did not notice it well. Patient denies any sick contacts but reports recent travel to [place]. Additional Exposures as noted: - Patient reports that he has smoked for the last several months, a few cigarettes per day. He states that he picked this up recently but is looking to quit. Denies any regular alcohol use, marijuana use or other illicit drug use. - Patient takes part in a number of activities including woodworking, painting (more of a recent task) - Patient reports exposure to several dogs at the house, but no animals though they are present around him - There is exposure to a wood fire stove/oven where the patient works - Patient has been living in [place] for the last decade but has stayed in several states/countries including [facility], [facility] and [place] [facility] Course: While hospitalized, the patient has remained hemodynamically stable and afebrile, but has required anywhere between 3 and 4L NC to saturate >90%. Work-up while hospitalized has been significant for elevated inflammatory markers (CRP of 18.1, Procalcitonin of 0.11 and Peripheral Eosinophilia of 0.48). Imaging with CT-Chest has demonstrated multifocal ground glass opacities and interlobular septal thickening in all lung welch. These are more predominate in the upper lobes. Review of Systems Constitutional: Positive for chills, diaphoresis (night sweats) and malaise/fatigue. Negative for fever and weight loss. Positive for decreased appetite. HENT: Negative for congestion, hearing loss and sore throat. Eyes: Negative for blurred vision, double vision and photophobia. Respiratory: Positive for cough, sputum production (Yellow-Sputum) and shortness of breath. Negative for hemoptysis and wheezi (more content not included)... Normal [place] CONSULT PROGon 04-16-2024 CONSULT PROG HNO ID: [id number] Author: AZIZA DIAZ MD Service: Infectious Disease Author Type: Physician Type: Consult Progress Note Filed: 04/16/2024 14:35 Note Text: INFECTIOUS DISEASE CONSULT SERVICE PROGRESS NOTE Date: April 16, 2024 Patient Name: Enrique Oliveira Interval Events: SOB a little better has dry cough no fevers continues to have pain in R shoulder MEDICATIONS Medications reviewed. Current Facility-Administered Medications Medication Dose Route Frequency NaCl 0.9% iv flush bag 20 mL INTRAVENOUS PRN polyethylene glycol 3350 17 g packet 17 g ORAL DAILY PRN heparin 5,000 Units injection 5,000 Units SUBCUTANEOUS q 12 H polyethylene glycol 3350 17 g packet 17 g ORAL DAILY senna 17.2 mg tab(s) (SENOKOT) 17.2 mg ORAL AT BEDTIME cyclobenzaprine 5 mg tab(s) (FLEXERIL) 5 mg ORAL TID PRN ondansetron (PF) 4 mg injection (ZOFRAN) 4 mg INTRAVENOUS q 6 H PRN guaiFENesin 600 mg ER tab(s) (MUCINEX) 600 mg ORAL q 12 H benzonatate 100 mg cap(s) (TESSALON PERLE) 100 mg ORAL q 4 H PRN albuterol HFA 90 mcg/actuation 2 Puff (PROVENTIL HFA, VENTOLIN HFA) 2 Puff INHALATION q 6 H PRN ondansetron orally disintegrating 4 mg tab(s) (ZOFRAN ODT) 4 mg ORAL q 6 H PRN oxyCODONE IR 5 mg tab(s) (ROXICODONE) 5 mg ORAL q 6 H PRN acetaminophen 1,000 mg tab(s) (TYLENOL) 1,000 mg ORAL q 6 H PRN diclofenac 1.3 % 1 Patch (FLECTOR) 1 Patch TRANSDERMAL BID And diclofenac - REMOVE PATCH OTHER BID And diclofenac - VERIFY PATCH OTHER q 8 H buPROPion XL 300 mg tab(s) (WELLBUTRIN XL) 300 mg ORAL AT BEDTIME rosuvastatin 20 mg tab(s) (CRESTOR) 20 mg ORAL AT BEDTIME traZODone 100 mg tab(s) (DESYREL) 100 mg ORAL AT BEDTIME ipratropium-albuterol 3 mL nebulizer solution (DUONEB) 3 mL INHALATION TID levoFLOXacin iv piggyback 750 mg in D5W 150 mL (LEVAQUIN) 750 mg INTRAVENOUS DAILY EXAMINATION: BP 108/59 Pulse 75 Temp 36.8 ?C (98.2 ?F) (Oral) Resp 16 Ht 165.1 cm (5' 5) Wt 99.5 kg (219 lb 4.8 oz) SpO2 95% BMI 36.49 kg/m? Temp (24hrs), Av.7 ?C (98.1 ?F), Min:36.3 ?C (97.3 ?F), Max:37.3 ?C (99.1 ?F) GENERAL APPEARANCE: awake in no acute distress SKIN: negative rash HEAD/SINUSES: No significant findings. EYES: conjunctiva clear LUNGS: coarse BS HEART: Regular rate and rhythm ABDOMEN: Soft, Nontender, nondistended NEURO: Alert, following commands LABORATORY DATA: WBC (k/uL) Date Value 04/16/2024 8.29 04/15/2024 10.00 04/14/2024 10.37 04/03/2006 6.68 Hemoglobin (g/dL) Date Value 04/16/2024 13.0 04/15/2024 12.8 04/14/2024 14.4 04/03/2006 14.5 Platelet Count Date Value 04/16/2024 166 k/uL 04/15/2024 147 k/uL 04/14/2024 172 k/uL 04/03/2006 322 K/uL Creatinine (mg/dL) Date Value 04/16/2024 0.88 04/15/2024 0.81 04/14/2024 0.89 MICROBIOLOGY DATA: 04/15 legionella urine AG, strep pneumo Ag negative 04/15 blood cx no growth IMAGING DATA: reviewed ASSESSMENT: Problem list carried forward from most recent note and updated as needed 63 year old M with s/p laminectomy 2009, back surgery 2004 and 2005 in [place], hx of anxiety Has been having R arm pain x 2 weeks (able to move shoulder), sp steroid shot 10 days ago Developed chills, nausea,chest tightness on 04/13, seen at the ER, was told he had pneumonia, given azithromycin and pain meds Developed SOB on 04/15 and was seen at the ER; has a little bit of cough and sputum CT chest showed upper lobe predominant multifocal geographic areas of groundglass opacities with crazy paving pattern No recent particular exposures- was exposed to saw dust, otherwise no recent gardening, construction, lawn mowing; no new meds, no water exposures; no animal exposures except to his dogs CT chest reviewed. Not typical for bacterial pneumonia and he is not otherwise immunosuppressed. ?of mycoplasma but m pneumoniae negative on RV panel although was IGN[employer] swab; also negative for other viruses CRP 18, procal 0.11 RECOMMENDATIONS: Continue levofloxacin Follow cultures Send sputum cx if able to Check serum crypto ag, fungal battery serum Histo Ag, serum aspergillus galactomannan, although CT chest finding s not typical Await Pulm input, may need bronch/BAL Aziza Diaz MD Beeper Number: [id number] Staff, Department of Infectious Disease April 16, 2024 2:35 PM Normal [place] Cryptoc Ag Spec Ql LAon 05- Cryptococcus sp Ag LA Ql (Unsp spec) CRYPTOCOCCUS ANTIGEN : Cryptococcal Antigen NOT DETECTED by Lateral flow immunoassay. Normal [place] Comment on above: Performed By: #### 5 5454-3, 35949-1 #### [facility] CLIA [id number] [address] [place] [address] [place] FUNGAL BATTERY IDon 04-16-20 24 Aspergillus sp Ab Immune diff Ql (S) Negative Normal Negative [place] Comment on above: Order Comment: Speci men Type: BLOOD SPECIMEN Ordering Facility: [facility] Address: [address] [place] [address] Result Comment: Aspe rgillus antibody test by immunodiffusion may be used as an aid in diagnosis of chronic pulmonary aspergillosis including chronic cavitary pulmonary aspergillosis and chronic fibrosing pulmonary aspergillosis. Immunodiffusion test is more specific but less sensitive than complement fixation test. Clinical correlation is required. Performed By: #### 2 777-1, 3016-3, 21510-8, 1988-03 #### [facility] CLIA [id number] [address] [place] [address] [place] B. dermatitidis Ab Immune diff Ql (S) Negative Normal Negative [place] Comment on above: Order Comment: Speci men Type: BLOOD SPECIMEN Ordering Facility: [facility] Address: [address] [place] [address] Result Comment: Ehsan tomyces antibody test by Immunodiffusion may be used as an aid in diagnosis of infection with the dimorphic fungus Blastomyces dermatitidis. Blastomyces serology has low overall diagnostic sensitivity especially with localized disease. Immunodiffusion test is more specific but less sensitive than complement fixation test. Clinical and epidemiological correlation is required. Performed By: #### 2 777-1, 3015-3, , 1988-03 #### [facility] CLIA [id number] [address] [place] [address] [place] Coccidioides sp Ab Immune diff Ql (S) Negative Normal Negative [place] Comment on above: Order Comment: Speci men Type: BLOOD SPECIMEN Ordering Facility: [facility] Address: [address] [place] [address] Result Comment: Cocc idioides antibody test by Immunodiffusion may be used as an aid in diagnosis of infection with the dimorphic fungus Coccidioides spp. Cannot exclude acute infection if the specimen collected 4-6 weeks after onset of signs and symptoms. Immunodiffusion test is more specific but less sensitive than EIA test. Clinical and epidemiological correlation is required. Performed By: #### 2 777-, 3016-01, , 1988-03 #### [facility] CLIA [id number] [address] [place] [address] [place] [facility] H. capsulatum Ab Immune diff Ql (S) Negative Normal Negative [place] Comment on above: Order Comment: Speci men Type: BLOOD SPECIMEN Ordering Facility: [facility] Address: [address] [place] [address] Result Comment: Hist oplasma antibody test by Immunodiffusion may be used as an aid in diagnosis of infection with the dimorphic fungus Histoplasma capsulatum. Histoplasma antibody test has low overall diagnostic sensitivity especially with localized disease. Immunodiffusion test is more specific but less sensitive than complement fixation test. Clinical and epidemiological correlation is required. Performed By: #### 2 777-1, 3, , 1988-03 #### [facility] CLIA [id number] [address] [place] [address] [place] Myeloperoxidase Ab Ser-aCnco n 04-16-2024 Myeloperoxidase Ab Qn (S) <0.2 Normal <1.0 [place] Comment on above: Order Comment: Speci men Type: BLOOD SPECIMEN Ordering Facility: [facility] Address: [address] [place] [address] Performed By: #### 2 777-1, 3016-3, 55166-3, 1988-03 #### [facility] CLIA [id number] [address] [place] [address] [place] NURSING PROGon 04-16-2024 NURSING PROG HNO ID: [id number] Author: MIKAEL ALCANTAR RN Service: Nursing Author Type: Registered Nurse Type: Nursing Progress Note Filed: 04/16/2024 16:11 Note Text: Spoke to HANNAH Roth . Patient scheduled for bronchoscopy on 04/17/24. RN aware that patient will need order to be NPO after midnight the night before procedure and an order to hold anticoagulants per protocol will be needed. RN aware that H23 Rn will call for detailed report the morning of procedure. Normal [place] PROTEINASE 3 ANTIBODYon 03-21 Proteinase 3 Ab Qn (S) <0.2 Normal <1.0 [place] Comment on above: Order Comment: Speci men Type: BLOOD SPECIMEN Ordering Facility: [facility] Address: [address] [place] [address] Performed By: #### 2 777-1, 3016-3, , 1988-03 #### [facility] CLIA [id number] [address] [place], [place] [address] [place] Renal function 2000 panelon 04-16-2024 Albumin [Mass/Vol] 3.4 g/dL Low 3.9-4.9 [facility] Comment on above: Order Comment: Speci men Type: BLOOD SPECIMENOrdering Facility: [facility] Address: [address] [place] [address] Performed By: #### 2 4362-6 ####[facility] [id number] [place] [id number] [place] Anion gap [Moles/Vol] 14 mmol/L Normal 9-18 [facility] Comment on above: Order Comment: Speci men Type: BLOOD SPECIMENOrdering Facility: [facility] Address: [address] [place], [place] [address] Performed By: #### 2 4362-6 ####[facility] [id number] [place] [address] [place] Calcium [Mass/Vol] 9.1 mg/dL Normal 8.5-10.2 [facility] Comment on above: Order Comment: Speci men Type: BLOOD SPECIMENOrdering Facility: [facility] Address: [address] [place] [address] Performed By: #### 2 4362-6 ####[facility] [id number] [place] [address] [place] Chloride [Moles/Vol] 97 mmol/L Normal 97-105 [facility] Comment on above: Order Comment: Speci men Type: BLOOD SPECIMENOrdering Facility: [facility] Address: [address] [place] [address] Performed By: #### 2 4362-6 ####[facility] [id number] [place] [address] [place] CO2 [Moles/Vol] 25 mmol/L Normal 22-30 [place] Comment on above: Order Comment: Speci men Type: BLOOD SPECIMENOrdering Facility: [facility] Address: [address] [place], [place] [address] Performed By: #### 2 4362-6 ####[facility] [id number] [place] [id number] [place] Creatinine [Mass/Vol] 0.88 mg/dL Normal 0.73-1.22 [facility] Comment on above: Order Comment: Speci men Type: BLOOD SPECIMENOrdering Facility: [facility] Address: [address] [place] [address] Performed By: #### 2 4362-6 ####[facility] [id number] [place] [address] [place] Creatinine and Glomerular filtration rate.predicted panel (S/P/Bld) 96 mL/min/1.73m??? Normal >=60 [place] Comment on above: Order Comment: Braydon turcios Type: BLOOD SPECIMENOrdering Facility: [facility] Address: [address] [place] [address] Result Comment: Yuko mated Glomerular Filtration Rate (eGFR) is calculated using the 2020 CKD-EPI creatinine equation. This equation utilizes serum creatinine, sex, and age as parameters. The creatinine assay has traceable calibration to isotope dilution-mass spectrometry. Refer to KDIGO guidelines for clinical interpretation. In patients with unstable renal function, e.g. those with acute kidney injury, the eGFR may not accurately reflect actual GFR. Performed By: #### 2 4362-6 ####[facility] [id number] [place] [address] [place] Glucose [Mass/Vol] 104 mg/dL High 74-99 [facility] Comment on above: Order Comment: Braydon tam Type: BLOOD SPECIMENOrdering Facility: [facility] Address: [address] [place] [address] Result Comment: The [place] Diabetes Association (ADA) provides guidance for cutoff values for fasting glucose and random glucose. The ADA defines fasting as no caloric intake for at least 8 hours. Fasting plasma glucose results between 100 to 125 mg/dL indicate increased risk for diabetes (prediabetes). Fasting plasma glucose results greater than or equal to 126 mg/dL meet the criteria for diagnosis of diabetes. In the absence of unequivocal hyperglycemia, results should be confirmed by repeat testing. In a patient with classic symptoms of hyperglycemia or hyperglycemic crisis, random plasma glucose results greater than or equal to 200 mg/dL meet the criteria for diagnosis of diabetes. Reference: Standards of Medical Care in Diabetes 2016, [place] Diabetes Association. Diabetes Care. 2016.39(Suppl 1). Performed By: #### 2 4362-6 ####[facility] [id number] [place] [address] [place] Phosphate [Mass/Vol] 2.2 mg/dL Low 2.7-4.8 [facility] Comment on above: Order Comment: Speci men Type: BLOOD SPECIMENOrdering Facility: [facility] Address: [address] [place] [address] Performed By: #### 2 4362-6 ####[facility] [id number] [place] [address] [place] Potassium [Moles/Vol] 3.9 mmol/L Normal 3.7-5.1 [facility] Comment on above: Order Comment: Speci men Type: BLOOD SPECIMENOrdering Facility: [facility] Address: [address] [place] [address] Performed By: #### 2 4362-6 ####[facility] [id number] [place] [address] [place] Sodium [Moles/Vol] 136 mmol/L Normal 136-144 [facility] Comment on above: Order Comment: Speci men Type: BLOOD SPECIMENOrdering Facility: [facility] Address: [address] [place] [address] Performed By: #### 2 4362-6 ####[facility] [id number] [place] [address] [place] Urea nitrogen [Mass/Vol] 13 mg/dL Normal 9-24 [place] Comment on above: Order Comment: Speci men Type: BLOOD SPECIMENOrdering Facility: [facility] Address: [address] [place] [address] Performed By: #### 2 4362-6 ####[facility] [id number] [place] [id number] [place] THERAPY NTon 04-16-2024 THERAPY NT HNO ID: [id number] Author: JORJE MATA, PT, DPT Service: Physical Therapy Author Type: Physical Therapist Type: Therapy (PT/OT/Speech/Resp) Filed: 04/16/2024 08:09 Note Text: THERAPY COMMUNICATION SERVICE DATE: 04/16/2024 ROOM: [place] [id number] Physical therapy consult received. Chart reviewed. No acute skilled physical therapy needs identified. Pt with a documented Nursing 6 Clicks score of 23-24 indicating that the patient is supervised or independent with all mobility. Will discontinue Physical Therapy Consult at this time. Please re-consult if the patient has a change of condition and develops mobility deficits that require skilled therapy, and add a comment in the new order as to why the patient needs seen. Thank you. SIGNATURE: Jorje Watson Asp, PT, DPT PATIENT NAME: Enrique Oliveira DATE: April 16, 2024 TIME: 8:08 AM Normal [place] Bacteria Bld Culton 04-15-20 24 Bacteria identified Cx Nom (Bld) CULTURE, BLOOD: No growth 5 days Normal [place] Comment on above: Performed By: #### L [id number] #### [facility] CLIA [id number] [address] [place] [address] [place] Bacteria identified Cx Nom (Bld) CULTURE, BLOOD: No growth 5 days Normal [place] Comment on above: Performed By: #### 5 5454-3, 58452-5 #### [facility] CLIA [id number] [address] [place] [address] [place] Basic metabolic 2000 panelon 04-15-2024 Anion gap [Moles/Vol] 10 mmol/L Normal 9-18 [facility] Comment on above: Order Comment: Speci men Type: BLOOD SPECIMEN [facility]: [facility] Address: [address] [place] [address] Performed By: #### 2 777-1, 3016-3, 43578-8, 1988- #### [facility] CLIA [id number] [address] [place] [address] [place] Calcium [Mass/Vol] 8.6 mg/dL Normal 8.5-10.2 [facility] Comment on above: Order Comment: Speci men Type: BLOOD SPECIMEN Ordering Facility: [facility] Address: [address] [place], [place] [address] Performed By: #### 2 777-1, 3015-3, , 1988-03 #### [facility] CLIA [id number] [address] [place] [address] [place] Chloride [Moles/Vol] 103 mmol/L Normal 97-105 [facility] Comment on above: Order Comment: Speci men Type: BLOOD SPECIMEN Ordering Facility: [facility] Address: [address] [place] [address] Performed By: #### 2 777-1, 3, , 1988-03 #### [facility] CLIA [id number] [address] [place], [place] [address] [place] CO2 [Moles/Vol] 24 mmol/L Normal 22-30 [place] Comment on above: Order Comment: Speci men Type: BLOOD SPECIMEN Ordering Facility: [facility] Address: [address] [place] [address] Performed By: #### 2 777-1, 3, , 1988-03 #### [facility] CLIA [id number] [address] [place] [address] [place] Creatinine [Mass/Vol] 0.81 mg/dL Normal 0.73-1.22 [facility] Comment on above: Order Comment: Speci men Type: BLOOD SPECIMEN Ordering Facility: [facility] Address: [address] [place] [address] Performed By: #### 2 777-1, 3015-3, , 1988-03 #### [facility] CLIA [id number] [address] [place] [address] [place] Creatinine and Glomerular filtration rate.predicted panel (S/P/Bld) 98 mL/min/1.73m??? Normal >=60 [place] Comment on above: Order Comment: Braydon turcios Type: BLOOD SPECIMEN Ordering Facility: [facility] Address: [address] [place] [address] Result Comment: Yuko mated Glomerular Filtration Rate (eGFR) is calculated using the 2020 CKD-EPI creatinine equation. This equation utilizes serum creatinine, sex, and age as parameters. The creatinine assay has traceable calibration to isotope dilution-mass spectrometry. Refer to KDIGO guidelines for clinical interpretation. In patients with unstable renal function, e.g. those with acute kidney injury, the eGFR may not accurately reflect actual GFR. Performed By: #### 2 777-1, 3016-3, 79054-7, 1988-03 #### [facility] CLIA [id number] [address] [place] [address] [place] Glucose [Mass/Vol] 118 mg/dL High 74-99 [facility] Comment on above: Order Comment: Braydon turcios Type: BLOOD SPECIMEN Ordering Facility: [facility] Address: [address] [place] [address] Result Comment: The [place] Diabetes Association (ADA) provides guidance for cutoff values for fasting glucose and random glucose. The ADA defines fasting as no caloric intake for at least 8 hours. Fasting plasma glucose results between 100 to 125 mg/dL indicate increased risk for diabetes (prediabetes). Fasting plasma glucose results greater than or equal to 126 mg/dL meet the criteria for diagnosis of diabetes. In the absence of unequivocal hyperglycemia, results should be confirmed by repeat testing. In a patient with classic symptoms of hyperglycemia or hyperglycemic crisis, random plasma glucose results greater than or equal to 200 mg/dL meet the criteria for diagnosis of diabetes. Reference: Standards of Medical Care in Diabetes 2016, [place] Diabetes Association. Diabetes Care. 2016.39(Suppl 1). Performed By: #### 2 777-1, 3016-3, 76944-1, 1988-03 #### [facility] CLIA [id number] [address] [place] [address] [place] Potassium [Moles/Vol] 4.0 mmol/L Normal 3.7-5.1 [facility] Comment on above: Order Comment: Speci men Type: BLOOD SPECIMEN Ordering Facility: [facility] Address: [address] [place] [address] Performed By: #### 2 777-1, 301-3, 79779-4, 1988-03 #### [facility] CLIA [id number] [address] [place] [address] [place] Sodium [Moles/Vol] 137 mmol/L Normal 136-144 [facility] Comment on above: Order Comment: Speci men Type: BLOOD SPECIMEN Ordering Facility: [facility] Address: [address] [place] [address] Performed By: #### 2 777-1, 3015-3, 27602-1, 1988-03 #### [facility] CLIA [id number] [address] [place] [address] [place] Urea nitrogen [Mass/Vol] 15 mg/dL Normal 9-24 [place] Comment on above: Order Comment: Speci men Type: BLOOD SPECIMEN Ordering Facility: [facility] Address: [address] [place] [address] Performed By: #### 2 777-1, 301-3, 86856-5, 1988-03 #### [facility] CLIA [id number] [address] [place] [address] [place] CBC panel Auto (Bld)on 04-15 Erythrocyte distribution width (RBC) [Ratio] 12.9 % Normal 11.5-15.0 [place] Comment on above: Order Comment: Speci men Type: BLOOD SPECIMEN Ordering Facility: [facility] Address: [address] [place] [address] Performed By: #### 5 5454-3, 26205-0 #### [facility] CLIA [id number] [address] [place] [address] [place] Hematocrit (Bld) [Volume fraction] 38.1 % Low 39.0-51.0 [place] Comment on above: Order Comment: Speci men Type: BLOOD SPECIMEN Ordering Facility: [facility] Address: [address] [place] [address] Performed By: #### 5 5454-3, 22861-2 #### [facility] CLIA [id number] [address] [place] [address] [place] Hemoglobin (Bld) [Mass/Vol] 12.8 g/dL Low 13.0-17.0 [place] Comment on above: Order Comment: Speci men Type: BLOOD SPECIMEN Ordering Facility: [facility] Address: [address] [place] [address] Performed By: #### 5 5454-3, 72820-7 #### [facility] CLIA [id number] [address] [place] [address] [place] MCH (RBC) [Entitic mass] 30.4 pg Normal 26.0-34.0 [place] Comment on above: Order Comment: Speci men Type: BLOOD SPECIMEN Ordering Facility: [facility] Address: [address] [place] [address] Performed By: #### 5 5454-3, 16341-3 #### [facility] CLIA [id number] [address] [place] [address] [place] MCHC (RBC) [Mass/Vol] 33.6 g/dL Normal 30.5-36.0 [facility] Comment on above: Order Comment: Speci men Type: BLOOD SPECIMEN Ordering Facility: [facility] Address: [address] [place] [address] Performed By: #### 5 5454-3, 45510-7 #### [facility] CLIA [id number] [address] [place] [address] [place] MCV (RBC) [Entitic vol] 90.5 fL Normal 80.0-100.0 [place] Comment on above: Order Comment: Speci men Type: BLOOD SPECIMEN Ordering Facility: [facility] Address: [address] [place] [address] Performed By: #### 5 5454-3, 84646-6 #### [facility] CLIA [id number] [address] [place] [address] [place] Nucleated RBC (Bld) [#/Vol] 10*3/uL Normal <0.01 [place] Comment on above: Order Comment: Speci men Type: BLOOD SPECIMEN Ordering Facility: [facility] Address: [address] [place] [address] Performed By: #### 5 5454-3, 03788-7 #### [facility] CLIA [id number] [address] [place] [address] [place] Platelet mean volume (Bld) [Entitic vol] 10.6 fL Normal 9.0-12.7 [place] Comment on above: Order Comment: Speci men Type: BLOOD SPECIMEN Ordering Facility: [facility] Address: [address] [place] [address] Performed By: #### 5 5454-3, 37323-1 #### [facility] CLIA [id number] [address] [place] [address] [place] Platelets (Bld) [#/Vol] 147 10*3/uL Low 150-400 [place] Comment on above: Order Comment: Speci men Type: BLOOD SPECIMEN Ordering Facility: [facility] Address: [address] [place] [address] Performed By: #### 5 5454-3, 38754-2 #### [facility] CLIA [id number] [address] [place] [address] [place] RBC (Bld) [#/Vol] 4.21 10*6/uL Normal 4.20-6.00 [facility] Comment on above: Order Comment: Speci men Type: BLOOD SPECIMEN Ordering Facility: [facility] Address: [address] [place] [address] Performed By: #### 5 5454-3, 55904-6 #### [facility] CLIA [id number] [address] [place] [address] [place] WBC (Bld) [#/Vol] 10.00 10*3/uL Normal 3.70-11.00 [facility] Comment on above: Order Comment: Speci men Type: BLOOD SPECIMEN Ordering Facility: [facility] Address: [address] [place] [address] Performed By: #### 5 5454-3, 40522-5 #### [facility] CLIA [id number] [address] [place] [address] [place] CONSULTon 04-15-2024 CONSULT HNO ID: [id number] Author: AZIZA DIAZ MD Service: Infectious Disease Author Type: Physician Type: Consults Filed: 04/15/2024 13:08 Note Text: INITIAL CONSULT INFECTIOUS DISEASE SERVICE DATE: 04/15/2024 We were asked to evaluate Mr. Enrique Oliveira, a 63 year old yo male by Dr. Juhi Clemente for pneumonia. Our findings and recommendations will be communicated through the shared medical record. Subjective HPI: 63 year old M with s/p laminectomy 2009, back surgery 2004 and 2005 in [place], hx of anxiety. Per pt he developed R arm pain x 2 weeks. Able to move his shoulder but has pain over R upper arm. No weakness or numbness. Ten days ago had cortisone shot in his shoulder which did not help. Over the past week, continued to hurt. On satuday had chills, felt shaky, temps of 99 and sweats. Had some nausea and chest tightness. He was seen at the [facility] and was told he had a touch of pneumonia and was given pain meds for RUE and azithromycin. He took 2 doses. However yesterday had inc shortness breath. Not really coughing much and has a little bit of sputum. He was seen at the ER. CT chest showed upper lobe predominant multifocal geographic areas of groundglass opacities with crazy paving pattern. Pt was started on treatment for pneumonia initially on ceftriaxone/azithromyci n then switched to vanco/piptazo. Has been afebrile, no leukocytosis. RV panel negative including M pneumoniae upper resp swab. Currently he is still having nausea, RUE pain, sweats. Has STUART and fatigue. No rash. No abd pain, nausea, vomiting. No sore throat or runny nose. No dysuria. No other joint pains except RUE. He is not on any steroids, not immunosuppressed, no new medications prior to onset of symptoms. 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 Current Facility-Administered Medications Medication Dose Route Frequency ondansetron (PF) 4 mg injection (ZOFRAN) 4 mg INTRAVENOUS q 6 H PRN NaCl 0.9% iv flush bag 20 mL INTRAVENOUS PRN acetaminophen 650 mg tab(s) (TYLENOL) 650 mg ORAL q 6 H PRN polyethylene glycol 3350 17 g packet 17 g ORAL DAILY PRN heparin 5,000 Units injection 5,000 Units SUBCUTANEOUS q 12 H oxyCODONE IR 5 mg tab(s) (ROXICODONE) 5 mg ORAL q 4 H PRN polyethylene glycol 3350 17 g packet 17 g ORAL DAILY senna 17.2 mg tab(s) (SENOKOT) 17.2 mg ORAL AT BEDTIME guaiFENesin 200 mg oral liquid (ROBITUSSIN) 200 mg ORAL q 4 H PRN cyclobenzaprine 5 mg tab(s) (FLEXERIL) 5 mg ORAL TID PRN vancomycin 1.5 g in NaCl 0.9% 250 mL (VANCOCIN) 0.015 g/kg/dose INTRAVENOUS q 12 HR vancomycin dosing and monitoring per pharmacy OTHER As Directed piperacillin-tazobactam iv piggyback 3.375 g in dextrose (iso-osmotic) 50 mL (ZOSYN) 3.375 g INTRAVENOUS q 6 H Immunization History Administered Date(s) Administered TD Adult 07/29/2002 PAST MEDICAL HISTORY Diagnosis Date Lumbago Other [...] surgery PAST SURGICAL HISTORY OF ear surgery Social History Tobacco Use Smoking status: Former Packs/day: 1.50 Years: 5.00 Additional pack years: 0.00 Total pack years: 7.50 Types: Cigarettes Quit date: 10/06/1991 Years since quittin.5 Smokeless tobacco: Current Types: Chew Last attempt to quit: 04/20/2010 Tobacco comments: 1 can per week Substance Use Topics Alcohol use: No Drug use: No FAMILY HISTORY Problem Relation Age of Onset Cancer Father skin cancer Stroke Maternal Grandfather Colon Cancer Other SEVERAL COUSINS Cancer Son leukemia ALLERGIES Allergen Reactions Iodine Shellfish Shrimp Unknown REVIEW OF SYSTEMS: All other systems reviewed and negative unless otherwise stated in th (more content not included)... Normal [place] CONSULT PROGon 04-15-2024 CONSULT PROG HNO ID: [id number] Author: GAYATRI MOSLEY RPh Service: Pharmacy Author Type: Pharmacist Type: Consult Progress Note Filed: 04/15/2024 10:05 Note Text: PHARMACY VANCOMYCIN DOSING NOTE Patient Name: Enrique Oliveira Admission Date: 04/14/2024 Date of Consult: 04/15/2024 Time of Consult: 10:04 AM Indication: Pneumonia Goal Range: 15-20 mcg/mL RECOMMENDATIONS/PLAN: Pharmacy consulted for vancomycin dosing for Enrique Oliveira, a 63 year old male. 1. Vancomycin therapy has been discontinued. Vancomycin level(s) have been discontinued: Yes. Pharmacy vancomycin dosing service will sign off. Thank you for allowing us to participate in this patient's care. Please contact pharmacy if there are questions. Vancomycin Levels: No results found for: NAZIA Mosley, [facility] Normal [place] CRP SerPl-mCncon 04-15-2024 CRP [Mass/Vol] 18.1 mg/dL High <0.9 [place] Comment on above: Order Comment: Braydon turcios Type: BLOOD SPECIMEN Ordering Facility: [facility] Address: [address] [place] [address] Performed By: #### 2 777-1, 3016-3, 64752-8, 1988- #### [facility] CLIA [id number] [address] [place] [address] [place] HbA1c (Bld)on 04-15-2024 Average glucose Estimated from glycated hemoglobin (Bld) [Mass/Vol] 111 mg/dL Normal [place] Comment on above: Order Comment: Braydon turcios Type: BLOOD SPECIMEN Ordering Facility: [facility] Address: [address] [place] [address] Result Comment: eAG: (Estimated average glucose) is a calculated value from HgbA1c and is sales training representative of the average blood glucose level in the last 2-3 month period. Performed By: #### 5 5454-3, 07726-5 #### [facility] CLIA [id number] [address] [place] [address] [place] HbA1c (Bld) [Mass fraction] 5.5 % Normal 4.3-5.6 [place] Comment on above: Order Comment: Braydon turcios Type: BLOOD SPECIMEN Ordering Facility: [facility] Address: [address] [place] [address] Result Comment: [place] Diabetes Association guidelines indicate that patients with HgbA1c in the range 5.7-6.4% are at increased risk for development of diabetes, and intervention by lifestyle modification may be beneficial. HgbA1c greater or equal to 6.5% is considered diagnostic of diabetes. Performed By: #### 5 5454-3, 33671-8 #### [facility] CLIA [id number] [address] [place] [address] [place] Legionella Ag Ur Qlon 2023 Legionella sp Ag Ql (U) Negative Normal Negative [place] Comment on above: Order Comment: Speci men Type: BLOOD SPECIMEN Ordering Facility: [facility] Address: [address] [place] [address] Result Comment: Legi onella urinary antigen test is used as an aid in diagnosis of infection with Legionella pneumophila serogroup 1. It may be detected from a few days to several months after onset of signs and symptoms despite antibiotic therapy or disease resolution. A negative result cannot exclude Legionellosis. Clinical correlation is required. Performed By: #### 2 777-1, 3016-3, 12297-7, 1988 #### [facility] CLIA [id number] [address] [place] [address] [place] MRI SHOULDER WO IVCON RTon 0 04-15-2024 MRI SHOULDER WO IVCON RT * * *Final Report* * * DATE OF EXAM: Apr 15 2024 7:48AM QBM 0240 - MRI SHOULDER WO IVCON RT / PROCEDURE REASON: Shoulder pain, adhesive capsulitis suspected, xray done * * * * Physician Interpretation * * * * EXAMINATION: MRI SHOULDER WO IVCON RT HISTORY: Shoulder pain, adhesive capsulitis suspected, x-ray done. TECHNIQUE: Routine non-contrast MRI of the shoulder. MQ: MRS_1A COMPARISON: None RESULT: TENDONS: Rotator cuff tendons: -Supraspinatus: Intact with moderate tendinosis involving the entire width of the tendon -Infraspinatus: Low grade interstitial tearing involving the anterior portion of the tendon with background tendinosis -Subscapularis: Intact with moderate tendinosis -Teres Minor: Intact tendon Biceps (Long head) Tendon: Intact , with normal course MUSCLES: Rotator cuff muscles: -Supraspinatus: Preserved bulk and no fatty changes. -Infraspinatus: Preserved bulk and no fatty changes. -Subscapularis: Preserved bulk and no fatty changes. -Teres Minor: Preserved bulk and no fatty changes. Other muscles: Preserved signal and bulk in the deltoid. JOINTS: Glenohumeral Joint: -Labrum: Degeneration without discrete tear -Cartilage: Mild to moderate cartilage loss/fissuring -Joint Fluid: No effusion . No synovitis. Acromioclavicular Joint: Moderate hypertrophic degenerative changes BONES AND MARROW: No evidence of fracture or suspicious bone marrow replacing process . Reactive subcortical cystic changes at the greater tuberosity. OTHER: Subdeltoid/Subacromial Bursa: Mild bursal distention Other: No other significant findings. Localizer images: Unremarkable. IMPRESSION: Rotator cuff tendinosis and interstitial tearing of infraspinatus. Lining Ironer: TOY Transcribe Date/Time: Apr 15 2024 9:49A Dictated by : JODY MELO MD This examination was interpreted and the report reviewed and electronically signed by: JODY MELO MD on Apr 15 2024 9:57AM EST [id number] Normal [place] Magn[facility] Magnesium [Mass/Vol] 1.9 mg/dL Normal 1.7-2.3 [facility] Comment on above: Order Comment: Braydon turcios Type: BLOOD SPECIMEN Ordering Facility: [facility] Address: [address] [place] [address] Performed By: #### 2 777-1, 3016-3, 31910-6, 1988- #### [facility] CLIA [id number] [address] [place] [address] [place] Phosphate SerPl-mCncon 04-15 Phosphate [Mass/Vol] 3.2 mg/dL Normal 2.7-4.8 [facility] Comment on above: Order Comment: Braydon turcios Type: BLOOD SPECIMEN Ordering Facility: [facility] Address: [address] [place] [address] Performed By: #### 2 777-1, 3015-3, , 1988-03 #### [facility] CLIA [id number] [address] [place] [address] [place] STREPTOCOCCUS PNEUMONIAE ANT IGEN URINEon 04-15-2024 STREPTOCOCCUS PNEUMONIAE ANTIGEN URINE STREP PNEUMO AG RESULT: Negative for Streptococcus pneumoniae antigen. Presumptive negative for pneumococcal pneumonia, suggesting no current or recent pneumococcal infection. Infection due to S.pneumoniae cannot be ruled out since the antigen present in the sample may be below the detection limit of the test. Normal [place] Comment on above: Performed By: #### 5 5454-3, 17349-5 #### [facility] CLIA [id number] [address] [place] [address] [place] TSH SerPl-aCncon 04-15-2024 TSH Qn 1.190 m[IU]/L Normal 0.270-4.200 [place] Comment on above: Order Comment: Speci men Type: BLOOD SPECIMEN Ordering Facility: [facility] Address: [address] [place] [address] Performed By: #### 2 777-1, 3, , 1988-03 #### [facility] CLIA [id number] [address] [place] [address] [place] Basic metabolic 2000 panelon 04-14-2024 Anion gap [Moles/Vol] 13 mmol/L Normal 9-18 [facility] Comment on above: Order Comment: Speci men Type: BLOOD SPECIMEN Ordering Facility: [facility] Address: [address] [place] [address] Performed By: #### 2 777-1, 3, , 1988-03 #### [facility] CLIA [id number] [address] [place] [address] [place] Calcium [Mass/Vol] 9.6 mg/dL Normal 8.5-10.2 [facility] Comment on above: Order Comment: Speci men Type: BLOOD SPECIMEN Ordering Facility: [facility] Address: [address] [place] [address] Performed By: #### 2 777-1, 3, , 1988-03 #### [facility] CLIA [id number] [address] [place] [address] [place] Chloride [Moles/Vol] 102 mmol/L Normal 97-105 [facility] Comment on above: Order Comment: Speci men Type: BLOOD SPECIMEN Ordering Facility: [facility] Address: [address] [place] [address] Performed By: #### 2 777-1, 3, , 1988-03 #### [facility] CLIA [id number] [address] [place] [address] [place] CO2 [Moles/Vol] 24 mmol/L Normal 22-30 [place] Comment on above: Order Comment: Speci men Type: BLOOD SPECIMEN Ordering Facility: [facility] Address: [address] [place] [address] Performed By: #### 2 777-1, 3, , 1988-03 #### [facility] CLIA [id number] [address] [place] [address] [place] Creatinine [Mass/Vol] 0.89 mg/dL Normal 0.73-1.22 [facility] Comment on above: Order Comment: Speci men Type: BLOOD SPECIMEN Ordering Facility: [facility] Address: [address] [place] [address] Performed By: #### 2 777-1, 3, , 1988-03 #### [facility] CLIA [id number] [address] [place] [address] [place] Creatinine and Glomerular filtration rate.predicted panel (S/P/Bld) 96 mL/min/1.73m??? Normal >=60 [place] Comment on above: Order Comment: Braydon turcios Type: BLOOD SPECIMEN Ordering Facility: [facility] Address: [address] [place] [address] Result Comment: Yuko mated Glomerular Filtration Rate (eGFR) is calculated using the 2020 CKD-EPI creatinine equation. This equation utilizes serum creatinine, sex, and age as parameters. The creatinine assay has traceable calibration to isotope dilution-mass spectrometry. Refer to KDIGO guidelines for clinical interpretation. In patients with unstable renal function, e.g. those with acute kidney injury, the eGFR may not accurately reflect actual GFR. Performed By: #### 2 777-1, 3015-3, , 1988-03 #### [facility] CLIA [id number] [address] [place] [address] [place] Glucose [Mass/Vol] 120 mg/dL High 74-99 [facility] Comment on above: Order Comment: Braydon turcios Type: BLOOD SPECIMEN Ordering Facility: [facility] Address: [address] [place] [address] Result Comment: The [place] Diabetes Association (ADA) provides guidance for cutoff values for fasting glucose and random glucose. The ADA defines fasting as no caloric intake for at least 8 hours. Fasting plasma glucose results between 100 to 125 mg/dL indicate increased risk for diabetes (prediabetes). Fasting plasma glucose results greater than or equal to 126 mg/dL meet the criteria for diagnosis of diabetes. In the absence of unequivocal hyperglycemia, results should be confirmed by repeat testing. In a patient with classic symptoms of hyperglycemia or hyperglycemic crisis, random plasma glucose results greater than or equal to 200 mg/dL meet the criteria for diagnosis of diabetes. Reference: Standards of Medical Care in Diabetes 2016, [place] [employer] Association. Diabetes Care. 2016.39(Suppl 1). Performed By: #### 2 777-1, 3015-3, , 1988-03 #### [facility] CLIA [id number] [address] [place] [address] [place] Potassium [Moles/Vol] 4.2 mmol/L Normal 3.7-5.1 [facility] Comment on above: Order Comment: Speci men Type: BLOOD SPECIMEN Ordering Facility: [facility] Address: [address] [place] [address] Performed By: #### 2 777-1, 3, , 1988-03 #### [facility] CLIA [id number] [address] [place] [address] [place] Sodium [Moles/Vol] 139 mmol/L Normal 136-144 [facility] Comment on above: Order Comment: Speci men Type: BLOOD SPECIMEN Ordering Facility: [facility] Address: [address] [place] [address] Performed By: #### 2 777-1, 3, , 1988-03 #### [facility] CLIA [id number] [address] [place] [address] [place] Urea nitrogen [Mass/Vol] 16 mg/dL Normal 9-24 [place] Comment on above: Order Comment: Speci men Type: BLOOD SPECIMEN Ordering Facility: [facility] Address: [address] [place] [address] Performed By: #### 2 777-1, 3, , 1988-03 #### [facility] CLIA [id number] [address] [place] [address] [place] CBC W Auto Differential pane l (Bld)on 04-14-2024 Basophils (Bld) [#/Vol] 0.03 10*3/uL Normal <0.11 [place] Comment on above: Order Comment: Speci men Type: BLOOD SPECIMEN Ordering Facility: [facility] Address: [address] [place] [address] Performed By: #### 2 777-1, 3, , 1988-03 #### [facility] CLIA [id number] [address] [place] [address] [place] Basophils/100 WBC (Bld) 0.3 % Normal [place] Comment on above: Order Comment: Speci men Type: BLOOD SPECIMEN Ordering Facility: [facility] Address: [address] [place] [address] Performed By: #### 2 777-1, 3, , 1988-03 #### [facility] CLIA [id number] [address] [place] [address] [place] Differential cell count method Nom (Bld) Auto Normal [place] Comment on above: Order Comment: Speci men Type: BLOOD SPECIMEN Ordering Facility: [facility] Address: [address] [place] [address] Performed By: #### 2 777-1, 3, , 1988-03 #### [facility] CLIA [id number] [address] [place] [address] [place] Eosinophils (Bld) [#/Vol] 0.25 10*3/uL Normal <0.46 [place] Comment on above: Order Comment: Speci men Type: BLOOD SPECIMEN Ordering Facility: [facility] Address: [address] [place] [address] Performed By: #### 2 777-1, 3016-01, , 1988-03 #### [facility] CLIA [id number] [address] [place] [address] [place] Eosinophils/100 WBC (Bld) 2.4 % Normal [place] Comment on above: Order Comment: Speci men Type: BLOOD SPECIMEN Ordering Facility: [facility] Address: [address] [place] [address] Performed By: #### 2 777-1, 3, , 1988-03 #### [facility] CLIA [id number] [address] [place] [address] [place] Erythrocyte distribution width (RBC) [Ratio] 12.9 % Normal 11.5-15.0 [place] Comment on above: Order Comment: Speci men Type: BLOOD SPECIMEN Ordering Facility: [facility] Address: [address] [place] [address] Performed By: #### 2 777-1, 3, , 1988-03 #### [facility] CLIA [id number] [address] [place] [address] [place] Hematocrit (Bld) [Volume fraction] 43.0 % Normal 39.0-51.0 [place] Comment on above: Order Comment: Speci men Type: BLOOD SPECIMEN Ordering Facility: [facility] Address: [address] [place] [address] Performed By: #### 2 777-1, 3, , 1988-03 #### [facility] CLIA [id number] [address] [place] [address] [place] Hemoglobin (Bld) [Mass/Vol] 14.4 g/dL Normal 13.0-17.0 [place] Comment on above: Order Comment: Speci men Type: BLOOD SPECIMEN Ordering Facility: [facility] Address: [address] [place] [address] Performed By: #### 2 777-1, 3016-01, , 1988-03 #### [facility] CLIA [id number] [address] [place] [address] [place] Immature granulocytes (Bld) [#/Vol] 0.15 10*3/uL High <0.10 [place] Comment on above: Order Comment: Speci men Type: BLOOD SPECIMEN Ordering Facility: [facility] Address: [address] [place] [address] Performed By: #### 2 777-1, 3, , 1988-03 #### [facility] CLIA [id number] [address] [place] [address] [place] Immature granulocytes/100 WBC (Bld) 1.4 % Normal [place] Comment on above: Order Comment: Speci men Type: BLOOD SPECIMEN Ordering Facility: [facility] Address: [address] [place] [address] Performed By: #### 2 777-1, 3015-3, , 1988-03 #### [facility] CLIA [id number] [address] [place] [address] [place] Lymphocytes (Bld) [#/Vol] 1.15 10*3/uL Normal 1.00-4.00 [place] Comment on above: Order Comment: Speci men Type: BLOOD SPECIMEN Ordering Facility: [facility] Address: [address] [place] [address] Performed By: #### 2 777-1, 3, , 1988-03 #### [facility] CLIA [id number] [address] [place] [address] [place] Lymphocytes/100 WBC (Bld) 11.1 % Normal [place] Comment on above: Order Comment: Speci men Type: BLOOD SPECIMEN Ordering Facility: [facility] Address: [address] [place] [address] Performed By: #### 2 777-1, 3, , 1988-03 #### [facility] CLIA [id number] [address] [place] [address] [place] MCH (RBC) [Entitic mass] 30.8 pg Normal 26.0-34.0 [place] Comment on above: Order Comment: Speci men Type: BLOOD SPECIMEN Ordering Facility: [facility] Address: [address] [place] [address] Performed By: #### 2 777-1, 3015-3, , 1988-03 #### [facility] CLIA [id number] [address] [place] [address] [place] MCHC (RBC) [Mass/Vol] 33.5 g/dL Normal 30.5-36.0 [facility] Comment on above: Order Comment: Speci men Type: BLOOD SPECIMEN Ordering Facility: [facility] Address: [address] [place] [address] Performed By: #### 2 777-1, 3015-3, , 1988-03 #### [facility] CLIA [id number] [address] [place] [address] [place] MCV (RBC) [Entitic vol] 92.1 fL Normal 80.0-100.0 [place] Comment on above: Order Comment: Speci men Type: BLOOD SPECIMEN Ordering Facility: [facility] Address: [address] [place] [address] Performed By: #### 2 777-1, 3, , 1988-03 #### [facility] CLIA [id number] [address] [place] [address] [place] Monocytes (Bld) [#/Vol] 0.46 10*3/uL Normal <0.87 [place] Comment on above: Order Comment: Speci men Type: BLOOD SPECIMEN Ordering Facility: [facility] Address: [address] [place] [address] Performed By: #### 2 777-1, 3, , 1988-03 #### [facility] CLIA [id number] [address] [place] [address] [place] Monocytes/100 WBC (Bld) 4.4 % Normal [place] Comment on above: Order Comment: Speci men Type: BLOOD SPECIMEN Ordering Facility: [facility] Address: [address] [place] [address] Performed By: #### 2 777-1, 3, , 1988-03 #### [facility] CLIA [id number] [address] [place] [address] [place] Neutrophils (Bld) [#/Vol] 8.33 10*3/uL High 1.45-7.50 [place] Comment on above: Order Comment: Speci men Type: BLOOD SPECIMEN Ordering Facility: [facility] Address: [address] [place] [address] Performed By: #### 2 777-1, 3015-3, , 1988-03 #### [facility] CLIA [id number] [address] [place] [address] [place] Neutrophils/100 WBC (Bld) 80.4 % Normal [place] Comment on above: Order Comment: Speci men Type: BLOOD SPECIMEN Ordering Facility: [facility] Address: [address] [place] [address] Performed By: #### 2 777-1, 3, , 1988-03 #### [facility] CLIA [id number] [address] [place] [address] [place] Nucleated RBC (Bld) [#/Vol] 10*3/uL Normal <0.01 [place] Comment on above: Order Comment: Speci men Type: BLOOD SPECIMEN Ordering Facility: [facility] Address: [address] [place] [address] Performed By: #### 2 777-1, 3, , 1988-03 #### [facility] CLIA [id number] [address] [place] [address] [place] Nucleated RBC/100 WBC (Bld) [Ratio] 0.0 /100 WBC Normal [place] Comment on above: Order Comment: Speci men Type: BLOOD SPECIMEN Ordering Facility: [facility] Address: [address] [place] [address] Performed By: #### 2 777-1, 3015-3, , 1988-03 #### [facility] CLIA [id number] [id number] [address] [place] Platelet mean volume (Bld) [Entitic vol] 10.7 fL Normal 9.0-12.7 [place] Comment on above: Order Comment: Speci men Type: BLOOD SPECIMEN Ordering Facility: [facility] Address: [address] [place] [address] Performed By: #### 2 777-1, 3015-3, , 1988-03 #### [facility] CLIA [id number] [address] [place] [address] [place] Platelets (Bld) [#/Vol] 172 10*3/uL Normal 150-400 [place] Comment on above: Order Comment: Speci men Type: BLOOD SPECIMEN Ordering Facility: [facility] Address: [address] [place] [address] Performed By: #### 2 777-1, 3, , 1988-03 #### [facility] CLIA [id number] [address] [place] [address] [place] RBC (Bld) [#/Vol] 4.67 10*6/uL Normal 4.20-6.00 [facility] Comment on above: Order Comment: Speci men Type: BLOOD SPECIMEN Ordering Facility: [facility] Address: [address] [place] [address] Performed By: #### 2 777-1, 3, , 1988-03 #### [facility] CLIA [id number] [address] [place] [address] [place] WBC (Bld) [#/Vol] 10.37 10*3/uL Normal 3.70-11.00 [facility] Comment on above: Order Comment: Speci men Type: BLOOD SPECIMEN Ordering Facility: [facility] Address: [address] [place] [address] Performed By: #### 2 777-1, 3015-3, , 1988-03 #### [facility] CLIA [id number] [address] [place] [address] [place] CK SerPl-cCncon 04-14-2024 CK [Catalytic activity/Vol] 66 U/L Normal 51-298 [place] Comment on above: Order Comment: Speci men Type: BLOOD SPECIMEN Ordering Facility: [facility] Address: [address] [place] [address] Performed By: #### 2 777-1, 3016-3, 05381-2, 1987- #### [facility] CLIA [id number] [address] [place] [address] [place] CONSULT PROGon 04-14-2024 CONSULT PROG HNO ID: [id number] Author: TWIN MASTERS RPh Service: Pharmacy Author Type: Pharmacist Type: Consult Progress Note Filed: 04/14/2024 20:02 Note Text: PHARMACY VANCOMYCIN DOSING NOTE Patient Name: Enrique Oliveira Admission Date: 04/14/2024 Date of Consult: 04/14/2024 Time of Consult: 7:57 PM Indication: Pneumonia Goal Range: 15-20 mcg/mL RECOMMENDATIONS/PLAN: Pharmacy consulted for vancomycin dosing for Enrique Oliveira, a 63 year old male. 1. Patient is currently ordered Vancomycin 1.5 g IV q12h. Today is day 1 of therapy. 2. No vancomycin level has been drawn for this dosing regimen. 3. The present dose of vancomycin is the recommended dosage for this patient at this time. Continue therapy as prescribed. 4. The next vancomycin level will be ordered for fifth day of therapy unless clinically indicated sooner. (Pharmacy will order) 5. S. aureus nasal PCR swab ordered We will follow patient renal function, vancomycin levels and doses with you during the course of therapy. Additional recommendations will appear in follow up notes. If you have any questions, please contact the Pharmacy. Age: [age] year old Allergies: ALLERGIES Allergen Reactions Iodine Shellfish Shrimp Unknown Last 3 Encounter Wt Readings: Date: Wt: 04/14/2024 101.6 kg (224 lb) 10/17/2023 101.6 kg (224 lb) 09/02/2023 99 kg (218 lb 3.2 oz) Last 1 Encounter Ht Readings: Date: Ht: 10/06/2011 180.3 cm (5' 11) CrCl: > 100 mL/min Temp (24hrs), Av.7 ?C (98.1 ?F), Min:36.7 ?C (98.1 ?F), Max:36.7 ?C (98.1 ?F) - Current Temp: 36.7 ?C (98.1 ?F) Labs BUN (mg/dL) Date Value 04/14/2024 16 Creatinine (mg/dL) Date Value 04/14/2024 0.89 WBC (k/uL) Date Value 04/14/2024 10.37 04/03/2006 6.68 Vancomycin Levels: No results found for: NAZIA Masters [facility] Normal [place] CT ABD/PEL WO IVCONon 2023 CT ABD/PEL WO IVCON * * *Final Report* * * DATE OF EXAM: Apr 14 2024 5:03PM [facility] 0531 - CT ABD/PEL WO IVCON / PROCEDURE REASON: Abdominal pain, acute, nonlocalized * * * * Physician Interpretation * * * * EXAMINATION: CT ABDOMEN AND PELVIS WITHOUT IV CONTRAST CLINICAL HISTORY: Abdominal pain. TECHNIQUE: Non-IV contrast imaging of the abdomen and pelvis was performed using standard technique, scanning from just above the dome of the diaphragm to the symphysis pubis. Unenhanced imaging is limited for the evaluation of some intra-abdominal and pelvic pathology. MQ: CTAPWO_3 Contrast: IV: None CT Radiation dose: Integrated Dose-length product (DLP) for this visit = 871 mGy*cm. CT Dose Reduction Employed: Automated exposure control (AEC) COMPARISON: None. RESULT: Abdomen / Pelvis: Liver: Punctate right hepatic dome calcified granuloma. Otherwise, unremarkable unenhanced liver. Biliary: The gallbladder is unremarkable. Spleen: No splenomegaly. Pancreas: Atrophy, otherwise unremarkable. Adrenals: No mass. Kidneys: No calculus, hydronephrosis or finding to suggest a cyst or mass in the unenhanced kidney. GI Tract: No bowel dilation. Appendix not visualized. Moderate volume colonic air and stool. Lymph Nodes: No lymphadenopathy. Mesentery/peritoneum: No ascites. Retroperitoneum: No mass. Vasculature: No abdominal aortic or iliac artery aneurysm. Pelvis: No mass or ascites. Unremarkable urinary bladder. Bones/Soft Tissues: L5-S1 posterior bree and screw fixation hardware with interbody spacer and screw. No suspicious osseous lesion. Lower thorax: Multifocal patchy consolidative and groundglass opacities, compatible with pneumonia. Localizer images: No additional findings. IMPRESSION: No acute abnormality within the abdomen or pelvis. Multifocal pneumonia. Lining Ironer: PSCB Transcribe Date/Time: Apr 14 2024 5:04P Dictated by : MARLEEN TONEY DO This examination was interpreted and the report reviewed and electronically signed by: DAVID CORREIA MD on Apr 14 2024 5:22PM EST [id number] Normal [place] CT CHEST WO IVCONon 04-14-20 CT CHEST WO IVCON * * *Final Report* * * DATE OF EXAM: Apr 14 2024 7:54PM [facility] 0541 - CT CHEST WO IVCON / PROCEDURE REASON: Aspiration * * * * Physician Interpretation * * * * EXAMINATION: CHEST CT WITHOUT CONTRAST CLINICAL HISTORY: Presenting to the ED for shortness of breath. Technique: Spiral CT acquisition of the chest from the thoracic inlet to the upper abdomen without contrast. MQ: CTCWO_6 CT Radiation dose: Integrated Dose-length product (DLP) for this visit = 373 mGy*cm CT Dose Reduction Employed: mAs-kVp adjusted based on patient size-age Comparison: No prior cross-sectional chest imaging studies available for comparison. A chest radiograph from 09/02/2023 was compared to recent chest radiograph from 04/14/2024. RESULT: Limitations: None. Lines, tubes, and devices: None. Lung parenchyma and airways: The central airways are patent. There are upper lobe predominant, multifocal geographical groundglass opacities interspersed with interlobular septal thickening in all lung lobes (crazy paving pattern). Indeterminate 5 mm right lower lobe nodule (5:181). Pleural space: Question trace left pleural fluid along the dependent costophrenic recess (4:113). No substantial right pleural effusion. No pleural thickening. Lower neck, lymph nodes, and mediastinum: The imaged thyroid gland is normal. Borderline enlarged mediastinal lymph nodes, for example a 1.0 cm lower right paratracheal lymph node (4:72), and a 1.0 cm subcarinal lymph node (4:93), likely reactive. No lymphadenopathy in the supraclavicular, hilar or axillary regions. Heart, pericardium, and thoracic vessels: The thoracic aorta and main pulmonary artery are normal in caliber. The cardiac chambers are normal in size. Scattered mild coronary artery atherosclerotic calcifications are noted, although the study is not optimized for coronary assessment. No pericardial effusion or thickening. Bones and soft tissues: Degenerative changes in the thoracic spine. No suspicious bone lesion. Chest wall is unremarkable. Upper abdomen: Please see separately dictated same-day CT abdomen/pelvis. Localizer images: No additional findings. IMPRESSION: Upper lobe predominant, multifocal geographic of groundglass opacities interspersed with interlobular septal thickening in all lung lobes (crazy paving pattern). The differential diagnosis is broad and includes multiple different etiologies. Common causes include cardiogenic and noncardiogenic pulmonary edema, ARDS, pneumonia (mycoplasma pneumoniae, pneumocystis pneumonia, COVID-19, etc., among other causes), and pulmonary alveolar proteinosis. Additional less common causes in appropriate clinical settings would include drug induced pneumonitis, pulmonary alveolar hemorrhage, chronic eosinophilic pneumonia, organizing pneumonia, mucinous adenocarcinoma of the lungs, sarcoidosis, lipoid pneumonia and pulmonary venoocclusive disease. Indeterminate 5 mm right lower lobe solid lung nodule. Suggest follow-up as per recommendations given below. Incidental Finding: Follow-up Acuity: Incidental Finding: Solid: <6 mm (solitary or multiple) Routing Code: N/A Recommendation: No imaging follow-up is recommended Time Frame: N/A Comments: If there are risk factors for lung malignancy, a follow-up chest CT exam could be obtained in 12 months --END OF FINDING-- Mild/borderline mediastinal lymphadenopathy, presumed benign/reactive. Lining Ironer: TOY Transcribe Date/Time: Apr 14 2024 8:02P Dictated by : MARLEEN TONEY, DO This examination was interpreted and the report reviewed and electronically signed by: LESLIE SARGENT MD on Apr 14 2024 9:02PM EST [id number] [id number] Invalid Interpretation Code [place] ED NOTEon 04-14-2024 ED NOTE HNO ID: [id number] Author: TRISTA SCHOFIELD RN Service: Emergency Medicine Author Type: Registered Nurse Type: ED Notes Filed: 04/14/2024 17:22 Note Text: Pt care report called to HANNAH Lennon of [id number], who had no further questions at this time. Transport paged. [facility] ED NOTE HNO ID: [id number] Author: TRISTA SCHOFIELD RN Service: Emergency Medicine Author Type: Registered Nurse Type: ED Notes Filed: 04/14/2024 13:45 Note Text: Normal [place] ED NOTE HNO ID: [id number] Author: TRISTA SCHOFIELD RN Service: Emergency Medicine Author Type: Registered Nurse Type: ED Notes Filed: 04/14/2024 12:58 Note Text: Pt presents to the ED secondary to SOB and right arm pain progressing over the past 24 hours. Pt states that he was seen by an ER yesterday and was Dx with pneumonia. Pt currently is alert and oriented, speaking in full sentences showing no major signs of distress. Pt denies any chest pain or dizziness at this time. [facility] ED NOTE HNO ID: [id number] Author: ASUNCION SANCHEZ RN Service: ? Author Type: Registered Nurse Type: ED Notes Filed: 04/14/2024 12:49 Note Text: Bed: E12-02 Expected date: Expected time: Means of arrival: Comments: tee [facility] ED PROV NOTEon 04-14-2024 ED PROV NOTE HNO ID: [id number] Author: MOE REDDING MD Service: Emergency Medicine Author Type: Physician Type: ED Provider Notes Filed: 04/14/2024 19:49 Note Text: ED Provider Note Patient Name: Enrique Oliveira : 1960 SERVICE DATE: 04/14/24 History Patient presents with: Shortness of Breath: Pt recently diagnosed with pneumonia and placed on PO abx, pt now present with SOB and RT arm pain 63-year-old male history of anxiety, chronic pain and prior back surgery here for shortness of breath. States was told at outside hospital ER that he had a pneumonia. Shortness of breath worsened today prompting his visit to the ED. Also complaining of chronic right-sided arm pain. No falls or trauma. No chest pain. Does not cough anything up. No fever or chills. PAST MEDICAL HISTORY Diagnosis Date Lumbago Other [...] surgery PAST SURGICAL HISTORY OF ear surgery FAMILY HISTORY Problem Relation Age of Onset Cancer Father skin cancer Stroke Maternal Grandfather Colon Cancer Other SEVERAL COUSINS Cancer Son leukemia Social History Tobacco Use Smoking status: Former Packs/day: 1.50 Years: 5.00 Additional pack years: 0.00 Total pack years: 7.50 Types: Cigarettes Quit date: 10/06/1991 Years since quittin.5 Smokeless tobacco: Current Types: Chew Last attempt to quit: 04/20/2010 Tobacco comments: 1 can per week Substance and Sexual Activity Alcohol use: No Drug use: No Sexual activity: Yes Partners: Female ALLERGIES Allergen Reactions Iodine Shellfish Shrimp Unknown Review of Systems All other systems reviewed and are negative. Physical Exam Vitals BP Pulse Temp Temp src Resp SpO2 Weight Height 04/14/24 1248 04/14/24 1248 04/14/24 1248 04/14/24 1248 04/14/24 1248 04/14/24 1248 04/14/24 1249 -- 132/75 70 36.7 ?C (98.1 ?F) Oral 20 (!) 92 % 101.6 kg (224 lb) Physical Exam Vitals and nursing note reviewed. Constitutional: General: He is not in acute distress. Appearance: Normal appearance. He is not toxic-appearing. HENT: Head: Normocephalic and atraumatic. Right Ear: Tympanic membrane normal. Nose: Nose normal. Mouth/Throat: Mouth: Mucous membranes are moist. Pharynx: Oropharynx is clear. Eyes: Extraocular Movements: Extraocular movements intact. Conjunctiva/sclera: Conjunctivae normal. Pupils: Pupils are equal, round, and reactive to light. Cardiovascular: Rate and Rhythm: Normal rate and regular rhythm. Pulses: Normal pulses. Heart sounds: Normal heart sounds. Pulmonary: Effort: Pulmonary effort is normal. Breath sounds: Rales present. Abdominal: General: Abdomen is flat. There is no distension. Palpations: Abdomen is soft. Tenderness: There is no abdominal tenderness. There is no guarding. Musculoskeletal: Cervical back: Neck supple. Comments: Tenderness to palpation throughout the right shoulder right humerus right forearm, no deformities, normal range of motion Skin: General: Skin is warm and dry. Capillary Refill: Capillary refill takes less than 2 seconds. Neurological: Mental Status: He is alert and oriented to person, place, and time. Mental status is at baseline. Psychiatric: Mood and Affect: Mood normal. Behavior: Behavior normal. Thought Content: Thought content normal. Judgment: Judgment normal. Diagnostic Testing ED Labs Ordered and Reviewed BASIC METABOLIC PANEL - Abnormal; Notable for the following components: Result Value Ref Range Glucose 120 (*) 74 - 99 mg/dL All other components within normal limits NT PRO BNP - Abnormal; Notable for the following components: NT Pro BNP 276 (*) <125 pg/mL All other components within normal limits COMPLETE BLOOD COUNT AND DIFFERENTIAL - Abnormal; Notable for the following components: Abs Neut 8.33 (*) 1.45 - 7.50 k/uL Abs Immature Gran 0.15 (*) <0.10 k/uL All other components within normal limits LIPASE - Abnormal; Notable for the following components: Lipase 14 (*) 16 - 61 U/L All other components within normal limits MAGNESIUM - Normal HIGH SENSITIVITY TROPONIN T (INITIAL) - Normal HIGH SENSITIVITY TROPONIN T (SECOND) - Normal COVID AND INFLUENZA A/B AND RSV NAAT, EXPEDITED - Normal Narrative: This test has been authorized by FDA under an Emergency Use Authorization (EUA). Test performed by [facility], [facility] [place], [address], [place] [address]. CREATINE KINASE/CK S (more content not included)... Normal [place] FLUABV+SARS-CoV-2+RSV Pnl Re sp JOSETTE+probeon 04-14-2024 FLUABV+SARS-CoV-2+RSV Pnl Resp JOSETTE+probe COVID 19 RESULT: Not detected The method used is RT-PCR or an equivalent NAAT method. Reference Range(the expected result in uninfected individuals): Not detected INFLUENZA A PCR: Not detected INFLUENZA B PCR: Not detected RSV PCR: Not detected Normal [place] Comment on above: Performed By: #### 9 5941-1 ####[facility] [id number] [place] [address] [place] HIGH SENSITIVITY TROPONIN T (INITIAL)on 04-14-2024 Troponin T.cardiac High sensitivity method [Mass/Vol] 7 ng/L Normal <12 [place] Comment on above: Order Comment: Braydon turcios Type: BLOOD SPECIMEN Ordering Facility: [facility] Address: [address] [place] [address] Result Comment: When assessing risk for acute coronary syndromes: In patients undergoing blood draw greater than or equal to 2 hours from symptom onset, with history of very low to moderate risk and non-ischemic ECG, an initial hs-Troponin T less than 12 ng/L AND a 1 hour delta hs-Troponin T less than 3 ng/L should be considered very low risk for 30 day MACE. Performed By: #### L [id number] #### [facility] CLIA [id number] [address] [place] [address] [place] HIGH SENSITIVITY TROPONIN T (SECOND)on 04-14-2024 Troponin T.cardiac High sensitivity method [Mass/Vol] 7 ng/L Normal <12 [place] Comment on above: Order Comment: Braydon turcios Type: BLOOD SPECIMEN Ordering Facility: [facility] Address: [address] [place] [address] Result Comment: When assessing risk for acute coronary syndromes: In patients undergoing blood draw greater than or equal to 2 hours from symptom onset, with history of very low to moderate risk and non-ischemic ECG, an initial hs-Troponin T less than 12 ng/L AND a 1 hour delta hs-Troponin T less than 3 ng/L should be considered very low risk for 30 day MACE. Performed By: #### 2 777-1, 3016-3, 46911-5, 1987- #### [facility] CLIA [id number] [address] [place] [address] [place] HISTORY PHYSICALon HISTORY PHYSICAL HNO ID: [id number] Author: TORSTEN MARINELLI MD Service: Hospital Medicine Author Type: Physician Type: H&P Filed: 04/14/2024 22:00 Note Text: DEPARTMENT OF HOSPITAL MEDICINE HISTORY AND PHYSICAL EXAM SERVICE DATE: 04/14/2024 Code Status: Not on file SERVICE TIME: 4:58 PM Primary Care Physician: No primary care provider on file. NIGHT AND WEEKEND COVERAGE: Please page Torsten Murillo MD until 7:30am this morning. Afterwards, please check the treatment team banner and page the appropriate service. Subjective CHIEF COMPLAINT: HPI: This is a 63 year old male with PMH of anxiety, chronic pain who presented to the ED with shortness of breath. Patient reported that he was at monitor ED yesterday and was diagnosed with pneumonia and was discharged on azithromycin without improvement so decided to come to the ED today for further evaluation. He reported that his shortness of breath worsened today, reported minimal productive cough and chills but no fever, chest pain, lightheadedness, dizziness, nausea, vomiting, abdominal pain. He reported chronic right-sided arm pain otherwise denies any weakness, numbness or any other symptoms, he was prescribed hydrocodone by the [facility] last night. In the ED: VSS afebrile, blood pressure 132/75, heart rate 70, respiratory rate 20 and satting 92% on room air. Labs: CBC with WBC of 10.37, normal HANDH and platelet. BMP not significant. COVID/RSV/flu negative. High-sensitivity troponin normal x 2. Lipase 40 Imaging: CXR: :Multifocal pneumonia. XRAY R shoulder Xray Humerus R Xray R forearm No acute fracture of the right shoulder, humerus, or forearm. Patchy infiltrates of the right lung. CT A/P: pending Received: Azithromycin, ceftriaxone, dilaudid 0.5 mg x1 Labs Reviewed BASIC METABOLIC PANEL - Abnormal; Notable for the following components: Result Value Glucose 120 (*) All other components within normal limits NT PRO BNP - Abnormal; Notable for the following components: NT Pro BNP 276 (*) All other components within normal limits COMPLETE BLOOD COUNT AND DIFFERENTIAL - Abnormal; Notable for the following components: Abs Neut 8.33 (*) Abs Immature Gran 0.15 (*) All other components within normal limits LIPASE - Abnormal; Notable for the following components: Lipase 14 (*) All other components within normal limits MAGNESIUM - Normal HIGH SENSITIVITY TROPONIN T (INITIAL) - Normal HIGH SENSITIVITY TROPONIN T (SECOND) - Normal COVID AND INFLUENZA A/B AND RSV NAAT, EXPEDITED - Normal Narrative: This test has been authorized by FDA under an Emergency Use Authorization (EUA). Test performed by [facility], [facility] [place], [address] [facility], [place], [place] [address]. CREATINE KINASE/CK PAST MEDICAL HISTORY Diagnosis Date Lumbago Other [...] surgery PAST SURGICAL HISTORY OF ear surgery FAMILY HISTORY Problem Relation Age of Onset Cancer Father skin cancer Stroke Maternal Grandfather Colon Cancer Other SEVERAL COUSINS Cancer Son leukemia Social History Tobacco Use Smoking status: Former Packs/day: 1.50 Years: 5.00 Additional pack years: 0.00 Total pack years: 7.50 Types: Cigarettes Quit date: 10/06/1991 Years since quittin.5 Smokeless tobacco: Current Types: Chew Last attempt to quit: 04/20/2010 Tobacco comments: 1 can per week Substance Use Topics Alcohol use: No Drug use: No PRIOR TO ADMISSION MEDICATIONS: Current Outpatient Medications Medication Instructions buPROPion XL (WELLBUTRIN XL) 300 mg 24 hr tablet 1 tablet, ORAL, EVERY AFTERNOON traZODone (DESYREL) 100 mg, ORAL, AT BEDTIME ALLERGIES Allergen Reactions Iodine Shellfish Shrimp Unknown REVIEW OF SYSTEM: As per HPI, all other systems reviewed and were negative. Objective PHYSICAL EXAM: BP 114/59 Pulse 71 Temp (Src) 98.1 (Oral) Resp 24 Wt 224 lb (101.6kg) SpO2 97% O2 Therapy: Room Air Physical Exam Performed: GENERAL: Alert, no distress, cooperative LUNGS: Rales bilaterally. CARDIAC: Normal S1 and S2; no rubs, murmurs, or gallops ABDOMEN: Abdomen soft, non-tender, BS normal, No masses or organomegaly EXTREMITIES: Mild TTP on R shoulder, separately TTP to R lower humerus otherwise Extremities normal, no deformities, edema, clubbing or skin discoloration. Good capillary refill., No ulcers NEURO: Cranial nerves II-XII intact, no motor or sens (more content not included)... Normal [place] Lipase SerPl-cCncon 04-14-20 24 Lipase [Catalytic activity/Vol] 14 U/L Low 16-61 [place] Comment on above: Order Comment: Braydon turcios Type: BLOOD SPECIMEN Ordering Facility: [facility] Address: [address] [place] [address] Performed By: #### 2 777-1, 3015-3, , 1988-03 #### [facility] CLIA [id number] [address] [place] [address] [place] Magnesium SerPl-mCncon 04-14 Magnesium [Mass/Vol] 2.0 mg/dL Normal 1.7-2.3 [facility] Comment on above: Order Comment: Miguelitoi tam Type: BLOOD SPECIMEN Ordering Facility: [facility] Address: [address] [place] [address] Performed By: #### 2 777-1, 3015-3, , 1988-03 #### [facility] CLIA [id number] [address] [place] [address] [place] NT-proBNP SerPl-mCncon 04-14 Natriuretic peptide.B prohormone N-Terminal [Mass/Vol] 276 pg/mL High <125 [place] Comment on above: Order Comment: Braydon turcios Type: BLOOD SPECIMEN Ordering Facility: [facility] Address: [address] [place] [address] Performed By: #### 2 777-1, 3015-3, , 1988-03 #### [facility] CLIA [id number] [address] [place] [address] [place] Procalcitonin SerPl-mCncon 0 04-14-2024 Procalcitonin [Mass/Vol] 0.11 ng/mL High <0.09 [place] Comment on above: Order Comment: Speci men Type: BLOOD SPECIMEN Ordering Facility: [facility] Address: [address] [place] [address] Result Comment: For a guided interpretation of test results, please visit the Change in Procalcitonin Calculator, [email or web address]. Performed By: #### 2 777-1, 3015-3, , 1988-03 #### [facility] CLIA [id number] [address] [place] [address] [place] Resp path 12b Pnl Spec JOSETTE+p robeon 04-14-2024 Respiratory pathogens DNA and RNA 12b panel JOSETTE+probe (Unsp spec) ADENOVIRUS: Not detected CORONAVIRUS 229E: Not detected CORONAVIRUS HKU1: Not detected CORONAVIRUS NL63: Not detected CORONAVIRUS OC43: Not detected COVID 19 RESULT: Not detected Reference Range (the expected result in uninfected individuals): Not detected HUMAN METAPNEUMOVIRUS: Not detected RHINOVIRUS/ENTEROVIRUS: Not detected INFLUENZA A VIRUS: Not detected INFLUENZA B VIRUS: Not detected PARAINFLUENZA VIRUS 1: Not detected PARAINFLUENZA VIRUS 2: Not detected PARAINFLUENZA VIRUS 3: Not detected PARAINFLUENZA VIRUS 4: Not detected RESPIRATORY SYNCYTIAL VIRUS: Not detected BORDETELLA PARAPERTUSSIS BY REAL-TIME PCR: Not detected BORDETELLA PERTUSSIS BY REAL-TIME PCR: Not detected CHLAMYDOPHILA PNEUMONIAE: Not detected MYCOPLASMA PNEUMONIAE: Not detected Normal [place] Comment on above: Performed By: #### L [id number] #### [facility] CLIA [id number] [address] [place] [address] [place] STAPHYLOCOCCUS AUREUS AND MR SA SCREEN, PCR, NASALon 04-14-2024 S. aureus and MRSA panel JOSETTE+probe (Nose) Methicillin-SUSCEPTIBLE Staphylococcus aureus Detected Abnormal Not Detected [place] Comment on above: Order Comment: Speci men Type: SWABOrdering Facility: [facility] Address: [address] [place] [address] Performed By: #### S APCR ####[facility] [id number] [facility] [place] [id number] [address] [place] XR CHEST 2V FRONTAL/LATon XR CHEST 2V FRONTAL/LAT * * *Final Report* * * DATE OF EXAM: Apr 14 2024 3:03PM [id number] [id number] - XR CHEST 2V FRONTAL/LAT / PROCEDURE REASON: Chest Pain * * * * Physician Interpretation * * * * EXAMINATION: CHEST RADIOGRAPH (2 VIEW FRONTAL and LATERAL) CLINICAL HISTORY: Chest Pain. Shortness of breath. MQ: [id number] EXAM DATE/TIME: 04/14/2024 3:03 PM COMPARISON: 09/02/2023 RESULT: Lines, tubes, and devices: None. Lungs and pleura: Patchy and nodular airspace opacities throughout both lungs, compatible with multifocal pneumonia. No pleural effusion. No pneumothorax. Cardiomediastinal silhouette: Normal cardiomediastinal silhouette. Bones and soft tissues: Unremarkable. IMPRESSION: Multifocal pneumonia. Lining Ironer: TOY Transcribe Date/Time: Apr 14 2024 3:05P Dictated by : MARLEEN TONEY, This examination was interpreted and the report reviewed and electronically signed by: JODY MELO MD on Apr 14 2024 3:26PM EST [id number] Normal [place] XR FOREARM 2V AP/LAT RTon XR FOREARM 2V AP/LAT RT * * *Final Report* * * DATE OF EXAM: Apr 14 2024 3:03PM [id number] [id number] - XR FOREARM 2V AP/LAT RT / PROCEDURE REASON: Trauma * * * * Physician Interpretation * * * * EXAMINATION / TECHNIQUE: XR SHLDR >/=3V AP/DEVORAH AP/OTHR RT, XR FOREARM 2V AP/LAT RT, XR HUMERUS 2V AP/LAT RT PATIENT/TECHNOLOGIST PROVIDED HISTORY: pain CLINICAL INFORMATION ( PROVIDED BY ORDERING CLINICIAN) : Arthritis COMPARISON: Right shoulder radiographs 01/29/2013 RESULT: No acute fracture or dislocation. Joint spaces and acromiohumeral interval are maintained. Right antecubital fossa IV. Lower cervical spine intervertebral body spacer. Patchy infiltrates of the right lung. IMPRESSION: No acute fracture of the right shoulder, humerus, or forearm. Patchy infiltrates of the right lung. Lining Ironer: [facility] Transcribe Date/Time: Apr 14 2024 3:08P Dictated by : MARLEEN TONEY DO This examination was interpreted and the report reviewed and electronically signed by: JODY MELO MD on Apr 14 2024 3:25PM EST [id number] Normal [place] XR HUMERUS 2V AP/LAT RTon XR HUMERUS 2V AP/LAT RT * * *Final Report* * * DATE OF EXAM: Apr 14 2024 3:03PM [id number] - XR HUMERUS 2V AP/LAT RT / PROCEDURE REASON: Trauma * * * * Physician Interpretation * * * * EXAMINATION / TECHNIQUE: XR SHLDR >/=3V AP/DEVORAH AP/OTHR RT, XR FOREARM 2V AP/LAT RT, XR HUMERUS 2V AP/LAT RT PATIENT/TECHNOLOGIST PROVIDED HISTORY: pain CLINICAL INFORMATION ( PROVIDED BY ORDERING CLINICIAN) : Arthritis COMPARISON: Right shoulder radiographs 01/29/2013 RESULT: No acute fracture or dislocation. Joint spaces and acromiohumeral interval are maintained. Right antecubital fossa IV. Lower cervical spine intervertebral body spacer. Patchy infiltrates of the right lung. IMPRESSION: No acute fracture of the right shoulder, humerus, or forearm. Patchy infiltrates of the right lung. Lining Ironer: [employer] Transcribe Date/Time: Apr 14 2024 3:08P Dictated by : MARLEEN TONEY DO This examination was interpreted and the report reviewed and electronically signed by: JODY MELO MD on Apr 14 2024 3:25PM EST [id number] Normal [place] XR SHLDR >/=3V AP/DEVORAH AP/OTH R RTon 04-14-2024 XR SHLDR >/=3V AP/DEVORAH AP/OTHR RT * * *Final Report* * * DATE OF EXAM: Apr 14 2024 3:03PM [id number] - XR SHLDR >/=3V AP/DEVORAH AP/OTHR RT / PROCEDURE REASON: Arthritis * * * * Physician Interpretation * * * * EXAMINATION / TECHNIQUE: XR SHLDR >/=3V AP/DEVORAH AP/OTHR RT, XR FOREARM 2V AP/LAT RT, XR HUMERUS 2V AP/LAT RT PATIENT/TECHNOLOGIST PROVIDED HISTORY: pain CLINICAL INFORMATION ( PROVIDED BY ORDERING CLINICIAN) : Arthritis COMPARISON: Right shoulder radiographs 01/29/2013 RESULT: No acute fracture or dislocation. Joint spaces and acromiohumeral interval are maintained. Right antecubital fossa IV. Lower cervical spine intervertebral body spacer. Patchy infiltrates of the right lung. IMPRESSION: No acute fracture of the right shoulder, humerus, or forearm. Patchy infiltrates of the right lung. Lining Ironer: TOY Transcribe Date/Time: Apr 14 2024 3:08P Dictated by : MARLEEN TONEY DO This examination was interpreted and the report reviewed and electronically signed by: JODY MELO MD on Apr 14 2024 3:25PM EST [id number] [facility] Basophil percentageOrdered B y: Glenroy Frankel on 12-13-2023 Chloride [Moles/Vol] 109 mmol/L 98-107 [facility] Glucose [Mass/Vol] 165 mg/dL 74-106 [facility] Comment on above: Fasting Glucose resu lt greater than or equal to 126 mg/dL suggests DIABETES MELLITUS per A.D.A. criteria. Hemoglobin (Bld) [Mass/Vol] 14.6 g/dL 13.0-16.5 [facility] Potassium [Moles/Vol] 4.0 mmol/L 3.5-5.1 [facility] Sodium [Moles/Vol] 136 mmol/L 136-145 [facility] WBC (Bld) [#/Vol] 5.2 10*3/uL 4.4-11.0 [facility] Determination of erythrocyte mean corpuscular volume (MCV)Ordered By: Glenroy Frankel on 12-13-2023 MCV (RBC) [Entitic vol] 89.2 fL 80-94 [facility] Erythrocyte distribution wid th ratioOrdered By: Glenroy Frankel on 12-13-2023 Erythrocyte distribution width (RBC) [Ratio] 12.5 % 11.6-14.6 [facility] Erythrocyte distribution wid th standard deviationOrdered By: Glenroy Frankel on 12-13-2023 Erythrocyte distribution width (RBC) [Entitic vol] 41.1 fL 35.1-43.9 [facility] Hematocrit Auto (Bld) [Volum e fraction]Ordered By: Glenroy Frankel on 12-13-2023 Hematocrit (Bld) [Volume fraction] 43.7 % 40-54 [facility] Laboratory - Chemistry and C hemistry - challengeOrdered By: Glenroy Frankel on 12-13-2023 CO2 [Moles/Vol] 22.0 mmol/L 21.0-32.0 [facility] Urea nitrogen/Creatinine [Mass ratio] 21.5 mg/mg 10-20 [facility] Laboratory - Hematology and Cell countsOrdered By: Glenroy Frankel on 12-13-2023 MCH (RBC) [Entitic mass] 29.8 pg 27.0-32.0 [facility] MCHC (RBC) [Mass/Vol] 33.4 g/dL 32-36 [facility] Platelets (Bld) [#/Vol] 185 10*3/uL 150-450 [facility] No Panel InformationOrdered By: Glenroy Frankel on 12-13-2023 Estimated Creatinine Clearance Calc 84.42 ml/min [facility] Estimated GFR (MDRD) Amer 89 mL/min >60 [facility] Comment on above: GFR Calc Estimated GFR (MDRD) Non-Af Amer 74 mL/min >60 [facility] Comment on above: Non- GFR Calc Platelet mean volume Kev-Ec ker (Bld) [Entitic vol]Ordered By: Glenroy Frankel on 12-13-2023 Platelet mean volume (Bld) [Entitic vol] 10.9 fL 6.2-12.0 [facility] RBC Auto (Bld) [#/Vol]Ordere d By: Glenroy Frankel on 12-13-2023 RBC (Bld) [#/Vol] 4.90 10*6/uL 4.6-6.2 [facility] Serum or plasma calcium matti urement (mass/volume)Ordered By: Glenroy Frankel on 12-13-2023 Calcium [Mass/Vol] 9.7 mg/dL 8.5-10.1 [facility] Serum or plasma creatinine m easurement (mass/volume)Ordered By: Glenroy Frankel on 12-13-2023 Creatinine [Mass/Vol] 1.07 mg/dL 0.70-1.30 [facility] Comment on above: The validity of the calculated GFR & GFRAA in patients over 70 years has not been determined. Clinical correlation is essential. Serum or plasma urea nitroge n measurement (mass/volume)Ordered By: Glenroy Frankel on 12-13-2023 Urea nitrogen [Mass/Vol] 23 mg/dL 7-18 [facility] Thin prep Papanicolaou smear with manual screeningOrdered By: Glenroy Frankel on 12-13-2023 Thin prep Papanicolaou smear with manual screening 5 5-15 [facility] Absolute lymphocyte countOrd ered By: Alyson Ortiz on 12-12-2023 Lymphocytes Auto (Unsp spec) [#/Vol] 2.92 10*3/uL 0.83-4.51 [facility] Automated lymphocyte count a s percentage of total leukocytesOrdered By: Alyson Ortiz on 12-12-2023 Lymphocytes/100 WBC Auto (Unsp spec) 48.0 % 19-41 [facility] Basophil percentageOrdered B y: Alyson Ortiz on 12-12-2023 Basophils/100 WBC (Bld) 0.8 % 0-1 [facility] Chloride [Moles/Vol] 107 mmol/L 98-107 [facility] Eosinophils/100 WBC (Bld) 2.8 % 0-5 [facility] Glucose [Mass/Vol] 99 mg/dL 74-106 [facility] Hemoglobin (Bld) [Mass/Vol] 13.9 g/dL 13.0-16.5 [facility] Monocytes/100 WBC (Bld) 8.7 % 0-10 [facility] Neutrophils (Bld) [#/Vol] 2.3 10*3/uL 2.0-7.7 [facility] Neutrophils/100 WBC (Bld) 37.7 % 47-70 [facility] Potassium [Moles/Vol] 4.0 mmol/L 3.5-5.1 [facility] Sodium [Moles/Vol] 140 mmol/L 136-145 [facility] WBC (Bld) [#/Vol] 6.1 10*3/uL 4.4-11.0 [facility] Determination of erythrocyte mean corpuscular volume (MCV)Ordered By: Alyson Ortiz on 12-12-2023 MCV (RBC) [Entitic vol] 90.4 fL 80-94 [facility] Erythrocyte distribution wid th ratioOrdered By: Tarzana Diana on 12-12-2023 Erythrocyte distribution width (RBC) [Ratio] 12.7 % 11.6-14.6 [facility] Erythrocyte distribution wid th standard deviationOrdered By: Tarzana Diana on 12-12-2023 Erythrocyte distribution width (RBC) [Entitic vol] 41.9 fL 35.1-43.9 [facility] Hematocrit Auto (Bld) [Volum e fraction]Ordered By: Alyson Ortiz on 12-12-2023 Hematocrit (Bld) [Volume fraction] 42.6 % 40-54 [facility] Immature granulocytes/100 WB C Auto (Bld)Ordered By: [facility] on 12-12-2023 Immature granulocytes/100 WBC (Bld) 2.000 % 0.0-0.9 [facility] Comment on above: IG% - Immature Granu locytes (promyelocytes, myelocytes and metamyelocytes) > 1% indicates that a LEFT SHIFT is Present. Laboratory - Chemistry and C hemistry - challengeOrdered By: Alyson Ortiz on 12-12-2023 CO2 [Moles/Vol] 30.0 mmol/L 21.0-32.0 [facility] Urea nitrogen/Creatinine [Mass ratio] 18.6 mg/mg 10-20 [facility] Laboratory - Hematology and Cell countsOrdered By: Alyson Ortiz on 12-12-2023 MCH (RBC) [Entitic mass] 29.5 pg 27.0-32.0 [facility] MCHC (RBC) [Mass/Vol] 32.6 g/dL 32-36 [facility] Nucleated RBC/100 WBC (Bld) [Ratio] 0 % 0-5 [facility] Platelets (Bld) [#/Vol] 179 10*3/uL 150-450 [facility] No Panel InformationOrdered By: Gilberto Badillo on 12-12-2023 Troponin I High Sensitivity 5 pg/mL 3.0-78.0 [facility] Comment on above: Please Note: [place] t Units and Gender Specific Reference Ranges. For more information see Policy Stat Procedure [place] High Sensitivity Troponin (TNIH) and attachments. No Panel InformationOrdered By: Alyson Ortiz on 12-12-2023 Troponin I High Sensitivity 4 pg/mL 3.0-78.0 [facility] Comment on above: Please Note: New [place] t Units and Gender Specific Reference Ranges. For more information see Policy Stat Procedure [place] High Sensitivity Troponin (TNIH) and attachments. Estimated Creatinine Clearance Calc 80.84 ml/min [facility] Estimated GFR (MDRD) Amer 84 mL/min >60 [facility] Comment on above: GFR Calc Estimated GFR (MDRD) Non-Af Amer 69 mL/min >60 [facility] Comment on above: Non- GFR Calc Platelet mean volume Kev-Ec ker (Bld) [Entitic vol]Ordered By: Alyson Ortiz on 12-12-2023 Platelet mean volume (Bld) [Entitic vol] 10.8 fL 6.2-12.0 [facility] RBC Auto (Bld) [#/Vol]Ordere d By: Alyson Ortiz on 12-12-2023 RBC (Bld) [#/Vol] 4.71 10*6/uL 4.6-6.2 [facility] Serum or plasma calcium matti urement (mass/volume)Ordered By: Alyson Ortiz on 12-12-2023 Calcium [Mass/Vol] 9.3 mg/dL 8.5-10.1 [facility] Serum or plasma creatinine m easurement (mass/volume)Ordered By: Alyson Ortiz on 12-12-2023 Creatinine [Mass/Vol] 1.13 mg/dL 0.70-1.30 [facility] Comment on above: The validity of the calculated GFR & GFRAA in patients over 70 years has not been determined. Clinical correlation is essential. Serum or plasma urea nitroge n measurement (mass/volume)Ordered By: Alyson Ortiz on 12-12-2023 Urea nitrogen [Mass/Vol] 21 mg/dL 7-18 [facility] Thin prep Papanicolaou smear with manual screeningOrdered By: Alyson Ortiz on 12-12-2023 Thin prep Papanicolaou smear with manual screening 3 5-15 [facility] Whole blood hemoglobin A1c/t otal hemoglobin ratio (mass fraction)Ordered By: Glenroy Frankel on 12-12-2023 HbA1c (Bld) [Mass fraction] 5.5 % 3.8-5.6 [facility] Comment on above: Normal < 5.7 % Predi abetic 5.7 - 6.4 % Diabetic >or= 6.5 % Please note range changes. Basophil percentageOrdered B y: Jorge Eli on 11-08-2023 Chloride [Moles/Vol] 104 mmol/L 98-107 [facility] Cholesterol [Mass/Vol] 279 mg/dL <200 [facility] Comment on above: <200 mg/dL Desirable 200-240 mg/dL Borderline >240 mg/dL High Risk Glucose [Mass/Vol] 124 mg/dL 74-106 [facility] Comment on above: Fasting Glucose resu lt from 100 to 125 mg/dL suggests IMPAIRED HOMEOSTASIS per A.D.A. criteria. Potassium [Moles/Vol] 3.9 mmol/L 3.5-5.1 [facility] Sodium [Moles/Vol] 141 mmol/L 136-145 [facility] Testosterone [Mass/Vol] 434.73 ng/dL [facility] Comment on above: CENTRAL 90% REFERENC E RANGES MALE AGE <50 197.44 - 669.58 ng/dL MALE AGE > or = 50 187.72 - 684.19 ng/dL FEMALE AGE <50 8.38 - 35.01 ng/dL FEMALE AGE > or = 50 <7.00 - 35.92 ng/dL Effective as of 06/15/21 Triglyceride [Mass/Vol] 166 mg/dL <199 [facility] Comment on above: The drugs N-Acetylcy steine and Metamizole may falsely depress this assay.Serum Triglycerides Reference Interval Normal <150 mg/dL Borderline high 150 - 199 mg/dL High 200 - 499 mg/dL Very High > or = 500 mg/dL Laboratory - Chemistry and C hemistry - challengeOrdered By: Jorge Benitez on 11-08-2023 CO2 [Moles/Vol] 28.0 mmol/L 21.0-32.0 [facility] Urea nitrogen/Creatinine [Mass ratio] 18.8 mg/mg 10-20 [facility] No Panel InformationOrdered By: Jorge Benitez on 11-08-2023 Estimated GFR (MDRD) Amer 96 mL/min >60 [facility] Comment on above: GFR Calc Estimated GFR (MDRD) Non-Af Amer 79 mL/min >60 [facility] Comment on above: Non- GFR Calc Prostate Specific Antigen Total 2.19 ng/mL 0.0-4.0 [facility] Comment on above: This test was perfor med using the TPSA assay method for the[employer] chemistry system. Values obtained with differentassay methods cannot be used interchangably.When changing PSA assays in the course of monitoring apatient, additional sequential testing should be carriedout to confirm baseline values. Thyroid Stimulating Hormone (TSH) 1.44 uIU/mL 0.358-3.74 [facility] Serum or plasma calcium matti urement (mass/volume)Ordered By: Jorge Benitez on 11-08-2023 Calcium [Mass/Vol] 9.6 mg/dL 8.5-10.1 [facility] Serum or plasma cholesterol in HDL measurement (mass/volume)Ordered By: Jorge Benitez on 11-08-2023 Cholesterol in HDL [Mass/Vol] 66 mg/dL >40 [facility] Comment on above: The drugs N-Acetylcy steine and Metamizole may falsely depress this assay. Reference Range HDL <40 mg/dL Low HDL Cholesterol HDL >or= 60 mg/dL High HDL Cholesterol Serum or plasma cholesterol in VLDL measurement (mass/volume)Ordered By: Jorge Benitez on 11-08-2023 Cholesterol in VLDL [Mass/Vol] 33 mg/dL 5-40 [facility] Serum or plasma creatinine m easurement (mass/volume)Ordered By: Jorge Benitez on 11-08-2023 Creatinine [Mass/Vol] 1.01 mg/dL 0.70-1.30 [facility] Comment on above: The validity of the calculated GFR & GFRAA in patients over 70 years has not been determined. Clinical correlation is essential. Serum or plasma low density lipoprotein (LDL) cholesterol measurement (mass/volume)Ordered By: Jorge Benitez on 11-08-2023 Cholesterol in LDL [Mass/Vol] 180 mg/dL 0-130 [facility] Serum or plasma urea nitroge n measurement (mass/volume)Ordered By: Jorge Benitez on 11-08-2023 Urea nitrogen [Mass/Vol] 19 mg/dL 7-18 [facility] Thin prep Papanicolaou smear with manual screeningOrdered By: Jorge Benitez on 11-08-2023 Thin prep Papanicolaou smear with manual screening 9 5-15 [facility] CNOVon 10-17-2023 CNOV Office Visit (UCWSTR ) ENRIQUE OLIVEIRA ([id number]) 1960 M Date Time Provider Department 10/17/23 10:45 AM JACQUES LYONS [facility] During your visit today, we recorded the following information about you: Temperature Pulse Respiration Blood pressure 97.2 degrees 70/minute 16/minute 124/74 Weight 101.6 kg Jacques Lyons APRN.[facility] 10/17/2023 10:51 AM Signed CC: Patient presents with: Cough: x 6 weeks HPI: Enrique Oliveira is a 63 year old male who [...] symptoms occur. Patient agreeable to treatment plan. Jacques Lyons APRN.[facility] Referring Provider: SELF [200] Allergies As of Date: 10/17/2023 Noted Allergy Reaction IODINE 08/16/2005 SHELLFISH 08/16/2005 SHRIMP 10/17/2023 16 - Unknown Date Reviewed: 10/17/2023 Reviewed by: Susanne Lowry - Fully Assessed Reason for Visit: Cough [28] Cmt: x 6 weeks Primary Visit Diagnosis:Rhinosinusiti s [J32.9] Order(s):doxycycline (VIBRA-TABS) 100 mg tabletTake 1 tablet by mouth two times a day for 7 days.Disp: 14 tabletRfl: 0 Prescriptions as of 10/17/2023 - doxycycline (VIBRA-TABS) 100 mg tablet Take 1 tablet by mouth two times a day for 7 days. - buPROPion XL (WELLBUTRIN XL) 300 mg 24 hr tablet Take 1 tablet by mouth every afternoon. - traZODone (DESYREL) 100 mg tablet Take 100 mg by mouth daily at bedtime. Problem List As Of Date 10/17/2023 Noted Resolved ANXIETY STATE NEC [F41.1] SCIATIC NERVE LESION [G57.00] 08/09/2006 PAIN BACK, LOW [M54.50] 01/22/2007 Cervical radiculopathy [M54.12] 10/06/2011 Lumbar spondylosis [M47.816] 10/06/2011 Prescriptions ordered this encounter Disp Refills Start End DOXYCYCLINE HYCLATE 100 MG TABLET 14 t* 0 10/17/2023 10/24/2023 Route: ORAL Sig: Take 1 tablet by mouth two times a day for 7 days. Encounter Status:Closed by JACQUES LYONS on 10/17/23 [facility] CNDarlene 09-02-2023 CNOV Office Visit (UCWSTR ) ENRIQUE OLIVEIRA ([id number]) 1960 M Date Time Provider Department 09/02/23 8:45 AM YAYA KELLER [facility] During your visit today, we recorded the following information about you: Temperature Pulse Respiration Blood pressure 97.5 degrees 79/minute 18/minute 107/64 Weight 99 kg Yaya Keller MD 09/02/2023 9:43 AM Signed Patient presents with: Cough: Productive cough, chest [...] He denies side effects with past use. Yaya Keller MD Allergies As of Date: 09/02/2023 Noted Allergy Reaction IODINE 08/16/2005 SEAFOOD [Other] 08/16/2005 SHELLFISH 08/16/2005 Date Reviewed: 09/02/2023 Reviewed by: Arti Monahan MA - Fully Assessed Reason for Visit: Cough [28] Cmt: Productive cough, chest congestion x1.5 weeks, STUART Primary Visit Diagnosis:Acute cough [R05.1] Other Visit Diagnosis:Wheezing [R06.2] Order(s):XR CHEST 2V FRONTAL/LAT [4620315] Order #: [id number] FUTURE predniSONE (DELTASONE) 10 mg tabletTake 5 tablets by mouth once daily for 1 day, THEN 4 tablets once daily for 1 day, THEN 3 tablets once daily for 1 day, THEN 2 tablets once daily for 1 day, THEN 1 tablet once daily for 1 day.Disp: 15 tabletRfl: 0 Prescriptions as of 09/02/2023 - buPROPion XL (WELLBUTRIN XL) 300 mg 24 hr tablet Take 1 tablet by mouth every afternoon. - predniSONE (DELTASONE) 10 mg tablet Take 5 tablets by mouth once daily for 1 day, THEN 4 tablets once daily for 1 day, THEN 3 tablets once daily for 1 day, THEN 2 tablets once daily for 1 day, THEN 1 tablet once daily for 1 day. - traZODone (DESYREL) 100 mg tablet Take 100 mg by mouth daily at bedtime. Problem List As Of Date 09/02/2023 Noted Resolved ANXIETY STATE NEC [F41.1] SCIATIC NERVE LESION [G57.00] 08/09/2006 PAIN BACK, LOW [M54.50] 01/22/2007 Cervical radiculopathy [M54.12] 10/06/2011 Lumbar spondylosis [M47.816] 10/06/2011 Prescriptions ordered this encounter Disp Refills Start End PREDNISONE 10 MG TABLET 15 t* 0 09/02/2023 09/07/2023 Route: ORAL Sig: Take 5 tablets by mouth once daily for 1 day, THEN 4 tablets once daily for 1 day, THEN 3 tablets once daily for 1 day, THEN 2 tablets once daily for 1 day, THEN 1 tablet once daily for 1 day. Medications Discontinued During This Encounter Prescriptions - HYDROcodone-acetaminoph en ES (VICODIN ES) 7.5-750 mg per tablet (Discontinued) Reported on 09/02/2023 - nabumetone 750 mg tablet (Discontinued) Reported on 09/02/2023 Encounter Status:Closed by YAYA KELLER on 09/02/23 Normal [place] XR CHEST 2V FRONTAL/LATon XR CHEST 2V FRONTAL/LAT * * *Final Report* * * DATE OF EXAM: Sep 02 2023 9:17AM WOX 5291 - XR CHEST 2V FRONTAL/LAT / PROCEDURE REASON: Acute cough * * * * Physician Interpretation * * * * EXAMINATION: CHEST RADIOGRAPH (2 VIEW FRONTAL and LATERAL) CLINICAL HISTORY: Acute cough MQ: XC2_6 EXAM DATE/TIME: 09/02/2023 9:17 AM COMPARISON: No relevant prior studies available. RESULT: Lines, tubes, and devices: None. Lungs and pleura: There is no focal consolidation, pleural effusion, or pneumothorax. Cardiomediastinal silhouette: Within normal limits. Bones and soft tissues: No acute osseous abnormality is identified. The imaged upper abdomen is within normal limits. IMPRESSION: No acute cardiopulmonary process. Lining Ironer: TOY Transcribe Date/Time: Sep 02 2023 9:19A Dictated by : TIRSO SERRA MD This examination was interpreted and the report reviewed and electronically signed by: TIRSO SERRA MD on Sep 02 2023 9:20AM EST [id number] Normal [facility] XR Chest PA and Lateralon IMPRESSION: No acute cardiopulmonary process. Lining Ironer: PSCB Transcribe Date/Time: Sep 02 2023 9:19A Dictated by : TIRSO SERRA MD This examination was interpreted and the report reviewed and electronically signed by: TIRSO SERRA MD on Sep 02 2023 9:20AM EST DIVISION OF RADIOLOGY * * *Final Report* * * DATE OF EXAM: Sep 02 2023 9:17AM WOX 5291 - XR CHEST 2V FRONTAL/LAT / PROCEDURE REASON: Acute cough * * * * Physician Interpretation * * * * EXAMINATION: CHEST RADIOGRAPH (2 VIEW FRONTAL & LATERAL) CLINICAL HISTORY: Acute cough MQ: XC2_6 EXAM DATE/TIME: 09/02/2023 9:17 AM COMPARISON: No relevant prior studies available. RESULT: Lines, tubes, and devices: None. Lungs and pleura: There is no focal consolidation, pleural effusion, or pneumothorax. Cardiomediastinal silhouette: Within normal limits. Bones and soft tissues: No acute osseous abnormality is identified. The imaged upper abdomen is within normal limits. DIVISION OF RADIOLOGY Provider, [facility] - 09/02/2023 * * *Final Report* * * DATE OF EXAM: Sep 02 2023 9:17AM WOX 5291 - XR CHEST 2V FRONTAL/LAT / PROCEDURE REASON: Acute cough * * * * Physician Interpretation * * * * EXAMINATION: CHEST RADIOGRAPH (2 VIEW FRONTAL & LATERAL) CLINICAL HISTORY: Acute cough MQ: XC2_6 EXAM DATE/TIME: 09/02/2023 9:17 AM COMPARISON: No relevant prior studies available. RESULT: Lines, tubes, and devices: None. Lungs and pleura: There is no focal consolidation, pleural effusion, or pneumothorax. Cardiomediastinal silhouette: Within normal limits. Bones and soft tissues: No acute osseous abnormality is identified. The imaged upper abdomen is within normal limits. IMPRESSION IMPRESSION: No acute cardiopulmonary process. Lining Ironer: TOY Transcribe Date/Time: Sep 02 2023 9:19A Dictated by : TIRSO SERRA MD This examination was interpreted and the report reviewed and electronically signed by: TIRSO SERRA MD on Sep 02 2023 9:20AM EST [facility] Radiology Study observation (narrative) [facility] XR Chest PA and LateralOrder ed By: [facility] Provider on 09-02-2023 [facility] Absolute lymphocyte counton 10-21-2022 Lymphocytes Auto (Unsp spec) [#/Vol] 0.94 10*3/uL 0.83-4.51 [facility] Work Phone: Basophil percentageon 2021 Basophil percentage 0 SEEN /hpf 0-5 [facility] Work Phone: Basophils/100 WBC (Bld) 0.1 % 0-1 [facility] Work Phone: Bilirubin [Mass/Vol] 0.40 mg/dL 0.20-1.00 [facility] Work Phone: Comment on above: For patients on eltr ombopag therapy, use of Dimension [place] TBIL is not recommended. Chloride [Moles/Vol] 106 mmol/L 98-107 [facility] Work Phone: Eosinophils/100 WBC (Bld) 0.4 % 0-5 [facility] Work Phone: Glucose [Mass/Vol] 111 mg/dL 74-106 [facility] Work Phone: Comment on above: Fasting Glucose resu lt from 100 to 125 mg/dL suggests IMPAIRED HOMEOSTASIS per A.D.A. criteria. Lactate [Moles/Vol] 1.9 mmol/L 0.4-2.0 [facility] Work Phone: Neutrophils (Bld) [#/Vol] 7.0 10*3/uL 2.0-7.7 [facility] Work Phone: Neutrophils/100 WBC (Bld) 83.0 % 47-70 [facility] Work Phone: [phone] Potassium [Moles/Vol] 3.4 mmol/L 3.5-5.1 [facility] Work Phone: Protein [Mass/Vol] 7.0 g/dL 6.4-8.2 [facility] Work Phone: Sodium [Moles/Vol] 137 mmol/L 136-145 [facility] Work Phone: [phone] WBC (Bld) [#/Vol] 8.5 10*3/uL 4.4-11.0 [facility] Work Phone: Bilirubin Test strip Ql (U)o n 10-21-2022 Bilirubin Ql (U) Negative Negative [facility] Work Phone: [phone] Blood erythrocytes count (nu mber/volume)on 10-21-2022 RBC (Bld) [#/Vol] 4.56 10*6/uL 4.6-6.2 [facility] Work Phone: Blood hemoglobin measurement (mass/volume)on 10-21-2022 Hemoglobin (Bld) [Mass/Vol] 13.7 g/dL 13.0-16.5 [facility] Work Phone: Blood lymphocytes/100 leukoc yteson 10-21-2022 Lymphocytes/100 WBC (Bld) 11.1 % 19-41 [facility] Work Phone: Blood monocytes/100 leukocyt eson 10-21-2022 Monocytes/100 WBC (Bld) 4.7 % 0-10 [facility] Work Phone: Blood platelet mean volumeon 10-21-2022 Platelet mean volume (Bld) [Entitic vol] 10.9 fL 6.2-12.0 [facility] Work Phone: Determination of erythrocyte mean corpuscular volume (MCV)on 10-21-2022 MCV (RBC) [Entitic vol] 86.8 fL 80-94 [facility] Work Phone: Hematocrit Auto (Bld) [Volum e fraction]on 10-21-2022 Hematocrit (Bld) [Volume fraction] 39.6 % 40-54 [facility] Work Phone: INR in Blood by Coagulation assayon 10-21-2022 INR Coag (Bld) [Relative time] 1.0 {INR} [facility] Work Phone: Ketones Test strip Ql (U)on 10-21-2022 Ketones Ql (U) Negative Negative [facility] Work Phone: Laboratory - Chemistry and C hemistry - challengeon 10-21-2022 ALP [Catalytic activity/Vol] 54 U/L 45-117 [facility] Work Phone: ALT [Catalytic activity/Vol] 17 U/L 16-61 [facility] Work Phone: CK [Catalytic activity/Vol] 77 U/L 39-308 [facility] Work Phone: CO2 [Moles/Vol] 23.0 mmol/L 21.0-32.0 [facility] Work Phone: Globulin (S) [Mass/Vol] 3.3 g/dL 2.2-4.2 [facility] Work Phone: Urea nitrogen/Creatinine [Mass ratio] 18.8 mg/mg 10-20 [facility] Work Phone: Laboratory - Coagulationon 1 12-22-2021 aPTT Coag (Bld) [Time] 26.3 s 24.1-36.2 [facility] Work Phone: PT Coag (PPP) [Time] 12.9 s 11.7-14.9 [facility] Work Phone: Laboratory - Hematology and Cell countson 10-21-2022 Erythrocyte distribution width (RBC) [Entitic vol] 39.3 fL 35.1-43.9 [facility] Work Phone: Erythrocyte distribution width (RBC) [Ratio] 12.2 % 11.6-14.6 [facility] Work Phone: Immature granulocytes/100 WBC (Bld) 0.700 % 0.0-0.9 [facility] Work Phone: Comment on above: IG% - Immature Granu locytes (promyelocytes, myelocytes and metamyelocytes) > 1% indicates that a LEFT SHIFT is Present. MCH (RBC) [Entitic mass] 30.0 pg 27.0-32.0 [facility] Work Phone: Nucleated RBC/100 WBC (Bld) [Ratio] 0 % 0-5 [facility] Work Phone: MCHC Auto (RBC) [Mass/Vol]on 10-21-2022 MCHC (RBC) [Mass/Vol] 34.6 g/dL 32-36 [facility] Work Phone: Mucus LM Ql (Urine sed)on 12 -02-2022 Mucus Ql (Urine sed) 0 SEEN /hpf [facility] Work Phone: Nitrite Test strip Ql (U)on 10-21-2022 Nitrite Ql (U) Negative Negative [facility] Work Phone: No Panel Informationon 10-21 Estimated Creatinine Clearance Calc 64.62 ml/min [facility] Work Phone: Estimated GFR (MDRD) Amer 81 mL/min >60 [facility] Work Phone: Comment on above: GFR Calc Estimated GFR (MDRD) Non-Af Amer 67 mL/min >60 [facility] Work Phone: Comment on above: Non- GFR Calc Troponin I High Sensitivity 4 pg/mL 3.0-78.0 [facility] Work Phone: Comment on above: Please Note: [place] t Units and Gender Specific Reference Ranges. For more information see Policy Stat Procedure [place] High Sensitivity Troponin (TNIH) and attachments. Platelets bldon 10-21-2022 Platelets (Bld) [#/Vol] 148 10*3/uL 150-450 [facility] Work Phone: Protein Test strip Ql (U)on 10-21-2022 Protein Ql (U) 30 mg/dl Negative [facility] Work Phone: Serum or plasma albumin matti urement (mass/volume)on 10-21-2022 Albumin [Mass/Vol] 3.7 g/dL 3.2-5.0 [facility] Work Phone: Serum or plasma albumin/glob ulin mass ratioon 10-21-2022 Albumin/Globulin [Mass ratio] 1.1 {ratio} 0.9-2.4 [facility] Work Phone: Serum or plasma calcium matti urement (mass/volume)on 10-21-2022 Calcium [Mass/Vol] 9.4 mg/dL 8.5-10.1 [facility] Work Phone: Serum or plasma creatinine m easurement (mass/volume)on 10-21-2022 Creatinine [Mass/Vol] 1.17 mg/dL 0.70-1.30 [facility] Work Phone: Comment on above: The validity of the calculated GFR & GFRAA in patients over 70 years has not been determined. Clinical correlation is essential. Serum or plasma urea nitroge n measurement (mass/volume)on 10-21-2022 Urea nitrogen [Mass/Vol] 22 mg/dL 7-18 [facility] Work Phone: Squamous epithelial cells de tection in urine sediment by light microscopyon 10-21-2022 Epithelial cells.squamous LM Ql (Urine sed) 0 SEEN /hpf 0-5 [facility] Work Phone: Thin prep Papanicolaou smear with manual screeningon 10-21-2022 Thin prep Papanicolaou smear with manual screening 11 U/L 15-37 [facility] Work Phone: Thin prep Papanicolaou smear with manual screening 8 5-15 [facility] Work Phone: Urine blood detectionon RBC Ql (U) Negative Negative [facility] Work Phone: RBC Ql (U) 0-5 SEEN /hpf 0-5 [facility] Work Phone: Urine clarityon 10-21-2022 Clarity (U) Clear Clear [facility] Work Phone: Urine color determinationon 10-21-2022 Color (U) Yellow Yellow [facility] Work Phone: Urine glucose detectionon Glucose Ql (U) Normal mg/dl Normal [facility] Work Phone: Urine leukocyte esterase det ection by dipstickon 10-21-2022 Leukocyte esterase Test strip Ql (U) 25 /ul Negative [facility] Work Phone: Urine pHon 10-21-2022 pH (U) 8.0 [pH] 5.0 - 8.0 [facility] Work Phone: Urine sediment bacteria coun t by microscopy (number/high power field)on 10-21-2022 Bacteria LM.HPF (Urine sed) [#/Area] 0 /[HPF] None Seen [facility] Work Phone: Urine specific gravity measu rementon 10-21-2022 Specific gravity (U) [Rel density] 1.010 1.002-1.030 [facility] Work Phone: Urobilinogen Auto test strip Ql (U)on 10-21-2022 Urobilinogen Ql (U) Normal mg/dl Normal [facility] Work Phone: No Panel Informationon 06-24 Prostate Specific Antigen Total 2.63 ng/mL 0.0-4.0 [facility] Work Phone: Comment on above: This test was perfor med using the TPSA assay method for [employer] chemistry system. Values obtained with differentassay methods cannot be used interchangably.When changing PSA assays in the course of monitoring apatient, additional sequential testing should be carriedout to confirm baseline values. EMERGENCY REPORTon 0 EMERGENCY REPORT [facility] EMERGENCY ROOM REPORT NAME ACCOUNT SEX AGE ADMIT DISCHARGE PT MED. RECORD# NUMBER DATE DATE TYPE ENRIQUE OLIVEIRA [id number] M 59 01/15/20 01/15/20 3 R [id number] ROOM: ER DATE OF : 1960 DICTATING PHYSICIAN: Ewa Borden CHIEF COMPLAINT: Left thumb laceration. HISTORY OF PRESENT ILLNESS: A 59-year-old male patient got cut on a table saw this morning. Bleeding if fairly well controlled; it is the distal tip. He says he took a Percocet at home, which he takes for his back. He denies any other injuries, blood clotting disorder or being up-to-date on his tetanus. PAST MEDICAL HISTORY: Chronic back pain. PAST SURGICAL HISTORY: Back surgery. MEDICATIONS: Current medications - see nursing notes. FAMILY HISTORY: Noncontributory. SOCIAL HISTORY: Negative for alcohol, tobacco or illicit drug use. REVIEW OF SYSTEMS: Ten systems reviewed and positive above in HPI. PHYSICAL EXAMINATION: Blood pressure 140/89, pulse 71, respiratory rate 16, temperature 97, O2 sat 97% on room air. Patient is awake, alert, nontoxic. Heart rate and rhythm is regular without murmur, gallop or rub. Lungs are clear to auscultation bilaterally without wheezes, rales or rhonchi. Focus of the physical exam is the left thumb. He completely avulsed the tip of the thumb including at least half of the nail bed. There is no exposed bone. The bleeding is fairly well controlled. He has good sensation and no involvement of the rest of the hand. EMERGENCY DEPARTMENT COURSE AND TREATMENT: I did a digital block, which resolved the pain. Cleaning it, irrigating it, Adaptic, pressure dressing. X-ray to make sure there was no fracture. Antibiotic and will discharge. DIAGNOSIS: Avulsion distal tip of left thumb. PLAN/DISPOSITION: Orthopedic followup in 2-3 days. Return for increasing, worsening or any new symptoms. Dictated By: Ewa Borden DO Page 1 of 2 ENRIQUE OLIVEIRA Emergency Room Report ENRIQUE OLIVEIRA : 1960 01/15/20 07:53 JOB #: [id number] Transcribed By: ching 01/15/20 16:36 Electronically signed by: E-Sign: EWA BORDEN MD 01/16/20 21:17 Page 2 of 2 ENRIQUE OLIVEIRA Emergency Room Report Normal [facility] FINGERS LTon 01-15-2020 [place] [address] Patient: OLIVEIRA, ENRIQUE Doss. Phone#: : 1960 Age: 59 Gender: M Pt. Type: ER Account: [id number] Location: [id number] Ordering: BETTE JENKINS Exam Date: 01/15/2020/8:01 Family Phys: Charge Code: [id number] Physician: [place] Order #: [id number] [facility] Dose#: PROCEDURE: X-RAY FINGER LT MIN 2 VIEWS COMPARISON: None. INDICATIONS: Thumb injury. FINDINGS: BONES: The tip of the tuft of the 1st distal phalanx demonstrates loss of cortical margin and smooth edge, consistent with amputation, seen on the lateral view. SOFT TISSUES: Soft tissue irregularity at the tip of the 1st digit, consistent with laceration. EFFUSION: None visible. OTHER: Negative. CONCLUSION: 1. Soft tissue injury and amputation of the tip of the tuft of the 1st distal phalanx. Dictated by: Ria Mitchell MD on 01/15/2020 at 8:28 Approved by: Ria Mitchell MD on 01/15/2020 at 8:28 Normal [facility] Culture, urine Bacteria identified Cx Nom (U) Culture exhibits no growth. [facility] Work Phone: Influenza virus A and B and SARS-CoV-2 (COVID-19) Ag panel - Upper respiratory specim SARS-CoV-2 (COVID-19) RNA JOSETTE+probe Ql (Resp) [facility] Work Phone: Laboratory - Microbiology an d Antimicrobial susceptibility Bacteria identified Cx Nom (Bld) No growth in 5 days. [facility] Work Phone: Vital Signs Date Time Vital Sign Value Performing Clinician Faci lity 04-09-2025 09:39-0400 Body height 178 cm Alexandrealuke Padilla IGNITION MECHANIC-C Work Phone: [facility] 04-09-2025 09:39-0400 Body mass index (BMI) [Ratio] 35.8 kg/m2 Alexandrealuke Padilla IGNITION MECHANIC-C Work Phone: [facility] 04-09-2025 09:39-0400 Body weight 113.39 kg Alexandrealuke Padilla IGNITION MECHANIC-C Work Phone: [facility] 04-09-2025 09:39-0400 Diastolic blood pressure 90 mm[Hg] Alexandrea Padilla IGNITION MECHANIC-C Work Phone: [facility] 04-09-2025 09:39-0400 Heart rate 59 /min Alexandrea Padilla IGNITION MECHANIC-C Work Phone: [facility] 04-09-2025 09:39-0400 Respiratory rate 16 /min Alexandrea Padilla IGNITION MECHANIC-C Work Phone: [facility] 04-09-2025 09:39-0400 Systolic blood pressure 139 mm[Hg] Alexandrea Padilla IGNITION MECHANIC-C Work Phone: [facility] 01-22-2025 10:42-0500 Body mass index (BMI) [Ratio] 37.6 kg/m2 Alexandrea Padilla IGNITION MECHANIC-C Work Phone: [facility] 01-22-2025 10:42-0500 Body weight 119.29 kg Alexandrea Padilla IGNITION MECHANIC-C Work Phone: [facility] 01-22-2025 10:42-0500 Diastolic blood pressure 71 mm[Hg] Alexandrea Padilla IGNITION MECHANIC-C Work Phone: [facility] 01-22-2025 10:42-0500 Heart rate 79 /min Alexandrea Padilla IGNITION MECHANIC-C Work Phone: [facility] 01-22-2025 10:42-0500 Respiratory rate 20 /min Alexandrea Padilla IGNITION MECHANIC-C Work Phone: [facility] 01-22-2025 10:42-0500 SaO2% (BldA) [Mass fraction] 94 % Alexandrea Padilla IGNITION MECHANIC-C Work Phone: [facility] 01-22-2025 10:42-0500 Systolic blood pressure 145 mm[Hg] Alexandrea Padilla IGNITION MECHANIC-C Work Phone: [facility] 05-31-2024 08:54-0400 Body height 181.6 cm Maryanne Hines MD Work Phone: [facility] 05-31-2024 08:54-0400 Body mass index (BMI) [Ratio] 34.11 kg/m2 Maryanne Hines MD Work Phone: [facility] 05-31-2024 08:54-0400 Body temperature 97.5 [degF] Maryanne Hines MD Work Phone: [facility] 05-31-2024 08:54-0400 Body weight 112.49 kg Maryanne Hines MD Work Phone: [facility] 05-31-2024 08:54-0400 Diastolic blood pressure 82 mm[Hg] Maryanne Hines MD Work Phone: [facility] 05-31-2024 08:54-0400 Heart rate 78 /min Maryanne Hines MD Work Phone: [facility] 05-31-2024 08:54-0400 Respiratory rate 16 /min Maryanne Hines MD Work Phone: [facility] 05-31-2024 08:54-0400 SaO2% (BldA) [Mass fraction] 96 % Maryanne Hines MD Work Phone: [facility] 05-31-2024 08:54-0400 Systolic blood pressure 138 mm[Hg] Maryanne Hines MD Work Phone: [facility] 05-20-2024 10:05-0400 Body height 179.6 cm Pulm Wstr Work Phone: [facility] 05-20-2024 10:05-0400 Body mass index (BMI) [Ratio] 33.19 kg/m2 Pulm Wstr Work Phone: [facility] 05-20-2024 10:05-0400 Body weight 107.05 kg Pulm Wstr Work Phone: [facility] 05-20-2024 10:05-0400 Heart rate 79 /min Pulm Wstr Work Phone: [facility] 05-20-2024 10:05-0400 Respiratory rate 15 /min Pulm Wstr Work Phone: [facility] 05-20-2024 10:05-0400 SaO2% (BldA) [Mass fraction] 97 % Pulm Wstr Work Phone: [facility] 03-18-2024 13:30-0400 Body temperature 97.2 [degF] Dr. Jorge Benitez Work Phone: [facility] 03-18-2024 13:30-0400 Diastolic blood pressure 74 mm[Hg] Dr. Jorge Benitez Work Phone: [facility] 03-18-2024 13:30-0400 Heart rate 59 /min Dr. Jorge Benitez Work Phone: [facility] 03-18-2024 13:30-0400 Respiratory rate 16 /min Dr. Jorge Benitez Work Phone: [facility] 03-18-2024 13:30-0400 SaO2% (BldA) [Mass fraction] 96 % Dr. Jorge Benitez Work Phone: [facility] 03-18-2024 13:30-0400 Systolic blood pressure 124 mm[Hg] Dr. Jorge Benitez Work Phone: 0(008)099-310444 [address] 03-18-2024 11:58-0400 Body height 177.[address] Jorge Bneitez Work Phone: 5(783)749-241624 [place] [address] 03-18-2024 11:58-0400 Body mass index (BMI) [Ratio] 31.7 kg/m2 Dr. Jorge Benitez Work Phone: 8(396)[phone] [place] [address] 03-18-2024 11:58-0400 Body weight 100.[address] Jorge Benitez Work Phone: 9(164)858-846044 [address] 03-08-2024 13:19-0400 Body mass index (BMI) [Ratio] 31.4 kg/m2 Dr. Jorge Benitez Work Phone: 4(515)248-498024 [place] [address] 03-08-2024 13:19-0400 Body weight 100.[address] Jorge Benitez Work Phone: [facility] 12-27-2023 11:19-0500 Body mass index (BMI) [Ratio] 31.2 kg/m2 Dr. Jorge Benitez Work Phone: [facility] 12-27-2023 11:19-0500 Body weight 101.[address] Jorge Benitez Work Phone: [facility] 12-27-2023 11:19-0500 Diastolic blood pressure 64 mm[Hg] Dr. Jorge Benitez Work Phone: 5(887)790-994224 [place] [address] 12-27-2023 11:19-0500 Heart rate 64 /min Dr. Jorge Benitez Work Phone: [facility] 12-27-2023 11:19-0500 Respiratory rate 18 /min Dr. Jorge Benitez Work Phone: [facility] 12-27-2023 11:19-0500 Systolic blood pressure 115 mm[Hg] Dr. Jorge Benitez Work Phone: [facility] 12-14-2023 08:02-0500 Heart rate 65 /min Dr. Jorge Benitez Work Phone: [facility] 12-14-2023 07:56-0500 Body temperature 97 [degF] Dr. Jorge Benitez Work Phone: [facility] 12-14-2023 07:56-0500 Diastolic blood pressure 78 mm[Hg] Dr. Jorge Benitez Work Phone: [facility] 12-14-2023 07:56-0500 Respiratory rate 16 /min Dr. Jorge Benitez Work Phone: [facility] 12-14-2023 07:56-0500 SaO2% (BldA) [Mass fraction] 97 % Dr. Jorge Benitez Work Phone: [facility] 12-14-2023 07:56-0500 Systolic blood pressure 112 mm[Hg] Dr. Jorge Benitez Work Phone: [facility] 12-12-2023 15:39-0500 Body height 180.[address] Jorge Benitez Work Phone: [facility] 12-12-2023 15:39-0500 Body mass index (BMI) [Ratio] 31 kg/m2 Dr. Jorge Benitez Work Phone: [facility] 12-12-2023 15:39-0500 Body weight [address] Jorge Benitez Work Phone: [facility] 12-12-2023 14:12-0500 Diastolic blood pressure 87 mm[Hg] [facility] 12-12-2023 14:12-0500 Heart rate 66 /min [facility] 12-12-2023 14:12-0500 Respiratory rate 18 /min [facility] 12-12-2023 14:12-0500 SaO2% (BldA) [Mass fraction] 99 % [facility] 12-12-2023 14:12-0500 Systolic blood pressure 154 mm[Hg] [facility] 12-12-2023 11:59-0500 Body height 180.[address] [facility] 12-12-2023 11:59-0500 Body mass index (BMI) [Ratio] 31.8 kg/m2 [facility] 12-12-2023 11:59-0500 Body temperature 98.2 [degF] [facility] 12-12-2023 11:59-0500 Body weight 103.[address] [facility] 10-17-2023 10:37-0500 Body temperature 97.2 [degF] Jacques Lyons APRN.[employer] Work Phone: [facility] 10-17-2023 10:37-0500 Body weight 101.61 kg Jacques Lyons APRN.[employer] Work Phone: [facility] 10-17-2023 10:37-0500 Diastolic blood pressure 74 mm[Hg] Jacques Lyons APRN.[employer] Work Phone: [facility] 10-17-2023 10:37-0500 Heart rate 70 /min Jacques Lyons APRN.[employer] Work Phone: [facility] 10-17-2023 10:37-0500 Respiratory rate 16 /min Jacques Lyons APRN.[employer] Work Phone: [facility] 10-17-2023 10:37-0500 SaO2% (BldA) [Mass fraction] 96 % Jacques Lyons APRN.[employer] Work Phone: [facility] 10-17-2023 10:37-0500 Systolic blood pressure 124 mm[Hg] Jacques Lyons APRN.[employer] Work Phone: [facility] 09-02-2023 08:54-0400 Body temperature 97.5 [degF] Yaya Keller MD Work Phone: [facility] 09-02-2023 08:54-0400 Body weight 98.97 kg Yaya Keller MD Work Phone: [facility] 09-02-2023 08:54-0400 Diastolic blood pressure 64 mm[Hg] Yaya Keller MD Work Phone: [facility] 09-02-2023 08:54-0400 Heart rate 79 /min Yaya Keller MD Work Phone: [facility] 09-02-2023 08:54-0400 Respiratory rate 18 /min Yaya Keller MD Work Phone: [facility] 09-02-2023 08:54-0400 SaO2% (BldA) [Mass fraction] 96 % Yaya Keller MD Work Phone: [facility] 09-02-2023 08:54-0400 Systolic blood pressure 107 mm[Hg] Yaya Keller MD Work Phone: [facility] 10-22-2022 01:37-0500 Diastolic blood pressure 59 mm[Hg] [facility] Work Phone: 10-22-2022 01:37-0500 Heart rate 94 /min [facility] Work Phone: 10-22-2022 01:37-0500 Respiratory rate 22 /min [facility] Work Phone: 10-22-2022 01:37-0500 SaO2% (BldA) [Mass fraction] 94 % [facility] Work Phone: 10-22-2022 01:37-0500 Systolic blood pressure 100 mm[Hg] [facility] Work Phone: 10-22-2022 01:00-0500 Body temperature 99.1 [degF] [facility] Work Phone: 10-21-2022 21:41-0500 Body height 175.[address] [facility] Work Phone: 10-21-2022 21:41-0500 Body mass index (BMI) [Ratio] 30.4 kg/m2 [facility] Work Phone: 10-21-2022 21:41-0500 Body weight 93.[address] [facility] Work Phone: Encounters Encounter Date Encounter Type Care Provider Facility Start: 04-18-2025 Non-patient / Non-visit Dr. Gareth fernandez MD -[facility] Start: 04-18-2025 End: 04-18-2025 ambulatory Alexandrea Padilla IGNITION MECHANIC-C Work Phone: [facility] Work Phone: Start: 04-18-2025 End: 04-18-2025 Patient encounter procedure Oriana THORPE -[facility] Work Phone: Start: 04-18-2025 End: 04-18-2025 ambulatory Oriana THORPE Facility:[facility] Start: 04-09-2025 End: 04-09-2025 Patient encounter procedure Oriana THORPE -[facility] Work Phone: Start: 04-09-2025 End: 04-09-2025 ambulatory Alexandrea Padilla IGNITION MECHANIC-C Work Phone: [facility] Work Phone: Start: 01-22-2025 End: 01-22-2025 Patient encounter procedure Oriana THORPE -[facility] Work Phone: Start: 01-22-2025 End: 01-22-2025 ambulatory Oriana THORPE Facility:[facility] Start: 08-01-2024 End: 08-01-2024 ambulatory Alexandrea Padilla NP Facility:[facility] Start: 06-07-2024 Telephone encounter Earnestine Almonte RN [facility] Start: 05-31-2024 End: 05-31-2024 ambulatory MARYANNE HINES Facility:[facility] Start: 05-31-2024 End: 05-31-2024 Office outpatient visit 40 minutes Maryanne Hines MD Work Phone: Pulmonary Medicine Comment on above: Acute eosinophilic p neumonia (Primary Dx); Lung nodule; High risk medication use Start: 05-24-2024 Telephone encounter Alcira horan MD Work Phone: Pulmonary Medicine Comment on above: Patient Question Start: 05-20-2024 End: 05-20-2024 Patient encounter procedure [facility] Work Phone: [facility] Start: 05-20-2024 End: 05-20-2024 ambulatory [facility] Work Phone: [facility] Comment on above: Spirometry Start: 05-20-2024 End: 05-20-2024 [facility] Work Phone: Cat Scan Comment on above: 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 Maurilio Benitez Work Phone: [facility] Start: 03-18-2024 End: 03-18-2024 Admission to same day surgery center Dr. Jorge Benitez Work Phone: [facility] Work Phone: Start: 03-18-2024 End: 03-18-[address] Jorge Benitez Work Phone: [facility] Work Phone: Start: 03-08-2024 Non-patient / Non-visit Dr. Maurilio Benitez Work Phone: [facility] Work Phone: Start: 12-27-2023 End: 12-27-[address] Jorge Benitez Work Phone: [facility] Work Phone: Start: 12-14-2023 Non-patient / Non-visit Dr. Maurilio Benitez Work Phone: [facility] Work Phone: Start: 12-13-2023 End: 12-14-2023 Evaluation and management of inpatient [facility]. Jorge [facility] Work [facility]: Start: 12-13-2023 Non-patient / Non-visit Dr. Maurilio Benitez Work Phone: [facility] Work Phone: Start: 12-12-2023 Non-patient / Non-visit Dr. Maurilio Benitez Work Phone: [facility] Start: 12-12-2023 [facility] Work [facility]: Start: 12-12-2023 Non-patient / Non-visit Dr. Maurilio Benitez Work Phone: [facility] Work Phone: Start: 12-12-2023 observation encounter [facility] Work Phone: Start: 11-08-2023 End: 11-08-2023 Patient encounter procedure [facility] Work Phone: Start: 10-17-2023 End: 10-17-2023 ambulatory LC BROWN Facility:[facility] Start: 10-17-2023 End: 10-17-2023 Patient encounter procedure Jacques Lyons APRN.CNP Work Phone: [facility] Comment on above: Rhinosinusitis (Prim shannon Dx) Start: 09-02-2023 End: 09-02-2023 Subsequent hospital visit by physician [facility] Work Phone: Radiology Comment on above: Acute cough [R05.1] Start: 09-02-2023 End: 09-02-2023 ambulatory YAYA KELLER Facility:[facility] Start: 09-02-2023 End: 09-02-2023 Patient encounter procedure Yaya Keller MD Work Phone: [facility] Comment on above: Acute cough (Primary Dx); Wheezing Start: 11-23-2022 End: 11-23-2022 ambulatory [facility] Work Phone: Start: 11-23-2022 End: 11-23-2022 [facility] Start: 10-21-2022 End: 10-22-2022 Emergency department patient visit [facility] Start: 2022 End: 2022 Patient encounter [facility] Start: 01-15-2020 End: 01-15-2020 Emergency department patient visit [facility] Procedures Date Procedure Procedure Detail Performing Clinician Start: 01-22-2025 Evaluation of diagno stic study results Alexandrea Padilla IGNITION MECHANIC-C Work Phone: Start: 05-20-2024 Brncdilat rspse spmt ry pre&post-brncdilat admn Sakina Piper MD Work Phone: Start: 05-20-2024 Ct thorax w/o contra st material Sakina Piper MD Work Phone: Start: 03-18-[address] Jorge ramirez Work Phone: Start: 12-12-[address] Maurilio Benitez Work Phone: Start: 12-12-2023 Plain chest X-ray Start: 09-02-2023 Radiologic exam ches t 2 views Yaya Keller MD Work Phone: Start: 11-23-2022 Plain chest X-ray Start: 10-21-2022 Plain chest X-ray Start: 08-04-2010 Colonoscopy Yaya austin MD Work Phone: Start: 02-15-2007 Lipid 1996 panel - S kaycee or Plasma Yaya Keller MD Work Phone: Bacteria identified in Blood by Culture SARS-CoV-2 & FLU Ant igen (Rapid) Urine culture Plan of Treatment Date Care Activity Detail Author Start: 04-15-2027 Diabetes Screening Diabetes Screenin g [facility] Start: 07-21-2024 Covid-19 Vaccine ( season) Covid-19 Vaccine ( season) [facility] Start: 07-21-2024 Influenza vaccination Influenza Vacc ine (#1) [facility] Start: 07-19-2024 End: 07-19-2024 Patient encounter procedure 07/19/2024 8:00 AM EDT Office Visit Pulmonary Medicine [address] [place] [address] Bina Duff MD [address] [place] [address] follow up with provider Pulmonary Medicine Comment on above: follow up with kate walker Start: 2024 Advance Directive Discussion Advance Directive Discussion [facility] Start: 2024 Pneumococcal Vaccine : 65+ (1 of 1 - PCV) Pneumococcal Vaccine: 65+ (1 of 1 - PCV) [facility] Start: 05-20-2024 End: 05-20-2024 ambulatory [facility] Comment on above: 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] Start: 05-20-2024 End: 05-20-2024 Patient encounter procedure 05/20/2024 9:00 AM EDT Appointment Cat Scan [address] [place] [address] Eosinophilic pneumonia (HCC) [J82.81] Cat Scan Comment on above: 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] Start: 05-19-2024 End: 05-19-2025 CT Chest WO contrast CT CHEST WO IVCON Radiology Routine Eosinophilic pneumonia (HCC) Interstitial pulmonary disease (HCC) Expected: 05/19/2024, Expires: 05/19/2025 [facility] Comment on above: Expected: 05/19/2024 , Expires: 05/19/2025 Start: 04-22-2024 End: 04-22-2024 Patient encounter procedure 04/22/2024 2:00 PM EDT Office [place] [address] Self pay [employer] Comment on above: Self pay Start: 03-18-2024 Patient discharge [facility] Start: 12-14-2023 Patient discharge [facility] Start: 12-13-2023 Admission procedure [facility] Start: 12-13-2023 Notification of physician [facility] Start: 12-13-2023 Patient education [facility] Start: 12-13-2023 Provision of activit y privileges [facility] Start: 12-13-2023 Pulse taking [facility] Start: 12-13-2023 Taking patient vital signs [facility] Start: 12-13-2023 Wound care [facility] Start: 12-13-2023 [facility] Start: 12-12-2023 Preoperative care [facility] Start: 12-12-2023 Catheterization of vein [facility] Start: 12-12-2023 Medication not administered [facility] Start: 12-12-2023 End: 12-12-2023 Notification of physician [facility] Start: 12-12-2023 End: 12-12-2023 [facility] Start: 12-12-2023 Following clinical pathway protocol [facility] Start: 12-12-2023 Ambulation without limitation [facility] Start: 12-12-2023 Assessment of risk o f venous thromboembolism [facility] Start: 12-12-2023 Insertion of cathete r into peripheral vein [facility] Start: 12-12-2023 Oxygen therapy [facility] Start: 12-12-2023 Providing care accor ding to standard [facility] Start: 12-12-2023 [facility] Start: 12-12-2023 Referral to manager chinese [facility] Start: 12-12-2023 Verification routine [facility] Start: 12-12-2023 Admission procedure [facility] Start: 12-12-2023 Hospital admission, emergency, from emergency room, medical nature [facility] Start: 12-12-2023 [facility] Start: 11-20-2023 Behavioral Health Screening Behavioral Health Screening [facility] Start: 07-21-2023 Covid-19 Vaccine ( season) Covid-19 Vaccine () [facility] Start: 07-21-2023 Influenza vaccination Influenza Vacc ine (#1) [facility] Start: 11-20-2022 Depression Assessment Depression Ass essment [facility] Start: 10-21-2022 [facility] Work Phone: Start: 10-21-2022 End: 10-21-2022 Blood culture [facility] Work Phone: Start: 10-21-2022 [facility] Work Phone: Start: 08-04-2020 Colonoscopy Colonoscopy [facility] Start: 08-04-2020 Colorectal Cancer Screening Colorectal Cancer Screening [facility] Start: 08-04-2020 Screening for malign ant neoplasm of colon [facility] Start: 2019 RSV Vaccine (1 - 1-d ose 60+ series) RSV Vaccine (1 - 1-dose 60+ series) [facility] Start: 2014 Prostate Cancer Scre ening Discussion Prostate Cancer Screening Discussion [facility] Start: 2014 Prostate specific an tigen measurement Prostate Cancer Screening Discussion [facility] Start: 02-16-2012 Lipid 1996 panel - S kaycee or Plasma Lipid Screening [facility] Start: 02-16-2012 Lipid panel Lipid Screening [facility] Start: 02-15-2010 Diabetes Screening Diabetes Screenin g [facility] Start: 2009 Shingrix Vaccine (1 of 2) Edmondson grix Vaccine (1 of 2) [facility] Start: 2004 Cologuard (FIT-DNA) Cologuard (FIT-D NA) [facility] Start: [address] Colonography [facility] Start: 2004 Fecal Occult Blood Fecal Occult Bloo d [facility] Start: 2004 Screening for malign ant [facility] [facility] Start: 2004 Sigmoidoscopy Sigmoidoscopy [facility] Start: 07-30-2002 Urine microalbumin profile DTaP,Tdap,Td Vaccine (1 - Tdap) [facility] Start: 1977 Depression Screening Depression Scre ening [facility] Start: 1977 Hepatitis C Screening Hepatitis C [facility] Start: 1977 Hepatitis C screening Hepatitis C [facility] Start: 1977 HIV Screening HIV Screening [facility] Start: 1977 HIV screening HIV Screening [facility] Start: 1959 Covid-19 Vaccine (#1) Covid-19 Vacci ne (#1) [facility] Start: 1959 Abdominal aortic ane urysm screening Abdominal Aortic Aneurysm Screening [facility] Ankle brachial press ure index [facility] Bacteria identified in Blood by Culture Blood Culture [facility] Work Phone: Bacteria identified in Urine by Culture Urine Culture [facility] Work Phone: Blood culture [facility] Work Phone: Colonoscopy [facility] End: 05-19-2025 LUNG DIFFUSION CAPACITY (DLCO) LUNG DIFFUSION CAPACITY (DLCO) PFT Routine Eosinophilic pneumonia (HCC) 1 Occurrences starting 04/19/2024 until 05/19/2025 [facility] Comment on above: 1 Occurrences starti ng 04/19/2024 until 05/19/2025 End: 05-19-2025 LUNG VOLUMES LUNG VOLUMES PFT Routine Eosinophilic pneumonia (HCC) 1 Occurrences starting 04/19/2024 until 05/19/2025 [facility] Comment on above: 1 Occurrences starti ng 04/19/2024 until 05/19/2025 Patient Education ED Fever Contr ol (Adult) ED Pneumonia (Adult) [facility] Work Phone: Patient referral [facility] Work Phone: End: 05-19-2025 SPIROMETRY - BASELINE AND POST DILATOR SPIROMETRY - BASELINE AND POST DILATOR PFT Routine Eosinophilic pneumonia (HCC) 1 Occurrences starting 04/19/2024 until 05/19/2025 [facility] Work Phone: Comment on above: 1 Occurrences starti ng 04/19/2024 until 05/19/2025 [facility] Work Phone: Immunizations Immunization Date Immunization Notes Care Provider Julieta celestin 11-08-2023 influenza virus vaccine, unspecified formulation Pulm Wstr Work Phone: [facility] 07-29-2002 tetanus and diphther ia toxoids, adsorbed, preservative free, for adult use (2 Lf of tetanus toxoid and 2 Lf of diphtheria toxoid) Yaya Keller MD Work Phone: [facility] Work Phone: Payers Date Payer Category Payer Unknown [id number] 2025 Unknown [id number] 2024 Self-pay [id number] Unknown [id number] Unknown [id number] Unknown [id number] [id number] [id number] Unknown [id number] [id number] [id number] Unknown [id number] [id number] [id number] Social History Date Type Detail Facility Start: 01-15-2021 End: 03-18-2024 Tobacco smoking status ORIS Unknown if ever smoked [facility] Start: 01-10-2022 Rare [facility] Start: 01-10-2022 None [facility] Start: 01-15-2021 Non-smoker [facility] Start: 1960 Sex Assigned At Male [facility] Start: 09-02-2023 End: 04-13-2024 Tobacco smoking status NHIS Ex-smoker [facility] Start: 10-06-1986 End: 10-06-1991 History of tobacco use Current smoker [facility] Start: 10-06-1986 End: 10-06-1991 History of tobacco use Cigarette Smoker [facility] Start: 09-02-2023 End: 05-31-2024 Cigarettes smoked current (pack per day) - Reported 1.5 [facility] Start: 09-02-2023 Tobacco use and exposure User of smokeless tobacco [facility] End: 04-20-2010 History of tobacco use Chews Tobacco [facility] Start: 09-02-2023 End: 05-31-2024 Alcohol intake Current non-drinker of alcohol (finding) [facility] Start: 09-02-2023 End: 05-31-2024 Tobacco use panel [facility] Start: 09-02-2023 Tobacco Comment 1 can per week [facility] Start: 1960 Sex Assigned At Not on file C [facility] National Score (1-10 0), lower number is lower risk 32 [facility] Goals Date Patient Goal Desired Activity /State Functional Status Date Assessment Result Facility 12-14-2023 Functional status Ambulates;Up ad mandeep [facility] Work Phone: Mental Status Date Assessment Result Facility 03-18-2024 Cognitive function Voice/Name [facility] Work Phone: 12-14-2023 Cognitive function Voice/Name [facility] Work Phone: 12-12-2023 Cognitive function Level Of Cons ciousness Awake;Alert;Appropriate;Follow s Commands [facility] Work Phone: 10-22-2022 Cognitive function Level Of Cons ciousness Awake;Alert [facility] Work Phone: Clinical Notes 09-02-2023 to 01-22-2025 Note Date & Type Note Facility 01-22-2025 Evaluation note Diagnosis Onset Date Resolution Coronary artery arteriosclerosis acute January 22, 2025 10:38am Essential hypertension acute [facility] 2024 10:38am Hx of hypercholesterolemia acute January 22, 2025 10:38am Coronary artery arteriosclerosis acute April 09, 2025 9:26am Essential hypertension acute [place] 2024 9:26am Hx of hypercholesterolemia acute April 09, 2025 9:26am [facility] Work Phone: [phone]) [id number] Evaluation note* Diagnosis Onset Date Resolution Status Admit Date Coronary artery arteriosclerosis acu te January 22, 2025 10:38am Essential hypertension acute [facility] 2024 10:38am Hx of hypercholesterolemia acute January 22, 2025 10:38am Coronary artery arteriosclerosis acu te April 09, 2025 9:26am Decreased dorsalis pedis pulse acute April 09, 2025 9:26am Essential hypertension acute 2024 9:26am Hx of hypercholesterolemia acute April 09, 2025 9:26am [facility] Work Phone: 1(847) 690-313807-19-2024 Telephone encounter Note* Telephone Encounter - Earnestine Almonte RN - 06/07/2024 2:17 PM EDTSummary: Pt education folder 06/07/2024: 1421: Pt education sent to his residence on eosinophilic pneumonia and prednisone. Nursetriage phone number included in case pt has questions. Earnestine Almonte RN [facility]07-19-2024 Miscellaneous Notes* Telephone Encounter - Earnestine Almonte RN - 06/07/2024 2:17 PM EDTSummary: Pt education folder 06/07/2024: 1421: Pt education sent to his residence on eosinophilic pneumonia and prednisone. Nursetriage phone number included in case pt has questions. Earnestine Almonte RN documented in [facility] NoteHNO ID: [id number] Author: MARYANNE HINES MD Service: ? Author Type: Physician Type: Progress Notes Filed: 05/31/2024 09:51 Note Text: Pulmonary Medicine NEW INTERSTITIAL LUNG DISEASE OUTPATIENT CONSULTATION Referring Physician: Self Date of service: 05/31/24 History of Present Illness: 63M here for ILD evaluation. PMHx of CAD, HTN, HLD, multiple prior back surgeries, and current tobacco. Recent hospitalization for dyspnea, fevers, chills, non-productive cough and fatigue of several days. Patient has been requiring anywhere from 2 to 4L NC while admitted. CT chest with diffuse ground glass opacities bilaterally with an UL predominance. Labs have not revealed an infectious agent and have shown elevated inflammatory markers with peripheral eosinophilia. Bronch, BAL: 04/17/2024 with negative cultures to date, but findings showing elevated eosinophils on BAL (28%). He was treated for acute eosinophilic pneumonia. The patient was started on steroids on 04/18 with complete resolution of symptoms and improvement in oxygen requirements to room air. Rpt CT chest May 2024 show resolution of GGO He returns reporting improved dyspnea but is noticing increasing fatigue, 30lbs wt gain and bilateral mild LE edema. He is taking pred 40 (started this week) after being on 60mg/d for several weeks. He is taking bactrim MWT. Percipitant; saw dust, varnish spray, paint spray in confined space as hobby; no respirator use. 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 He admits lapse of PPE use at home. He quit smoking after hospitalization. mMRC: Date mMRC 05/31/24 1 Review of Systems: All other systems reviewed and are negative (except as per HPI). Past Medical AND Surgical History: PAST MEDICAL HISTORY Diagnosis Date Lumbago Other [...] surgery PAST SURGICAL HISTORY OF ear surgery Social History: Smoking history: reports that he quit smoking about 32 years ago. His smoking use included cigarettes. He has a 7.5 pack-year smoking history. His smokeless tobacco use includes chew. Drug Use: No Family History: FAMILY HISTORY Problem Relation Age of Onset Cancer Father skin cancer Stroke Maternal Grandfather Colon Cancer Other SEVERAL COUSINS Cancer Son leukemia Medications: Current Outpatient Medications Medication Sig acetaminophen (TYLENOL) 500 mg tablet Take 2 tablets by mouth every 6 hours as needed for pain. polyethylene glycol 3350 17 gram packet Take 1 Packet by mouth two times a day as needed for constipation. Dissolve dose in 4 - 8 ounces of liquid and take as directed. senna (SENOKOT) 8.6 mg tab Take 2 tablets by mouth two times a day as needed for constipation. albuterol HFA (PROVENTIL HFA, VENTOLIN HFA) 90 mcg/actuation inhaler Inhale 2 Puffs as instructed every 6 hours as needed for wheezing/shortness of breath. cyclobenzaprine (FLEXERIL) 5 mg tablet Take 1 tablet by mouth three times a day as needed. pantoprazole DR (PROTONIX) 20 mg tablet Take 1 tablet by mouth daily before breakfast. Take 45-60 minutes before breakfast rosuvastatin (CRESTOR) 20 mg tablet Take 1 tablet by mouth every afternoon. buPROPion XL (WELLBUTRIN XL) 300 mg 24 hr tablet Take 300 mg by mouth daily at bedtime. traZODone (DESYREL) 100 mg tablet Take 100 mg by mouth daily at bedtime. predniSONE (DELTASONE) 5 mg tablet Take 8 tablets by mouth once daily for 14 days, THEN 7 tablets once daily for 14 days, THEN 6 tablets once daily for 14 days, THEN 5 tablets once daily for 14 days, THEN 4 tablets once daily for 14 days, THEN 3 tablets once daily for 14 days, THEN 2 tablets once daily for 14 days, THEN 1 tablet once daily for 14 days. sulfamethoxazole-trimethoprim (BACTRIM DS) 800-160 mg per tablet Take 1 tablet by mouth every Monday, Monday, and Monday. No current facility-administered medications for this visit. Physical Examination: Vital Signs: Blood pressure 138/82, pulse 78, temperature 36.4 ?C (97.5 ?F), temperature source Temporal Artery, resp. rate 16, height 181.6 cm (5' 11.5), weight 112.5 kg (248 lb), SpO2 96%. General: The patient appears in no acute distress. Alert and oriented to person, place, time, and situation. Calm and cooperative with physical exam. HEENT: Normocephalic, normal conjunctiva, moist oral mucosa, PERRL, nares patent, good dentition, appropriate rise and fall of uvula and soft palate Neck: TM No JVD Ch (more content not included)...[place]07-12-2024 History of Present illness Narrative* Maryanne Hines MD - 05/31/2024 8:46 AM EDT Images from the original note were not included. Pulmonary Medicine NEW INTERSTITIAL LUNG DISEASE OUTPATIENT CONSULTATION Referring Physician: Self Date of service: 05/31/24 History of Present Illness: 63M here for ILD evaluation. PMHx of CAD, HTN, HLD, multiple prior back surgeries, and current tobacco. Recent hospitalization for dyspnea, fevers, chills, non-productive cough and fatigue of several days. Patient has been requiring anywhere from 2 to 4L NC while admitted. CT chest with diffuse ground glass opacities bilaterally with an UL predominance. Labs have not revealed an infectious agent and have shown elevated inflammatory markers with peripheral eosinophilia.Bronch, BAL: 04/17/2024 with negative cultures to date, but findings showing elevated eosinophils onBAL (28%). He was treated for acute eosinophilic pneumonia. The patient was started on steroids on 04/18 with complete resolution of symptoms and improvement in oxygen requirements to room air. Rpt CT chest May2024 show resolution of GGO He returns reporting improved dyspnea but is noticing increasing fatigue, 30lbs wt gain and bilateral mild LE edema. He is taking pred 40 (started this week) after being on 60mg/d for several weeks. He is taking bactrim MWT. Percipitant; saw dust, varnish spray, paint spray in confined space as hobby; no respirator use. 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 He admits lapse of PPE use at home. He quit smoking after hospitalization. mMRC: Date mMRC 05/31/24 1 Review of Systems: All other systems reviewed and are negative (except as per HPI). Past Medical & Surgical History: PAST MEDICAL HISTORY Diagnosis Date Lumbago Other [...] surgery PAST SURGICAL HISTORY OF ear surgery Social History: Smoking history: reports that he quit smoking about 32 years ago. His smoking use included cigarettes. He has a 7.5 pack-year smoking history. His smokeless tobacco use includes chew. Drug Use: No Family History: FAMILY HISTORY Problem Relation Age of Onset Cancer Father skin cancer Stroke Maternal Grandfather Colon Cancer Other SEVERAL COUSINS Cancer Son leukemia Medications: Current Outpatient Medications Medication Sig acetaminophen (TYLENOL) 500 mg tablet Take 2 tablets by mouth every 6 hours as needed for pain. polyethylene glycol 3350 17 gram packet Take 1 Packet by mouth two times a day as needed for constipation. Dissolve dose in 4 - 8 ounces of liquid and take as directed. senna (SENOKOT) 8.6 mg tab Take 2 tablets by mouth two times a day as needed for constipation. albuterol HFA (PROVENTIL HFA, VENTOLIN HFA) 90 mcg/actuation inhaler Inhale 2 Puffs as instructed every 6 hours as needed for wheezing/shortness of breath. cyclobenzaprine (FLEXERIL) 5 mg tablet Take 1 tablet by mouth three times a day as needed. pantoprazole DR (PROTONIX) 20 mg tablet Take 1 tablet by mouth daily before breakfast. Take 45-60 minutes before breakfast rosuvastatin (CRESTOR) 20 mg tablet Take 1 tablet by mouth every afternoon. buPROPion XL (WELLBUTRIN XL) 300 mg 24 hr tablet Take 300 mg by mouth daily at bedtime. traZODone (DESYREL) 100 mg tablet Take 100 mg by mouth daily at bedtime. predniSONE (DELTASONE) 5 mg tablet Take 8 tablets by mouth once daily for 14 days, THEN 7 tablets once daily for 14 days, THEN 6 tablets once daily for 14 days, THEN 5 tablets once daily for 14 days,THEN 4 tablets once daily for 14 days, THEN 3 tablets once daily for 14 days, THEN 2 tablets once daily for 14 days, THEN 1 tablet once daily for 14 days. sulfamethoxazole-trimethoprim (BACTRIM DS) 800-160 mg per tablet Take 1 tablet by mouth every Monday, Monday, and Monday. No current facility-administered medications for this visit. Physical Examination: Vital Signs: Blood pressure 138/82, pulse 78, temperature 36.4 C (97.5 F), temperature source Temporal Artery, resp. rate 16, height 181.6 cm (5' 11.5), weight 112.5 kg (248 lb), SpO2 96%. General: The patient appears in no acute distress. Alert and oriented to person, place, time, and situation. Calm and cooperative with physical exam. HEENT: Normocephalic, normal conjunctiva, moist oral mucosa, PERRL, nares patent, good dentition, appropriate rise and fall of uvula and soft palate Neck: TM No JVD Chest: Clear to auscultation bilaterally, No wheezing, rhonchi, or rales. Normal work of breathing Cardiac: Regular rhythm, normal rate, S1S2 auscultated Abdomen: Soft, non-tender, non-distended, positive bowel sounds in all four quadrants Skin: No rashes, open wounds, or bruising. Warm, dry, well-perfused. Extremities: +1 edema, no cyanosis Neuro: Grossly moving all 4 limbs Psych: Mood stable. Review of Data: Reviewed in EMR and interpreted by myself CT: 05/20/24 IMPRESSION: 1. Interval resolution of the bilateral ground-glass opacities associated with septal thickening present on the prior chest CT from 04/14/2024.. These findings were compatible with eosinophilic pneumonia given the findings on interval bronchoscopy. 2. No CT evidence of fibrotic interstitial lung disease. 3. A few small (less than 5 mm) pulmonary nodules are unchanged since 04/14/2024 although a 2 mm left lower lobe pulmonary nodule was likely obscured by atelectasis on the prior exam. These nodules are likely benign given small size. A follow-up chest CT could be obtained in one year if there are risk factors for lung malignancy. 4. Mediastinal lymph nodes which were borderline enlarged on the prior chest CT have decreased in size in the interval, and were likely reactive. 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 PMHx of CAD, HTN, HLD, multiple prior back surgeries, and current tobacco. Recent hospitalization for dyspnea, fevers, chills, non-productive cough and fatigue of several days. Patient has been requiring anywhere from 2 to 4L NC while admitted. CT chest with diffuse ground glass opacities bilaterally with an UL predominance. Labs have not revealed an infectious agent and have shown elevated inflammatory markers with peripheral eosinophilia.Bronch, BAL: 04/17/2024 with negative cultures to date, but findings showing elevated eosinophils onBAL (28%). He was treated for acute eosinophilic pneumonia. The patient was started on steroids on 04/18 with complete resolution of symptoms and improvement in oxygen requirements to room air. Rpt CT chest May2024 show resolution of GGO He returns reporting improved dyspnea but is noticing increasing fatigue, 30lbs wt gain and bilateral mild LE edema. He is taking pred 40 (started this week) after being on 60mg/d for several weeks. He is taking bactrim MWT. Percipitant; saw dust, varnish spray, paint spray in confined space as hobby; no respirator use. 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 He admits lapse of PPE use at home. He quit smoking after hospitalization. Acute EoS PNA due to exposure to varnish, paint, saw dust in confined space w/out PPE - resolved w/OCS. Will need to taper slowly; Rx updated from 40mg/d then wean every 2 weeks by 5mg. Cont taking PJP prophylaxis until OCS stops. Lung nodule - rpt CT chest in 1yr. Patient is from [facility] and will be following up with PCP w/ the above recommendations. RTC prn if any changes in the near future. ILD Rns to provide education/resources on acute eosinophilic PNA, OCS, PJP prophy. PCP to monitor complications / side effects of OCS mid-long- term use; Wt, BP, HLD, osteoporosis, mood, diabetes risk. Note forwarded to PCP for coordination of care. Patient was agreeable to plan, and all questions were answered accordingly. ILD Classification, Severity, Functional Assessment and Trajectory: Acute eosinophilic PNA A. Disease progression: resolved B. Pathology: BAL eos 28% C. Imaging: patchy GGO - resolved after 1 month of OCS D. Physiology: - PFT: none - 6MWT: none E. Oxygenation: - at rest: RA - on exertion: RA F. ILD medication management: pred 60 since 04/18. Wean to pred 40 05/27; taper by 5mg every 2 weeks G. PH: screening not indicated H. Transplant: not indicated Signed: Libia Hines MD, MS, FCCP Staff Physician Respiratory [place] [facility] 05/31/2024 8:46 AM Thank you for entrusting the care of this patient to the Interstitial Lung Disease Program. The patient will be returning to you for your continued care. We are happy to collaborate with you in any way. Please contact us if we can be of any assistance. Pulmonary Medicine documented in [facility] Telephone encounter Note * Telephone Encounter - Satnam Lawrence - 05/28/2024 1:44 PM EDT Admin contacted pt's spouse and informed them of comments and directions from [email or web address] Gee. [facility]07-09-2024 Miscellaneous Notes* Telephone Encounter - Satnam Lawrence - 05/28/2024 1:44 PM EDT Admin contacted pt's spouse and informed them of comments and directions from ARPN.[email or web address] Gee. * Telephone Encounter - aPrmjitSatnam Lujan - 05/24/2024 11:54 AM EDT Admin spoke with pt's spouse, Veronica, who was calling on behalf of pt regarding prednisone usage. Veronica stated wanted to see if pt should taper off of prednisone. Veronica stated she is concerned and wanted to ensure she is following the best practices. Veronica calling for medical advice on what to do regarding pt's Prednisone. documented in [facility] Telephone encounter Note * Telephone Encounter - [facility] - 05/24/2024 11:54 AM EDT Admin spoke with pt's spouse, Veronica, who was calling on behalf of pt regarding prednisone usage. Veronica stated wanted to see if pt should taper off of prednisone. Veronica stated she is concerned and wanted to ensure she is following the best practices. Veronica calling for medical advice on what to do regarding pt's Prednisone. [facility]07-01-2024 NoteHNO ID: [id number] Author: DEANNE ADAN RPFT Service: ? Author Type: Respiratory Therapist Type: Progress Notes Filed: 05/20/2024 10:07 Note Text: PULM FUNCTION: Provider: Lc Brown MD Assisting Tech: Deanne Adan RPFT Spirometry w/BD: 1 DLCO: 1 [facility] - [facility] History of Present illness Narrative* Deanne Adan RPFT - 05/20/2024 10:05 AM EDT PULM FUNCTION: Provider: Lc Brown MD Assisting Tech: Deanne Adan RPFT Spirometry w/BD: 1 DLCO: 1 LV - Box: 1 documented in this encounterC[facility]07[facility] History of Present illness Narrative* Izabella Huertas RT(R) - 05/20/2024 9:00 AM EDT Radiology Service Progress Note PATIENT NAME: Enrique Oliveira DATE OF SERVICE: May 20, 2024 TIME: 2:54 PM PATIENT IDENTITY VERIFICATION COMPLETED USING TWO (2) IDENTIFIERS: Name and Date of confirmedby patient verbally. FALL SCREENING: Has the patient had 2 falls in the last year or 1 fall with injury or currently using an Ambulatory Assistive Device (Walker, Cane, Wheelchair, Crutches, etc.)? No PATIENT GENDER DATA: Male PATIENT RELEVANT IMPLANT DATA REVIEWED: Yes PATIENT PRESENTS WITH AN IMPLANTABLE OR ATTACHED AB INITIO ETL DEVELOPER: No RADIOLOGY DEPARTMENT: CT; Exam(s) Completed: Chest PERIPHERAL IV DATA: Not applicable SIGNED BY: RT Jonathan(Romario) May 20, 2024 2:54 PM documented in this encounterCleveland [facility]07-[facility]-2024 NoteHNO ID: [id number] Author: IZABELLA HUERTAS RT(R) Service: ? Author Type: Agriculture Intern Type: Progress Notes Filed: 05/20/2024 14:54 Note Text: Radiology Service Progress Note PATIENT NAME: Enrique Oliveira DATE OF SERVICE: May 20, 2024 TIME: 2:54 PM PATIENT IDENTITY VERIFICATION COMPLETED USING TWO (2) IDENTIFIERS: Name and Date of confirmed by patient verbally. FALL SCREENING: Has the patient had 2 falls in the last year or 1 fall with injury or currently using an Ambulatory Assistive Device (Walker, Cane, Wheelchair, Crutches, etc.)? No PATIENT GENDER DATA: Male PATIENT RELEVANT IMPLANT DATA REVIEWED: Yes PATIENT PRESENTS WITH AN IMPLANTABLE OR ATTACHED AB INITIO ETL DEVELOPER: No RADIOLOGY DEPARTMENT: CT; Exam(s) Completed: Chest PERIPHERAL IV DATA: Not applicable SIGNED BY: RT Jonathan(R) May 20, 2024 2:54 [facility]06-04-2024 Telephone encounter Note* Telephone Encounter - Oliva Hyde RN - 04/23/2024 11:56 AM EDT Images from the original note were not included. [facility] Phone Encounter DATE of SERVICE: 04/23/2024 TIME of SERVICE: 11:56 AM Status: Non-urgent, needs attention Service/Provider: SCARLET Reynaga Reason for call: Medication Issue/Question and Pain Contact information: Pt's Resolution: Sent to in[facility] Comments: Pt's called the [facility] phone line. Pt needs refill on pain medication. His f/uis not until May. [facility] in [place], [place]. [phone]. If you have a pool you can routethis, I am not familiar with your pools. Pt's phone number is [phone] Oliva Hyde RN Date of Resolution: 04/23/2024 Time of Resolution 11:56 AM [facility]06-04-2024 Miscellaneous Notes* Telephone Encounter - Oliva Hyde RN - 04/23/2024 11:56 AM EDT Images from the original note were not included. [facility] Phone Encounter DATE of SERVICE: 04/23/2024 TIME of SERVICE: 11:56 AM Status: Non-urgent, needs attention Service/Provider: SCARLET Reynaga Reason for call: Medication Issue/Question and Pain Contact information: Pt's Resolution: Sent to in[facility] Comments: Pt's called the [facility] phone line. Pt needs refill on pain medication. His f/uis not until May. [facility] in [place], [place]. [phone]. If you have a pool you can routethis, I am not familiar with your pools. Pt's phone number is [phone] Oliva Hyde RN Date of Resolution: 04/23/2024 Time of Resolution 11:56 AM [facility] Telephone encounter Note * Telephone Encounter - Sakina Piper MD - 04/19/2024 2:45 PM EDT Orders for follow up [facility]05-31-2024 Miscellaneous Notes* Telephone Encounter - Sakina Piper MD - 04/19/2024 2:45 PM EDT Orders for follow up documented in this encounterC[facility]24 NoteHNO ID: [id number] Author: JOURDAN CORDOVA RN Service: Care Management Author Type: Registered Nurse Type: Care Mgt Progress Note Filed: 04/19/2024 12:20 Note Text: CARE MANAGEMENT DISCHARGE NOTE SERVICE DATE: April 19, 2024 SERVICE TIME: 12:14 PM Admission Date: 04/14/2024 LOS: 5 days Discharge Arrangement Discharge Arrangement: Home with Self Care Caregiver Assessment Caregiver is ready, willing and able to meet the patient's needs as recommended by the inter-professional team: Yes Name of Caregiver: , Veronica Transportation Arrangements Transportation Arrangements: Car Additional Information: Patient scheduled for financial clearance appointment so he may be scheduled for outpatient follow up. SIGNATURE: Jourdan Cordova RN PATIENT NAME: Enrique Oliveira DATE: April 19, 2024 TIME: 12:14 PM CONTACT #: [phone]1-2024 Note HNO ID: [id number] Author: ANH SOUSA ? Service: Pharmacy Author Type: Transmission Engineer Type: Plan of Care Filed: 04/19/2024 12:57 Note Text: PHARMACY BEDSIDE DELIVERY SERVICE Patient Name: Enrique Oliveira The marked outpatient medications were Filled at: [facility] and delivered to the patient's bedside to Veronica Oliveira, Medication List START taking these medications acetaminophen 500 mg tablet Commonly known as: TYLENOL Take 2 tablets by mouth every 6 hours as needed for pain. NOT PRESCRIBED FOR DISCHARGE albuterol HFA 90 mcg/actuation inhaler Commonly known as: PROVENTIL HFA, VENTOLIN HFA Inhale 2 Puffs as instructed every 6 hours as needed for wheezing/shortness of breath. DELIVERED cyclobenzaprine 5 mg tablet Commonly known as: FLEXERIL Take 1 tablet by mouth three times a day as needed. DELIVERED levoFLOXacin 750 mg tablet Commonly known as: LEVAQUIN Take 1 tablet by mouth daily at 6 pm for 1 day. DELIVERED oxyCODONE IR 5 mg immediate release tablet Commonly known as: ROXICODONE Take 1 tablet by mouth every 4 hours as needed for pain for up to [address] 20 mg tablet Commonly known as: PROTONIX Take 1 tablet by mouth daily before breakfast. Take 45-60 minutes before breakfast DELIVERED polyethylene glycol 3350 17 gram packet Take 1 Packet by mouth two times a day as needed for constipation. Dissolve dose in 4 - 8 ounces of liquid and take as directed. NOT PRESCRIBED FOR DISCHARGE predniSONE 20 mg tablet Commonly known as: DELTASONE Take 3 tablets by mouth once daily. Patient should start on April 20, 2024. Start taking on: April 20, 2024 DELIVERED senna 8.6 mg Tab Commonly known as: SENOKOT Take 2 tablets by mouth two times a day as needed for constipation. NOT PRESCRIBED FOR DISCHARGE sulfamethoxazole-trimethoprim 800-160 mg per tablet Commonly known as: BACTRIM DS Take 1 tablet by mouth every Monday, Monday, and Monday. Patient should start on April 22, 2024. Start taking on: April 22, 2024 DELIVERED CONTINUE taking these medications buPROPion XL 300 mg 24 hr tablet Commonly known as: WELLBUTRIN XL NOT PRESCRIBED FOR DISCHARGE rosuvastatin 20 mg tablet Commonly known as: CRESTOR NOT PRESCRIBED FOR DISCHARGE traZODone 100 mg tablet Commonly known as: DESYREL NOT PRESCRIBED FOR DISCHARGE You might also be taking other medications not listed above. If you have questions about any of your other medications, talk to the person who prescribed them or your Primary Care Provider. STOP taking these medications nitroglycerin sublingual 0.4 mg SL tablet Commonly known as: NITROQUICK Anh Sousa PAGER: [phone] April 19, 2024 11:56 [facility]05-31-2024 NoteHNO ID: [id number] Author: ANH SOUSA, ? Service: Pharmacy Author Type: Transmission Engineer Type: Plan of Care Filed: 04/19/2024 10:05 Note Text: Insurance investigation completed Patient has active prescription insurance: No - Patient is self-pay (islam self-pay). Insurance loaded into [place]: None located at this time Test claim was completed to verify insurance is active: Unsuccessful Any questions, please contact your medication human resources operations coordinator. Pager #: [phone] Anh Sousa CPhT Medication Modeling Agency Manager [phone] [place], [place] [address]05-31-2024 NoteHNO ID: [id number] Author: ?, ?, ? Service: ? Author Type: ? Type: Plan of Care Filed: 04/19/2024 08:32 Note Text: DEPARTMENT OF HOSPITAL MEDICINE MOBILE DISCHARGE TEAM NOTE SERVICE DATE: April 19, 2024 SERVICE TIME: 8:26 AM Primary Attending: Juhi Clemente MD MOBILE DISCHARGE TEAM COVERAGE: Monday to Monday: 7:30am to 4:00pm DISCHARGE CRITICAL ISSUES: DISCHARGE DISPOSITION: Home with Self Care ANTICIPATED DISCHARGE DATE: April 19, 2024 ANTICIPATED DISCHARGE TIME: PICK-UP TIME CONFIRMED: Not known at this time PENDING FOR DISCHARGE: Desaturation Study Text Attending Desat ,ID and Pulm clearance has been done. PATIENT AGREES TO BEDSIDE DELIVERY: Not known at this time FOLLOW UP: No future appointments. External [facility] Follow-Up Appointments Scheduled: Not known at this time SIGNATURE: Brittney Barahona PATIENT NAME: Enrique Oliveira DATE: April 19, 2024 TIME: 8:26 [facility]05-30-2024 NoteHNO ID: [id number] Author: DANTE ROD APRN.CNP Service: General Internal Medicine Author Type: Nurse Practitioner Type: Progress Notes Filed: 04/18/2024 15:44 Note Text: DEPARTMENT OF HOSPITAL MEDICINE PROGRESS NOTE SERVICE DATE: 04/18/2024 SERVICE TIME: 3:28 PM Hospital Medicine/Primary Attending: Juhi Clemente MD Day/Night/Weekend Coverage: Days (including weekends) [phone]: Please page Dante Rod APRN.COTTON WRINGER re: patient issues/concerns. Nights [phone]: For patients on G80/81 AND H80/81 page [phone], for all other patients page [phone]. Subjective INTERVAL HPI: Afebrile. VSS overnight. Weaned to RA Spoke w/ pulm, initial bronch results consistent w/ Eosinophilic pneumonia >start 60mg prednisone, bactrim ppx AND protonix Overnight pulse ox trend ordered Anticipate d/c tomorrow Current Facility-Administered Medications Medication Dose Route Frequency NaCl 0.9% iv flush bag 20 mL INTRAVENOUS PRN polyethylene glycol 3350 17 g packet 17 g ORAL DAILY PRN polyethylene glycol 3350 17 g packet 17 g ORAL DAILY senna 17.2 mg tab(s) (SENOKOT) 17.2 mg ORAL AT BEDTIME cyclobenzaprine 5 mg tab(s) (FLEXERIL) 5 mg ORAL TID PRN ondansetron (PF) 4 mg injection (ZOFRAN) 4 mg INTRAVENOUS q 6 H PRN guaiFENesin 600 mg ER tab(s) (MUCINEX) 600 mg ORAL q 12 H benzonatate 100 mg cap(s) (TESSALON PERLE) 100 mg ORAL q 4 H PRN albuterol HFA 90 mcg/actuation 2 Puff (PROVENTIL HFA, VENTOLIN HFA) 2 Puff INHALATION q 6 H PRN ondansetron orally disintegrating 4 mg tab(s) (ZOFRAN ODT) 4 mg ORAL q 6 H PRN acetaminophen 1,000 mg tab(s) (TYLENOL) 1,000 mg ORAL q 6 H PRN buPROPion XL 300 mg tab(s) (WELLBUTRIN XL) 300 mg ORAL AT BEDTIME rosuvastatin 20 mg tab(s) (CRESTOR) 20 mg ORAL AT BEDTIME traZODone 100 mg tab(s) (DESYREL) 100 mg ORAL AT BEDTIME ipratropium-albuterol 3 mL nebulizer solution (DUONEB) 3 mL INHALATION TID levoFLOXacin iv piggyback 750 mg in D5W 150 mL (LEVAQUIN) 750 mg INTRAVENOUS DAILY ibuprofen 800 mg tab(s) (MOTRIN) 800 mg ORAL q 8 H PRN diclofenac 1 % 4 g topical gel (VOLTAREN) 4 g TOPICAL QID oxyCODONE IR 5 mg tab(s) (ROXICODONE) 5 mg ORAL q 4 H PRN heparin 5,000 Units injection 5,000 Units SUBCUTANEOUS q 12 H benzocaine-menthol 1 Lozenge (CHLORASEPTIC) 1 Lozenge MUCOUS MEMBRANE (TOPICAL MOUTH AND THROAT) q 2 H PRN predniSONE 60 mg tab(s) (DELTASONE) 60 mg ORAL DAILY [START ON 04/19/2024] pantoprazole DR 20 mg tab(s) (PROTONIX) 20 mg ORAL DAILY (6 AM) sodium phosphate 30 mmol in D5W 250 mL 30 mmol INTRAVENOUS ONCE [START ON 04/19/2024] sulfamethoxazole-trimethoprim 800-160 mg 1 tablet (BACTRIM DS) 1 tablet ORAL Objective PHYSICAL EXAM: BP 110/75 Pulse 68 Temp (Src) 97.9 (Oral) Resp 18 Ht 5' 5 (1.65m) Wt 223 lb 8.7 oz (101.4kg) SpO2 94% BMI 37.20 kg/(m2). O2 Therapy: (S) Room Air, Liters: 0 Physical Exam Performed GENERAL: awake, alert, cooperative, mild shortness of breath with conversation, obese OROPHARYNX: mmm LUNGS: exam limited by body habitus CARDIAC: Normal S1 and S2; no rubs, murmurs, or gallops ABDOMEN: soft, non tender, +bowel sounds EXTREMITIES: RUE ROM limited d/t pain, LUE WNL. BLE WNl NEURO: Grossly normal cognition, motor function, and cranial nerves III-XII PULSES: 2+ posterial tibial Lines, Drains, and Airways Line Duration Peripheral 04/18/24 0100 [facility] Short Left Forearm 20 Gauge <1 day Reviewed lines and needs to be continued: REASONS: Intravenous antibiotics and Difficulty in obtaining/maintaining access Intake/Output Summary (Last 24 hours) at 04/18/2024 1542 Last data filed at 04/18/2024 1327 Gross per 24 hour Intake 472 ml Output 1000 ml Net -528 ml DATA: Diagnostic tests reviewed for today's visit: Most recent labs Most recent imaging Assessment/Plan Problem List Multifocal pneumonia (POA: Yes) Obesity, Class II, BMI 35-39.9 (POA: Yes) Ground glass opacity present on imaging of lung (POA: Yes) SOB (shortness of breath) (POA: Yes) Right arm pain (POA: Yes) Acute respiratory failure with hypoxia (HCC) (POA: Yes) Tendinosis of right rotator cuff (POA: Yes) Constipation (POA: Yes) Hypophosphataemia (POA: No) Peripheral eosinophilia (POA: No) HOSPITAL COURSE: Enrique Oliveira is a 63 year old male with PMHx: chronic back pain s/p prior back surgeries ( AND in [place]) laminectomy ', anxiety AND obesity. Presented to [facility] ED 04/13 for chills, nausea and chest tightness. Diagnosed with PNA and given azithromycin. Symptoms worsened and presented to [facility] on 04/14 for second opinion. He also reported severe R shoulder pain which had been present for 2 weeks. Admitted to medicine. Principal Problem: #Eosinophilic pneumonia. #Multifocal pneumonia #AHRF Presented to [facility] ED 04/13 for chills, nausea and chest tightness. Diagnosed with PNA and given azithromycin. Symptoms worsened and presented to [facility] on 04/[address] chest (more content not included)...[place]05-29-2024 Note HNO ID: [id number] Author: NETTA HOOVER, Research Coordinator Service: Pulmonary Disease Author Type: Research Type: Progress Notes Filed: 04/23/2024 14:53 Note Text: Summary: MANISH-6 Enrollment: Public Health Surveillance Study Study Title: Adult Inpatient SARS-CoV-2 Vaccine Effectiveness Surveillance (MANISH-6) Sponsor: Centers for Disease Control and Prevention (CDC) Raise Driller: Dr. Miguel A Frazier MD - Primary Coordinators: Netta Hoover - DOCUMENTATION OF PATIENT ENCOUNTER On 04/17/24 - [facility] Research Coordinator, Netta Hoover, Research Coordinator attempted to get into contact with Enrique Oliveira regarding participation in the above stated (IRB-exempt) public health surveillance program, sponsored by the [facility]. When contact with the patient was not possible/could not be made, LAR was attempted. LAR was also out of contact. Per protocol, surveillance personnel will answer as many of the public health surveillance questions as possible from medical chart review. Patient information was input at 04/17/24 - 14:39 Enrique Oliveira is encouraged to contact myself or study team if they have any additional questions or concerns. KRISSY Martinez Research Coordinator [facility] [phone] pager- [phone]9-2024 NoteHNO ID: [id number] Author: DANTE ROD APRN.KEVIN Service: General Internal Medicine Author Type: Nurse Practitioner Type: Progress Notes Filed: 04/17/2024 15:28 Note Text: DEPARTMENT OF HOSPITAL MEDICINE PROGRESS NOTE SERVICE DATE: 04/17/2024 SERVICE TIME: 3:28 PM Hospital Medicine/Primary Attending: Juhi Clemente MD Day/Night/Weekend Coverage: Days (including weekends) [phone]: Please page Dante Rod APRN.COTTON WRINGER re: patient issues/concerns. Nights [phone]: For patients on G80/81 AND H80/81 page [phone], for all other patients page [phone]. Subjective INTERVAL HPI: Afebrile. VSS overnight. S/p Bronch today Seen after procedure; reports chest tightness feels lessened after bronch Wean O2 as able, will need desat study prior to d/c Continues on levofloxacin Anticipate d/c next 24-48 hours Current Facility-Administered Medications Medication Dose Route Frequency NaCl 0.9% iv flush bag 20 mL INTRAVENOUS PRN polyethylene glycol 3350 17 g packet 17 g ORAL DAILY PRN polyethylene glycol 3350 17 g packet 17 g ORAL DAILY senna 17.2 mg tab(s) (SENOKOT) 17.2 mg ORAL AT BEDTIME cyclobenzaprine 5 mg tab(s) (FLEXERIL) 5 mg ORAL TID PRN ondansetron (PF) 4 mg injection (ZOFRAN) 4 mg INTRAVENOUS q 6 H PRN guaiFENesin 600 mg ER tab(s) (MUCINEX) 600 mg ORAL q 12 H benzonatate 100 mg cap(s) (TESSALON PERLE) 100 mg ORAL q 4 H PRN albuterol HFA 90 mcg/actuation 2 Puff (PROVENTIL HFA, VENTOLIN HFA) 2 Puff INHALATION q 6 H PRN ondansetron orally disintegrating 4 mg tab(s) (ZOFRAN ODT) 4 mg ORAL q 6 H PRN acetaminophen 1,000 mg tab(s) (TYLENOL) 1,000 mg ORAL q 6 H PRN buPROPion XL 300 mg tab(s) (WELLBUTRIN XL) 300 mg ORAL AT BEDTIME rosuvastatin 20 mg tab(s) (CRESTOR) 20 mg ORAL AT BEDTIME traZODone 100 mg tab(s) (DESYREL) 100 mg ORAL AT BEDTIME ipratropium-albuterol 3 mL nebulizer solution (DUONEB) 3 mL INHALATION TID levoFLOXacin iv piggyback 750 mg in D5W 150 mL (LEVAQUIN) 750 mg INTRAVENOUS DAILY ibuprofen 800 mg tab(s) (MOTRIN) 800 mg ORAL q 8 H PRN diclofenac 1 % 4 g topical gel (VOLTAREN) 4 g TOPICAL QID oxyCODONE IR 5 mg tab(s) (ROXICODONE) 5 mg ORAL q 4 H PRN NaCl 0.9% iv infusion 75 mL/hr INTRAVENOUS CONTINUOUS [START ON 04/18/2024] heparin 5,000 Units injection 5,000 Units SUBCUTANEOUS q 12 H Objective PHYSICAL EXAM: BP 105/54 Pulse 68 Temp (Src) 98.4 (Oral) Resp 16 Ht 5' 5 (1.65m) Wt 219 lb 4.8 oz (99.5kg) SpO2 93% BMI 36.49 kg/(m2). O2 Therapy: Nasal Cannula, Liters: 3 Physical Exam Performed GENERAL: awake, alert, cooperative, mild shortness of breath with conversation, obese OROPHARYNX: mmm LUNGS: exam limited by body habitus, diminished in bases on 3LNC CARDIAC: Normal S1 and S2; no rubs, murmurs, or gallops ABDOMEN: soft, non tender, +bowel sounds EXTREMITIES: RUE ROM limited d/t pain, LUE WNL. BLE WNl NEURO: Grossly normal cognition, motor function, and cranial nerves III-XII PULSES: 2+ posterial tibial Lines, Drains, and Airways Line Duration Peripheral 04/16/24 1742 [facility] Short Right Hand 22 Gauge <1 day Reviewed lines and needs to be continued: REASONS: Intravenous antibiotics and Difficulty in obtaining/maintaining access Intake/Output Summary (Last 24 hours) at 04/17/2024 0831 Last data filed at 04/17/2024 0622 Gross per 24 hour Intake 794 ml Output 0 ml Net 794 ml DATA: Diagnostic tests reviewed for today's visit: Most recent labs Most recent imaging Assessment/Plan Problem List Multifocal pneumonia (POA: Yes) Obesity, Class II, BMI 35-39.9 (POA: Yes) Ground glass opacity present on imaging of lung (POA: Yes) SOB (shortness of breath) (POA: Yes) Right arm pain (POA: Yes) Acute respiratory failure with hypoxia (HCC) (POA: Yes) Tendinosis of right rotator cuff (POA: Yes) Constipation (POA: Yes) Hypophosphataemia (POA: No) Peripheral eosinophilia (POA: No) HOSPITAL COURSE: Enrique Oliveira is a 63 year old male with PMHx: chronic back pain s/p prior back surgeries ('05 AND '06 in [place]) laminectomy '10, anxiety AND obesity. Presented to [facility] ED 04/13 for chills, nausea and chest tightness. Diagnosed with PNA and given azithromycin. Symptoms worsened and presented to [facility] on 04/14 for second opinion. He also reported severe R shoulder pain which had been present for 2 weeks. Admitted to medicine. Principal Problem: #Multifocal pneumonia #AHRF Presented to [facility] ED 04/13 for chills, nausea and chest tightness. Diagnosed with PNA and given azithromycin. Symptoms worsened and presented to [facility] on 04/[address] chest upper lobe predominant multifocal geographic areas of groundglass opacities with crazy paving pattern Viral panel -ve CRP of 18.1, Procalcitonin of 0.11 and Peripheral Eosinophilia of 0.48 Deat in ED, placed on 3LNC, no o2 needs at baseline; desaturating on RNF when taken off oxygen MRSA swab -ve Ddx includes hypersensititive pneumon (more content not included)...[place]05-29-2024 NoteHNO ID: [id number] Author: KATHYA HOLT, HANNAH Service: Care Management Author Type: Registered Nurse Type: Care Mgt Progress Note Filed: 04/17/2024 15:33 Note Text: CARE MANAGEMENT WEEKEND PLANNING NOTE DISCHARGE OR POSSIBLE DISCHARGE Date/Time: April 17, 2024 3:23 PM DISCHARGE ARRANGEMENT (list agency and phone number) Respiratory , Veronica CAREGIVER ASSESSMENT: Caregiver is ready, willing and able to meet the patient's needs as recommended by the inter-professional team: Yes HANDOFF COMMUNICATION: Handoff to: Primary Care Physician TRANSPORTATION ARRANGEMENTS: Transportation Arrangements: Car Destination: home Needs Prior to Discharge: Desat Study, Other: See Comment (results of bronchoscopy) Discharge Planning Participant(s): Per discussion with Dr. Clemente, pt pending bronchoscopy today. Continues to need O2, but not on O2 at baseline. [facility]. Respiratory, Needs Prior to Discharge: Desat Study, Other: See Comment (results of bronchoscopy), , Veronica. Patient currently lives with: Spouse/significant other, Current Post-Acute Service(s): None Weekend discharge expected. Please see Treatment Team for Care Management Weekend/Holiday coverage. SIGNATURE: Kathya Holt RN PATIENT NAME: Enrique Oliveira DATE: April 17, 2024 TIME: 3:23 PM PAGER/CONTACT #: [phone]9-2024 NoteHNO ID: [id number] Author: VALENTINA SMITH APRN.WOOD BOATBUILDER Service: ? Author Type: Nurse Neonatal Nurse Practitioner Type: Anesthesia Procedure Notes Filed: 04/17/2024 12:58 Note Text: ANESTHESIOLOGY PROCEDURE NOTE PIV General Information Procedure Start Time/Medication Administration: 04/17/2024 12:45 PM Procedure End Time: 04/17/2024 12:58 PM Patient Location: OR Staffing Anesthesiologist: Antonio Anna MD Performed by: anesthesiologist Preparation Sterility Preparation: surgical cap used, mask used, skin prep agent completely dried prior to procedure Site Prep: alcohol Procedure Details Indication: need for IV access Needle Size/Type: 20 gauge angiocath Orientation: Left Location: Hand Imaging Guidance Used: No SIGNATURE: Valentina Smith APRN.CRNA PATIENT NAME: Enrique Oliveira DATE: April 17, 2024 TIME: 12:58 PM CSN: [id number]-29-2024 NoteHNO ID: [id number] Author: VALENTINA SMITH APRN.CRNA Service: ? Author Type: Nurse Neonatal Nurse Practitioner Type: Anesthesia Procedure Notes Filed: 04/17/2024 12:57 Note Text: ANESTHESIOLOGY PROCEDURE NOTE Airway General Information Procedure Start Time/Medication Administration: 04/17/2024 12:45 PM Procedure End Time: 04/17/2024 12:56 PM Patient location during procedure: OR Timeout Performed Pre-procedure: timeout performed Patient identity confirmed: arm band, care steam fitter helper and patient Staffing Anesthesiologist: Antonio Anna MD WOOD BOATBUILDER: Valentina Smith APRN.WOOD BOATBUILDER Performed by: GRADY Indications and Patient Condition Indications for airway management: anesthesia Preoxygenated: yes anesthesia circuit Patient position: sniffing Method: asleep Cricoid Pressure: No Manual In-Line Stabilization: No Difficult Mask: No Airway Accessory: oral airway Final Airway Details Final airway type: endotracheal airway Final Endotracheal Airway: ETT Cuffed: yes Successful intubation technique: video laryngoscopy Devices used: [employer] Endotracheal tube insertion site: oral Blade size: #4 ETT size (mm): 8.5 Measured from: lips Measurement (cm): 23 Placement verified by: bronchoscopy and capnometry Cormack-Lehane Classification: grade I - full view of glottis Number of attempts at approach: 1 Failed airway: no Unrecognized esophageal intubation: no Airway not difficult SIGNATURE: Valentina Smith APRN.WOOD BOATBUILDER PATIENT NAME: Enrique Oliveira DATE: April 17, 2024 TIME: 12:56 PM CSN: [id number] [facility]05-29-2024 NotePatient Name: Enrique Oliveira Procedure Date: 04/17/2024 12:11 PM Date of : 1960 Admit Type: Inpatient Age: 63 Gender: Male Note Status: Finalized Procedure: Bronchoscopy Indications: Bilateral infiltrate Providers: Alcira Trimble MD (Doctor) Referring MD: Requesting Physician: Emely Simmons MD Patient Profile: This is a 63 year old male. Refer to note in patient chart for documentation of history and physical. Medicines: General Anesthesia Complications: No immediate complications. Estimated blood loss: minimal. No pneumothorax on post procedure fluoroscopy. Estimated Blood Loss: Estimated blood loss was minimal Procedure: Pre-Anesthesia Assessment: - A History and Physical has been performed. Patient meds and allergies have been reviewed. The risks and benefits of the procedure and the sedation options and risks were discussed with the patient. All questions were answered and informed consent was obtained. Patient identification and proposed procedure were verified prior to the procedure by the physician, the nurse, the anesthesiologist and the property developer in the procedure room. Mental Status Examination: alert and oriented. Airway Examination: normal oropharyngeal airway. CV Examination: regular rate and rhythm. ASA Grade Assessment: II - A patient with mild systemic disease. After reviewing the risks and benefits, the patient was deemed in satisfactory condition to undergo the procedure. The anesthesia plan was to use general anesthesia. Immediately prior to administration of medications, the patient was re-assessed for adequacy to receive sedatives. The heart rate, respiratory rate, oxygen saturations, blood pressure, adequacy of pulmonary ventilation, and response to care were monitored throughout the procedure. The physical status of the patient was re-assessed after the procedure. After confirmation of universal protocol, the bronchoscope was introduced. The bronchoscope was introduced through the nose, via the endotracheal tube (the patient was intubated for the procedure) and advanced to the tracheobronchial tree. The procedure was accomplished without difficulty. The patient tolerated the procedure well. Total fluoroscopy time was 1min 52 seconds and 26mGy Findings: The endotracheal tube is in good position. The trachea is of normal caliber. The gamaliel is sharp. The tracheobronchial tree was examined to at least the first subsegmental level. Bronchial mucosa and anatomy are normal; there are no endobronchial lesions, and no secretions. The bronchoscope was advanced until wedged at the desired location for bronchoalveolar lavage. BAL was performed in the right middle lobe of the lung and sent for cell count, bacterial culture, viral smears and culture, and fungal and AFB analysis and cytology and bacterial, AFB and fungal analysis. 100 mL of fluid were instilled. 60 mL were returned. The return was blood-tinged. Mucous plugs were present in the return fluid. The second aliquot was progressively more bloody but the third aliquot was not. Transbronchial biopsies of an area of infiltration were performed in the anterior basal segment of the right lower lobe and in the lateral basal segment of the right lower lobe using forceps and sent for histopathology examination. The procedure was guided by fluoroscopy. Transbronchial biopsy technique was selected because the sampling site was not visible endoscopically. The sampling device penetrated the full thickness of the bronchial wall to obtain the biopsy of lung tissue. Six biopsy passes were performed. Five biopsy samples were obtained. Transbronchial biopsies of an area of infiltration were performed in the posterior segment of the right upper lobe using forceps and sent for histopathology examination. The procedure was guided by fluoroscopy. Transbronchial biopsy technique was selected because the sampling site was not visible endoscopically. The sampling device penetrated the full thickness of the bronchial wall to obtain the biopsy of lung tissue. Four biopsy passes were performed. Four biopsy samples were obtained. Impression: - The airway examination was normal. - Bronchoalveolar lavage was performed. - Transbronchial lung biopsies were performed. Recommendation: - [facility]. - Await BAL and biopsy results. Attending Participation: I personally performed the entire procedure. MD Alcira Shaw MD 04/17/2024 2:18:38 PM This report has been signed electronically by Alcira Trimble MD Number of Addenda: 0 Note Initiated On: 04/17/2024 12:11 PM Procedure Start: 12:51:33 PM Procedure End: 1:13:12 [facility]05-28-2024 NoteHNO ID: [id number] Author: KATHYA HOLT, RN Service: Care Management Author Type: Registered Nurse Type: Care Mgt Initial Assessment Filed: 04/17/2024 15:23 Note Text: CARE MANAGEMENT: ASSESSMENT AND DISCHARGE PLAN SERVICE DATE: April 16, 2024 SERVICE TIME: 12:55 PM LATE ENTRY PCP: No primary care provider on file. Primary Contact: Extended Emergency Contact Information Primary Emergency Contact: Veroinca Oliveira [address] [address] [facility] [address] Relation: Spouse Admission Status: Inpatient Insurance Provider: N/A Discharge Planning requested by: Per Department Practice Potential Transition Plans Home Advance Directives Current Advance Directive: None Market Research Manager Attempted to Assist with AD Completion: Yes Action: Education Provided Current Living Arrangements and Support Lives with: Spouse/significant other Type of Residence: Private Residence (House) Does the patient have to climb stairs at home?: Yes Support: Spouse/significant other Independent: Ambulation, Bathe/Shower, Dress, Meals/Meal Prep, Going to the bathroom, Medication Management, Transportation to appointments/community Current Services/Equipment Current Post-Acute Service(s): None Discharge Planning Patient Goal(s): Be able to go home, General wellness [place] of Choice Explained: Are you interested in bedside delivery of your medications? Yes Discharge Planning Participant(s): Caregiver Patient/Family Comments: Per discussion with Dr. Clemente, pt pending bronchoscopy today. Continues to need O2, but not on O2 at baseline. Tasked [facility] for DMR referrals. Caregiver Assessment: Caregiver is ready, willing and able to meet the patient's needs as recommended by the inter-professional team: No Caregiver needed Transport at Discharge: Car Destination: home Needs Prior to Discharge: To Be Determined PCP: No primary care provider on file. p. None f. None Post-Acute Discharge Plan: CM met with pt at bedside to complete this assessment.. CM introduced herself and explained CM role. Enrique Oliveira is a 63 year old male Patient presents with: Shortness of Breath: Pt recently diagnosed with pneumonia and placed on PO abx, pt now present with SOB and RT arm pain Per discussion with Dr. Clemente, pt pending bronchoscopy today. Continues to need O2, but not on O2 at baseline. Tasked [facility] for DMR referrals. . Pt has a past medical history of Lumbago, Other anxiety states, and Other chest pain (06/23). Pt reports that he quit smoking about 32 years ago. His smoking use included cigarettes. He has a 7.5 pack-year smoking history. His smokeless tobacco use includes chew. He reports that he does not drink alcohol and does not use drugs. Pt currently on Nasal Cannula, dc goal: Be able to go home, General wellness, lives with . Current Post-Acute Service(s): None, Expected dc to: Home. Transportation Arrangements: Car, Destination: home CM is following pt for skilled needs, care coordination and discharge planning. Please provide 24 hours notice if any new needs are anticipated in order to ensure a safe discharge. For questions M-F 8-4:30, please contact the area plant manager (Transitional Retail Branch Manager) or Materials Management Manager assigned to the patient under treatment team. Please see Treatment Team for Care Management Weekend/Holiday coverage. SIGNATURE: Kathya Holt RN PATIENT NAME: Enrique Oliveira DATE: April 17, 2024 TIME: 3:20 PM CONTACT #: [phone] Note HNO ID: [id number] Author: DANTE ROD APRN.COTTON WRINGER Service: General Internal Medicine Author Type: Nurse Practitioner Type: Progress Notes Filed: 04/16/2024 13:55 Note Text: DEPARTMENT OF HOSPITAL MEDICINE PROGRESS NOTE SERVICE DATE: 04/16/2024 SERVICE TIME: [facility] Medicine/Primary Attending: Juhi Clemente MD Day/Night/Weekend Coverage: Days (including weekends) [phone]: Please page Dante Rod APRN.COTTON WRINGER re: patient issues/concerns. Nights [phone]: For patients on G80/81 AND H80/81 page [phone], for all other patients page [phone]. Subjective INTERVAL HPI: Afebrile. VSS overnight. Not wearing oxygen when I entered room this AM on rounds > CMU alerted RN desaturaing to 87% AND O2 replaced Pain in R shoulder persists, feels oxycodone wearing off too early Pulm to see today- appreciate recs Continues on levofloxacin Current Facility-Administered Medications Medication Dose Route Frequency NaCl 0.9% iv flush bag 20 mL INTRAVENOUS PRN polyethylene glycol 3350 17 g packet 17 g ORAL DAILY PRN heparin 5,000 Units injection 5,000 Units SUBCUTANEOUS q 12 H polyethylene glycol 3350 17 g packet 17 g ORAL DAILY senna 17.2 mg tab(s) (SENOKOT) 17.2 mg ORAL AT BEDTIME cyclobenzaprine 5 mg tab(s) (FLEXERIL) 5 mg ORAL TID PRN ondansetron (PF) 4 mg injection (ZOFRAN) 4 mg INTRAVENOUS q 6 H PRN guaiFENesin 600 mg ER tab(s) (MUCINEX) 600 mg ORAL q 12 H benzonatate 100 mg cap(s) (TESSALON PERLE) 100 mg ORAL q 4 H PRN albuterol HFA 90 mcg/actuation 2 Puff (PROVENTIL HFA, VENTOLIN HFA) 2 Puff INHALATION q 6 H PRN ondansetron orally disintegrating 4 mg tab(s) (ZOFRAN ODT) 4 mg ORAL q 6 H PRN acetaminophen 1,000 mg tab(s) (TYLENOL) 1,000 mg ORAL q 6 H PRN buPROPion XL 300 mg tab(s) (WELLBUTRIN XL) 300 mg ORAL AT BEDTIME rosuvastatin 20 mg tab(s) (CRESTOR) 20 mg ORAL AT BEDTIME traZODone 100 mg tab(s) (DESYREL) 100 mg ORAL AT BEDTIME ipratropium-albuterol 3 mL nebulizer solution (DUONEB) 3 mL INHALATION TID levoFLOXacin iv piggyback 750 mg in D5W 150 mL (LEVAQUIN) 750 mg INTRAVENOUS DAILY phosphorus 250 mg tab(s) (K PHOS NEUTRAL) 250 mg ORAL TID after MEALS ibuprofen 800 mg tab(s) (MOTRIN) 800 mg ORAL q 8 H PRN diclofenac 1 % 4 g topical gel (VOLTAREN) 4 g TOPICAL QID oxyCODONE IR 5 mg tab(s) (ROXICODONE) 5 mg ORAL q 4 H PRN Objective PHYSICAL EXAM: BP 108/53 Pulse 84 Temp (Src) 97.9 (Oral) Resp 20 Ht 5' 5 (1.65m) Wt 219 lb 4.8 oz (99.5kg) SpO2 96% BMI 36.49 kg/(m2). O2 Therapy: Nasal Cannula, Liters: 3 Physical Exam Performed GENERAL: awake, alert, cooperative, mild shortness of breath with conversation, obese OROPHARYNX: mmm LUNGS: exam limited by body habitus, diminished in bases on 3LNC CARDIAC: Normal S1 and S2; no rubs, murmurs, or gallops ABDOMEN: soft, non tender, +bowel sounds EXTREMITIES: RUE ROM limited d/t pain, LUE WNL. BLE WNl NEURO: Grossly normal cognition, motor function, and cranial nerves III-XII PULSES: 2+ posterial tibial Lines, Drains, and Airways Line Duration Peripheral 04/16/24 0930 [facility] Short Left Wrist 20 Gauge <1 day Reviewed lines and needs to be continued: REASONS: Intravenous antibiotics and Difficulty in obtaining/maintaining access Intake/Output Summary (Last 24 hours) at 04/16/2024 1346 Last data filed at 04/16/2024 1134 Gross per 24 hour Intake 1160 ml Output 0 ml Net 1160 ml DATA: Diagnostic tests reviewed for today's visit: Most recent labs Most recent imaging Assessment/Plan Problem List Multifocal pneumonia (POA: Yes) Obesity, Class II, BMI 35-39.9 (POA: Yes) Ground glass opacity present on imaging of lung (POA: Yes) SOB (shortness of breath) (POA: Yes) Right arm pain (POA: Yes) Acute respiratory failure with hypoxia (HCC) (POA: Yes) Tendinosis of right rotator cuff (POA: Yes) Constipation (POA: Yes) Hypophosphataemia (POA: No) HOSPITAL COURSE: Enrique Oliveira is a 63 year old male with PMHx: chronic back pain s/p prior back surgeries ('05 AND '06 in [place]) laminectomy '10, anxiety AND obesity. Presented to [facility] ED 04/13 for chills, nausea and chest tightness. Diagnosed with PNA and given azithromycin. Symptoms worsened and presented to [facility] on 04/14 for second opinion. He also reported severe R shoulder pain which had been present for 2 weeks. Admitted to medicine. Principal Problem: #Multifocal pneumonia #AHRF Presented to [facility] ED 04/13 for chills, nausea and chest tightness. Diagnosed with PNA and given azithromycin. Symptoms worsened and presented to [facility] on 04/[address] chest upper lobe predominant multifocal geographic areas of groundglass opacities with crazy paving pattern Viral panel -ve CRP 18/ procal 0.11 Deat in ED, placed on 3LNC, no o2 needs at baseline MRSA swab -ve Plan: ID AND Pulm consult Levaquin Bcx, Rcx, strep pneumo, legionella AND mycoplasma BPH/IS Scheduled duonebs RT consult OOB as (more content not included)...[place]05-27-2024 Note HNO ID: [id number] Author: DANTE ROD APRN.KEVIN Service: General Internal Medicine Author Type: Nurse Practitioner Type: Progress Notes Filed: 04/15/2024 15:24 Note Text: DEPARTMENT OF HOSPITAL MEDICINE PROGRESS NOTE SERVICE DATE: 04/15/2024 SERVICE TIME: [address] [place] [address] Medicine/Primary Attending: Juhi Clemente MD Day/Night/Weekend Coverage: Days (including weekends) [phone]: Please page Dante Rod APRN.COTTON WRINGER re: patient issues/concerns. Nights [phone]: For patients on G80/81 AND H80/81 page [phone], for all other patients page [phone]. Subjective INTERVAL HPI: Afebrile. SaO2 93-97% on 3LNC (no home O2 needs) Reports pain in R shoulder sometimes excruciating and worse than chronic back pain MRI this AM revealed rotator cuff tendinosis and interstitial tearing of infraspinatus >discussed with ortho; no acute intervention. pain control, PT/OT AND outpatient f/up Resting in bed on rounds this AM, at bedside >updated on POC AND questions answered Current Facility-Administered Medications Medication Dose Route Frequency NaCl 0.9% iv flush bag 20 mL INTRAVENOUS PRN polyethylene glycol 3350 17 g packet 17 g ORAL DAILY PRN heparin 5,000 Units injection 5,000 Units SUBCUTANEOUS q 12 H polyethylene glycol 3350 17 g packet 17 g ORAL DAILY senna 17.2 mg tab(s) (SENOKOT) 17.2 mg ORAL AT BEDTIME cyclobenzaprine 5 mg tab(s) (FLEXERIL) 5 mg ORAL TID PRN ondansetron (PF) 4 mg injection (ZOFRAN) 4 mg INTRAVENOUS q 6 H PRN guaiFENesin 600 mg ER tab(s) (MUCINEX) 600 mg ORAL q 12 H benzonatate 100 mg cap(s) (TESSALON PERLE) 100 mg ORAL q 4 H PRN albuterol HFA 90 mcg/actuation 2 Puff (PROVENTIL HFA, VENTOLIN HFA) 2 Puff INHALATION q 6 H PRN ondansetron orally disintegrating 4 mg tab(s) (ZOFRAN ODT) 4 mg ORAL q 6 H PRN oxyCODONE IR 5 mg tab(s) (ROXICODONE) 5 mg ORAL q 6 H PRN acetaminophen 1,000 mg tab(s) (TYLENOL) 1,000 mg ORAL q 6 H PRN diclofenac 1.3 % 1 Patch (FLECTOR) 1 Patch TRANSDERMAL BID And diclofenac - REMOVE PATCH OTHER BID And diclofenac - VERIFY PATCH OTHER q 8 H buPROPion XL 300 mg tab(s) (WELLBUTRIN XL) 300 mg ORAL AT BEDTIME rosuvastatin 20 mg tab(s) (CRESTOR) 20 mg ORAL AT BEDTIME traZODone 100 mg tab(s) (DESYREL) 100 mg ORAL AT BEDTIME ipratropium-albuterol 3 mL nebulizer solution (DUONEB) 3 mL INHALATION TID levoFLOXacin iv piggyback 750 mg in D5W 150 mL (LEVAQUIN) 750 mg INTRAVENOUS DAILY Objective PHYSICAL EXAM: BP 101/77 Pulse 82 Temp (Src) 97.7 (Oral) Resp 18 Ht 5' 5 (1.65m) Wt 224 lb (101.6kg) SpO2 97% BMI 37.28 kg/(m2). O2 Therapy: Nasal Cannula, Liters: 3.00 Physical Exam Performed GENERAL: awake, alert, cooperative, mild shortness of breath with conversation, obese OROPHARYNX: mmm LUNGS: exam limited by body habitus, diminished in bases on 3LNC CARDIAC: Normal S1 and S2; no rubs, murmurs, or gallops ABDOMEN: soft, non tender, +bowel sounds EXTREMITIES: RUE ROM limited d/t pain, LUE WNL. BLE WNl NEURO: Grossly normal cognition, motor function, and cranial nerves III-XII PULSES: 2+ posterial tibial Lines, Drains, and Airways Line Duration Peripheral 04/14/24 1325 [facility] Short Right Antecubital 20 Gauge 1 day Reviewed lines and needs to be continued: REASONS: Intravenous antibiotics and Difficulty in obtaining/maintaining access Intake/Output Summary (Last 24 hours) at 04/15/2024 1502 Last data filed at 04/15/2024 1117 Gross per 24 hour Intake 470 ml Output 1200 ml Net -730 ml DATA: Diagnostic tests reviewed for today's visit: Most recent labs Most recent imaging Assessment/Plan Problem List Pneumonia due to infectious organism (POA: Yes) Obesity, Class II, BMI 35-39.9 (POA: Status not on file) Ground glass opacity present on imaging of lung (POA: Status not on file) SOB (shortness of breath) (POA: Status not on file) Right arm pain (POA: Status not on file) HOSPITAL COURSE: Enrique Oliveira is a 63 year old male with PMHx: chronic back pain s/p prior back surgeries ( AND in [place]) laminectomy , anxiety AND obesity. Presented to [facility] ED 04/13 for chills, nausea and chest tightness. Diagnosed with PNA and given azithromycin. Symptoms worsened and presented to [facility] on 04/14 for second opinion. He also reported severe R shoulder pain which had been present for 2 weeks. Admitted to medicine. Principal Problem: #Multifocal pneumonia #AHRF Presented to [facility] ED 04/13 for chills, nausea and chest tightness. Diagnosed with PNA and given azithromycin. Symptoms worsened and presented to [facility] on 04/[address] chest upper lobe predominant multifocal geographic areas of groundglass opacities with crazy paving pattern Viral panel -ve CRP 18/ procal 0.11 Deat in ED, placed on 3LNC, no o2 needs at baseline MRSA swab -ve Plan: ID AND Pulm consult Bcx, Rcx, strep pneumo, legionella AND mycoplasma BPH/IS Scheduled duonebs RT cons (more content not included)...[place]05-26-2024 Note HNO ID: [id number] Author: PRAMOD DOMINGO, RT(R) Service: Radiology Author Type: Technologist Type: Progress Notes Filed: 04/14/2024 17:04 Note Text: Radiology Service Progress Note PATIENT NAME: Enrique Oliveira DATE OF SERVICE: April 14, 2024 TIME: 5:04 PM PATIENT IDENTITY VERIFICATION COMPLETED USING TWO (2) IDENTIFIERS: Name and Date of confirmed by patient verbally. FALL SCREENING: Has the patient had 2 falls in the last year or 1 fall with injury or currently using an Ambulatory Assistive Device (Walker, Cane, Wheelchair, Crutches, etc.)? Emergency Room Patient: Screened in ED PATIENT GENDER DATA: Male PATIENT RELEVANT IMPLANT DATA REVIEWED: Yes PATIENT PRESENTS WITH AN IMPLANTABLE OR ATTACHED AB INITIO ETL DEVELOPER: No RADIOLOGY DEPARTMENT: CT; Exam(s) Completed: Abdomen/Pelvis PERIPHERAL IV DATA: Not applicable Pramod Domingo RT(R)CT April 14, 2024 5:04 [facility]04-29-2024 Procedure [facility]04-29-2024 Procedure [facility]01-25-2024 Discharge summary Author Genaro Butler [facility] December 14, 2023 8:23am Note Date/Time December 14, 2023 8 :22am [facility] Medical Records Department [address] [place] [address] Discharge Summary 12/14/23 0818 MR#: [id number] Acct: [id number] Name: ENRIQUE OLIVEIRA Rep #:[id number] : 1960 63 From: Genaro Mcmahon PCP: Dr. Jorge Benitez MD Status:ADM I N Location: [place] [address] Providers Date of Admission: 12/13/23 Date of Discharge: 12/14/23 Primary Care Physician: Dr. Jorge Benitez MD Consultations 12/12/23 15:37 Consult: Cardiology Routine Consulting Provider: Gilberto Badillo Reason for Consult: Exertional CP, suspected stable angina EMERGENT Consult: No MD Notified: Yes Date Notified: 12/12/23 Time Notified: 16:00 Method of Notification: Text Reason For Visit: CHEST PAIN, ACS RULE OUT Diagnosis Discharge Diagnosis (1) Unstable angina: Status: Acute Code(s): I20.0 - Unstable angina (2) Hx of hypercholesterolemia: Status: Acute Code(s): Z86.39 - Personal history of other endocrine, nutritional and metabolic disease Plan Patient is a 63-year-old male who presented to [facility] ED on 12/12/2023 with exertional chest pressure felt like tightness, worse on walking uphill discharge and resolution spontaneously on stopping. This has been going for last 3 weeks. Associated with shortness of breath and fatigue. 1. Unstable angina: Patient is being admitted in PCU. His LAZARO risk score is 1but patient is 63-year-old approaching 64. Serial troponin enzymes are negative. Twelve-lead EKG on admission normal sinus rhythm nonspecific ST-T changes. Because of unstable angina patient is going for left heart cath. Chest x-ray no acute abnormality. 12/14: Patient was evaluated by me and manager chinese. No acute symptoms like chest pain or shortness of breath. Patient had cardiac cath yesterday which showed single- vessel CVD, proximal diagonal vessel 80%, LAD mid 60% and distal mild disease with tapering. Circumflex mild less than 30% RCA no significant disease. 2D echo was done shows EF 60% PASP 43 mmHg. Structurally normal valves. Patient is discharged on metoprolol succinate 50 mg daily, isosorbide mononitrate and aspirin. 2. Hyperlipidemia Lipid panel 11/08/2023 showed total cholesterol 279, LDL 180, HDL 66. On chart review, patient has history of significant hyperlipidemia dating back to 2011. Started on rosuvastatin 10 mg about 2 weeks ago, increased to 20 mg daily. Repeat lipid profile in 3 months. Goal LDL be less than 70 mg. 12/14: Rosuvastatin dose increased to 20 mg daily and new prescription was given. Recommended repeat fasting profile about January 2024. 3. Suspected BPH with obstructive symptoms ? Reports intermittent urinary hesitancy and difficulty emptying his bladder over the past few years. Renal ultrasound shows no suspicious sonographic findings. Simple right renal cyst. Bladder sonographically normal, estimated capacity 308 mL. Started on Flomax 2.4 mg daily. 4. Insomnia ? Continue home trazodone 100 mg at night, Benadryl 25 mg at night. 5. Obesity ? BMI 31 on admit. Complicates hospital course, care and prognosis. DVT prophylaxis: Lovenox CODE STATUS: Full code, verified Discharge medication reconciliation done. Discharge follow-up instructions completed. Discharge process discussed with the patient and all questions were answered to patient's satisfaction. Follow with PCP in 1 to 2 weeks Total time spent, exact 35 minutes on discharge meds reconciliation, examination, coordination of care with nurses and ancillary staff, review of imaging and blood test and discussion with the patient on follow-up instructions. Medications at Discharge Home Medications bupropion HCl 300 mg 24 hr tablet, extended release 300 mg PO QHS sleep/mood 12/12/23 diphenhydramine HCl 25 mg capsule (Allergy (diphenhydramine)) 25 mg PO QHS PRN sleep 12/12/23 trazodone 100 mg tablet 100 mg PO QHS SLEEP 12/12/23 aspirin 81 mg chewable tablet 81 mg PO BREAKFAST #30 tabs 12/14/23 isosorbide mononitrate 30 mg tablet,extended release 24 hr 30 mg PO DAILY 1 month #30 tabs 12/14/23 metoprolol succinate 50 mg tablet,extended release 24 hr 50 mg PO DAILY #30 tabs12/14/23 rosuvastatin 20 mg tablet 20 mg PO DAILY 1 month #30 tabs 12/14/23 Physical Exam Narrative Seen and examined. No acute event overnight. Patient denies any history of coronary artery disease CHF or valvular heart disease in the past. History is typical of unstable angina getting worse on exertion and resolves with rest. Patient also had neck surgery therefore he haschronic neck pain with radiation to left shoulder and arm. Physical exam General: Alert, Oriented x3, Cooperative HEENT: Atraumatic, PERRLA, EOMI, Normocephalic Oral: No Gingival or Mucosal Lesions/ Ulcerations Neck: Supple, No JVD, Negative Carotid Bruits Chest wall/Lungs: Air entry equal in bilateral lung bases. No crepitation/rhonchi. Cardiovascular: Regular rate, Regular Rhythm, Normal S1, Normal S2, No murmurs Abdomen: Bowel Sounds Present, Soft, Non Tender, Non-Distended : No renal angle tenderness. No suprapubic tenderness. Extremities: No edema, Capillary Refill Less than 3 Seconds Skin: No rashes, No breakdown Musculoskeletal: No Tenderness to Palpation of Joints or Extremities Spine: History of transcervical anterior cervical spine surgery. Multiple lumbar spine surgery. Mild chronic C-spine tenderness. Neurological: Cranial nerves II-XII grossly intact, DTR 2+/4. No acute focal neurological deficit. Psych/Mental Status: Normal Affect, Appropriate. Weight / BMI Weight Weight: 222 lb 10.67 oz Body Mass Index (BMI) 31.0 ABG / Lab / Microbiology Data 12/13/23 06:30 12/13/23 06:30 Radiography Diagnostic Testing: Radiology Impression Echocardiogram 12/12/23 17:06 Interpretation Summary Normal LV size. Left ventricular systolic function is normal. The estimated ejection fraction is 60 %. Stage 1 diastolic dysfunction. Pulmonary artery systolic pressure is 43 mmHg. Structurally normal valves. Ordering Physician: Gilberto Badillo Referring Physician: Alyson Ortiz Performed By: Marcela Donovan RDCS D/C Instructions Discharge Diet: Low fat / Low cholesterol and 2000 mg Sodium Diet Weight Bearing Status: Weight bearing as tolerated Call your doctor if you observe: Fever of 101 or Higher, Coldness, Increased Pain, Numbness or Tingling, Change in Color, Inability to urinate, Inability to have a bowel movement, Shortness of breath, Dizziness, Fainting spells, Swellingin the ankles, Chest pain, Prolonged hiccupping, Increased palpitations (irregular heartbeat) and Calf discomfort When: IN 2 WEEKS Meaningful Use Info Meaningful Use Diagnoses (Choose all that apply): None applicable Discharge Plan Admission Admit Date/Time: 12/13/23 14:30 Primary Reason for Your Visit: Unstable angina Attending Provider: Genaro Butler Primary Care Provider: Jorge Benitez Consulting Providers: Gilberto Badillo; Glenroy Frankel Discharge Orders/Prescriptions Prescriptions: New isosorbide mononitrate 30 mg Tablet Extended Release 24 Hr 30 mg PO DAILY 30 Days Qty: 30 2RF aspirin 81 mg Tablet,Chewable 81 mg PO BREAKFAST Qty: 30 4RF metoprolol succinate 50 mg Tablet Extended Release 24 Hr 50 mg PO DAILY Qty: 30 2RF Rx Instructions: Hold for heart less than 50 or systolic blood pressure less than 100 mmHg. rosuvastatin 20 mg tablet 20 mg PO DAILY 30 Days Qty: 30 2RF Continued trazodone 100 mg tablet 100 mg PO QHS bupropion HCl 300 mg tablet extended release 24 hr 300 mg PO QHS diphenhydramine HCl [Allergy (diphenhydramine)] 25 mg capsule 25 mg PO QHS PRN (Reason: sleep) Patient Comments: pt states he takes 10 tabs at bedtime when needed Discontinued rosuvastatin 5 mg tablet 5 mg PO DAILY Patient Comments: pt states takes in the morning Referrals / Follow Up: Gilberto Badillo MD [Med Staff - Active Staff] - Within 1 Month Jorge Benitez MD [Primary Care Provider] - Within 2 Weeks Disposition Disposition (needs filled in before D/C Order can be placed): Home, Self Care Charges/Coding Visit Charges Inpatient E&M: 74380 Disch Hosp >30min 12/14/23822 <Electronically signed by Genaro Butler MD> Cosigner Signature (if applicable): CC: Dr. Gilberto Badillo MD; Dr. Jorge Benitez MD; Dr. Gnearo Butler MD~ Signed [facility] Work Phone: [phone]) 209-668101-25-2024 Progress note Author Gilberto Badillo [facility] December 14, 2023 8:23am Note Date/Time December 14, 2023 8 :23am [facility] Medical Records Department [address] [place] [address] Progress Note - Cardiology 12/14/23816 MR#: [id number] Acct: [id number] Name: ENRIQUE OLIVEIRA Rep #:[id number] : 1960 63 From: Gilberto Badillo MD PCP: Dr. Jorge Benitez MD Status:ADM I N Location: [place] [address] Subjective Subjective The patient is up and ambulatory without recurrent anginal symptoms. His anginais felt to be his left-sided chest discomfort that was occurring while he was walking uphill in the cold to congregational. The neck and shoulder discomfort appears to be related to his chronic C-spine disease. The patient is tolerating the medical therapy without incident. Objective Data Vital Signs: Vital Signs Temp Pulse Resp BP Pulse Ox O2 Del Method 97.0 F L 65 16 112/78 97 Room Air 12/14/23 07:56 12/14/23 08:02 12/14/23 07:56 12/14/23 07:56 12/14/23 07:56 12/14/23 07:56 Oxygen Delivery Method Room Air Weight: 222 lb 10.67 oz Body Mass Index (BMI) 31.0 Intake & Output: Intake and Output for Last 24 Hours 12/12/23 12/13/23 12/14/23 23:59 23:59 23:59 Intake Total 1245 / 1245 700 / 1100 600 / 600 Balance 1245 / 1245 700 / 1100 600 / 600 Lab / Micro Data Attestation: I reviewed the patient's lab results. 12/13/23 06:30 12/13/23 06:30 Cardiology Labs/Tests Rhythm: EKG: ECHO: Stress Test: Cardiac Cath: PCI: CT Surgery: Holter monitor: EPS: PPM: CXR: Chest CT Scan: Radiography Diagnostic Testing: Radiology Impression Echocardiogram 12/12/23 17:06 Interpretation Summary Normal LV size. Left ventricular systolic function is normal. The estimated ejection fraction is 60 %. Stage 1 diastolic dysfunction. Pulmonary artery systolic pressure is 43 mmHg. Structurally normal valves. Ordering Physician: Gilberto Badillo Referring Physician: Alyson Ortiz Performed By: Marcela Donovan RDCS Physical Exam Const oriented x3 HEENT normocephalic Neck no JVD Chest inspection of chest normal Resp normal respiratory effort Cardio regular rate, regular rhythm, S1 normal heart sound, S2 normal heart sound, no murmurs, no rub and no gallops Extremity normal to inspection Extremity Narrative: Right radial cath site is free of any ecchymosis or hematoma. Assessment & Plan Assessment/Plan (1) Unstable angina: PLAN: Patient reports he has had no recurrence of his symptoms but he has not been exerting himself to the level he was in his home environment. He is tolerating the medical regimen without incident his vital signs are stable. From a cardiovascular standpoint the patient can be discharged to home. I askedthat he follow-up in our office in 2 to 4 weeks and defer his trip to [place] until we have fully titrated his medical regiment in ambulatory setting. He voiced understanding and agrees to proceed with this plan. (2) Exertional chest pain: PLAN: The patient was instructed what to do should he experience exertional chest pain including sitting and resting for 5 minutes if it does not resolve totake a sublingual nitro. The patient be reevaluated as noted under #1. PLAN: Plan 1. Continue current medical therapy. 2. Discharged home and follow-up in the [facility] with Dr. Badillo or the advanced practitioner in 2 to 4 weeks. Thank you for allowing me to participate in the care of your patient. Please don't hesitate to call if any issues arise. This note was generated using a voice recognition system and there may be incorrect words, spelling, or punctuation that were not noted when reviewing theoffice note prior to saving. Portions of this documentation were copied and pasted from previous office visitnotes to provide a cohesive continuity of the history. The note has been reviewed, edited, and updated, as necessary. Charges/Coding Visit Charges Inpatient E&M: 81138 Subs Hosp L2 12/14/2323 <Electronically signed by Gilberto Badillo MD> Cosigner Signature (if applicable): CC: ~ Signed [facility] Work Phone: 1(667) 161-147301-25-2024 Discharge summary Author Genaro Butler [facility] December 14, 2023 8:18am Note Date/Time December 14, 2023 8 :14am [facility] Medical Records Department [address] [place] [address] Instructions for Home/Discharge Instructions 12/14/23 0721 MR#: [id number] Acct: [id number] Name: ENRIQUE OLIVEIRA Rep #:[id number] : 1960 63 From: Genaro Mcmahon PCP: Dr. Jorge Benitez MD Status:ADM I N Discharge Instructions Diet Discharge Diet: Low fat / Low cholesterol and 2000 mg Sodium Diet Activity Discharge Activity: Return to Normal Activity Weight Bearing Status: Weight bearing as tolerated Dressing / Incision Call your doctor if you observe: Fever of 101 or Higher, Coldness, Increased Pain, Numbness or Tingling, Change in Color, Inability to urinate, Inability to have a bowel movement, Shortness of breath, Dizziness, Fainting spells, Swellingin the ankles, Chest pain, Prolonged hiccupping, Increased palpitations (irregular heartbeat) and Calf discomfort Follow Up Care When: IN 2 WEEKS Test Results: Test results from this visit will be discussed in further detail at your follow- up appointment, if applicable. Discharge Plan Admission Admit Date/Time: 12/13/23 14:30 Primary Reason for Your Visit: Unstable angina Attending Provider: Genaro Butler Primary Care Provider: Jorge Benitez Consulting Providers: Gilberto Badillo; Glenroy Frankel Discharge Orders/Prescriptions Prescriptions: New isosorbide mononitrate 30 mg Tablet Extended Release 24 Hr 30 mg PO DAILY 30 Days Qty: 30 2RF aspirin 81 mg Tablet,Chewable 81 mg PO BREAKFAST Qty: 30 4RF metoprolol succinate 50 mg Tablet Extended Release 24 Hr 50 mg PO DAILY Qty: 30 2RF Rx Instructions: Hold for heart less than 50 or systolic blood pressure less than 100 mmHg. rosuvastatin 20 mg tablet 20 mg PO DAILY 30 Days Qty: 30 2RF Continued trazodone 100 mg tablet 100 mg PO QHS bupropion HCl 300 mg tablet extended release 24 hr 300 mg PO QHS diphenhydramine HCl [Allergy (diphenhydramine)] 25 mg capsule 25 mg PO QHS PRN (Reason: sleep) Patient Comments: pt states he takes 10 tabs at bedtime when needed Discontinued rosuvastatin 5 mg tablet 5 mg PO DAILY Patient Comments: pt states takes in the morning Referrals / Follow Up: Gilberto Badillo MD [Med Staff - Active Staff] - Within 1 Month Jorge Benitez MD [Primary Care Provider] - Within 2 Weeks Disposition Disposition (needs filled in before D/C Order can be placed): Home, Self Care 12/14/23817<Electronically signed by Genaro Butler MD>Genaro Butler MD CC: Dr. Glenroy Frankel DO; Dr. Gilberto Badillo MD; Dr. Jorge Benitez MD ~ Signed [facility] Work Phone: 1(661) 551-151301-24-2024 Progress note Author Gilberto Badillo [facility] December 13, 2023 2:36pm Note Date/Time December 13, 2023 8 :16am [facility] Medical Records Department [address] [place] [address] Progress Note - Cardiology 12/13/23809 MR#: [id number] Acct: [id number] Name: ENRIQUE OLIVEIRA Rep #:[id number] : 1960 63 From: Gilberto Badillo MD PCP: Dr. Jorge Benitez MD Status:ADM I NO Location: [place] [address]- Subjective Subjective Patient reports that he rested comfortably overnight. He continues to have chronic neck and upper shoulder discomfort which is not new for him and felt to be related to his cervical spine disease. He did not have any recurrence of theleft-sided chest discomfort that he had walking up [place] to the congregational as described as his anginal equivalent. The patient is scheduled for left heart catheterization today. Objective Data Vital Signs: Vital Signs Temp Pulse Resp BP Pulse Ox O2 Del Method 97.6 F L 69 14 110/79 95 Room Air 12/13/23 03:17 12/13/23 03:17 12/13/23 03:17 12/13/23 03:17 12/13/23 03:17 12/13/23 03:46 Oxygen Delivery Method Room Air Weight: 222 lb 10.67 oz Body Mass Index (BMI) 31.0 Intake & Output: Intake and Output for Last 24 Hours 12/11/23 12/12/23 12/13/23 23:59 23:59 23:59 Intake Total 1245 / 1245 100 / 100 Balance 1245 / 1245 100 / 100 Lab / Micro Data 12/13/23 06:30 12/13/23 06:30 Labs: Laboratory Results - last 24 hr 12/12/23 12:30: WBC 6.1, RBC 4.71, Hgb 13.9, Hct 42.6, MCV 90.4, MCH 29.5, MCHC 32.6, RDW Std Deviation 41.9, RDW Coeff of Ortega 12.7, Plt Count 179, MPV 10.8, Immature Gran % (Auto) 2.000 H, Neut % (Auto) 37.7 L, Lymph % (Auto) 48.0 H, Benton % (Auto) 8.7, Eos % (Auto) 2.8, Baso % (Auto) 0.8, Absolute Neuts (auto) 2.3, Absolute Lymphs (auto) 2.92, Nucleated RBC % 0, Sodium 140, Potassium 4.0, Chloride 107, Carbon Dioxide 30.0, Anion Gap 3 L, BUN 21 H, Creatinine 1.13, Estim Creat Clear Calc 80.84, Est GFR (MDRD) Af Amer 84, Est GFR (MDRD) Non-Af 69, BUN/Creatinine Ratio 18.6, Glucose 99, Hemoglobin A1c 5.5, Calcium 9.3, Troponin I High Sens 6 12/12/23 14:45: Troponin I High Sens 4 12/12/23 17:02: Troponin I High Sens 5 12/13/23 06:30: WBC 5.2, RBC 4.90, Hgb 14.6, Hct 43.7, MCV 89.2, MCH 29.8, MCHC 33.4, RDW Std Deviation 41.1, RDW Coeff of Ortega 12.5, Plt Count 185, MPV 10.9, Sodium 136, Potassium 4.0, Chloride 109 H, Carbon Dioxide 22.0, Anion Gap 5, BUN23 H, Creatinine 1.07, Estim Creat Clear Calc 84.42, Est GFR (MDRD) Af Amer 89, Est GFR (MDRD) Non-Af 74, BUN/Creatinine Ratio 21.5 H, Glucose 165 H, Calcium 9.7 Cardiology Labs/Tests 12/12/23 12:30: WBC 6.1, RBC 4.71, Hgb 13.9, Hct 42.6, MCV 90.4, MCH 29.5, MCHC 32.6, Plt Count 179, MPV 10.8, Immature Gran % (Auto) 2.000 H, Neut % (Auto) 37.7 L, Lymph % (Auto) 48.0 H, Benton % (Auto) 8.7, Eos % (Auto) 2.8, Baso % (Auto) 0.8, Absolute Neuts (auto) 2.3, Nucleated RBC % 0, Sodium 140, Potassium 4.0, Chloride 107, Carbon Dioxide 30.0, Anion Gap 3 L, BUN 21 H, Creatinine 1.13, Est GFR (MDRD) Af Amer 84, Est GFR (MDRD) Non-Af 69, BUN/Creatinine Ratio 18.6, Glucose 99, Hemoglobin A1c 5.5, Calcium 9.3 12/13/23 06:30: WBC 5.2, RBC 4.90, Hgb 14.6, Hct 43.7, MCV 89.2, MCH 29.8, MCHC 33.4, Plt Count 185, MPV 10.9, Sodium 136, Potassium 4.0, Chloride 109 H, CarbonDioxide 22.0, Anion Gap 5, BUN 23 H, Creatinine 1.07, Est GFR (MDRD) Af Amer 89,Est GFR (MDRD) Non-Af 74, BUN/Creatinine Ratio 21.5 H, Glucose 165 H, Calcium 9.7 Rhythm: EKG: ECHO: Stress Test: Cardiac Cath: PCI: CT Surgery: Holter monitor: EPS: PPM: CXR: Chest CT Scan: Radiography Diagnostic Testing: Radiology Impression Chest X-Ray 12/12/23 12:27 IMPRESSION: No acute abnormality is present. Electronically Signed: Jeremi Bates MD at 13:22 EST , Renal Ultrasound 12/12/23 15:37 IMPRESSION: No suspicious sonographic findings, simple right renal cyst, no specific follow-up needed Electronically Signed: Boo Kc MD at 17:40 EST , Physical Exam Const oriented x3 HEENT normocephalic Eyes EOMs intact bilaterally Neck no JVD Chest inspection of chest normal Resp normal respiratory effort Auscultation: Negative for crackles, rales, rhonchi or wheezes Cardio regular rate, regular rhythm, S1 normal heart sound, S2 normal heart sound, no murmurs, no rub and no gallops GI soft to palpation and no bruits Skin no rashes or lesions noted Psych mental status grossly normal Assessment & Plan Assessment/Plan (1) Unstable angina: PLAN: The patient denies any recurrence of his anginal type symptoms overnight. The patient is scheduled for left heart catheterization later today. Report will be following. Further therapy will be recommended pending the outcomes of the catheterization. The patient's catheterization revealed a significant lesion and is relatively small 2 mm ramus branch of the circumflex. We will treat this medically. The patient's LAD had mild disease the right coronary artery was free of any significant disease. The patient will be placed on long-acting nitrate with Imdur, beta-orion, and a baby aspirin a day. He will be reevaluated the office in 2 to 4 weeks. From a cardiovascular standpoint he can be discharged home when up and ambulatory. I discussed this with the patient and family in detail prior to his discharge. (2) Hx of hypercholesterolemia: PLAN: The patient will be continued on his rosuvastatin and managed by his primary care physician. Charges/Coding Visit Charges Inpatient E&M: 75107 Subs Hosp L3 12/13/23 1436 <Electronically signed by Gilberto Badillo MD> Cosigner Signature (if applicable): CC: ~ Signed [facility] Work Phone: [phone]) 431-611701-24-2024 Progress note Author Genaro Butler [facility] December 13, 2023 1:52pm Note Date/Time December 13, 2023 8 :49am [facility] Medical Records Department [address] [place] [address] Progress Note - Hospitalist 12/13/23845 MR#: [id number] Acct: [id number] Name: ENRIQUE OLIVEIRA Rep #:[id number] : 1960 63 From: Genaro Mcmahon PCP: Dr. Jorge Benitez MD Status:ADM I NO Location: [place] [address] Reason for Visit Reason for Visit: Diagnoses Unstable angina (12/12/23) Chest pain, unspecified (12/12/23) Personal history of other endocrine, nutritional and metabolic disease (12/12/23) Objective Data Objective Data Vital Signs: Vital Signs Temp Pulse Resp BP Pulse Ox O2 Del Method 97.6 F L 69 14 110/79 95 Room Air 12/13/23 03:17 12/13/23 03:17 12/13/23 03:17 12/13/23 03:17 12/13/23 03:17 12/13/23 03:46 Oxygen Delivery Method Room Air Weight: 222 lb 10.67 oz Body Mass Index (BMI) 31.0 Intake & Output: Intake and Output for Last 24 Hours 12/11/23 12/12/23 12/13/23 23:59 23:59 23:59 Intake Total 1245 / 1245 100 / 100 Balance 1245 / 1245 100 / 100 Lab / Micro Data 12/13/23 06:30 12/13/23 06:30 Labs: Laboratory Results - last 24 hr 12/12/23 12:30: WBC 6.1, RBC 4.71, Hgb 13.9, Hct 42.6, MCV 90.4, MCH 29.5, MCHC 32.6, RDW Std Deviation 41.9, RDW Coeff of Ortega 12.7, Plt Count 179, MPV 10.8, Immature Gran % (Auto) 2.000 H, Neut % (Auto) 37.7 L, Lymph % (Auto) 48.0 H, Benton % (Auto) 8.7, Eos % (Auto) 2.8, Baso % (Auto) 0.8, Absolute Neuts (auto) 2.3, Absolute Lymphs (auto) 2.92, Nucleated RBC % 0, Sodium 140, Potassium 4.0, Chloride 107, Carbon Dioxide 30.0, Anion Gap 3 L, BUN 21 H, Creatinine 1.13, Estim Creat Clear Calc 80.84, Est GFR (MDRD) Af Amer 84, Est GFR (MDRD) Non-Af 69, BUN/Creatinine Ratio 18.6, Glucose 99, Hemoglobin A1c 5.5, Calcium 9.3, Troponin I High Sens 6 12/12/23 14:45: Troponin I High Sens 4 12/12/23 17:02: Troponin I High Sens 5 12/13/23 06:30: WBC 5.2, RBC 4.90, Hgb 14.6, Hct 43.7, MCV 89.2, MCH 29.8, MCHC 33.4, RDW Std Deviation 41.1, RDW Coeff of Ortega 12.5, Plt Count 185, MPV 10.9, Sodium 136, Potassium 4.0, Chloride 109 H, Carbon Dioxide 22.0, Anion Gap 5, BUN23 H, Creatinine 1.07, Estim Creat Clear Calc 84.42, Est GFR (MDRD) Af Amer 89, Est GFR (MDRD) Non-Af 74, BUN/Creatinine Ratio 21.5 H, Glucose 165 H, Calcium 9.7 Radiography Diagnostic Testing: Radiology Impression Chest X-Ray 12/12/23 12:27 IMPRESSION: No acute abnormality is present. Electronically Signed: Jeremi Bates MD at 13:22 EST , Renal Ultrasound 12/12/23 15:37 IMPRESSION: No suspicious sonographic findings, simple right renal cyst, no specific follow-up needed Electronically Signed: Boo Kc MD at 17:40 EST , Physical Exam Narrative Seen and examined. Patient denies any history of coronary artery disease CHF or valvular heart disease in the past. History is typical of unstable angina getting worse on exertion and resolves with rest. Patient also had neck surgery therefore he haschronic neck pain with radiation to left shoulder and arm. Physical exam General: Alert, Oriented x3, Cooperative HEENT: Atraumatic, PERRLA, EOMI, Normocephalic Oral: No Gingival or Mucosal Lesions/ Ulcerations Neck: Supple, No JVD, Negative Carotid Bruits Chest wall/Lungs: Air entry equal in bilateral lung bases. No crepitation/rhonchi. Dyspnea on exertion. Cardiovascular: Regular rate, Regular Rhythm, Normal S1, Normal S2, No murmurs Abdomen: Bowel Sounds Present, Soft, Non Tender, Non-Distended : No renal angle tenderness. No suprapubic tenderness. Extremities: No edema, Capillary Refill Less than 3 Seconds Skin: No rashes, No breakdown Musculoskeletal: No Tenderness to Palpation of Joints or Extremities Spine: History of transcervical anterior cervical spine surgery. Multiple lumbar spine surgery. Mild chronic C-spine tenderness. Neurological: Cranial nerves II-XII grossly intact, DTR 2+/4. No acute focal neurological deficit. Psych/Mental Status: Normal Affect, Appropriate. Assessment & Plan Assessment/Plan (1) Exertional chest pain: PLAN: Plan Patient is a 63-year-old male who presented to [facility] ED on 12/12/2023 with exertional chest pressure felt like tightness, worse on walking uphill discharge and resolution spontaneously on stopping. This has been going for last 3 weeks. Associated with shortness of breath and fatigue. 1. Unstable angina: Patient is being admitted in PCU. His LAZARO risk score is 1but patient is 63-year-old approaching 64. Serial troponin enzymes are negative. Twelve-lead EKG on admission normal sinus rhythm nonspecific ST-T changes. Because of unstable angina patient is going for left heart cath. Chest x-ray no acute abnormality. 2. Hyperlipidemia Lipid panel 11/08/2023 showed total cholesterol 279, LDL 180, HDL 66. On chart review, patient has history of significant hyperlipidemia dating back to 2011. Started on rosuvastatin 10 mg about 2 weeks ago, increased to 20 mg daily. Repeat lipid profile in 3 months. Goal LDL be less than 70 mg. 3. Suspected BPH with obstructive symptoms ? Reports intermittent urinary hesitancy and difficulty emptying his bladder over the past few years. Renal ultrasound shows no suspicious sonographic findings. Simple right renal cyst. Bladder sonographically normal, estimated capacity 308 mL. Started on Flomax 2.4 mg daily. 4. Insomnia ? Continue home trazodone 100 mg at night, Benadryl 25 mg at night. 5. Obesity ? BMI 31 on admit. Complicates hospital course, care and prognosis. DVT prophylaxis: Lovenox CODE STATUS: Full code, verified Laboratory Results 12/12/23 12:30: Hemoglobin A1c 5.5 12/12/23 14:45: Troponin I High Sens 4 12/12/23 17:02: Troponin I High Sens 5 12/13/23 06:30: WBC 5.2, RBC 4.90, Hgb 14.6, Hct 43.7, MCV 89.2, MCH 29.8, MCHC 33.4, RDW Std Deviation 41.1, RDW Coeff of Ortega 12.5, Plt Count 185, MPV 10.9, Sodium 136, Potassium 4.0, Chloride 109 H, Carbon Dioxide 22.0, Anion Gap 5, BUN23 H, Creatinine 1.07, Estim Creat Clear Calc 84.42, Est GFR (MDRD) Af Amer 89, Est GFR (MDRD) Non-Af 74, BUN/Creatinine Ratio 21.5 H, Glucose 165 H, Calcium 9.7 Charges/Coding Visit Charges Inpatient E&M: 88011 Subs Hosp L2 12/13/23 9837 <Electronically signed by Genaro Butler MD> Cosigner Signature (if applicable): CC: ~ Signed [facility] Work Phone: [phone]) 893-500701-23-2024 Consult note Author Gilberto Badillo [facility] December 12, 2023 5:22pm Note Date/Time December 12, 2023 5 :22pm [facility] Medical Records Department [address] [place] [address] Consultation - Cardiology 12/12/23 1708 MR#: [id number] Acct: [id number] Name: ENRIQUE OLIVEIRA Rep #:[id number] : 1960 63 From: Gilberto Badillo MD PCP: Dr. Jorge Benitez MD Status:ADM I NO Location: [place] [address] Assessment & Plan Assessment/Plan (1) Unstable angina: PLAN: Patient's symptoms are consistent with accelerating exertional angina consistent with unstable angina. He is a remote smoker however he has not smoked in quite some time. He does have history of hyperlipidemia. Blood pressure is well-controlled at the current time. The patient's secondary risk factors will be aggressively treated following further definitive evaluation of his chest symptoms. (2) Chest pain: QUALIFIERS: Ischemic chest pain type: unstable angina pectoris Chest pain type: chest pain due to myocardial ischemia Qualified Code(s): I20.0- Unstable angina PLAN: The chest pain is classic for an accelerating angina picture. Please see the HPI for details. The patient will undergo invasive evaluation in the next 24 hours. Will also obtain an echocardiogram for evaluation of his LV function. (3) Hx of hypercholesterolemia: PLAN: Following determination of his etiology of his chest symptoms aggressive secondary risk factor modifications will be implemented. PLAN: Plan 1. Left heart catheterization within the next 24 hours. The procedure risk/benefit and alternatives were explained to the patient and his in detail they voiced understanding and agreed to proceed. 2. 2D echocardiogram for evaluation of LV function. I discussed the plan with the patient's nurse and Dr. Frankel the patient's attending physician. HPI Consult Data Date of Consult: 12/12/23 HPI Narrative Reason for Consultation: Chest Pain accelerating exertional symptoms HPI Narrative: ENRIQUE OLIVEIRA, is a 63 M who presents a 3-week history of accelerating exertionalchest symptoms. The patient reports that he was walking uphill to congregational and had to stop about jail due to some left-sided chest tightness. This resolvedspontaneously he continue to walk and it recurred about the time he reached the congregational. This has been going on every time he is going to the congregational over the last 3 weeks. Today it occurred with less activity was associated with shortness of breath and a profound fatigability following the event. The patient does not have a significant family history of coronary disease, he is not diabetic, he does not feel that he is hypertensive. The patient denies tobacco use. He does have significant hyperlipidemia but is not been treated until just recently starting therapy. The patient denies any PND orthopnea denies any lower extremity edema. He denies any syncope or near syncope. He reports that he had an anaphylactic reactionto shrimp and has been told in the past he had an iodine allergy. He is not certain if he ever reacted to iodine contrast or not. The patient denies any bleeding history. He has had a history of significant neck and back surgical procedures. Prior to one of his surgical procedure several years ago he had a negative pharmacologic stress test. PENDING SALE TO [facility] Medical History (Updated 12/12/23 @ 17:[address] Gilberto Badillo MD) Atypical chest pain Home Medications bupropion HCl 300 mg 24 hr tablet, extended release 300 mg PO QHS sleep/mood 12/12/23 [History Last Taken 12/11/23] diphenhydramine HCl 25 mg capsule (Allergy (diphenhydramine)) 25 mg PO QHS PRN sleep 12/12/23 [History Last Taken 12/11/23] rosuvastatin 5 mg tablet 5 mg PO DAILY CHOLESTEROL 12/12/23 [History Last Taken 12/12/23] trazodone 100 mg tablet 100 mg PO QHS SLEEP 12/12/23 [History Last Taken 12/11/23] Allergy/AdvReac Type Severity Reaction Status Date / Time iodine Allergy Anaphylaxis Verified 12/12/23 11:59 other (No family history of coronary artery disease. Mother and father both from cancer.) Surgical History History of back surgery Social History Smoking Status: Former smoker Prior Cardiac Testing/Procedures Prior Cardiac Testing/Procedures: Stress Test (Negative pharmacologic stress test several years ago prior to surgical intervention on his back.) ROS Constitutional Constitutional: Reports as per HPI Eyes Eyes: Reports systems reviewed and no addt'l complaints, except as documented ENT HEENT: Reports systems reviewed and no addt'l complaints, except as documented Cardiovascular Cardiovascular: Reports systems reviewed and no addt'l complaints, except as documented Respiratory/Chest Respiratory/Chest: Reports systems reviewed and no addt'l complaints, except as documented and dyspnea on exertion Gastrointestinal Gastrointestinal: Reports systems reviewed and no addt'l complaints, except as documented Genitourinary Genitourinary: Reports systems reviewed and no addt'l complaints, except as documented Neurologic Neurologic: Reports systems reviewed and no addt'l complaints, except as documented Psychiatric Psychiatric: Reports systems reviewed and no addt'l complaints, except as documented Endocrine Endocrinology: Reports systems reviewed and no addt'l complaints, except as documented Hematologic/Lymphatic Hematologic/Lymphatic: Reports systems reviewed and no addt'l complaints, exceptas documented Allergic/Immunologic Allergic/Immunologic: Reports systems reviewed and no addt'l complaints, except as documented Physical Exam Const oriented x3, no apparent distress and healthy appearing HEENT normocephalic Eyes EOMs intact bilaterally Neck no JVD and no carotid bruits Chest inspection of chest normal Resp normal respiratory effort Auscultation: Negative for crackles, rales, rhonchi or wheezes Cardio regular rate, regular rhythm, S1 normal heart sound, S2 normal heart sound, no murmurs, no rub, no gallops, no JVD and peripheral pulses 2+ throughout GI soft to palpation and no bruits Extremity General Extremity: Negative for edema Skin no rashes or lesions noted Psych mental status grossly normal Risk Stratification Risk Stratification Applicable: No Charges/Coding Visit Charges Inpatient E&M: 15464 Init Hosp L3 Objective Data Vital Signs: Vital Signs Temp Pulse Resp BP Pulse Ox O2 Del Method 97.1 F L 59 L 14 120/80 96 Room Air 12/12/23 15:40 12/12/23 15:40 12/12/23 15:40 12/12/23 15:40 12/12/23 16:28 12/12/23 16:28 Oxygen Delivery Method Room Air Weight: 222 lb 10.67 oz Body Mass Index (BMI) 31.0 Intake & Output: Intake and Output for Last 24 Hours 12/10/23 12/11/23 12/12/23 23:59 23:59 23:59 Intake Total 565 / 565 Balance 565 / 565 Lab / Micro Data 12/12/23 12:30 12/12/23 12:30 Labs: Laboratory Results - last 24 hr 12/12/23 12:30: WBC 6.1, RBC 4.71, Hgb 13.9, Hct 42.6, MCV 90.4, MCH 29.5, MCHC 32.6, RDW Std Deviation 41.9, RDW Coeff of Ortega 12.7, Plt Count 179, MPV 10.8, Immature Gran % (Auto) 2.000 H, Neut % (Auto) 37.7 L, Lymph % (Auto) 48.0 H, Benton % (Auto) 8.7, Eos % (Auto) 2.8, Baso % (Auto) 0.8, Absolute Neuts (auto) 2.3, Absolute Lymphs (auto) 2.92, Nucleated RBC % 0, Sodium 140, Potassium 4.0, Chloride 107, Carbon Dioxide 30.0, Anion Gap 3 L, BUN 21 H, Creatinine 1.13, Estim Creat Clear Calc 80.84, Est GFR (MDRD) Af Amer 84, Est GFR (MDRD) Non-Af 69, BUN/Creatinine Ratio 18.6, Glucose 99, Hemoglobin A1c 5.5, Calcium 9.3, Troponin I High Sens 6 12/12/23 14:45: Troponin I High Sens 4 Cardiology Labs/Tests 12/12/23 12:30: WBC 6.1, RBC 4.71, Hgb 13.9, Hct 42.6, MCV 90.4, MCH 29.5, MCHC 32.6, Plt Count 179, MPV 10.8, Immature Gran % (Auto) 2.000 H, Neut % (Auto) 37.7 L, Lymph % (Auto) 48.0 H, Benton % (Auto) 8.7, Eos % (Auto) 2.8, Baso % (Auto) 0.8, Absolute Neuts (auto) 2.3, Nucleated RBC % 0, Sodium 140, Potassium 4.0, Chloride 107, Carbon Dioxide 30.0, Anion Gap 3 L, BUN 21 H, Creatinine 1.13, EstGFR (MDRD) Af Amer 84, Est GFR (MDRD) Non-Af 69, BUN/Creatinine Ratio 18.6, Glucose 99, Hemoglobin A1c 5.5, Calcium 9.3 Rhythm: EKG: ECHO: Stress Test: Cardiac Cath: PCI: CT Surgery: Holter monitor: EPS: PPM: CXR: Chest CT Scan: Radiography Diagnostic Testing: Radiology Impression Chest X-Ray 12/12/23 12:27 IMPRESSION: No acute abnormality is present. Electronically Signed: Jeremi Bates MD at 13:22 EST , 12/12/23 1722 <Electronically signed by Gilberto Badillo MD> Cosigner Signature (if applicable): CC: Dr. Gilberto Badillo MD; Dr. Jorge Benitez MD~ Signed [facility] Work Phone: 1(521) 937-533401-23-2024 History and physical note Author Glenroy Frankel [facility] December 12, 2023 3:37pm Note Date/Time December 12, 2023 1 :55pm [facility] Medical Records Department [address] [place] [address] H&P Exam - Hospitalist 12/12/23 1350 MR#: [id number] Acct: [id number] Name: ENRIQUE OLIVEIRA Rep #:[id number] : 1960 63 From: Glenroy escudero DO PCP: Dr. Jorge Benitez MD Status:ADM I NO Location: [place] [address] HPI - General General Date of Admission: 12/12/23 Date of Service: 12/12/23 Chief Complaint: Exertional chest pain HPI Narrative ENRIQUE OLIVEIRA, is a 63 M who presented to [facility] ED on 12/12/2023 with exertional chest pain. Patient seen at bedside in the ED, present. Patient was sitting up comfortably in bed, conversing normally, no acute distress. Breathing comfortably on room air, no increased work of breathing noted. Patient states he has been having episodes of chest pain with exertion for last 1 to 2 weeks. Patient states he was trying to walk to congregational about 1 week ago and had to stop about 5 times to rest due to chest pain and shortness of breath. States that the pain was a centralized chest pain that radiated to left side of his neck and down his left arm. Patient denies any recent travel or recent sick contacts. Denies any history of DVT or PE. Patient has several year history of high cholesterol per his report. States he opted to manage with lifestyle changes and was able to lose roughly 50 to 60 pounds over the last few years. However, his lipid panel from 11/08/2023 showeda total cholesterol 279, LDL 180, HDL 66. States he agreed to start rosuvastatin 10 mg daily at that time, has now been taking daily for about 2 weeks. Only other medications that he takes regularly are trazodone and low-dose Benadryl at night to help with sleep. Patient states that he has had cardiac workup in the past several years ago that was largely negative. Patient's only other concern today is that he intermittently has had lower abdominal/suprapubic pain. States he occasionally does have difficulty startinghis urine stream or feeling like he is fully emptying his bladder. States he does have family history of BPH. He otherwise denies any acute pain or discomfort today. No other acute concerns. PENDING SALE TO [facility] Medical History (Updated 12/12/23 @ 15:[address] Glenroy Frankel DO) Atypical chest pain Home Medications bupropion HCl 300 mg 24 hr tablet, extended release 300 mg PO QHS sleep/mood 12/12/23 [History Last Taken 12/11/23] diphenhydramine HCl 25 mg capsule (Allergy (diphenhydramine)) 25 mg PO QHS PRN sleep 12/12/23 [History Last Taken 12/11/23] rosuvastatin 5 mg tablet 5 mg PO DAILY CHOLESTEROL 12/12/23 [History Last Taken 12/12/23] trazodone 100 mg tablet 100 mg PO QHS SLEEP 12/12/23 [History Last Taken 12/11/23] Allergy/AdvReac Type Severity Reaction Status Date / Time iodine Allergy Anaphylaxis Verified 12/12/23 11:59 Surgical History History of back surgery Social History Smoking Status: Former smoker ROS Constitutional Constitutional: Denies chills, fatigue, fever(s) or weakness Eyes Eyes: Denies change in vision Cardiovascular Cardiovascular: Reports chest pain and dyspnea on exertion; Denies edema, lightheadedness, orthopnea, palpitations, rapid heart rate or syncope Respiratory/Chest Respiratory/Chest: Denies cough, productive cough, shortness of breath at rest or wheezing Gastrointestinal Gastrointestinal: Denies abdominal pain, constipation, diarrhea, nausea or vomiting Genitourinary Genitourinary: Reports difficulty urinating and urinary hesitancy; Denies dysuria or urinary frequency Musculoskeletal Musculoskeletal: Denies arthralgias or back pain Neurologic Neurologic: Denies dizziness, focal weakness or headache(s) Vital Signs Vital Signs Vital Signs: 12/12/23 11:59 12/12/23 12:27 12/12/23 12:42 Temperature 98.2 F Temperature Source Temporal Pulse Rate 61 Respiratory Rate 14 Respiratory Effort Short of Breath Blood Pressure 137/90 H Blood Pressure Mean 105 Pulse Ox 98 Oxygen Delivery Method Room Air Room Air Weight Weight: 103.4 kg Body Mass Index (BMI) 31.8 Physical Exam Const alert, oriented x3, no apparent distress, healthy appearing and well nourished Constitutional Narrative: Pleasant elderly male, obese, sitting up comfortably in bed, conversing normally, no acute distress. General Appearance: cooperative, comfortable, well kempt and well developed HEENT normocephalic, head/scalp atraumatic, hearing grossly normal bilaterally, nasal mucous membranes and turbinates normal and moist oral mucous membranes Eyes PERRL, EOMs intact bilaterally and conjunctivae normal Neck full ROM, no lymphadenopathy and supple Lymph Lymphatic: no lymphadenopathy noted Chest inspection of chest normal Resp normal respiratory effort, normal air movement, no use of accessory muscles and clear to auscultation bilaterally Cardio regular rate, regular rhythm, no murmurs and peripheral pulses 2+ throughout GI normal to inspection, nondistended, normoactive bowel sounds, soft to palpation,non-tender and non-distended Bladder / Kidney Exam: bladder normal to palpation and no CVA tenderness Back/Spine normal ROM Extremity normal to inspection, full ROM and no pedal edema Skin no rashes or lesions noted Neuro moves all extremities and no focal motor deficits Speech: speech normal Psych mental status grossly normal Results Lab / Micro Data 12/12/23 12:30 12/12/23 12:30 Labs: Laboratory Results - last 24 hr 12/12/23 12:30: WBC 6.1, RBC 4.71, Hgb 13.9, Hct 42.6, MCV 90.4, MCH 29.5, MCHC 32.6, RDW Std Deviation 41.9, RDW Coeff of Ortega 12.7, Plt Count 179, MPV 10.8, Immature Gran % (Auto) 2.000 H, Neut % (Auto) 37.7 L, Lymph % (Auto) 48.0 H, Benton % (Auto) 8.7, Eos % (Auto) 2.8, Baso % (Auto) 0.8, Absolute Neuts (auto) 2.3, Absolute Lymphs (auto) 2.92, Nucleated RBC % 0, Sodium 140, Potassium 4.0, Chloride 107, Carbon Dioxide 30.0, Anion Gap 3 L, BUN 21 H, Creatinine 1.13, Estim Creat Clear Calc 80.84, Est GFR (MDRD) Af Amer 84, Est GFR (MDRD) Non-Af 69, BUN/Creatinine Ratio 18.6, Glucose 99, Calcium 9.3, Troponin I High Sens 6 Imagaing Radiology Impression Chest X-Ray 12/12/23 12:27 IMPRESSION: No acute abnormality is present. Electronically Signed: Jeremi Bates MD at 13:22 EST , Assessment & Plan Assessment/Plan (1) Exertional chest pain: PLAN: Plan Patient is a 63-year-old male who presented to [facility] ED on 12/12/2023 with exertional chest pain. 1. Exertional chest pain, ACS rule out Pain seems most consistent with stable angina. Risk factors for coronary disease include longstanding hyperlipidemia, obesity, age. EKG on admit showed normal sinus rhythm, no ST changes. Initial troponin 6, repeat pending. Chest x-ray nonacute. Lipid panel from 1 month ago as noted below. Hemodynamically stable on room air. ? Admit under observation status to PCU. Cardiology consulted. Echo ordered. Nuclear stress test ordered. N.p.o. at midnight. A1c ordered. Given 1 dose ofaspirin 325 mg in ED, will start aspirin 81 mg daily. Increase statin dose as noted below. 2. Hyperlipidemia Lipid panel 11/08/2023 showed total cholesterol 279, LDL 180, HDL 66. On chart review, patient has history of significant hyperlipidemia dating back to 2011. Has opted for lifestyle modifications for management until last month. Had lost50 to 60 pounds over the last year or so but states his cholesterol numbers worsened, so he was agreeable to starting a statin. Was initiated on rosuvastatin 10 mg daily, has been taking for about 2 weeks. ? Will increase to rosuvastatin 20 mg daily at this time. Recommend repeat lipid panel in 3 to 6 months. Goal LDL will depend on findings of cardiac testing as noted above. 3. Suspected BPH with obstructive symptoms ? Reports intermittent urinary hesitancy and difficulty emptying his bladder over the past few years. Renal/bladder ultrasound ordered. Can consider starting Flomax as needed. 4. Insomnia ? Continue home trazodone 100 mg at night, Benadryl 25 mg at night. 5. Obesity ? BMI 31 on admit. Complicates hospital course, care and prognosis. DVT prophylaxis: Lovenox CODE STATUS: Full code, verified Expected disposition: Home, 1 to 2 days Total clinical time spent by myself addressing the patient's medical issues, reviewing all the data, and collaborating with patient's care team: 55 minutes. Charges/Coding Visit Charges Inpatient E&M: 35962 Init Hosp L2 12/12/23 1537 <Electronically signed by Glenroy Frankel DO> Cosigner Signature (if applicable): CC: Dr. Glenroy Frankel DO; Dr. Jorge Benitez MD~ Signed [facility] Work Phone: [phone]) 477-106801-23-2024 Discharge summary Author Alyson Humeraangelina [facility] December 12, 2023 3:16pm Note Date/Time December 12, 2023 1 2:29pm [facility] Medical Records Department [address] [place] [id number] Emergency Department Summary 12/12/23 MR#: [id number] Acct: [id number] Name: ENRIQUE OLIVEIRA Rep #:[id number] : 1960 63 From: Alyson Ortiz DO PCP: Dr. Jorge Benitez MD Status:ADM I NO Location: [place] [address] HPI History of Present Illness Chief Complaint: Chest Pain Detail of Chief Complaint: Chest pain Informant: patient Narrative Narrative: Patient presents to the emergency department complaint of chest pain that he hashad for over a week. Patient recounts trying to walk to congregational and having to stop for 5 times because of the chest pain and shortness of breath. Patient forthe last 2 or 3 days has had some discomfort in his neck and down his left arm that is worse with movement. He denies recent long distance drives. Denies recent airplane rides. No history of PE or DVT. He has no heart history. Patient saw his primary care physician recently and was ordered a stress test but cannot have it till December. Patient also was ordered a colonoscopy. Patient denies recent illness. [facility] Medical History (Updated 12/12/23 @ 13:[address] Alyson Ortiz, DO) Atypical chest pain Home Medications bupropion HCl 300 mg 24 hr tablet, extended release 300 mg PO QHS sleep/mood 12/12/23 [History Last Taken 12/11/23] diphenhydramine HCl 25 mg capsule (Allergy (diphenhydramine)) 25 mg PO QHS PRN sleep 12/12/23 [History Last Taken 12/11/23] rosuvastatin 5 mg tablet 5 mg PO DAILY CHOLESTEROL 12/12/23 [History Last Taken 12/12/23] trazodone 100 mg tablet 100 mg PO QHS SLEEP 12/12/23 [History Last Taken 12/11/23] Allergy/AdvReac Type Severity Reaction Status Date / Time iodine Allergy Anaphylaxis Verified 12/12/23 11:59 Surgical History History of back surgery Social History Smoking Status: Former smoker ROS ROS ED Review of Systems ROS Unobtainable: other Constitutional Constitutional ED: Reports lethargy; Denies chills, fever(s), sweats or weight loss Eyes Eyes: Denies blurry vision, change in vision or diplopia ENT ENT ED: Denies rhinorrhea or sore throat Cardiovascular Cardiovascular: Reports chest pain; Denies orthopnea or racing heartbeat Respiratory/Chest Respiratory/Chest: Reports dyspnea and dyspnea on exertion; Denies cough, orthopnea or sputum Gastrointestinal Gastrointestinal: Denies abdominal pain, diarrhea, nausea or vomiting Genitourinary Genitourinary ED: Denies dysuria, hematuria or urinary frequency Musculoskeletal Musculoskeletal: Denies arthralgias, back pain, myalgias or neck pain Integumentary Denies abscess, Abrasions or rash Neurologic Neurologic: Denies headache(s) or weakness Psychiatric Psychiatric: Denies anxiety, depression or suicidal thoughts Endocrine Endocrinology: Denies polydipsia, polyphagia or polyuria Hematologic/Lymphatic Hematologic/Lymphatic: Denies easy bleeding, easy bruising or lymphadenopathy Allergic/Immunologic Allergic/Immunologic ED: Denies mouth swelling, tongue swelling or urticaria EXAM Physical Exam Const Vital Signs: 12/12/23 11:59 12/12/23 12:27 12/12/23 12:42 Temperature 98.2 F Temperature Source Temporal Pulse Rate 61 Respiratory Rate 14 Respiratory Effort Short of Breath Blood Pressure 137/90 H Blood Pressure Mean 105 Pulse Ox 98 Oxygen Delivery Method Room Air Room Air 12/12/23 13:52 Temperature Temperature Source Pulse Rate 96 Respiratory Rate 16 Respiratory Effort Blood Pressure 134/92 H Blood Pressure Mean 106 Pulse Ox 99 Oxygen Delivery Method Room Air Positive well nourished and well developed General Appearance ED: well developed and NAD HEENT Reports TM's clear and moist mucous membranes normocephalic and atraumatic; Negative for trauma or tenderness Tympanic Membrane ED: Yes TM's clear Eyes PERRL and EOMs intact bilaterally General Eye ED: Negative for pale conjunctiva or scleral icterus Neck no lymphadenopathy, supple and no JVD General: Negative for tenderness Chest Wall inspection of chest normal and palpation of chest normal Chest: Negative for tenderness Resp normal respiratory effort and clear to auscultation bilaterally Effort and Inspection: Negative for respiratory distress or pain with movement Auscultation: Negative for rhonchi, wheezes or diminished lung sounds Cardio regular rate, regular rhythm, S1 normal heart sound, S2 normal heart sound and no murmurs Peripheral Pulses: pulses 2+ throughout GI normal to inspection, nondistended, normoactive bowel sounds, soft to palpation,non-tender, non-distended and no masses Back/Spine no CVA tenderness and no thoracic nor lumbar tenderness Extremity normal to inspection General Extremety ED: Negative for edema General Extremity: Negative for edema Neuro oriented x3, CN's II-XII intact bilaterally, no sensory deficits noted and gait normal Sensorium / Orientation: awake, alert, oriented to person, oriented to place andoriented to time Motor Exam: strength 5/5 throughout and strength abnormal Psych mental status grossly normal Skin no rashes or lesions noted and no wounds Heart Score History: Moderately Suspicious ECG: Nonspecific Repolarization Age: >45 - <65 years Risk Factors: 1 or 2 Risk Factors Troponin: </= Normal Limit Score: 4 MDM MDM MDM Narrative Medical decision making narrative: Patient presents to the emergency department complaint of chest pain that is exertional. In the differential would be acute coronary syndrome versus PE which I feel is less likely. IV line established. EKG obtained on arrival showed a sinus rhythm with a rate of 60 bpm with left anterior fascicular block. CBC with differential showed a white count of 6.1 with hemoglobin 13.9 and platelet count of 179. Chemistries unremarkable. Troponin was normal at 6. Patient heart score is a 4. Recommended admission and stress testing. Will discuss with hospitalist to evaluate patient for admission. Lab Data Attestation: I reviewed the patient's lab results. Labs: Laboratory Results - last 24 hr 12/12/23 12:30 WBC 6.1 RBC 4.71 Hgb 13.9 Hct 42.6 MCV 90.4 MCH 29.5 MCHC 32.6 RDW Std Deviation 41.9 RDW Coeff of Ortega 12.7 Plt Count 179 MPV 10.8 Immature Gran % (Auto) 2.000 H Neut % (Auto) 37.7 L Lymph % (Auto) 48.0 H Benton % (Auto) 8.7 Eos % (Auto) 2.8 Baso % (Auto) 0.8 Absolute Neuts (auto) 2.3 Absolute Lymphs (auto) 2.92 Nucleated RBC % 0 Sodium 140 Potassium 4.0 Chloride 107 Carbon Dioxide 30.0 Anion Gap 3 L BUN 21 H Creatinine 1.13 Estim Creat Clear Calc 80.84 Est GFR (MDRD) Af Amer 84 Est GFR (MDRD) Non-Af 69 BUN/Creatinine Ratio 18.6 Glucose 99 Calcium 9.3 Troponin I High Sens 6 Radiography Diagnostic Testing: Clinical Impression(s) from Imaging Studies Chest X-Ray 12/12/23 12:27 IMPRESSION: No acute abnormality is present. Electronically Signed: Jeremi Bates MD at 13:22 EST , 1 view chest x-ray obtained interpreted by myself as no evidence of infiltrate or pneumothorax or acute disease process. Radiology in agreement. EKG Initial EKG: Attestation: I personally reviewed and interpreted this EKG as follows: Comments: Sinus rhythm with rate of 60 bpm with left anterior fascicular block Discharge Plan Dx/Rx/DC Orders Clinical Impression: Hypertension, Hx of hypercholesterolemia, Chest pain Disposition Disposition: Acute Care Hospital [facility] What to do if you have Problems For any increased pain, shortness of breath, bleeding, nausea or vomiting, chestpain, or any unexpected problems, contact your Primary Care Provider. Call [facility] ([phone]) or report to the closest Emergency Room. Call 911 if necessary. 12/12/23 1516 <Electronically signed by Alyson Ortiz DO> Cosigner Signature (if applicable): CC: Dr. Jorge Benietz MD ~ Signed [facility] Work Phone: [phone]) 579-687301-23-2024 Discharge summary Author [facility] December 12, 2023 3:16pm Note Date/Time December 12, 2023 1 2:29pm [facility] Medical Records Department [address] [place] [address] Emergency Department Summary 12/12/23 MR#: [id number] Acct: [id number] Name: ENRIQUE OLIVEIRA Rep #:[id number] : 1960 63 From: Alyson Ortiz DO PCP: Dr. Jorge Benitez MD Status:ADM I NO Location: [place] [address] HPI History of Present Illness Chief Complaint: Chest Pain Detail of Chief Complaint: Chest pain Informant: patient Narrative Narrative: Patient presents to the emergency department complaint of chest pain that he hashad for over a week. Patient recounts trying to walk to congregational and having to stop for 5 times because of the chest pain and shortness of breath. Patient forthe last 2 or 3 days has had some discomfort in his neck and down his left arm that is worse with movement. He denies recent long distance drives. Denies recent airplane rides. No history of PE or DVT. He has no heart history. Patient saw his primary care physician recently and was ordered a stress test but cannot have it till December. Patient also was ordered a colonoscopy. Patient denies recent illness. [facility] Medical History (Updated 12/12/23 @ 13:[address] Alyson Ortiz, DO) Atypical chest pain Home Medications bupropion HCl 300 mg 24 hr tablet, extended release 300 mg PO QHS sleep/mood 12/12/23 [History Last Taken 12/11/23] diphenhydramine HCl 25 mg capsule (Allergy (diphenhydramine)) 25 mg PO QHS PRN sleep 12/12/23 [History Last Taken 12/11/23] rosuvastatin 5 mg tablet 5 mg PO DAILY CHOLESTEROL 12/12/23 [History Last Taken 12/12/23] trazodone 100 mg tablet 100 mg PO QHS SLEEP 12/12/23 [History Last Taken 12/11/23] Allergy/AdvReac Type Severity Reaction Status Date / Time iodine Allergy Anaphylaxis Verified 12/12/23 11:59 Surgical History History of back surgery Social History Smoking Status: Former smoker ROS ROS ED Review of Systems ROS Unobtainable: other Constitutional Constitutional ED: Reports lethargy; Denies chills, fever(s), sweats or weight loss Eyes Eyes: Denies blurry vision, change in vision or diplopia ENT ENT ED: Denies rhinorrhea or sore throat Cardiovascular Cardiovascular: Reports chest pain; Denies orthopnea or racing heartbeat Respiratory/Chest Respiratory/Chest: Reports dyspnea and dyspnea on exertion; Denies cough, orthopnea or sputum Gastrointestinal Gastrointestinal: Denies abdominal pain, diarrhea, nausea or vomiting Genitourinary Genitourinary ED: Denies dysuria, hematuria or urinary frequency Musculoskeletal Musculoskeletal: Denies arthralgias, back pain, myalgias or neck pain Integumentary Denies abscess, Abrasions or rash Neurologic Neurologic: Denies headache(s) or weakness Psychiatric Psychiatric: Denies anxiety, depression or suicidal thoughts Endocrine Endocrinology: Denies polydipsia, polyphagia or polyuria Hematologic/Lymphatic Hematologic/Lymphatic: Denies easy bleeding, easy bruising or lymphadenopathy Allergic/Immunologic Allergic/Immunologic ED: Denies mouth swelling, tongue swelling or urticaria EXAM Physical Exam Const Vital Signs: 12/12/23 11:59 12/12/23 12:27 12/12/23 12:42 Temperature 98.2 F Temperature Source Temporal Pulse Rate 61 Respiratory Rate 14 Respiratory Effort Short of Breath Blood Pressure 137/90 H Blood Pressure Mean 105 Pulse Ox 98 Oxygen Delivery Method Room Air Room Air 12/12/23 13:52 Temperature Temperature Source Pulse Rate 96 Respiratory Rate 16 Respiratory Effort Blood Pressure 134/92 H Blood Pressure Mean 106 Pulse Ox 99 Oxygen Delivery Method Room Air Positive well nourished and well developed General Appearance ED: well developed and NAD HEENT Reports TM's clear and moist mucous membranes normocephalic and atraumatic; Negative for trauma or tenderness Tympanic Membrane ED: Yes TM's clear Eyes PERRL and EOMs intact bilaterally General Eye ED: Negative for pale conjunctiva or scleral icterus Neck no lymphadenopathy, supple and no JVD General: Negative for tenderness Chest Wall inspection of chest normal and palpation of chest normal Chest: Negative for tenderness Resp normal respiratory effort and clear to auscultation bilaterally Effort and Inspection: Negative for respiratory distress or pain with movement Auscultation: Negative for rhonchi, wheezes or diminished lung sounds Cardio regular rate, regular rhythm, S1 normal heart sound, S2 normal heart sound and no murmurs Peripheral Pulses: pulses 2+ throughout GI normal to inspection, nondistended, normoactive bowel sounds, soft to palpation,non-tender, non-distended and no masses Back/Spine no CVA tenderness and no thoracic nor lumbar tenderness Extremity normal to inspection General Extremety ED: Negative for edema General Extremity: Negative for edema Neuro oriented x3, CN's II-XII intact bilaterally, no sensory deficits noted and gait normal Sensorium / Orientation: awake, alert, oriented to person, oriented to place andoriented to time Motor Exam: strength 5/5 throughout and strength abnormal Psych mental status grossly normal Skin no rashes or lesions noted and no wounds Heart Score History: Moderately Suspicious ECG: Nonspecific Repolarization Age: >45 - <65 years Risk Factors: 1 or 2 Risk Factors Troponin: </= Normal Limit Score: 4 MDM MDM MDM Narrative Medical decision making narrative: Patient presents to the emergency department complaint of chest pain that is exertional. In the differential would be acute coronary syndrome versus PE which I feel is less likely. IV line established. EKG obtained on arrival showed a sinus rhythm with a rate of 60 bpm with left anterior fascicular block. CBC with differential showed a white count of 6.1 with hemoglobin 13.9 and platelet count of 179. Chemistries unremarkable. Troponin was normal at 6. Patient heart score is a 4. Recommended admission and stress testing. Will discuss with hospitalist to evaluate patient for admission. Lab Data Attestation: I reviewed the patient's lab results. Labs: Laboratory Results - last 24 hr 12/12/23 12:30 WBC 6.1 RBC 4.71 Hgb 13.9 Hct 42.6 MCV 90.4 MCH 29.5 MCHC 32.6 RDW Std Deviation 41.9 RDW Coeff of Ortega 12.7 Plt Count 179 MPV 10.8 Immature Gran % (Auto) 2.000 H Neut % (Auto) 37.7 L Lymph % (Auto) 48.0 H Benton % (Auto) 8.7 Eos % (Auto) 2.8 Baso % (Auto) 0.8 Absolute Neuts (auto) 2.3 Absolute Lymphs (auto) 2.92 Nucleated RBC % 0 Sodium 140 Potassium 4.0 Chloride 107 Carbon Dioxide 30.0 Anion Gap 3 L BUN 21 H Creatinine 1.13 Estim Creat Clear Calc 80.84 Est GFR (MDRD) Af Amer 84 Est GFR (MDRD) Non-Af 69 BUN/Creatinine Ratio 18.6 Glucose 99 Calcium 9.3 Troponin I High Sens 6 Radiography Diagnostic Testing: Clinical Impression(s) from Imaging Studies Chest X-Ray 12/12/23 12:27 IMPRESSION: No acute abnormality is present. Electronically Signed: Jeremi Bates MD at 13:22 EST , 1 view chest x-ray obtained interpreted by myself as no evidence of infiltrate or pneumothorax or acute disease process. Radiology in agreement. EKG Initial EKG: Attestation: I personally reviewed and interpreted this EKG as follows: Comments: Sinus rhythm with rate of 60 bpm with left anterior fascicular block Discharge Plan Dx/Rx/DC Orders Clinical Impression: Hypertension, Hx of hypercholesterolemia, Chest pain Disposition Disposition: Acute Care [facility] What to do if you have Problems For any increased pain, shortness of breath, bleeding, nausea or vomiting, chestpain, or any unexpected problems, contact your Primary Care Provider. Call [facility] ([phone]) or report to the closest Emergency Room. Call 911 if necessary. 12/12/23 1516 <Electronically signed by Alyson Ortiz DO> Cosigner Signature (if applicable): CC: Dr. Jorge Benitez MD ~ Signed [facility] Work Phone: [phone]) 151-386911-28-2023 NoteHNO ID: [id number] Author: Jacques Lyons APRN.[employer] Service: ? Author Type: Nurse Practitioner Type: Progress Notes Filed: 10/17/2023 10:51 AM Note Text: CC: Patient presents with: Cough: x 6 weeks HPI: Enrique Oliveira is a 63 year old male who [...] symptoms occur. Patient agreeable to treatment plan. Jacques Lyons APRN.[facility]11-28-2023 History of Present illness Narrative* Jacques Lyons APRN.[facility] - 10/17/2023 10:43 AM EST CC: Patient presents with: Cough: x 6 weeks HPI: Enrique Oliveira is a 63 year old male who [...] symptoms occur. Patient agreeable to treatment plan. Jacques Lyons APRN.[employer] [facility] History of Present illness Narrative* Kimberley Watkins RT(R) - 09/02/2023 9:10 AM EDT Radiology Service Progress Note PATIENT NAME: Enrique Oliveira DATE OF SERVICE: September 02, 2023 TIME: 9:09 AM PATIENT IDENTITY VERIFICATION COMPLETED USING TWO (2) IDENTIFIERS: Name and Date of confirmedby patient verbally. FALL SCREENING: Has the patient had 2 falls in the last year or 1 fall with injury or currently using an Ambulatory Assistive Device (Walker, Cane, Wheelchair, Crutches, etc.)? No PATIENT GENDER DATA: Male PATIENT RELEVANT IMPLANT DATA REVIEWED: Yes RADIOLOGY DEPARTMENT: General X-ray: Exam(s) Completed: Chest X-Ray PERIPHERAL IV DATA: Not applicable SIGNED BY: RANDEE Rosales) September 02, 2023 9:09 AM documented in [facility]-14-2023 NoteHNO ID: [id number] Author: Kimberley Watkins RT(R) Service: Radiology Author Type: Technologist Type: Progress Notes Filed: 09/02/2023 9:18 AM Note Text: Radiology Service Progress Note PATIENT NAME: Enrique Oliveira DATE OF SERVICE: September 02, 2023 TIME: [...] PERIPHERAL IV DATA: Not applicable SIGNED BY: Kimberley Watkins RT(R) September 02, 2023 9:09 [facility]10-14-2023 NoteHNO ID: [id number] Author: Yaya Keller MD Service: ? Author Type: Physician Type: [...] He denies side effects with past use. Yaya Keller, [facility]10-14-2023 History of Present illness Narrative* Yaya Keller MD - 09/02/2023 8:56 AM EDT Patient presents with: Cough: Productive cough, chest congestion x1.5 weeks, STUART HPI: Feeling sick for 1 1/2 weeks. Positive symptoms: Cough, productive at times, Chest tightness, hurts to cough sometimes, Headache,Shortness of breath, Nasal Congestion, Negative symptoms: Sore [...] lower lung field wheezes, no increased WOB; productivesounding cough ASSESSMENT/PLAN: 1. Acute cough - ICD9: 786.2, ICD10: R05.1 (primary diagnosis) 2. Wheezing - ICD9: 786.07, ICD10: R06.2 - XR CHEST 2V FRONTAL/LAT - negative. Treat reactive airway with - PREDNISONE 10 MG TABLET taper. He denies side effects with past use. Yaya Keller MD [facility] noteNo assessment information availableWBluff[facility] Work Phone: Evaluation note* Diagnosis Acute cough- Primary Wheezing documented in this encounter [facility] note* Diagnosis Rhinosinusitis- Primary Unspecified sinusitis (chronic) documented in this encounter [facility] note* Diagnosis Onset Date Resolution Status Chest pain acute Hx of hypercholesterolemia a [facility] Work Phone: Evaluation note* Diagnosis Onset Date Resolution Status Chest pain acute Exertional chest pain acute Hx of hypercholesterolemia a cute Unstable angina acute [facility] Work Phone: Evaluation note* Diagnosis Onset Date Resolution Status Chest pain acute Exertional chest pain acute Hx of hypercholesterolemia a cute Unstable angina resolved Coronary artery arteriosclerosis acute Exertional chest pain acute Hx of hypercholesterolemia a cute Hx of colonic polyps acute [facility] Work Phone: Evaluation note* Diagnosis 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 [facility]* Diagnosis Eosinophilic pneumonia (HCC) Pulmonary eosinophilia [facility]* Diagnosis Eosinophilic pneumonia (HCC) Pulmonary eosinophilia Interstitial pulmonary disease (HCC) Postinflammatory pulmonary fibrosis documented in this encounter [facility] note* Diagnosis Acute eosinophilic pneumonia- Primary Lung nodule Solitary pulmonary nodule High risk medication use Encounter for long-term (current) use of other medications documented in this encounter [facility] note* Diagnosis Acute cough documented [facility] encounter [facility] Author Donta Anne [facility] March 18, 2024 12:50pm Note Date/Time March 18, 2024 12: 50pm [facility] Medical Records Department [address] [place] [address] History & Physical Exam 03/18/24 1249 MR#: [id number] Acct: [id number] Name: ENRIQUE OLIVEIRA Rep #:[id number] : 1960 63 From: Donta samayoa MD PCP: Alexandrea Padilla, IGNITION MECHANIC-C Status:[facility] Location: [place] [address] HPI - General HPI Narrative ENRIQUE OLIVEIRA, is a 63 M who presents for surveillance colonoscopy. The patient has last colonoscopy 3 years ago and 2 polyps were removed. He denies any abdominal pain or blood in the stool. He has a extensive family history of multiple cancers. PENDING SALE TO [facility] Medical History (Updated 03/18/24 @ 12:[address] Donta Anne MD) Anxiety Atypical chest pain Cardiology follow-up encounter CPAP (continuous positive airway pressure) dependence Former smoker Gastric reflux Heartburn High cholesterol History of echocardiogram History of left heart catheterization History of stress test Hx of colonic polyps Hx of hypercholesterolemia Shortness of breath on exertion Sleep apnea Wears dentures Wears glasses Home Medications bupropion HCl 300 mg 24 hr tablet, extended release 300 mg PO QHS sleep/mood 12/12/23 [History Last Taken 12/11/23] diphenhydramine HCl 25 mg capsule (Allergy (diphenhydramine)) 25 mg PO QHS PRN sleep 12/12/23 [History Last Taken 12/11/23] trazodone 100 mg tablet 100 mg PO QHS SLEEP 12/12/23 [History Last Taken 12/11/23] aspirin 81 mg chewable tablet 81 mg PO BREAKFAST #30 tabs 12/14/23 [Rx Last Taken Unknown] rosuvastatin 20 mg tablet 20 mg PO DAILY 1 month #30 tabs 12/14/23 [Rx Last Taken Unknown] nitroglycerin 0.4 mg sublingual tablet 0.4 mg sublingual Q5M PRN chest pain #30 tabs 12/27/23 [Rx Last Taken Unknown] FOREVER ARCTIC SEA 03/13/24 [History Last Taken Unknown] apple cider vinegar 03/13/24 [History Last Taken Unknown] isosorbide mononitrate 30 mg tablet,extended release 24 hr 30 mg PO DAILY 03/13/24 [History Last Taken Unknown] metoprolol succinate 50 mg tablet,extended release 24 hr 50 mg PO DAILY 03/13/24[History Last Taken Unknown] Allergy/AdvReac Type Severity Reaction Status Date / Time Iodinated Contrast Media Allergy Severe Anaphylaxis Verified 03/18/24 11:57 iodine Allergy Anaphylaxis Verified 03/18/24 11:57 shrimp Allergy Anaphylaxis Verified 03/18/24 11:57 Family History (Updated 03/08/24 @ 13:08 by Olesya Ye) Mother Colon cancer Aunt Colon cancer Uncle Colon cancer Brother Colon polyps Surgical History (Updated 03/13/24 @ 15:19 by Kiara Torres) History of back surgery History of cardiac catheterization Hx of colonoscopy Social History (Updated 03/08/24 @ 13:08 by Olesya Ye) household members: spouse current occupational status: employed Smoking Status: Former smoker alcohol intake: never substance use type: does not use clari/gnosticism: [facility] Past Medical/Surgical History Planned Operation Planned Operative Procedure/s: CSCOPE S.O.S: No Previous Hospitalizations/Surgeries HX Hospitalizations: Yes (12/13/23 CARDIAC CATH) HX of Surgeries: BACK SURGERY X5 NECK SURGERY X5 Any Problems With Anesthesia: No You/Your Family Experience Fever (Hyperthermia) With Anes: No Cholinesterase deficiency: No Cardiovascular Hx Chest Pain within Last 2 months: No Hx of Irregular Heartbeat and/or Afib: No Hx Heart Attack: No Hx Congestive Heart Failure: No Hx Rheumatic Fever: No Hx Hypertension: Yes (NO MEDS) Hx Internal Defibrillator: No Hx Pacemaker: No Hx Cardiac Catheterization: No Hx Cardiac Surgery/Stents/Etc.: No Hx Stress Test: Yes ([facility] 2019) Hx Pain in Legs when Walking/Leg Cramps: Yes Respiratory Chronic Cough: No HX of Shortness of Breath: No Hoarseness: No Hx Chronic Obstructive Pulmonary Disease (COPD): No Hx Asthma: No Hx Emphysema: No Hx Sleep Apnea: Yes (PT STATES LOST WEIGHT AND NO LONGER USES MACHINE) CPAP: Yes BIPAP: No Hx Respiratory Tract Infection/Cold (presently): No Result (for STOP score): Positive Hx Smoking: Yes Smoking Status: Former smoker Gastrointestinal Hx Gastrointestinal Disorders: No Hx Gastrointestinal Bleed: No Hx Ulcer: Yes (several years) Hx Hiatal Hernia: No Difficulty Chewing/Swallowing: No Special diet followed at home: No Hx Unplanned Weight Loss of 20#: No HX Unplanned Weight Gain of 20#: No Neurological Hx Seizures: No HX Syncope/Blackout Spells/Unconsciousness: No Hx Transient Ischemic Attacks (TIA): No Hx Multiple Sclerosis: No Hx Parkinson's Disease: No Hx Head/Neck Injury: Yes (NECK INJURY-RESULTED IN SURGERY) Hx Headaches: No Hx Back Injury/Pain: Yes (BACK INJURY-FELL 22 FT- RESULTED IN 5 BACK SURGERIES) Recent Onset of Speech Difficulty: No Restless Legs: No Does patient have nerve stimulator: No Blood Disorder Hx Leukemia: No Bleeding Tendencies: No Hx Deep Vein Thrombosis: No Hx High Cholesterol: Yes (ON NO MEDS) Blood Transmitted Disease: No Hx Hepatitis: No Hx Cirrhosis: No Hx Anemia: No Hx Blood Disorders: No Reproduction : No Genitourinary Hx Renal Disease: No Hx Dialysis: No Musculoskeletal Hx Arthritis: Yes Hx Rheumatoid Arthritis: No Hx Gout: No Recent Onset of an Orthopedic Problem: No Endocrine Hx Diabetes: No Thyroid Disease: No Hx Steroid Therapy: Yes (INJ 45 DAYS AGO) Psycho/Social Hx Substance Use: No Hx Alcohol Use: No Hx Anxiety: Yes Hx Depression: No Mental Illness: No Hx Dementia: No Miscellaneous Hx Cancer: No Recent Exposure to Contagious Disease: No Hx of C-Diff: No Any Loose Teeth: Yes (UPPER DENTURES) Allergies Iodinated Contrast Media Allergy (Severe, Verified 03/18/24 11:57) Anaphylaxis iodine Allergy (Verified 03/18/24 11:57) Anaphylaxis shrimp Allergy (Verified 03/18/24 11:57) Anaphylaxis Paternal: Family History (Updated 03/08/24 @ 13:08 by Olesya Ye) Mother Colon cancer Aunt Colon cancer Uncle Colon cancer Brother Colon polyps Cancer and Heart Disease Discharge Is Pt Admitted From a Skilled Nursing, or a Half-Way: No After D/C, Where Do you Plan to Go: Return Home From the PAT History Number of Risk Factors: 4 Vital Signs Vital Signs Vital Signs: 03/18/24 11:58 03/18/24 11:58 Temperature 97.9 F Temperature Source Temporal Pulse Rate 64 Respiratory Rate 16 Respiratory Pattern Normal Blood Pressure 128/75 H Blood Pressure Mean 92 Blood Pressure Source Monitor Blood Pressure Position Semi-Fowlers Blood Pressure Location Left Arm Pulse Ox 95 Oxygen Delivery Method Room Air Weight Weight: 221 lb 5.506 oz Body Mass Index (BMI) 31.7 Physical Exam Const alert and oriented x3 HEENT normocephalic Eyes PERRL Resp normal respiratory effort and normal air movement Cardio regular rate and regular rhythm GI soft to palpation, non-tender and non-distended Extremity normal to inspection Assessment & Plan Assessment/Plan (1) Hx of colonic polyps: PLAN: I explained endoscopy in detail to the patient. I explained the risks including but not limited to stroke or heart attack with anesthesia, perforationof the GI tract, bleeding, infection. I explained that any of these could necessitate further emergency surgery. The patient understands and all questions were answered sufficiently. The patient wishes to proceed with procedure. Donta Anne MD Pager: [facility] [address] [place] [address], [address] [place] [address] Office: Surgery Risks - Colonoscopy Risks Include but are not Limited To: Risks include but are not limited to: Bleeding, perforation requiring further surgery, inability to complete colonoscopy requiring barium enema. 03/18/24 1250 <Electronically signed by Donta Anne MD> Cosigner Signature (if applicable): CC: NAS Padilla; Dr. Donta Anne MD~ Signed [facility] Work Phone: Hospital Discharge instructions Additional Instructions Drink lots of fluids. Alternate ibuprofen and Tylenol for fever control. Return to the emergency room if your symptoms worsen.[facility] Work Phone: Reason for referral (narrative)No reason for referral information availableKaiser [facility]erman[facility] Work Phone: Summary Purpose Family History No Family History Records Found Relationship Condition Age at Onset Recorded Date/T hayde Unknown Family History?Cance r, Heart Disease Unknown January 15, 2021 1:02pm Relationship Condition Age at Onset Recorded Date/T hayde Unknown Family History?Cance r, Heart Disease Unknown January 15, 2021 12:02pm Relationship Condition Age at Onset Recorded Date/T hayde mother Malignant neoplasm of colon Unknown aunt Malignant neoplasm of colon Unknown uncle Malignant neoplasm of colon Unknown brother Polyp of colon Unknown Advance Directives No Advanced Directives Records Found Advance Directive Response Recorded Date/ Time Living Will Yes January 15 1:02pm Power of Slide Fastener Repairer Yes January 15, 2021 1:02pm Advance Directive Response Recorded Date/ Time Name of Medical Power of Slide Fastener Repairer . October 21, 2022 11:58pm Living Will Yes October 21 11:58pm Power of Slide Fastener Repairer Yes October 21, 2022 11:58pm Advance Directive Response Recorded Date/ Time Living Will Yes October 21 11:58pm Power of Slide Fastener Repairer Yes October 21, 2022 11:58pm Name of Medical Power of Slide Fastener Repairer . October 21, 2022 11:58pm Advance Directive Response Recorded Date/ Time Living Will No December 12 12:43pm Power of Slide Fastener Repairer No December 12, 2023 12:43pm Advance Directive Response Recorded Date/ Time Name of Medical Power of Slide Fastener Repairer Veronica Oliveira December 12, 2023 3:39pm Living Will Yes December 12 3:39pm Power of Slide Fastener Repairer Yes December 12, 2023 3:39pm Advance Directive Response Recorded Date/ Time Name of Medical Power of Slide Fastener Repairer Veronica Oliveira December 12, 2023 4:39pm Name of Medical Power of Slide Fastener Repairer - VERONICA March 13, 2024 2:50pm Living Will Yes March 13, 2024 2:50pm Power of Slide Fastener Repairer Yes March 13 2:50pm Date Activated Date Inactivated Comments 04/14/2024 9:57 PM 04/19/2024 4:26 PM Question Answer Comments Full Code Order Discussed With: Patient Date Activated Date Inactivated Comments 04/14/2024 9:57 PM 04/19/2024 4:26 PM Question Answer Comments Full Code Order Discussed With: Patient Chief Complaint and Reason for Visit Chief Complaint PSA Chief Complaint PSA COLD SYMPTOMS Chief Complaint COLD SYMPTOMS Cough Chief Complaint CHEST PAIN, ACS RULE OUT Reason for Visit Chest pain Hx of hypercholesterolemia Chief Complaint CHEST PAIN, ACS RULE OUT CHEST PAIN, ACS RULE OUT CHEST PAIN, ACS RULE OUT CHEST PAIN, ACS RULE OUT CHEST PAIN, ACS RULE OUT CHEST PAIN, ACS RULE OUT CHEST PAIN, ACS RULE OUT Reason for Visit Chest pain Exertional chest pain Hx of hypercholesterolemia Unstable angina Chief Complaint CHEST PAIN, ACS RULE OUT CHEST PAIN, ACS RULE OUT CHEST PAIN, ACS RULE OUT CHEST PAIN, ACS RULE OUT CHEST PAIN, ACS RULE OUT CHEST PAIN, ACS RULE OUT CHEST PAIN, ACS RULE OUT S/P [facility] 12/14/23 CP Amb Documentation Reason for Visit Chest pain Exertional chest pain Hx of hypercholesterolemia Unstable angina Coronary artery arteriosclerosis Exertional chest pain Hx of hypercholesterolemia Hx of colonic polyps Chief Complaint Admit Date 1 Y January 22, 2025 10:3 8am 2 M FU April 09, 2025 9:26a m Reason for Visit Admit Date Coronary artery arteriosclerosis January 222024 10:38am Essential hypertension January 22, 2025 1 0:38am Hx of hypercholesterolemia January 22 10:38am Coronary artery arteriosclerosis March 9:26am Essential hypertension April 09, 2025 9: 26am Hx of hypercholesterolemia April 09 9:26am Chief Complaint Admit Date 1 Y January 22, 2025 10:3 8am 2 M FU April 09, 2025 9:26a m PVD April 18, 2025 7:48a m Reason for Visit Admit Date Coronary artery arteriosclerosis January 222024 10:38am Essential hypertension January 22, 2025 1 0:38am Hx of hypercholesterolemia January 22 10:38am Coronary artery arteriosclerosis March 9:26am Decreased dorsalis pedis pulse April 09, 2025 9:26am Essential hypertension April 09, 2025 9: 26am Hx of hypercholesterolemia April 09 9:26am Reason for Referral Specialty Diagnoses / Procedures Referred By Duran phillips Referred To Contact CT IMAGING Diagnoses Eosinophilic pneumonia (HCC) Interstitial pulmonary disease (HCC) Procedures CT CHEST WO IVCON DIAGNOSTIC COMPUTED TOMOGRAPHY THORAX W/O CNTRST Lc Brown MD [address] [facility] [place] [address] Ct Imaging [place] [address] Referral ID Status Reason Start Date Expiration Date Visits Requested Visits Authorized [id number] Pending Review Auto-Generat ed Referral 05/19/2024 05/19/2025 1 1 Specialty Diagnoses / Procedures Referred By Duran phillips Referred To Contact [facility] Diagnoses Eosinophilic pneumonia (HCC) Procedures LUNG DIFFUSION CAPACITY (DLCO) DIFFUSING CAPACITY Lc Brown MD [address] [place] [address] [facility] [place] [address] [place] [id number] Referral ID Status Reason Start Date Expiration Date Visits Requested Visits Authorized [id number] Pending Review Auto-Generat ed Referral 04/19/2024 05/19/2025 1 1 Specialty Diagnoses / Procedures Referred By Contac t Referred To Contact [facility] [place] Diagnoses Eosinophilic pneumonia (HCC) Procedures LUNG VOLUMES Lc Brown MD [address] [place] [address] [place] [address] Referral ID Status Reason Start Date Expiration Date Visits Requested Visits Authorized [id number] Pending Review Auto-Generat ed Referral 04/19/2024 05/19/2025 1 1 Specialty Diagnoses / Procedures Referred By Contac t Referred To Contact [facility] [place] Diagnoses Eosinophilic pneumonia (HCC) Procedures SPIROMETRY - BASELINE AND POST DILATOR BRNCDILAT RSPSE SPMTRY PRE&POST-BRNCDILAT ADMN Lc Brown MD [address] [place] [id number] [address] Referral ID Status Reason Start Date Expiration Date Visits Requested Visits Authorized [id number] Pending Review Auto-Generat ed Referral 04/19/2024 05/19/2025 1 1 Referral ID Status Reason Start Date Expiration Date V isits Requested Visits Authorized [id number] Closed Auto-Generated Referral Patient Cleared - True Self-Pay required payment collected 05/19/2024 05/19/2025 1 1 Additional Source Comments (unrecognized sect ion and content) No Status Records FoundNo Status Records FoundNo Status Records Found INFORMATION SOURCE (unrecogn ized section and content) DATE CREATED AUTHOR [facility]/20/2020 [facility] DATE CREATED AUTHOR AUTHOR'S ORGANIZ ATION 06/11/2024 [place] DATE CREATED AUTHOR AUTHOR'S ORGANIZ ATION 05/14/[address] [facility] [facility] Goals (unrecognized section and content) Goals may be documented in a n alternate sectionGoals may be documented in an alternate sectionGoals may be documented in an alternate sectionGoals may be documented in an alternate sectionGoals may be documented in an alternate sectionGoals may be documented in an alternate section Source Comments (unrecognize d section and content) In the event this informatio n is protected by the Federal Confidentiality of Alcohol and Drug Abuse Patient Records regulations: The Federal rules restrict any use of the information to criminally investigate or prosecute any alcohol or drug abuse patient.[facility] the event this information is protected by the Federal Confidentiality of Alcohol and Drug Abuse Patient Records regulations: The Federal rules restrict any use of the information to criminally investigate or prosecute any alcohol or drug abuse patient.[facility] Hospital[facility] the event this information is protected by the Federal Confidentiality of Alcohol and Drug Abuse Patient Records regulations: The Federal rules restrict any use of the information to criminally investigate or prosecute any alcohol or drug abuse patient.[facility] the event this information is protected by the Federal Confidentiality of Alcohol and Drug Abuse Patient Records regulations: The Federal rules restrict any use of the information to criminally investigate or prosecute any alcohol or drug abuse patient.[facility] Hospital[facility] the event this information is protected by the Federal Confidentiality of Alcohol and Drug Abuse Patient Records regulations: The Federal rules restrict any use of the information to criminally investigate or prosecute any alcohol or drug abuse patient.[facility] the event this information is protected by the Federal Confidentiality of Alcohol and Drug Abuse Patient Records regulations: The Federal rules restrict any use of the information to criminally investigate or prosecute any alcohol or drug abuse patient.[facility] Hospital[facility] the event this information is protected by the Federal Confidentiality of Alcohol and Drug Abuse Patient Records regulations: The Federal rules restrict any use of the information to criminally investigate or prosecute any alcohol or drug abuse patient.[facility] Hospital[facility] the event this information is protected by the Federal Confidentiality of Alcohol and Drug Abuse Patient Records regulations: The Federal rules restrict any use of the information to criminally investigate or prosecute any alcohol or drug abuse patient.[facility] Hospital[facility] the event this information is protected by the Federal Confidentiality of Alcohol and Drug Abuse Patient Records regulations: The Federal rules restrict any use of the information to criminally investigate or prosecute any alcohol or drug abuse patient.[facility] Hospital[facility] the event this information is protected by the Federal Confidentiality of Alcohol and Drug Abuse Patient Records regulations: The Federal rules restrict any use of the information to criminally investigate or prosecute any alcohol or drug abuse patient.[facility] Hospital[facility] the event this information is protected by the Federal Confidentiality of Alcohol and Drug Abuse Patient Records regulations: The Federal rules restrict any use of the information to criminally investigate or prosecute any alcohol or drug abuse patient.[facility] HospitalIn the event this information is protected by the Federal Confidentiality of Alcohol and Drug Abuse Patient Records regulations: The Federal rules restrict any use of the information to criminally investigate or prosecute any alcohol or drug abuse patient.[facility] Reason for Visit (unrecogniz ed section and content) Reason Comments Cough Productive cough, ch est congestion x1.5 weeks, STUART Reason Comments Cough x 6 weeks Reason Comments Post Dc Program Call - Needs Attn Reason Comments Spirometry Specialty Diagnoses / Procedures Referred By Contac t Referred To [facility] [place] Diagnoses Eosinophilic pneumonia (HCC) Procedures SPIROMETRY - BASELINE AND POST DILATOR BRNCDILAT RSPSE SPMTRY PRE&[place] [address] [place] [address] [place] [address] Referral ID Status Reason Start Date Expiration Date V isits Requested Visits Authorized [id number] Closed Auto-Generated Referral Patient Cleared - True Self-Pay required payment collected 04/19/2024 05/19/2025 1 1 Specialty Diagnoses / Procedures Referred By Contac t Referred To [facility] [place] Diagnoses Eosinophilic pneumonia (HCC) Procedures LUNG DIFFUSION CAPACITY (DLCO) DIFFUSING CAPACITY Lc Brown MD [id number] [place] [address] Referral ID Status Reason Start Date Expiration Date V isits Requested Visits Authorized [id number] Closed Auto-Generated Referral Patient Cleared - True Self-Pay required payment collected 04/19/2024 05/19/2025 1 1 Specialty Diagnoses / Procedures Referred By Contac t Referred To [facility] [place] Diagnoses Eosinophilic pneumonia (HCC) Procedures LUNG VOLUMES PLETHYSMOGRAPHY LUNG VOLUMES W/WO AIRWAY RESIST Lc Brown MD [address] [place] [address] [address] [place] [id number] Referral ID Status Reason Start Date Expiration Date V isits Requested Visits Authorized [id number] Closed Auto-Generated Referral Patient Cleared - True Self-Pay required payment collected 04/19/2024 05/19/2025 [address] Specialty Diagnoses / Procedures Referred By Contac t Referred To Contact CT IMAGING Diagnoses Eosinophilic pneumonia (HCC) Interstitial pulmonary disease (HCC) Procedures CT CHEST WO IVCON DIAGNOSTIC COMPUTED TOMOGRAPHY THORAX W/O Lc Villanueva MD [address] [id number] [facility] [place] [address] Referral ID Status Reason Start Date Expiration Date V isits Requested Visits Authorized [id number] Closed Auto-Generated Referral Patient Cleared - True Self-Pay required payment collected 05/19/2024 05/19/2025 1 1 Reason Comments Patient Question Reason Comments Eosinophilic pneumonia Specialty Diagnoses / Procedures Referred By Contac t Referred To Contact [facility] Diagnoses Acute eosinophilic pneumonia Procedures [facility] Self [facility] Referral ID Status Reason Start Date Expiration Date V isits Requested Visits Authorized [id number] Closed OON/Self Pay Override Financial Clearance Required - Self Pay Patient Cleared - Admin/Lending Manager /Director advise to proceed or did not respond 04/22/2024 07/31/2025 1 1 Care Teams (unrecognized sec tion and content) Team Status: Active Member Role Status Dates Dr. Jorge Benitez MD Family Provider Active Dr. Jorge Benitez MD Primary Care Provider Active Team Status: Active Member Role Status Dates Dr. Jorge Benitez MD Primary Care Provider Active Dr. Alyson Ortiz DO Emergency Provider Active Dr. Glenroy Frankel , DO Admit Provider, Attending Provider Active Team Status: Inactive Member Role Status Dates Dr. Jorge Benitez MD Primary Care Provi jd, Attending Provider, Referring Provider Active Team Status: Active Member Role Status Dates Dr. Jorge Benitez MD Primary Care Provider Active Dr. Alyson Ortiz DO Emergency Provider Active Dr. Glenroy Frankel , DO Admit Provi jd, Attending Provider, Other Provider Active Team Status: Active Member Role Status Dates Dr. Jorge Benitez MD Primary Care Provider Active Dr. Alyson Ortiz DO Emergency Provider Active Dr. Glenroy Frankel , DO Admit Provider, Other Pro vider Active Dr. Gilberto Badillo MD Attending Provider, Other Prov ider Active Team Status: Active Member Role Status Dates Dr. Jorge Benitez MD Primary Care Provider Active Dr. Alyson Ortiz DO Emergency Provider Active Dr. Glenroy Frankel , DO Admit Provider, Other Pro vider Active Dr. Gilberto Badillo MD Other Provider Active Dr. Genaro Butler MD Attending Provider Active Team Status: Active Member Role Status Dates Dr. Jorge Benitez MD Primary Care Provider Active Dr. Nawaf Sprague MD Attending Provider Active Team Status: Active Member Role Status Dates Dr. Jorge Benitez MD Primary Care Provider Active Dr. Alyson Ortiz DO Emergency Provider Active Dr. Glenroy Frankel , DO Admit Provider, Other Pro vider Active Dr. Gilberto Badillo MD Other Provider Active Dr. Genaro Butler MD Attending Provider, Other Provi jd Active Team Status: Active Member Role Status Dates Dr. Jorge Benitez MD Primary Care Provider Active Dr. Alyson Ortiz DO Emergency Provider Active Dr. Glenroy Frankel , DO Admit Provider, Other Pro vider Active Dr. Gilberto Badillo MD Attending Provider, Other Prov ider Active Dr. Genaro Butler MD Other Provider Active Team Status: Inactive Member Role Status Dates Dr. Jorge Benitez MD Primary Care Provider Active Dr. Alyson Ortiz DO Emergency Provider Active Dr. Glenroy Frankel , DO Admit Provider, Other Pro vider Active Dr. Gilberto Badillo MD Other Provider Active Dr. Genaro Butler MD Attending Provider Active Team Status: Active Member Role Status Dates Dr. Jorge Benitez MD Family Provider Active Alexandrea Padilla IGNITION MECHANIC, IGNITION MECHANIC-C Primary Care Provider Activ e Team Status: Inactive Member Role Status Dates Dr. Jorge Benitez MD Primary Care Provider, Referring Provider Active Dr. Gilberto Badillo MD Attending Provider Active Team Status: Active Member Role Status Dates Dr. Jorge Benitez MD Primary Care Provider Active [facility] Attending Provider Active Team Status: Active Member Role Status Dates Dr. Donta Anne MD Attending Provider, Other Provider Active Alexandrea Padilla IGNITION MECHANIC, IGNITION MECHANIC-C Primary Care Provider, Refe rring Provider Active Team Status: Inactive Member Role Status Dates Dr. Donta Anne MD Attending Provider Active Alexandrea Padilla IGNITION MECHANIC, IGNITION MECHANIC-C Primary Care Provider, Refe rring Provider Active Team Status: Inactive Member Role Status Dates Alexandrea Padilla IGNITION MECHANIC, IGNITION MECHANIC-C Primary Care Provider Activ e Start: January 22, 2025 End: January 22, 2025 Alexandrea Padilla IGNITION MECHANIC, IGNITION MECHANIC-C Referring Provider Active Start: January 22, 2025 End: January 22, 2025 Oriana THORPE PA Attending Provider Active Start: January 22, 2025 End: January 22, 2025 Team Status: Inactive Member Role Status Dates Alexandrea Padilla IGNITION MECHANIC, IGNITION MECHANIC-C Primary Care Provider Activ e Start: April 09, 2025 End: April 09, 2025 Alexandrea Padilla IGNITION MECHANIC, IGNITION MECHANIC-C Referring Provider Active Start: April 09, 2025 End: April 09, 2025 MAURILIO Verma Attending Provider Active Start: April 09, 2025 End: April 09, 2025 Team Status: Active Member Role Status Dates Alexandrea Padilla IGNITION MECHANIC, IGNITION MECHANIC-C Primary Care Provider Activ e Team Status: Inactive Member Role Status Dates Alexandrea Padilla IGNITION MECHANIC, IGNITION MECHANIC-C Primary Care Provider Activ e Start: April 18, 2025 End: April 18, 2025 MAURILIO Verma Attending Provider Active Start: April 18, 2025 End: April 18, 2025 MAURILIO Verma Referring Provider Active Start: April 18, 2025 End: April 18, 2025 Team Status: Active Member Role Status Dates Alexandrea Padilla IGNITION MECHANIC, IGNITION MECHANIC-C Primary Care Provider Activ e Start: April 18, 2025 Dr. Gareth Burns MD Attending Provider Active S tart: April 18, 2025 FOR RECORDS PERTAINING TO PATIENTS WHO ARE [...] BE BASED ON THE PRIMARY CLINICAL RECORDS. [facility] provides no warranty or guarantee of the accuracy or completeness of information in this document.
[2025-06-08 09:02] LABS: Hematocrit 45.9 % (40-54); Hemoglobin 16.1 g/dL (13.0-16.5); Immature Granulocytes Count 0.040 X10^3/uL (0.0-0.0); Mean Corp Hgb Conc 35.1 g/dL (32-36); Mean Corpuscular Volume 90.0 fL (80-94); Mean Platelet Vol. 11.1 fl (6.2-12.0); NRBC Flagged by Analyzer 0 % (0-5); Platelet Count 173 K/mm3 (150-450); RBC Distribution Width CV 12.7 % (11.6-14.6); RBC Distribution Width SD 41.6 fl (35.1-43.9); Red Blood Count 5.10 M/mm3 (4.6-6.2); White Blood Count 7.7 K/mm3 (4.4-11.0)
[2025-06-08] MEDS: Nitroglycerin SL (ED/IMG/CATH) 0.4 MG TABLET SL (09:06)
--- NOTE | 2025-06-08 09:13 | ED.VIS.CHEST ---
HPI History of Present Illness Chief Complaint: Chest Pain Detail of Chief Complaint: Chest pain prelieve bite nitro and chest pain this morning Informant: patient and spouse/S.O. Onset/Context/Timing Onset: Today, Hours (Approximately 7 AM getting ready for voodoo) and Days ( evening at rest) Activity at onset: sudden Timing: Intermittent and Lasts (First episode 20 to 30 minutes today's episode still present) Quality: Positive for Dull and Sharp Location: Left Chest Current Severity: 4/10 Maximum Severity: 8/10 Worsened By: Nothing Relieved By: NTG (On not this morning) Associated Symptoms: Positive for Nausea and Dyspnea; Negative for Vomiting, Diaphoresis, Cough, Fever, Lightheadedness, Acid Reflux or Palpitations Narrative Narrative: Patient is a 64-year-old male. He has known coronary artery disease and had a cardiac catheterization performed by Dr. Gilberto Badillo November 2023. He was noted to have a significant lesion, 70% involving the diagonal branch which was treated medically. Patient is presently on Imdur 30 mg daily and metoprolol 50 mg daily. He also takes a baby aspirin. He states he took his baby aspirin this morning. On at rest he developed this dull discomfort left side and was alleviated with 1 nitro. He did have some discomfort in his shoulder at that time, left side today while getting ready for voodoo he developed left-sided chest sharp dull pain with discomfort in his left shoulder and arm and slight nausea. He took a nitro with no relief. When asked if the nitro burned his response was no . He does have history of reflux. He states this is different than his reflux. He failed to mention that he took Lasix the last couple of days. The registration person informed me of this. He told her while she was registering him. Patient is still having pain. He denies black or maroon-colored stool. He denies leg pain, swelling discoloration. He has no history of VTE. Prior Similar Symptoms: Yes and With Prior Angina CVD Risk Factors: Positive for Hypertension and Hypercholesterolemia; Negative for Diabetes, Family History 1' </=55 or Smoking PE Risk Factors: Negative for Recent Travel/Surgery, Recent Immobilization, Prior DVT or PE, Cancer or OCP + Smoking + >/=35 TAD Risk Factors: Positive for Hypertension; Negative for Marfan's Syndrome or Family History PFSH PFSH Medical History Essential hypertension Wears glasses Wears dentures Anxiety High cholesterol Gastric reflux Heartburn Former smoker Shortness of breath on exertion CPAP (continuous positive airway pressure) dependence Sleep apnea Cardiology follow-up encounter History of echocardiogram History of stress test Hx of colonic polyps History of left heart catheterization Hx of hypercholesterolemia Atypical chest pain Home Medications ?Medication ?Instructions ?Recorded ?Last Taken ?Type trazodone 100 mg tablet 100 mg PO QHS SLEEP 12/12/23 06/07/25 History nitroglycerin 0.4 mg sublingual 0.4 mg sublingual Q5M PRN chest 12/27/23 06/08/25 Rx tablet pain #30 tabs aspirin 81 mg chewable tablet 81 mg PO BREAKFAST #30 tabs 01/22/25 06/07/25 Rx carvedilol 6.25 mg tablet 6.25 mg PO BID #60 tabs 04/09/25 06/07/25 Rx furosemide 40 mg tablet (Lasix) 40 mg PO DAILY 06/08/25 06/07/25 History Allergy/AdvReac Type Severity Reaction Status Date / Time Iodinated Contrast Media Allergy Severe Anaphylaxis Verified 06/08/25 08:42 iodine Allergy Anaphylaxis Verified 06/08/25 08:42 shrimp Allergy Anaphylaxis Verified 06/08/25 08:42 Family History Mother Colon cancer Aunt Colon cancer Uncle Colon cancer Brother Colon polyps Surgical History History of cardiac catheterization Hx of colonoscopy History of back surgery Social History household members: spouse current occupational status: employed Smoking Status: Former smoker alcohol intake: never substance use type: does not use clari/[facility]: [facility] Prior Cardiac Testing/Procedures Prior Cardiac Testing/Procedures: Echocardiogram (Last echo of record was November 2023. Normal LV size, left ventricle systolic function is normal with an estimated ejection fraction of 60%. There is evidence of stage I diastolic dysfunction. Pulmonary artery systolic pressure was 43 mmHg. There is no structural abnormalities noted of the valve) and Cardiac Angiogram ROS ROS ED Constitutional Constitutional ED: Denies chills, fever(s), subjective, sweats or weight loss Eyes Eyes: Reports none ENT ENT ED: Denies ear pain, rhinorrhea or sore throat Cardiovascular Cardiovascular: Reports as per HPI; Denies orthopnea or paroxysmal nocturnal dyspnea Respiratory/Chest Respiratory/Chest: Reports dyspnea on exertion and other Details: Patient reports dyspnea with activity since Monday. He states his driveway is to pull 100 paces and has an incline. ; Denies cough, orthopnea, paroxysmal nocturnal dyspnea or sputum Gastrointestinal Gastrointestinal: Denies abdominal pain, constipation, diarrhea, melena, nausea or vomiting Genitourinary Genitourinary ED: Denies dysuria, hematuria or urinary frequency Musculoskeletal Musculoskeletal: Denies arthralgias, back pain or myalgias Integumentary Denies rash Neurologic Neurologic: Denies headache(s), paresthesias or weakness Psychiatric Psychiatric: Denies anxiety or depression Endocrine Endocrinology: Denies cold intolerance or heat intolerance EXAM Physical Exam Const Vital Signs: 06/08/25 08:38 06/08/25 08:41 06/08/25 08:45 Temperature 97 F L Temperature Source Temporal Pulse Rate 70 71 68 Respiratory Rate 12 15 20 H Blood Pressure 141/101 H 150/87 H Blood Pressure Mean 114 95 Pulse Ox 97 98 96 Oxygen Delivery Method Room Air 06/08/25 08:46 06/08/25 09:00 06/08/25 09:06 Temperature Temperature Source Pulse Rate 56 L 66 Respiratory Rate 12 Blood Pressure 141/88 H 141/88 H Blood Pressure Mean 101 Pulse Ox 96 Oxygen Delivery Method Room Air 06/08/25 09:15 06/08/25 09:30 06/08/25 09:38 Temperature Temperature Source Pulse Rate 58 L 59 L Respiratory Rate 11 L Blood Pressure 138/81 H 126/67 H 116/62 Blood Pressure Mean 99 79 80 Pulse Ox 96 91 Oxygen Delivery Method 06/08/25 09:45 06/08/25 10:00 06/08/25 10:00 Temperature Temperature Source Pulse Rate 71 Respiratory Rate 16 Blood Pressure 116/62 133/86 H 128/78 H Blood Pressure Mean 78 101 92 Pulse Ox 96 99 95 Oxygen Delivery Method 06/08/25 10:15 06/08/25 10:30 06/08/25 10:45 Temperature Temperature Source Pulse Rate Respiratory Rate Blood Pressure 133/86 H 149/85 H 136/94 H Blood Pressure Mean 101 104 107 Pulse Ox 95 96 Oxygen Delivery Method 06/08/25 10:46 06/08/25 11:00 06/08/25 11:15 Temperature Temperature Source Pulse Rate 55 L Respiratory Rate 10 L 13 Blood Pressure 143/86 H 147/91 H Blood Pressure Mean 101 107 Pulse Ox 96 97 95 Oxygen Delivery Method 06/08/25 11:30 06/08/25 11:31 06/08/25 11:45 Temperature Temperature Source Pulse Rate Respiratory Rate Blood Pressure 129/98 H 150/88 H Blood Pressure Mean 106 100 Pulse Ox 97 98 Oxygen Delivery Method 06/08/25 12:00 Temperature Temperature Source Pulse Rate Respiratory Rate Blood Pressure 135/81 H Blood Pressure Mean 97 Pulse Ox 96 Oxygen Delivery Method Positive well nourished and well developed General Appearance ED: well developed and NAD HEENT Reports moist mucous membranes normocephalic and atraumatic Eyes PERRL and EOMs intact bilaterally General Eye ED: Negative for pale conjunctiva or scleral icterus Neck supple and no JVD Neck Narrative: Trachea is midline. There is no carotid bruits. Patient has no midline pain. He has surgical scars noted. He states he had disc surgery in [place]. He presents with pain from the left side of his neck in the distribution of C5-C6 on the left. Tricep, bicep and brachialis deep tendon reflexes 1+ and symmetric. Axillary, median, radial and ulnar function intact. Patient has a positive drop test on the left with pressure applied. Negative Homans test bilaterally. There is no evidence of muscle wasting noted of his neck region or shoulder region. Radial pulses 2+. Having him rotate to the right or left causes some discomfort to the left. Having him turn to the left with pressure causes some pain on the left side. There is no pain noted when he rotates to the left and flexes. Chest Wall inspection of chest normal and palpation of chest normal Resp normal respiratory effort and clear to auscultation bilaterally Cardio regular rate, regular rhythm, S1 normal heart sound, S2 normal heart sound and no murmurs GI normal to inspection, nondistended, normoactive bowel sounds, soft to palpation, non-tender, non-distended and no masses; Negative for hepatosplenomegaly Back/Spine no CVA tenderness and no thoracic nor lumbar tenderness Extremity normal to inspection Neuro oriented x3, CN's II-XII intact bilaterally and no sensory deficits noted Sensorium / Orientation: awake and alert Motor Exam: strength 5/5 throughout Psych mental status grossly normal Skin no rashes or lesions noted and no wounds Heart Score History: Slightly/Non-Suspicious ECG: Nonspecific Repolarization Age: >/= 65 years Risk Factors: 1 or 2 Risk Factors Score: 4 MDM MDM MDM Narrative Medical decision making narrative: Patient with chest pain with minimal or no activity. Episode did resolve with nitro on but not today. Need to rule out cardiac etiology versus other causes. Other causes would include pulmonary, GI, hepatic. Reviewed his priors echo and catheterization. This was documented in HPI narrative. Patient was insistent to have an MRI. Patient was told that location and measurement technician is not available. More importantly does not meet criteria for emergent MRI. He states this has been bothering him for the past 4 months. On exam there is concern that this may represent a C5 nerve problem. With him he is also having pain of his shoulder with movement we will obtain x-ray of the cervical spine with our oblique views and multiview of the shoulder. History & Record Review Additional record(s) reviewed:: Prior inpatient record, Prior outpatient record, Prior ED visit and Prior labs Lab Data Attestation: I reviewed the patient's lab results. Lab results narrative: CBC is normal. Basic metabolic panel shows slight elevation of BUN at 20. Glucose is elevated at 113 with a normal CO2 anion gap. First troponin is normal at 11. Labs: Laboratory Results - last 24 hr 06/08/25 06/08/25 08:41 10:51 WBC 7.7 RBC 5.10 Hgb 16.1 Hct 45.9 MCV 90.0 MCH 31.6 MCHC 35.1 RDW Std Deviation 41.6 RDW Coeff of Ortega 12.7 Plt Count 173 MPV 11.1 Immature Gran % (Auto) 0.500 Neut % (Auto) 62.8 Lymph % (Auto) 29.1 Edmunds % (Auto) 6.7 Eos % (Auto) 0.8 Baso % (Auto) 0.1 Absolute Neuts (auto) 4.8 Absolute Lymphs (auto) 2.24 Nucleated RBC % 0 Sodium 140 Potassium 3.6 Chloride 101 Carbon Dioxide 25.0 Anion Gap 14 BUN 20 H Creatinine 0.96 Estim Creat Clear Calc 86.90 Est GFR (MDRD) Non-Af 87 BUN/Creatinine Ratio 20.8 H Glucose 113 H Calcium 10.0 Troponin T High Sens 11 Troponin T Hi Sens 2 Hr 10 Radiography Chest X-Ray - ED: 1 View, 2 View (4 view x-ray of the left shoulder reveals no obvious abnormality. There is no subluxation, dislocation or fracture. There is some irregularity to the humeral head which may represent osteoarthritis. There is no calcification of the supraspinatus tendon.), Read by ED Physician (Single view portable chest x-rays and plain reviewed interpreted by me at 0905 as negative for any acute pathology. Cardiac silhouette size normal. Lung parenchyma normal. No effusion noted. Hilum is unremarkable.) and - (4 view x-ray of the cervical spine was obtained. There is narrowing of the C5-6 and C6-7 foraminal opening on the left. Patient does have symptoms involving C5-C6.) Diagnostic Testing: Clinical Impression(s) from Imaging Studies Chest X-Ray 06/08/25 08:46 IMPRESSION: Negative Chest. Reading Location: [facility] Shoulder X-Ray 06/08/25 11:45 IMPRESSION: There is decreased space between the humerus and acromion. There is subtle irregularity of the humeral head at the insertion site of the rotator cuff tendon. These findings can be associated with rotator cuff tendon injury. Reading Location: [facility] Discharge Plan Triage Chief Complaint: Chest Pain ED Provider: Jimenez Tineo Dx/Rx/DC Orders Clinical Impression: Chest pain, Essential hypertension, Hx of hypercholesterolemia, Cervical radiculopathy at C6, Osteoarthritis of left shoulder, Coronary artery disease Instructions: Cervical Radiculopathy, ED Chest Pain, Uncertain Cause, ED Osteoarthritis Prescriptions: No Action nitroglycerin 0.4 mg tablet, sublingual 0.4 mg sublingual Q5M PRN (Reason: chest pain) Qty: 30 11RF Rx Instructions: do not exceed 3 doses per episode aspirin 81 mg tablet,chewable 81 mg PO BREAKFAST Qty: 30 4RF carvedilol 6.25 mg tablet 6.25 mg PO BID Qty: 60 11RF Rx Instructions: must administer with a meal/food trazodone 100 mg tablet 100 mg PO QHS furosemide [Lasix] 40 mg tablet 40 mg PO DAILY Primary Care Provider: Alexandrea Padilla NP Referrals: Armaan Rey MD [Med Staff - Active Staff] - 1-2 Weeks Alexandrea Padilla NP, [employer] [Primary Care Provider] - 1 Week Activity Restrictions/Additional Instructions: 1. You were given the name of Dr. Barajas who is a spine surgery since this may represent a problem with your nerves coming out of the openings in your cervical spine, neck region Print Language: Wolof Disposition Disposition: Home, Self Care
[2025-06-08 09:29] LABS: Anion Gap 14 (5-15); BUN 20 mg/dL (4-19); BUN/Creat Ratio 20.8 RATIO (10-20); Calcium,Total 10.0 mg/dL (7.6-11.0); Carbon Dioxide 25.0 mmol/L (21.0-32.0); Chloride 101 mmol/L (98-108); Estimated Creatinine Clearance 86.90 ml/min (50-250); Glucose 113 mg/dL (70-99); Potassium 3.6 mmol/L (3.3-5.1); Troponin T High Sensitivity 11 ng/L (<=22)
[2025-06-08 11:18] LABS: Troponin T High Sens 2 HR 10 ng/L (<=22)
--- NOTE | 2025-06-08 11:44 | RAD_ITS ---
PROCEDURE: CERV SPINE 4 OR 5 VIEWS 06/08/2025 REASON FOR EXAM: NECK PAIN AND PAIN C5-6 DISTRIBUTION TECHNIQUE: CERV SPINE 4 OR 5 VIEWS COMPARISON: CT cervical spine study dated 04/13/2024 FINDINGS: Five views of the cervical spine were obtained and demonstrate the cervical vertebral body heights to be within normal limits. There is no spondylolisthesis or spondylolysis. There is loss of the normal lordotic cervical curvature which may be secondary to muscle spasm or strain. Very mild changes of the cervical spine are noted. The dens and lateral masses are somewhat obscured by normal overlapping anatomical structures. The visualized portions appear unremarkable. Radiopaque hardware is seen at the C6-C7 level which appears to be a disc spacer. There is disc space narrowing involving the C3-C4, C4-C5, and C5-C6 disc spaces. There appears to be some bony encroachment on the neural foramina at these levels. There is no prevertebral soft tissue swelling. RAD/Cerv Spine 4 or 5 Views IMPRESSION: There is loss of the normal lordotic cervical curvature which may be secondary to muscle spasm or strain. Very mild changes of the cervical spine are noted. Radiopaque hardware is seen at the C6-C7 level which appears to be a disc space r. There is disc space narrowing involving the C3-C4, C4-C5, and C5-C6 disc spaces . There appears to be some bony encroachment on the neural foramina at these levels. Reading Location: [id number]
--- NOTE | 2025-06-08 11:45 | RAD_ITS ---
PROCEDURE: SHOULDER MIN 2 VIEWS 06/08/2025 REASON FOR EXAM: INJURY/PAIN TECHNIQUE: SHOULDER MIN 2 VIEWS COMPARISON: None FINDINGS: Four views of the left shoulder demonstrate normal mineralization of the osseous structures. There are no fractures or dislocations. The joint spaces appear to be well preserved. There is decreased space between the humerus and acromion. There is subtle irregularity of the humeral head at the insertion site of the rotator cuff tendon. These findings can be associated with rotator cuff tendon injury. The visualized left ribs demonstrate no displaced fracture. The visualized portion of the left lung demonstrates no lung contusion or pneumothorax RAD/Shoulder min 2 Views IMPRESSION: There is decreased space between the humerus and acromion. There is subtle irre gularity of the humeral head at the insertion site of the rotator cuff tendon. These findings can be associated with rotator cuff tendon injury. Reading Location: [id number]
== END 2025-06-08 13:03 | disposition home or self-care (01) ==
PROVIDERS: Emergency Provider Emergency Medicine; PCP Nurse Practitioner Family; Visit Provider Emergency Medicine
DX: R07.9 Chest pain, unspecified (principal); Z87.891 Personal history of nicotine dependence; Z79.82 Long term (current) use of aspirin; I10 Essential (primary) hypertension; I25.10 Atherosclerotic heart disease of native coronary artery without angina pectoris; M54.12 Radiculopathy, cervical region; M19.012 Primary osteoarthritis, left shoulder; G47.30 Sleep apnea, unspecified; Z99.89 Dependence on other enabling machines and devices; Z79.899 Other long term (current) drug therapy; E78.00 Pure hypercholesterolemia, unspecified
CPT/HCPCS: 71045; 72050; 73030; 80048; 84484; 85025; 93005; 99284; A4216